=== PATIENT | female | born 1940 | race Caucasian/White ===

== ENCOUNTER 2016-12-01 10:53 | Outpatient (RCR) | payer MEDICARE ==
--- OUTSIDE RECORDS SUMMARY | 2016-09-08 11:08 | XMS REPORT | Continuity of Care Document ---
Author Author [facility] Organization [facility] Address Unknown Phone Unavailable Care Team Providers Care Renewals Representative Name Role Phone Cornell Louie PCP [phone] Source Comments Some departments are not documenting in the electronic medical record. If you do not see the information that you expected, contact Release of Information in the Health Information Management department at [phone] for further assistance in locating additional records.[facility] Active Allergies and Adverse Reactions Allergen Noted Date Severity Reactions Comments Morphine 09/11/2014 AGITATION Current Medications Prescription Sig. Disp. Refills Start End Date Status Date levothyroxine (SYNTHROID) Take 75 mcg by mouth Active 75 mcg tablet daily. venlafaxine XR (EFFEXOR Take 75 mg by mouth Active XR) 75 mg capsule daily. metFORMIN (GLUCOPHAGE) Take 1,000 mg by mouth Active 500 mg tablet twice daily with meals. atorvastatin (LIPITOR) 80 Take 80 mg by mouth Active mg tablet daily. cyanocobalamin (VITAMIN Inject 1,000 mcg to Active B-12, RUBRAMIN) 1,000 area(s) as directed every mcg/mL injection 30 days. aspirin EC 81 mg tablet Take 81 mg by mouth at Active bedtime daily. acetaminophen (TYLENOL) Take 650 mg by mouth Active 325 mg tablet every 4 hours as needed. For headache apixaban (ELIQUIS) 5 mg Take 5 mg by mouth twice Active tab tablet daily. metoprolol (LOPRESSOR) 50 Take 1 Tab by mouth twice 30 Tab 0 09/14/20 Active mg tablet daily. 14 allopurinol (ZYLOPRIM) Take 100 mg by mouth Active 100 mg tablet daily. olmesartan(+) (BENICAR) Take 20 mg by mouth Active 20 mg tablet daily. gabapentin (NEURONTIN) Take 300 mg by mouth Active 300 mg capsule daily. sitaGLIPtin (JANUVIA) 100 Take 100 mg by mouth Active mg tab tablet daily. insulin glargine (LANTUS) Inject 35 Units into Active 100 unit/mL injection area(s) as directed at bedtime daily. insulin aspart (NOVOLOG) Inject into area(s) as Active 100 unit/mL injection directed as Needed. LIRAGLUTIDE (VICTOZA Inject 1.2 mL into Active 3-EDDIE SC) area(s) as directed daily. Active Problems Problem Noted Date Bilateral carotid artery disease ([facility]) 06/11/2015 S/P carotid endarterectomy 10/17/2014 Atrial fibrillation ([facility]) 10/17/2014 HTN (hypertension) 10/17/2014 DM (diabetes mellitus) ([facility]) 10/17/2014 Morbid obesity ([facility]) 09/20/2014 Left-sided weakness 09/11/2014 Acute ischemic left MCA stroke ([facility]) 09/11/2014 Overview: RUE weakness/numbness. Initially resolved but has since experienced staggering symptoms involving her RUE. Multi focal infarcts within the L MCA watershed territory. Patient was anticoagulated 2/2 A-Fib during stroke. Concern for ulcerated plaque within L Carotid Artery Social History Tobacco Use Types Packs/Day Years Used Date Former Smoker Cigarettes 2 60 Quit: 11/07/1995 Last Filed Vital Signs Vital Sign Reading Time Taken Blood Pressure 154/61 09/10/2015 2:01 PM LACTATION SPECIALIST Pulse 83 09/10/2015 2:01 PM LACTATION SPECIALIST Temperature 36.7 C (98 F) 09/10/2015 2:01 PM LACTATION SPECIALIST Respiratory Rate 16 09/10/2015 2:01 PM LACTATION SPECIALIST Height 1.588 m (5' 2.52") 09/10/2015 2:01 PM LACTATION SPECIALIST Weight 104.599 kg (230 lb 9.6 09/10/2015 2:01 PM LACTATION SPECIALIST oz) Body Mass Index 41.48 09/10/2015 2:01 PM LACTATION SPECIALIST Oxygen Saturation 96% 09/14/2014 7:00 AM LACTATION SPECIALIST Plan of Care Date Type Specialty Providers Description 10/06/2016 Appointment General Surgery 10/06/2016 Appointment General Surgery Koko Valdez MD [address] [facility] [address] [place] [address] [phone] (Fax) Health Maintenance Due Date Last Done Comments Physical (Comprehensive) 1947 Exam Pertussis Vaccine 1952 Tetanus Vaccine 1958 Colorectal Cancer 1991 Screening Shingles Vaccine 2001 Osteoporosis Screening 2006 Prevnar/Pneumovax (#1) 2006 Influenza Vaccine 07/08/2016 Results from Last 3 Months Not on file
[~2016-12-01 10:53] MED LIST: ACET-789 PO; ALLP100T PO; ASP81TEC PO; ATOR40TA PO; ATOR80TA75 PO; CYANOCOBALAMIN INJ 1000 MCG/ML (CANCER CENTER) ONE; ENXP40I.4 SC; FERR-57 PO; FRSM40T PO; GBPN300C PO; GLBR2.5T PO; GLYB5TAB6 PO; HYDR-3583 PO; Iron PO; LEVO75TA57 PO; LOPE2CAP PO; METF-380 PO; METO-272 PO; MTF500T PO; MTP50T PO; MULT1TAB63 PO; OLME20TA5 PO; OMEP40CA36 PO; OMG1KC PO; PANT40TA PO; PROP1TAB77; VENL75CA55 PO; VNL75T PO; WRF5T PO; cinnamon PO; iron
== END 2016-12-07 | disposition home or self-care (01) ==
LOC: ONC 10:53
PROVIDERS: ATTEND Internal Medicine Hematology & Oncology
DX: D51.9 Vitamin B12 deficiency anemia, unspecified (principal); Z79.899 Other long term (current) drug therapy
CPT/HCPCS: 96372

== ENCOUNTER 2017-04-20 10:55 | Outpatient (RCR) | payer MEDICARE ==
[2017-04-20] MEDS ORDERED: CYANOCOBALAMIN INJ 1000 MCG/ML (CANCER CENTER) ONE (10:57)
== END 2017-05-05 | disposition home or self-care (01) ==
LOC: ONC 10:55
PROVIDERS: ATTEND Internal Medicine Hematology & Oncology
DX: D51.9 Vitamin B12 deficiency anemia, unspecified (principal); Z79.899 Other long term (current) drug therapy
CPT/HCPCS: 96372

== ENCOUNTER 2017-07-13 12:45 | Outpatient (RCR) | payer MEDICARE ==
[2017-07-13 13:15] LABS: BASOPHILS # (AUTO) 0.1 10^3/uL (0.0-0.1); BASOPHILS % (AUTO) 1 % (0-10); EOSINOPHILS # (AUTO) 0.6 10^3/uL (0.0-0.3); EOSINOPHILS % (AUTO) 7 % (0-10); LYMPHOCYTES # (AUTO) 1.6 X 10^3 (1.0-4.0); LYMPHOCYTES % (AUTO) 18 % (12-44); MEAN CORPUSCULAR HEMOGLOBIN 27 PG (25-34); MEAN CORPUSCULAR HGB CONC 31 G/DL (32-36); MEAN CORPUSCULAR VOLUME 88 FL (80-99); MEAN PLATELET VOLUME 10.9 FL (7.4-10.4); MONOCYTES # (AUTO) 0.8 X 10^3 (0.0-1.0); MONOCYTES % (AUTO) 9 % (0-12); NEUTROPHILS % (AUTO) 66 % (42-75); PLATELET COUNT 381 10^3/uL (130-400); RED BLOOD COUNT 4.24 10^6/uL (4.35-5.85); RED CELL DISTRIBUTION WIDTH 15.5 % (10.0-14.5); WHITE BLOOD COUNT 9.2 10^3/uL (4.3-11.0)
[2017-07-13 13:35] LABS: ALBUMIN 3.6 GM/DL (3.2-4.5); BILIRUBIN,TOTAL 0.6 MG/DL (0.1-1.0); CALCIUM 9.2 MG/DL (8.5-10.1); CREATININE SERUM 1.15 MG/DL (0.60-1.30); POTASSIUM 4.1 MMOL/L (3.6-5.0)
[2017-07-13] MEDS ORDERED: CYANOCOBALAMIN INJ 1000 MCG/ML (CANCER CENTER) ONE (13:58)
[2017-07-14 01:02] LABS: LIGHT CHAIN KAPPA SERUM QUANT 56.41 mg/L (3.30-19.40); LIGHT CHAIN LAMBDA SERUM QUANT 32.67 mg/L (5.71-26.30)
== END 2017-08-06 | disposition home or self-care (01) ==
LOC: ONC 12:45
PROVIDERS: ATTEND Internal Medicine Hematology & Oncology
DX: D51.9 Vitamin B12 deficiency anemia, unspecified (principal); Z79.899 Other long term (current) drug therapy
CPT/HCPCS: 36415; 80053; 83883; 83921; 85025; 96372

== ENCOUNTER 2017-11-02 10:54 | Outpatient (RCR) | payer MEDICARE ==
[2017-11-02] MEDS ORDERED: CYANOCOBALAMIN INJ 1000 MCG/ML (CANCER CENTER) ONE (10:59)
== END 2017-11-08 | disposition home or self-care (01) ==
LOC: ONC 10:54
PROVIDERS: ATTEND Internal Medicine Hematology & Oncology
DX: D51.9 Vitamin B12 deficiency anemia, unspecified (principal); Z79.899 Other long term (current) drug therapy
CPT/HCPCS: 96372

== ENCOUNTER → 2018-02-21 | Outpatient (CLI) | payer MEDICARE ==
[~2018-02-21] MED LIST changes: -CYANOCOBALAMIN INJ 1000 MCG/ML (CANCER CENTER) ONE
--- NOTE | 2018-02-21 10:34 | Diagnostic Imaging Report ---
INDICATION: Increased shortness of air at times during the past month. Weight gain. TECHNIQUE: Two view chest at 10:31 AM. CORRELATION STUDY: 02/19/2013. FINDINGS: The heart size is enlarged but generally stable. The vasculature, however, appears increased from the prior study. The lung sánchez are without definitive infiltrate. Slight nodular density about the right lung base costophrenic angle appears generally stable. A nodule in the lower thoracic spine may be reflective of a granuloma, unchanged. The visualized osseous structures are unremarkable. IMPRESSION: Stable cardiac enlargement with the vasculature increased from the prior study. Dictated by: Dictated on workstation # [id number]
== END ==
LOC: RAD 09:57
PROVIDERS: ATTEND Family Medicine
DX: I51.7 Cardiomegaly (principal); I25.10 Atherosclerotic heart disease of native coronary artery without angina pectoris; R63.5 Abnormal weight gain
CPT/HCPCS: 36415; 71046; 83880

== ENCOUNTER 2018-06-07 11:01 | Outpatient (RCR) | payer MEDICARE ==
[~2018-06-07 11:01] MED LIST changes: +CYANOCOBALAMIN INJ 1000 MCG/ML (CANCER CENTER) ONE
[2018-06-07] MEDS ORDERED: CYANOCOBALAMIN INJ 1000 MCG/ML (CANCER CENTER) ONE (11:17)
== END 2018-06-20 | disposition home or self-care (01) ==
LOC: ONC 11:01
PROVIDERS: ATTEND Internal Medicine Hematology & Oncology
DX: D51.9 Vitamin B12 deficiency anemia, unspecified (principal); Z79.899 Other long term (current) drug therapy
CPT/HCPCS: 96372

== ENCOUNTER 2018-07-12 13:38 | Outpatient (RCR) | payer MEDICARE ==
[~2018-07-12 13:38] MED LIST changes: -CYANOCOBALAMIN INJ 1000 MCG/ML (CANCER CENTER) ONE
[2018-07-12 13:41] LABS: BASOPHILS # (AUTO) 0.1 10^3/uL (0.0-0.1); BASOPHILS % (AUTO) 1 % (0-10); EOSINOPHILS # (AUTO) 0.5 10^3/uL (0.0-0.3); EOSINOPHILS % (AUTO) 6 % (0-10); HEMATOCRIT 36 % (35-52); HEMOGLOBIN 11.7 G/DL (11.5-16.0); LYMPHOCYTES # (AUTO) 1.7 X 10^3 (1.0-4.0); LYMPHOCYTES % (AUTO) 18 % (12-44); MEAN CORPUSCULAR HEMOGLOBIN 29 PG (25-34); MEAN CORPUSCULAR HGB CONC 32 G/DL (32-36); MEAN CORPUSCULAR VOLUME 90 FL (80-99); MEAN PLATELET VOLUME 11.3 FL (7.4-10.4); MONOCYTES # (AUTO) 0.7 X 10^3 (0.0-1.0); MONOCYTES % (AUTO) 7 % (0-12); NEUTROPHILS # (AUTO) 6.6 X 10^3 (1.8-7.8); NEUTROPHILS % (AUTO) 69 % (42-75); PLATELET COUNT 362 10^3/uL (130-400); RED BLOOD COUNT 4.05 10^6/uL (4.35-5.85); RED CELL DISTRIBUTION WIDTH 15.5 % (10.0-14.5); WHITE BLOOD COUNT 9.6 10^3/uL (4.3-11.0)
[2018-07-12] MEDS ORDERED: CYANOCOBALAMIN INJ 1000 MCG/ML (CANCER CENTER) ONE (13:55)
[2018-07-12 14:01] LABS: ALBUMIN 3.7 GM/DL (3.2-4.5); BILIRUBIN,TOTAL 0.4 MG/DL (0.1-1.0); CALCIUM 9.5 MG/DL (8.5-10.1); CREATININE SERUM 1.34 MG/DL (0.60-1.30); POTASSIUM 4.6 MMOL/L (3.6-5.0); TOTAL PROTEIN 7.9 GM/DL (6.4-8.2)
== END 2018-08-06 | disposition home or self-care (01) ==
LOC: ONC 13:38
PROVIDERS: ATTEND Internal Medicine Hematology & Oncology
DX: D51.8 Other vitamin B12 deficiency anemias (principal); I48.2 Chronic atrial fibrillation; E11.22 Type 2 diabetes mellitus with diabetic chronic kidney disease; I12.9 Hypertensive chronic kidney disease with stage 1 through stage 4 chronic kidney disease, or unspecified chronic kidney disease; N18.3 Chronic kidney disease, stage 3 (moderate); I25.10 Atherosclerotic heart disease of native coronary artery without angina pectoris; K21.9 Gastro-esophageal reflux disease without esophagitis; E78.00 Pure hypercholesterolemia, unspecified; E03.9 Hypothyroidism, unspecified; M19.91 Primary osteoarthritis, unspecified site; E66.01 Morbid (severe) obesity due to excess calories; Z68.41 Body mass index [BMI] 40.0-44.9, adult; Z86.73 Personal history of transient ischemic attack (TIA), and cerebral infarction without residual deficits; Z79.01 Long term (current) use of anticoagulants; Z79.82 Long term (current) use of aspirin; Z79.4 Long term (current) use of insulin; Z79.899 Other long term (current) drug therapy
CPT/HCPCS: 36415; 80053; 85025; 96372

== ENCOUNTER 2018-10-04 10:58 | Outpatient (RCR) | payer MEDICARE ==
[~2018-10-04 10:58] MED LIST changes: +CYANOCOBALAMIN INJ 1000 MCG/ML (CANCER CENTER) ONE
[2018-10-04] MEDS ORDERED: CYANOCOBALAMIN INJ 1000 MCG/ML (CANCER CENTER) ONE (11:07)
== END 2018-11-07 | disposition home or self-care (01) ==
LOC: ONC 10:58
PROVIDERS: ATTEND Internal Medicine Hematology & Oncology
DX: D51.8 Other vitamin B12 deficiency anemias (principal); I48.2 Chronic atrial fibrillation; E11.22 Type 2 diabetes mellitus with diabetic chronic kidney disease; I12.9 Hypertensive chronic kidney disease with stage 1 through stage 4 chronic kidney disease, or unspecified chronic kidney disease; N18.3 Chronic kidney disease, stage 3 (moderate); I25.10 Atherosclerotic heart disease of native coronary artery without angina pectoris; K21.9 Gastro-esophageal reflux disease without esophagitis; E78.00 Pure hypercholesterolemia, unspecified; E03.9 Hypothyroidism, unspecified; M19.91 Primary osteoarthritis, unspecified site; E66.01 Morbid (severe) obesity due to excess calories; Z68.41 Body mass index [BMI] 40.0-44.9, adult; Z86.73 Personal history of transient ischemic attack (TIA), and cerebral infarction without residual deficits; Z79.01 Long term (current) use of anticoagulants; Z79.82 Long term (current) use of aspirin; Z79.4 Long term (current) use of insulin; Z79.899 Other long term (current) drug therapy
CPT/HCPCS: 96372

== ENCOUNTER → 2018-10-20 | Outpatient (CLI) | payer MEDICARE ==
[~2018-10-20] MED LIST changes: -CYANOCOBALAMIN INJ 1000 MCG/ML (CANCER CENTER) ONE
--- NOTE | 2018-10-20 13:21 | Diagnostic Imaging Report ---
PROCEDURE: MRI lumbar spine. TECHNIQUE: Multiplanar, multisequence MRI of the lumbar spine was performed without contrast. INDICATION: Low back pain, right leg pain, symptoms of 6 weeks' duration with no known discrete injury. COMPARISON: While no priors available for direct comparison, the study interpreted in correlation with abdominopelvic CT which includes sagittal and coronal reconstructions from an exam of 2007. FINDINGS: Since the previous exam, there has been interval solid fusion across the L4-L5 level with chronic grade 1 L4 on L5 anterolisthesis of about 5 mm. The remaining levels are aligned anatomically. There is no marrow edema. Conus appeared normal. The nerves of the cauda equina revealed a normal pattern of dispersal. There was no paravertebral mass, hemorrhage, or fluid collection. T12-L1: This level and disc were unremarkable without stenosis. L1-L2: Slight anterior osteophyte disc material at this level results in no stenosis. L2-L3: Mild anterior osteophyte disc material results in no stenosis. There is some thickening of the ligamenta flava and mild hypertrophic facet arthrosis. No substantial canal, foraminal, or recess narrowing. L3-L4: There is thickened elevated ligamenta flava and hypertrophic facet arthrosis. The disc shows only slight circumferential bulge. There is mild canal stenosis, predominantly on the basis of the posterior element hypertrophy which also results in mild right greater than left foraminal stenoses. L4-L5: Bulky hypertrophic facet arthrosis, endplate osteophytes, and ligamentous thickening conspire to result in severe central canal stenosis with [id number] right and yprk-jl-[id number] left foraminal stenosis. Facet arthrosis results in an at least mild degree of narrowing of the AP dimensions of the bilateral lateral recesses at L5. L5-S1: There is thickening of the ligament flava and hypertrophic facet arthrosis, resulting in no substantial degree of canal, foraminal, or recess stenosis. IMPRESSION: 1. 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 Malalignment, endplate hypertrophy, and posterior element hypertrophy with ligamentous thickening result in severe canal and biforaminal stenosis. 2. More mild stenoses listed level by level above. No acute bony pathology. Dictated by: Dictated on workstation # [id number]
== END ==
LOC: RAD 11:29
PROVIDERS: ATTEND Family Medicine
DX: M43.16 Spondylolisthesis, lumbar region (principal); M48.061 Spinal stenosis, lumbar region without neurogenic claudication; M47.817 Spondylosis without myelopathy or radiculopathy, lumbosacral region; M25.78 Osteophyte, vertebrae; Z98.1 Arthrodesis status
CPT/HCPCS: 72148

== ENCOUNTER 2019-01-05 09:12 | Outpatient (RCR) | payer MEDICARE | END 2019-01-05 10:10 | disposition home or self-care (01) | PROVIDERS: ATTEND Family Medicine | DX: M54.31 Sciatica, right side (principal) ==

== ENCOUNTER 2019-02-21 11:02 | Outpatient (RCR) | payer MEDICARE ==
[~2019-02-21 11:02] MED LIST changes: +CYANOCOBALAMIN INJ 1000 MCG/ML (CANCER CENTER) ONE
[2019-02-21] MEDS ORDERED: CYANOCOBALAMIN INJ 1000 MCG/ML (CANCER CENTER) ONE (11:18)
== END 2019-02-27 | disposition home or self-care (01) ==
LOC: ONC 11:02
PROVIDERS: ATTEND Internal Medicine Hematology & Oncology
DX: D51.8 Other vitamin B12 deficiency anemias (principal); I48.2 Chronic atrial fibrillation; E11.22 Type 2 diabetes mellitus with diabetic chronic kidney disease; I12.9 Hypertensive chronic kidney disease with stage 1 through stage 4 chronic kidney disease, or unspecified chronic kidney disease; N18.3 Chronic kidney disease, stage 3 (moderate); I25.10 Atherosclerotic heart disease of native coronary artery without angina pectoris; K21.9 Gastro-esophageal reflux disease without esophagitis; E78.00 Pure hypercholesterolemia, unspecified; E03.9 Hypothyroidism, unspecified; M19.91 Primary osteoarthritis, unspecified site; E66.01 Morbid (severe) obesity due to excess calories; Z68.41 Body mass index [BMI] 40.0-44.9, adult; Z86.73 Personal history of transient ischemic attack (TIA), and cerebral infarction without residual deficits; Z79.01 Long term (current) use of anticoagulants; Z79.82 Long term (current) use of aspirin; Z79.4 Long term (current) use of insulin; Z79.899 Other long term (current) drug therapy
CPT/HCPCS: 96372

== ENCOUNTER → 2019-04-05 | Outpatient (CLI) | payer MEDICARE ==
[~2019-04-05] MED LIST changes: -CYANOCOBALAMIN INJ 1000 MCG/ML (CANCER CENTER) ONE
== END ==
LOC: LAB 14:13
PROVIDERS: ATTEND Family Medicine
DX: E11.65 Type 2 diabetes mellitus with hyperglycemia (principal)
CPT/HCPCS: 36415; 82043

== ENCOUNTER 2019-06-13 11:05 | Outpatient (RCR) | payer MEDICARE ==
[~2019-06-13 11:05] MED LIST changes: +CYANOCOBALAMIN INJ 1000 MCG/ML (CANCER CENTER) ONE
[2019-06-13] MEDS ORDERED: CYANOCOBALAMIN INJ 1000 MCG/ML (CANCER CENTER) ONE (11:08)
== END 2019-06-21 | disposition home or self-care (01) ==
LOC: ONC 11:05
PROVIDERS: ATTEND Internal Medicine Hematology & Oncology
DX: D51.8 Other vitamin B12 deficiency anemias (principal); I48.2 Chronic atrial fibrillation; E11.22 Type 2 diabetes mellitus with diabetic chronic kidney disease; I12.9 Hypertensive chronic kidney disease with stage 1 through stage 4 chronic kidney disease, or unspecified chronic kidney disease; N18.3 Chronic kidney disease, stage 3 (moderate); I25.10 Atherosclerotic heart disease of native coronary artery without angina pectoris; K21.9 Gastro-esophageal reflux disease without esophagitis; E78.00 Pure hypercholesterolemia, unspecified; E03.9 Hypothyroidism, unspecified; M19.91 Primary osteoarthritis, unspecified site; E66.01 Morbid (severe) obesity due to excess calories; Z68.41 Body mass index [BMI] 40.0-44.9, adult; Z86.73 Personal history of transient ischemic attack (TIA), and cerebral infarction without residual deficits; Z79.01 Long term (current) use of anticoagulants; Z79.82 Long term (current) use of aspirin; Z79.4 Long term (current) use of insulin; Z79.899 Other long term (current) drug therapy
CPT/HCPCS: 96372

== ENCOUNTER 2019-10-03 08:32 | Outpatient (RCR) | payer MEDICARE ==
[2019-07-11 10:43] LABS: BASOPHILS # (AUTO) 0.1 10^3/uL (0.0-0.1); BASOPHILS % (AUTO) 1 % (0-10); EOSINOPHILS # (AUTO) 0.7 10^3/uL (0.0-0.3); EOSINOPHILS % (AUTO) 7 % (0-10); HEMATOCRIT 38 % (35-52); HEMOGLOBIN 11.7 G/DL (11.5-16.0); LYMPHOCYTES # (AUTO) 1.5 X 10^3 (1.0-4.0); LYMPHOCYTES % (AUTO) 14 % (12-44); MEAN CORPUSCULAR HEMOGLOBIN 27 PG (25-34); MEAN CORPUSCULAR HGB CONC 31 G/DL (32-36); MEAN CORPUSCULAR VOLUME 88 FL (80-99); MEAN PLATELET VOLUME 10.8 FL (7.4-10.4); MONOCYTES # (AUTO) 0.9 X 10^3 (0.0-1.0); MONOCYTES % (AUTO) 9 % (0-12); NEUTROPHILS # (AUTO) 7.2 X 10^3 (1.8-7.8); NEUTROPHILS % (AUTO) 69 % (42-75); PLATELET COUNT 447 10^3/uL (130-400); RED CELL DISTRIBUTION WIDTH 15.7 % (10.0-14.5); WHITE BLOOD COUNT 10.4 10^3/uL (4.3-11.0)
[2019-07-11 11:09] LABS: ALBUMIN 3.8 GM/DL (3.2-4.5); BILIRUBIN,TOTAL 0.6 MG/DL (0.1-1.0); CALCIUM 9.3 MG/DL (8.5-10.1); CREATININE SERUM 1.02 MG/DL (0.60-1.30); TOTAL PROTEIN 8.3 GM/DL (6.4-8.2)
== END 2019-10-09 | disposition home or self-care (01) ==
LOC: ONC 08:32
PROVIDERS: ATTEND Internal Medicine Hematology & Oncology
DX: D51.8 Other vitamin B12 deficiency anemias (principal); E11.22 Type 2 diabetes mellitus with diabetic chronic kidney disease; I12.9 Hypertensive chronic kidney disease with stage 1 through stage 4 chronic kidney disease, or unspecified chronic kidney disease; N18.3 Chronic kidney disease, stage 3 (moderate); I25.10 Atherosclerotic heart disease of native coronary artery without angina pectoris; K21.9 Gastro-esophageal reflux disease without esophagitis; E78.00 Pure hypercholesterolemia, unspecified; E03.9 Hypothyroidism, unspecified; M19.91 Primary osteoarthritis, unspecified site; E66.01 Morbid (severe) obesity due to excess calories; Z68.41 Body mass index [BMI] 40.0-44.9, adult; Z86.73 Personal history of transient ischemic attack (TIA), and cerebral infarction without residual deficits; Z79.01 Long term (current) use of anticoagulants; Z79.82 Long term (current) use of aspirin; Z79.4 Long term (current) use of insulin; Z79.899 Other long term (current) drug therapy
CPT/HCPCS: 36415; 80053; 83883; 83921; 85025; 96372

== ENCOUNTER 2020-01-08 11:22 | Outpatient (RCR) | payer MEDICARE | END 2020-04-07 | disposition home or self-care (01) | LOC: ONC 11:22 | PROVIDERS: ATTEND Internal Medicine Hematology & Oncology | DX: D51.8 Other vitamin B12 deficiency anemias (principal); E11.22 Type 2 diabetes mellitus with diabetic chronic kidney disease; I12.9 Hypertensive chronic kidney disease with stage 1 through stage 4 chronic kidney disease, or unspecified chronic kidney disease; N18.3 Chronic kidney disease, stage 3 (moderate); I25.10 Atherosclerotic heart disease of native coronary artery without angina pectoris; K21.9 Gastro-esophageal reflux disease without esophagitis; E78.00 Pure hypercholesterolemia, unspecified; E03.9 Hypothyroidism, unspecified; M19.91 Primary osteoarthritis, unspecified site; E66.01 Morbid (severe) obesity due to excess calories; Z68.41 Body mass index [BMI] 40.0-44.9, adult; Z86.73 Personal history of transient ischemic attack (TIA), and cerebral infarction without residual deficits; Z79.01 Long term (current) use of anticoagulants; Z79.82 Long term (current) use of aspirin; Z79.4 Long term (current) use of insulin; Z79.899 Other long term (current) drug therapy | CPT/HCPCS: 96372 ==

== ENCOUNTER 2020-02-03 14:28 | Emergency (ER) | payer MEDICARE ==
[~2020-02-03] VITALS: Ht 160 cm; Wt 102.1 kg
[~2020-02-03 14:28] MED LIST changes: -CYANOCOBALAMIN INJ 1000 MCG/ML (CANCER CENTER) ONE
--- NOTE | 2020-02-03 14:33 | ED Neurological Problem ---
General Chief Complaint: Neuro-Stroke Like Symptoms Stated Complaint: POSS STROKE Source: patient Exam Limitations: no limitations History of Present Illness Date Seen by Provider: Feb 03, 2020 Time Seen by Provider: 14:33 Initial Comments 79-year-old female brought in with headache. Headache located on the left side I. She also complains of what she is describing as word finding difficulty. Head or having difficulty getting words out. She reports that started after lunch maybe 2-3 hours ago. She states she felt a "pop" behind her left eye. She denies any nausea vomiting fevers chills shortness of breath, chest pain or any other systemic complaints. She reports she has a history of a previous stroke. She denies a previous history of recurrent headaches. Allergies and Home Medications Allergies Coded Allergies: No Known Drug Allergies (Unverified , 02/19/13) Home Medications Allopurinol 100 Mg Tab, 100 MG PO BID, (Reported) Aspirin 81 Mg Tabec, 81 MG PO DAILY, (Reported) Atorvastatin Calcium 80 Mg Tablet, 80 MG PO DAILY, (Reported) Enoxaparin 40 Mg/0.4 Ml Soln, 40 MG SC DAILY, (Reported) Ferrous Sulfate 325 Mg Tablet, 650 MG PO DAILY, (Reported) TAKES 2 TABS IN MORNING AND 1 TAB AT BEDTIME Ferrous Sulfate 325 Mg Tablet, 325 MG PO HS, (Reported) TAKES 2 TABS IN MORNING AND 1 TAB AT BEDTIME Gabapentin 300 Mg Cap, 300 MG PO DAILY, (Reported) Glyburide 5 Mg Tablet, 5 MG PO DAILY, (Reported) Hydrocodone Bit/Acetaminophen 1 Tab Tab, 1 EA PO Q8H PRN, (Reported) Levothyroxine Sodium 75 Mcg Tablet, 75 MCG PO DAILY, (Reported) Metformin Hcl 500 Mg Tablet, 1,000 MG PO BID WITH MEALS, (Reported) Metoprolol Succinate 50 Mg Tab.sr.24h, 100 MG PO DAILY, (Reported) TAKES 100MG IN MORNING AND 50 MG AT BEDTIME Metoprolol Succinate 50 Mg Tab.sr.24h, 50 MG PO HS, (Reported) TAKES 100MG IN MORNING AND 50 MG AT BEDTIME Olmesartan Medoxomil 20 Mg Tablet, 20 MG PO DAILY, (Reported) Pantoprazole Sodium 40 Mg Tablet.dr, 40 MG PO DAILY, (Reported) Venlafaxine Hcl 75 Mg Cap.sr.24h, 75 MG PO DAILY, (Reported) Warfarin Sod 5 Mg Tab, 5 MG PO JOINER, MO, TU, WE, FR, (Reported) Take 5 mgs five days a week. Take 7.5 mgs two days a week. Warfarin Sodium 5 Mg Tablet, 7.5 MG PO SAT, , (Reported) Patient Home Medication List Home Medication List Reviewed: Yes Review of Systems Review of Systems Constitutional: No chills, No dizziness, No fever Eyes: Denies Blindness, Denies Blurred Vision, Denies Photophobia Respiratory: No cough, No short of breath Cardiovascular: No chest pain, No palpitations Gastrointestinal: no symptoms reported Genitourinary: no symptoms reported Musculoskeletal: no symptoms reported Skin: no symptoms reported Psychiatric/Neurological: No Symptoms Reported Hematologic/Lymphatic: No Symptoms Reported Past Ndbdpzo-Zfugtu-Ioqzrl Hx Past Med/Social Hx: Reviewed Nursing Past Med/Soc Hx Immunizations Up To Date Date of Pneumonia Vaccine: Aug 07, 2012 Date of Influenza Vaccine: Aug 09, 2011 Past Medical History Heart Attack, High Cholesterol, Hypertension 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 Disorders: No Arthritis Hypothyroidsim, Diabetes, Non-Insulin dep Physical Exam Vital Signs Vital Signs - First Documented 02/03/20 14:30 Temp 36.6 Pulse 97 Resp 20 B/P (MAP) 187/120 (142) Pulse Ox 97 O2 Delivery Room Air Capillary Refill : Height, Weight, BMI Height: 5'3.00" Weight: 225lbs. oz. 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, no motor/sensory deficits, alert, normal mood/affect, oriented x 3 Crainal Nerves: No abnormal speech, No facial droop, No facial paresthesias, No facial weakness Coordination/Gait: normal finger to nose, normal gait Motor/Sensory: no motor deficit, no sensory deficit, no pronator drift Skin: normal color, warm/dry Progress/Results/Core Measures Results/Orders Lab Results Laboratory Tests Test 02/03/20 14:38 02/03/20 14:40 Range/Units White Blood Count 10.5 4.3-11.0 10^3/uL Red Blood Count 4.87 4.35-5.85 10^6/uL Hemoglobin 12.1 11.5-16.0 G/DL Hematocrit 40 35-52 % Mean Corpuscular Volume 82 80-99 FL Mean Corpuscular Hemoglobin 25 25-34 PG Mean Corpuscular Hemoglobin Concent 30 L 32-36 G/DL Red Cell Distribution Width 16.5 H 10.0-14.5 % Platelet Count 437 H 130-400 10^3/uL Mean Platelet Volume 10.7 H 7.4-10.4 FL Neutrophils (%) (Auto) 75 42-75 % Lymphocytes (%) (Auto) 14 12-44 % Monocytes (%) (Auto) 7 0-12 % Eosinophils (%) (Auto) 4 0-10 % Basophils (%) (Auto) 1 0-10 % Neutrophils # (Auto) 7.8 1.8-7.8 X 10^3 Lymphocytes # (Auto) 1.5 1.0-4.0 X 10^3 Monocytes # (Auto) 0.7 0.0-1.0 X 10^3 Eosinophils # (Auto) 0.4 H 0.0-0.3 10^3/uL Basophils # (Auto) 0.1 0.0-0.1 10^3/uL Erythrocyte Sedimentation Rate 47 H 0-30 MM/HR Prothrombin Time 15.5 H 12.2-14.7 SEC INR Comment 1.2 0.8-1.4 Activated Partial Thromboplast Time 37 H 24-35 SEC D-Dimer < 0.27 0.00-0.49 UG/ML Sodium Level 137 135-145 MMOL/L Potassium Level 4.6 3.6-5.0 MMOL/L Chloride Level 103 98-107 MMOL/L Carbon Dioxide Level 23 21-32 MMOL/L Anion Gap 11 5-14 MMOL/L Blood Urea Nitrogen 17 7-18 MG/DL Creatinine 1.26 0.60-1.30 MG/DL Estimat Glomerular Filtration Rate 41 BUN/Creatinine Ratio 13 Glucose Level 128 H 70-105 MG/DL Calcium Level 9.3 8.5-10.1 MG/DL Corrected Calcium 9.5 8.5-10.1 MG/DL Total Bilirubin 0.6 0.1-1.0 MG/DL Aspartate Amino Transf (AST/SGOT) 19 5-34 U/L Alanine Aminotransferase (ALT/SGPT) 9 0-55 U/L Alkaline Phosphatase 133 40-136 U/L Troponin I < 0.028 <0.028 NG/ML Total Protein 8.4 H 6.4-8.2 GM/DL Albumin 3.8 3.2-4.5 GM/DL Glucometer 116 H 70-110 MG/DL My Orders Orders - CLEANING,ANTHONY L DO Cbc With Automated Diff (02/03/20 14:33) Protime With Inr (02/03/20 14:33) Partial Thromboplastin Time (02/03/20 14:33) Comprehensive Metabolic Panel (02/03/20 14:33) Fibrin Degradation Products (02/03/20 14:33) Troponin I (02/03/20 14:33) Ua Culture If Indicated (02/03/20 14:33) Chest 1 View, Ap/Pa Only (02/03/20 14:33) Ekg Tracing (02/03/20 14:33) Nothing By Mouth (02/03/20 Dinner) Accucheck Stat ONCE (02/03/20 14:33) Ed Iv/Invasive Line Start (02/03/20 14:33) Vital Signs Stroke Patient Q15M (02/03/20 14:33) Ct Head Wo-R/O Stroke (02/03/20 14:33) Intake & Output 06,14,22 (02/03/20 14:33) Monitor-Rhythm Ecg Trace Only (02/03/20 14:33) Dysphagia Screening Tool (02/03/20 14:33) Lipid Panel (02/04/20 06:00) Erythrocyte Sedimentation Rate (02/03/20 14:46) Ketorolac Injection (Toradol Injection) (02/03/20 15:24) Methylprednisolone Sod Succ (Solu-Medrol (02/03/20 15:30) Metoprolol Tartrate Injection (Lopressor (02/03/20 16:00) Medications Given in ED Current Medications Medications Dose Ordered Sig/Tay Route Start Time Stop Time Status Last Admin Dose Admin Methylprednisolone Sodium Succinate 80 mg ONCE ONCE IV 02/03/20 15:30 02/03/20 15:31 DC 02/03/20 15:47 80 MG Metoprolol Tartrate 5 mg ONCE ONCE IV 02/03/20 16:00 02/03/20 16:02 DC 02/03/20 16:15 5 MG Vital Signs/I&O 02/03/20 14:30 Temp 36.6 Pulse 97 Resp 20 B/P (MAP) 187/120 (142) Pulse Ox 97 O2 Delivery Room Air Progress Progress Note : Time: 16:32 Progress Note Patient with no symptoms while here in the ER. Patient with a NIH of 0. Patient's symptoms improved following the Toradol and steroid. Patient later in the visit is getting ready to discharge states that she often gets a "aura" on the left side of her head in this area but this is a little bit worse. Patient also reports she's had some migraine type symptoms. I did discuss with her that this could be migraine with aura in nature that could cause her symptoms. However I recommend she follows up with her primary care provider for further outpatient TIA workup. Patient does not want admission for further TIA workup at this time which I agree with in light of the current Vu virus pandemic and higher risk of being in the hospital versus at home. Initial ECG Impression Date: Feb 03, 2020 Initial ECG Impression Time: 14:32 Initial ECG Rhythm: A Fib/Flutter Initial ECG Impression: Atrial Fibrillation Diagnostic Imaging Diagonstic Imaging: Xray, CT Plain Films/CT/US/NM/MRI: chest, head Comments [place] NAME: GOLDY SHIPLEY [employer] REC#: [id number] PT STATUS: REG ER : 1940 PHYSICIAN: ANTHONY CLEANING DO ADMIT DATE: 02/03/20/ER Draft Date of Exam:02/03/20 CT HEAD WO-R/O STROKE PROCEDURE: CT head wo r/o stroke. TECHNIQUE: Multiple contiguous axial images were obtained through the brain without the use of intravenous contrast. Auto Exposure Controls were utilized during the CT exam to meet ALARA standards for radiation dose reduction. INDICATION: Left eye pain. History of strokes. Left carotid surgery. Speech difficulties. COMPARISON: 07/26/2013. FINDINGS: Moderate generalized cerebral and cerebellar parenchymal volume loss. Moderate leukoaraiosis. No CT evidence of an acute territorial infarction. No intracranial hemorrhage, mass effect, hydrocephalus or extra-axial fluid collection. Osseous structures are intact. The visualized paranasal sinuses and mastoids are clear. IMPRESSION: No acute intracranial CT findings. Findings discussed with Dr. Anthony Cleaning at 2:59 p.m. on 02/03/2020. [place] NAME: GOLDY SHIPLEY [facility] REC#: [id number] PT STATUS: REG ER : 1940 PHYSICIAN: ANTHONY CLEANING DO ADMIT DATE: 02/03/20/ER Draft Date of Exam:02/03/20 CHEST 1 VIEW, AP/PA ONLY EXAM: CHEST 1 VIEW, AP/PA ONLY INDICATION: Dyspnea. Speech difficulties. COMPARISON: 02/21/2018 FINDINGS: Stable, mild cardiomegaly. Normal central pulmonary vascularity. No focal pulmonary opacity, pleural effusion or pneumothorax. No acute osseous findings. IMPRESSION: Stable, mild cardiomegaly. Remainder unremarkable. Departure Impression Primary Impression: Headache Qualified Codes: R51 - Headache Additional Impression: Transient cerebral ischemia Qualified Codes: G45.9 - Transient cerebral ischemic attack, unspecified Disposition: 01 HOME, SELF-CARE Condition: Stable Departure-Patient Inst. Referrals: NICOLE VAUGHN DO (PCP/Family) Primary Care Physician Patient Instructions: Transient Ischemic Attack (DC), Migraine Headache (DC), Migraine Headaches in Adults Add. Discharge Instructions: Follow-up with your primary care provider in the next 1-2 days for further evaluation. Return to the ER as needed. All discharge instructions reviewed with patient and/or family. Voiced understanding. ANTHONY CLEANING DO Feb 03, 2020 14:33
[2020-02-03 14:46] LABS: BASOPHILS # (AUTO) 0.1 10^3/uL (0.0-0.1); BASOPHILS % (AUTO) 1 % (0-10); EOSINOPHILS # (AUTO) 0.4 10^3/uL (0.0-0.3); EOSINOPHILS % (AUTO) 4 % (0-10); HEMATOCRIT 40 % (35-52); HEMOGLOBIN 12.1 G/DL (11.5-16.0); LYMPHOCYTES # (AUTO) 1.5 X 10^3 (1.0-4.0); LYMPHOCYTES % (AUTO) 14 % (12-44); MEAN CORPUSCULAR HEMOGLOBIN 25 PG (25-34); MEAN CORPUSCULAR HGB CONC 30 G/DL (32-36); MEAN CORPUSCULAR VOLUME 82 FL (80-99); MEAN PLATELET VOLUME 10.7 FL (7.4-10.4); MONOCYTES # (AUTO) 0.7 X 10^3 (0.0-1.0); MONOCYTES % (AUTO) 7 % (0-12); NEUTROPHILS # (AUTO) 7.8 X 10^3 (1.8-7.8); NEUTROPHILS % (AUTO) 75 % (42-75); PLATELET COUNT 437 10^3/uL (130-400); RED CELL DISTRIBUTION WIDTH 16.5 % (10.0-14.5); WHITE BLOOD COUNT 10.5 10^3/uL (4.3-11.0)
--- NOTE | 2020-02-03 14:58 | Diagnostic Imaging Report ---
EXAM: CHEST 1 VIEW, AP/PA ONLY INDICATION: Dyspnea. Speech difficulties. COMPARISON: 02/21/2018 FINDINGS: Stable, mild cardiomegaly. Normal central pulmonary vascularity. No focal pulmonary opacity, pleural effusion or pneumothorax. No acute osseous findings. IMPRESSION: Stable, mild cardiomegaly. Remainder unremarkable. Dictated by: Dictated on workstation # [id number]
--- NOTE | 2020-02-03 15:02 | Diagnostic Imaging Report ---
PROCEDURE: CT head wo r/o stroke. TECHNIQUE: Multiple contiguous axial images were obtained through the brain without the use of intravenous contrast. Auto Exposure Controls were utilized during the CT exam to meet ALARA standards for radiation dose reduction. INDICATION: Left eye pain. History of strokes. Left carotid surgery. Speech difficulties. COMPARISON: 07/26/2013. FINDINGS: Moderate generalized cerebral and cerebellar parenchymal volume loss. Moderate leukoaraiosis. No CT evidence of an acute territorial infarction. No intracranial hemorrhage, mass effect, hydrocephalus or extra-axial fluid collection. Osseous structures are intact. The visualized paranasal sinuses and mastoids are clear. IMPRESSION: No acute intracranial CT findings. Findings discussed with Dr. Chico Sevilla at 2:59 p.m. on 02/03/2020. Dictated by: Dictated on workstation # [id number]
[2020-02-03 15:04] LABS: ALANINE AMINOTRANSFERASE 9 U/L (0-55); ALBUMIN 3.8 GM/DL (3.2-4.5); ALKALINE PHOSPHATASE 133 U/L (40-136); BILIRUBIN,TOTAL 0.6 MG/DL (0.1-1.0); BUN/CREATININE RATIO 13; CALCIUM 9.3 MG/DL (8.5-10.1); CARBON DIOXIDE 23 MMOL/L (21-32); CHLORIDE 103 MMOL/L (98-107); CREATININE SERUM 1.26 MG/DL (0.60-1.30); GFR ESTIMATED 41; GLUCOSE 128 MG/DL (70-105); POTASSIUM 4.6 MMOL/L (3.6-5.0); SODIUM 137 MMOL/L (135-145); TOTAL PROTEIN 8.4 GM/DL (6.4-8.2)
[2020-02-03 15:09] LABS: FIBRIN DEGRADATION PRODUCTS < 0.27 UG/ML (0.00-0.49); INR 1.2 (0.8-1.4); PARTIAL THROMBOPLASTIN TIME 37 SEC (24-35); PROTHROMBIN TIME PATIENT 15.5 SEC (12.2-14.7)
[2020-02-03] MEDS ORDERED: KETOROLAC 30 MG/ML VIAL IVP STA (15:24)
[2020-02-03] MEDS ORDERED: methylPREDNISolone 40 MG/ML (Solu-MEDROL) VIAL IV ONE (15:30)
[2020-02-03] MEDS ORDERED: meTOprolol 5 MG/5 ML (LOPRESSOR) VIAL IV ONE (16:00)
[2020-02-03 16:55] VITALS: BP 192/92
== END 2020-02-03 16:55 | disposition home or self-care (01) ==
LOC: EDUNIT# 14:28 → ER 14:29
DX: G45.9 Transient cerebral ischemic attack, unspecified (principal); E78.00 Pure hypercholesterolemia, unspecified; I10 Essential (primary) hypertension; I25.2 Old myocardial infarction; E03.9 Hypothyroidism, unspecified; M19.91 Primary osteoarthritis, unspecified site; I48.91 Unspecified atrial fibrillation; I48.92 Unspecified atrial flutter; Z86.73 Personal history of transient ischemic attack (TIA), and cerebral infarction without residual deficits; Z79.82 Long term (current) use of aspirin; Z79.899 Other long term (current) drug therapy; Z79.01 Long term (current) use of anticoagulants; Z79.84 Long term (current) use of oral hypoglycemic drugs
CPT/HCPCS: 36415; 70450; 71045; 80053; 82962; 84484; 85025; 85379; 85610; 85652; 85730; 93041

== ENCOUNTER 2020-09-11 10:57 | Outpatient (RCR) | payer MEDICARE ==
[2020-07-16 11:22] LABS: BASOPHILS # (AUTO) 0.1 10^3/uL (0.0-0.1); BASOPHILS % (AUTO) 1 % (0-10); EOSINOPHILS # (AUTO) 0.4 10^3/uL (0.0-0.3); EOSINOPHILS % (AUTO) 4 % (0-10); HEMATOCRIT 34 % (35-52); HEMOGLOBIN 10.4 G/DL (11.5-16.0); LYMPHOCYTES # (AUTO) 0.9 X 10^3 (1.0-4.0); LYMPHOCYTES % (AUTO) 9 % (12-44); MEAN CORPUSCULAR HEMOGLOBIN 26 PG (25-34); MEAN CORPUSCULAR HGB CONC 30 G/DL (32-36); MEAN CORPUSCULAR VOLUME 85 FL (80-99); MEAN PLATELET VOLUME 10.9 FL (7.4-10.4); MONOCYTES # (AUTO) 0.6 X 10^3 (0.0-1.0); MONOCYTES % (AUTO) 6 % (0-12); NEUTROPHILS # (AUTO) 8.1 X 10^3 (1.8-7.8); NEUTROPHILS % (AUTO) 81 % (42-75); PLATELET COUNT 389 10^3/uL (130-400); WHITE BLOOD COUNT 10.1 10^3/uL (4.3-11.0)
[2020-07-16 11:42] LABS: ALBUMIN 3.5 GM/DL (3.2-4.5); BILIRUBIN,TOTAL 0.4 MG/DL (0.1-1.0); CALCIUM 8.7 MG/DL (8.5-10.1); CREATININE SERUM 1.21 MG/DL (0.60-1.30); POTASSIUM 3.8 MMOL/L (3.6-5.0); TOTAL PROTEIN 7.5 GM/DL (6.4-8.2)
[2020-07-16 11:46] LABS: ABSOLUTE RETIC # 52 10e9/L (24-90); RETICULOCYTE % 1.29 % (0.50-2.40)
[~2020-09-11 10:57] MED LIST changes: +CYANOCOBALAMIN INJ 1000 MCG/ML (CANCER CENTER) ONE
[2020-09-11 11:09] LABS: ABSOLUTE RETIC # 65 10e9/uL (24-90); BASOPHILS # (AUTO) 0.1 10^3/uL (0.0-0.1); BASOPHILS % (AUTO) 1 % (0-10); EOSINOPHILS # (AUTO) 0.4 10^3/uL (0.0-0.3); EOSINOPHILS % (AUTO) 5 % (0-10); HEMATOCRIT 37 % (35-52); HEMOGLOBIN 10.8 g/dL (11.5-16.0); LYMPHOCYTES # (AUTO) 1.1 10^3/uL (1.0-4.0); LYMPHOCYTES % (AUTO) 12 % (12-44); MEAN CORPUSCULAR HEMOGLOBIN 25 pg (25-34); MEAN CORPUSCULAR HGB CONC 29 g/dL (32-36); MEAN CORPUSCULAR VOLUME 85 fL (80-99); MEAN PLATELET VOLUME 10.6 fL (9.0-12.2); MONOCYTES # (AUTO) 0.6 10^3/uL (0.0-1.0); MONOCYTES % (AUTO) 7 % (0-12); NEUTROPHILS # (AUTO) 6.5 10^3/uL (1.8-7.8); NEUTROPHILS % (AUTO) 74 % (42-75); PLATELET COUNT 460 10^3/uL (130-400); WHITE BLOOD COUNT 8.8 10^3/uL (4.3-11.0)
[2020-09-11 11:31] LABS: ALBUMIN 3.6 GM/DL (3.2-4.5); BILIRUBIN,TOTAL 0.8 MG/DL (0.1-1.0); CALCIUM 9.2 MG/DL (8.5-10.1); CREATININE SERUM 1.22 MG/DL (0.60-1.30); POTASSIUM 4.2 MMOL/L (3.6-5.0); TOTAL PROTEIN 7.9 GM/DL (6.4-8.2)
[2020-09-11] MEDS ORDERED: CYANOCOBALAMIN INJ 1000 MCG/ML (CANCER CENTER) ONE (11:38)
== END 2020-09-16 | disposition home or self-care (01) ==
LOC: ONC 10:57
PROVIDERS: ATTEND Internal Medicine Hematology & Oncology
DX: D51.8 Other vitamin B12 deficiency anemias (principal); E11.22 Type 2 diabetes mellitus with diabetic chronic kidney disease; I12.9 Hypertensive chronic kidney disease with stage 1 through stage 4 chronic kidney disease, or unspecified chronic kidney disease; N18.30 Chronic kidney disease, stage 3 unspecified; I25.10 Atherosclerotic heart disease of native coronary artery without angina pectoris; K21.9 Gastro-esophageal reflux disease without esophagitis; E78.00 Pure hypercholesterolemia, unspecified; E03.9 Hypothyroidism, unspecified; D61.818 Other pancytopenia; M19.91 Primary osteoarthritis, unspecified site; E66.01 Morbid (severe) obesity due to excess calories; Z68.41 Body mass index [BMI] 40.0-44.9, adult; Z86.73 Personal history of transient ischemic attack (TIA), and cerebral infarction without residual deficits; Z79.01 Long term (current) use of anticoagulants; Z79.82 Long term (current) use of aspirin; Z79.4 Long term (current) use of insulin; Z79.899 Other long term (current) drug therapy
CPT/HCPCS: 80053; 82274; 82728; 83540; 83921; 85025; 85045; 96372

== ENCOUNTER 2020-10-07 11:06 | Outpatient (RCR) | payer MEDICARE ==
[~2020-10-07 11:06] MED LIST changes: -CYANOCOBALAMIN INJ 1000 MCG/ML (CANCER CENTER) ONE
[2020-10-07] MEDS ORDERED: CYANOCOBALAMIN INJ 1000 MCG/ML (CANCER CENTER) ONE (11:10)
[2020-10-07 11:17] LABS: ABSOLUTE RETIC # 63 10e9/uL (24-90); BASOPHILS # (AUTO) 0.1 10^3/uL (0.0-0.1); BASOPHILS % (AUTO) 1 % (0-10); EOSINOPHILS # (AUTO) 0.5 10^3/uL (0.0-0.3); EOSINOPHILS % (AUTO) 5 % (0-10); HEMATOCRIT 39 % (35-52); HEMOGLOBIN 11.6 g/dL (11.5-16.0); LYMPHOCYTES # (AUTO) 1.2 10^3/uL (1.0-4.0); LYMPHOCYTES % (AUTO) 13 % (12-44); MEAN CORPUSCULAR HEMOGLOBIN 26 pg (25-34); MEAN CORPUSCULAR HGB CONC 29 g/dL (32-36); MEAN CORPUSCULAR VOLUME 89 fL (80-99); MEAN PLATELET VOLUME 10.6 fL (9.0-12.2); MONOCYTES # (AUTO) 0.6 10^3/uL (0.0-1.0); MONOCYTES % (AUTO) 7 % (0-12); NEUTROPHILS # (AUTO) 6.5 10^3/uL (1.8-7.8); NEUTROPHILS % (AUTO) 73 % (42-75); PLATELET COUNT 389 10^3/uL (130-400); RETICULOCYTE % 1.42 % (0.50-2.40); WHITE BLOOD COUNT 8.9 10^3/uL (4.3-11.0)
[2020-10-07 11:38] LABS: ALBUMIN 3.6 GM/DL (3.2-4.5); BILIRUBIN,TOTAL 0.6 MG/DL (0.1-1.0); CALCIUM 8.9 MG/DL (8.5-10.1); CREATININE SERUM 1.09 MG/DL (0.60-1.30); POTASSIUM 4.1 MMOL/L (3.6-5.0); TOTAL PROTEIN 7.8 GM/DL (6.4-8.2)
== END 2020-11-11 12:39 | disposition home or self-care (01) ==
LOC: ONC 11:06
PROVIDERS: ATTEND Internal Medicine Hematology & Oncology
DX: D61.818 Other pancytopenia (principal); D51.8 Other vitamin B12 deficiency anemias; E11.22 Type 2 diabetes mellitus with diabetic chronic kidney disease; I12.9 Hypertensive chronic kidney disease with stage 1 through stage 4 chronic kidney disease, or unspecified chronic kidney disease; N18.30 Chronic kidney disease, stage 3 unspecified; I25.10 Atherosclerotic heart disease of native coronary artery without angina pectoris; K21.9 Gastro-esophageal reflux disease without esophagitis; E78.00 Pure hypercholesterolemia, unspecified; E03.9 Hypothyroidism, unspecified; M19.91 Primary osteoarthritis, unspecified site; E66.01 Morbid (severe) obesity due to excess calories; Z68.41 Body mass index [BMI] 40.0-44.9, adult; Z86.73 Personal history of transient ischemic attack (TIA), and cerebral infarction without residual deficits; Z79.01 Long term (current) use of anticoagulants; Z79.82 Long term (current) use of aspirin; Z79.4 Long term (current) use of insulin; Z79.899 Other long term (current) drug therapy
CPT/HCPCS: 80053; 82728; 85025; 85045; 96372

== ENCOUNTER 2021-02-05 14:00 | Outpatient (RCR) | payer MEDICARE ==
[~2021-02-05 14:00] MED LIST changes: +CYANOCOBALAMIN INJ 1000 MCG/ML (CANCER CENTER) ONE
== END 2021-02-11 | disposition home or self-care (01) ==
LOC: ONC 14:00
PROVIDERS: ATTEND Internal Medicine Hematology & Oncology
DX: D61.818 Other pancytopenia (principal); D51.8 Other vitamin B12 deficiency anemias; E11.22 Type 2 diabetes mellitus with diabetic chronic kidney disease; I12.9 Hypertensive chronic kidney disease with stage 1 through stage 4 chronic kidney disease, or unspecified chronic kidney disease; N18.30 Chronic kidney disease, stage 3 unspecified; I25.10 Atherosclerotic heart disease of native coronary artery without angina pectoris; K21.9 Gastro-esophageal reflux disease without esophagitis; E78.00 Pure hypercholesterolemia, unspecified; E03.9 Hypothyroidism, unspecified; M19.91 Primary osteoarthritis, unspecified site; E66.01 Morbid (severe) obesity due to excess calories; Z68.41 Body mass index [BMI] 40.0-44.9, adult; Z86.73 Personal history of transient ischemic attack (TIA), and cerebral infarction without residual deficits; Z79.01 Long term (current) use of anticoagulants; Z79.82 Long term (current) use of aspirin; Z79.4 Long term (current) use of insulin; Z79.899 Other long term (current) drug therapy
CPT/HCPCS: 96372; G0463

== ENCOUNTER → 2021-02-12 | Outpatient (CLI) | payer MEDICARE ==
[~2021-02-12] MED LIST changes: -CYANOCOBALAMIN INJ 1000 MCG/ML (CANCER CENTER) ONE
--- NOTE | 2021-02-13 13:16 | Diagnostic Imaging Report ---
INDICATION: Routine screening. Comparison is made with prior mammogram 05/15/2012. 2-D and 3-D bilateral screening mammography was performed with CAD. Both breasts are heterogeneously dense, limiting sensitivity of mammography. Benign parenchymal and vascular calcifications are identified bilaterally. No spiculated mass or malignant appearing microcalcifications are identified. Axillae are unremarkable. IMPRESSION: BI-RADS Category 2 No mammographic features suspicious for malignancy are identified. ACR BI-RADS Category 2: Benign findings. Result letter will be mailed to the patient. Note: At least 10% of breast cancer is not imaged by mammography. Dictated by: Dictated on workstation # [id number]
== END ==
LOC: RAD 14:31
PROVIDERS: ATTEND Family Medicine
DX: Z12.31 Encounter for screening mammogram for malignant neoplasm of breast (principal)
CPT/HCPCS: 77063; 77067

== ENCOUNTER 2021-06-02 10:59 | Outpatient (RCR) | payer MEDICARE ==
[2021-04-30 14:43] LABS: BASOPHILS # (AUTO) 0.1 10^3/uL (0.0-0.1); BASOPHILS % (AUTO) 1 % (0-10); EOSINOPHILS # (AUTO) 0.6 10^3/uL (0.0-0.3); EOSINOPHILS % (AUTO) 6 % (0-10); HEMATOCRIT 41 % (35-52); HEMOGLOBIN 12.8 g/dL (11.5-16.0); LYMPHOCYTES # (AUTO) 1.4 10^3/uL (1.0-4.0); LYMPHOCYTES % (AUTO) 13 % (12-44); MEAN CORPUSCULAR HEMOGLOBIN 29 pg (25-34); MEAN CORPUSCULAR HGB CONC 31 g/dL (32-36); MEAN CORPUSCULAR VOLUME 93 fL (80-99); MEAN PLATELET VOLUME 10.8 fL (9.0-12.2); MONOCYTES # (AUTO) 0.8 10^3/uL (0.0-1.0); MONOCYTES % (AUTO) 7 % (0-12); NEUTROPHILS # (AUTO) 7.6 10^3/uL (1.8-7.8); NEUTROPHILS % (AUTO) 73 % (42-75); PLATELET COUNT 343 10^3/uL (130-400); WHITE BLOOD COUNT 10.4 10^3/uL (4.3-11.0)
[2021-04-30 15:04] LABS: ALBUMIN 3.7 GM/DL (3.2-4.5); BILIRUBIN,TOTAL 0.6 MG/DL (0.1-1.0); CALCIUM 9.6 MG/DL (8.5-10.1); CREATININE SERUM 1.07 MG/DL (0.60-1.30); POTASSIUM 4.4 MMOL/L (3.6-5.0); TOTAL PROTEIN 8.5 GM/DL (6.4-8.2)
[~2021-06-02 10:59] MED LIST changes: +CYANOCOBALAMIN INJ 1000 MCG/ML (CANCER CENTER) ONE
[2021-06-02] MEDS ORDERED: CYANOCOBALAMIN INJ 1000 MCG/ML (CANCER CENTER) ONE (11:22)
== END 2021-06-03 | disposition home or self-care (01) ==
LOC: ONC 10:59
PROVIDERS: ATTEND Internal Medicine Hematology & Oncology
DX: D61.818 Other pancytopenia (principal); D51.8 Other vitamin B12 deficiency anemias; E11.22 Type 2 diabetes mellitus with diabetic chronic kidney disease; I12.9 Hypertensive chronic kidney disease with stage 1 through stage 4 chronic kidney disease, or unspecified chronic kidney disease; N18.30 Chronic kidney disease, stage 3 unspecified; I25.10 Atherosclerotic heart disease of native coronary artery without angina pectoris; K21.9 Gastro-esophageal reflux disease without esophagitis; E78.00 Pure hypercholesterolemia, unspecified; E03.9 Hypothyroidism, unspecified; M19.91 Primary osteoarthritis, unspecified site; E66.01 Morbid (severe) obesity due to excess calories; Z68.41 Body mass index [BMI] 40.0-44.9, adult; Z86.73 Personal history of transient ischemic attack (TIA), and cerebral infarction without residual deficits; Z79.01 Long term (current) use of anticoagulants; Z79.82 Long term (current) use of aspirin; Z79.4 Long term (current) use of insulin; Z79.899 Other long term (current) drug therapy; Z87.891 Personal history of nicotine dependence
CPT/HCPCS: 80053; 82728; 83921; 85025; 96372

== ENCOUNTER 2021-09-18 14:10 | Outpatient (RCR) | payer MEDICARE ==
[2021-09-18] MEDS ORDERED: CYANOCOBALAMIN INJ 1000 MCG/ML (CANCER CENTER) ONE (14:16)
[2021-09-29] MEDS ORDERED: APIX5TAB PO (11:27)
[2021-09-29] MEDS ORDERED: ASPI-999 PO (11:27)
[2021-09-29] MEDS ORDERED: ATOR80TA76 PO (11:27)
[2021-09-29] MEDS ORDERED: GLIP10TA24 PO (11:27)
[2021-09-29] MEDS ORDERED: METO50TA7 PO ×2 (11:27)
[2021-09-29] MEDS ORDERED: OLME20TA24 PO (11:27)
[2021-09-29] MEDS ORDERED: VENL150C98 PO (11:27)
[2021-09-29] MEDS ORDERED: GABA300C PO (11:27)
[2021-09-29] MEDS ORDERED: CNC1KV IM (11:27)
[2021-09-29] MEDS ORDERED: LEVO75TA6 PO (11:27)
[2021-09-29] MEDS ORDERED: ACET325T38 PO (11:27)
[2021-09-29] MEDS ORDERED: METF-865 PO (11:27)
[2021-09-29] MEDS ORDERED: INSU100I10 SC (11:27)
[2021-09-29] MEDS ORDERED: PANT40TA52 PO (11:27)
[2021-09-29] MEDS ORDERED: ALLO100T PO (11:27)
[2021-09-29] MEDS ORDERED: LIRA0.6P SC (11:27)
== END 2021-09-28 | disposition home or self-care (01) ==
LOC: ONC 14:10
PROVIDERS: ATTEND Internal Medicine Hematology & Oncology
DX: D51.9 Vitamin B12 deficiency anemia, unspecified (principal); E11.22 Type 2 diabetes mellitus with diabetic chronic kidney disease; D61.818 Other pancytopenia; I12.9 Hypertensive chronic kidney disease with stage 1 through stage 4 chronic kidney disease, or unspecified chronic kidney disease; N18.30 Chronic kidney disease, stage 3 unspecified; I48.20 Chronic atrial fibrillation, unspecified; Z79.01 Long term (current) use of anticoagulants; Z79.82 Long term (current) use of aspirin; Z79.891 Long term (current) use of opiate analgesic; Z79.4 Long term (current) use of insulin; Z79.899 Other long term (current) drug therapy
CPT/HCPCS: 96372

== ENCOUNTER 2021-09-22 04:14 | Emergency (ER) | payer MEDICARE ==
[~2021-09-22 04:14] MED LIST changes: -CYANOCOBALAMIN INJ 1000 MCG/ML (CANCER CENTER) ONE
[2021-09-22 04:15] VITALS: BP 129/102
[2021-09-22 04:26] LABS: BASOPHILS # (AUTO) 0.1 10^3/uL (0.0-0.1); BASOPHILS % (AUTO) 1 % (0-10); EOSINOPHILS # (AUTO) 0.6 10^3/uL (0.0-0.3); EOSINOPHILS % (AUTO) 7 % (0-10); HEMATOCRIT 40 % (35-52); HEMOGLOBIN 12.7 g/dL (11.5-16.0); LYMPHOCYTES # (AUTO) 1.4 10^3/uL (1.0-4.0); LYMPHOCYTES % (AUTO) 16 % (12-44); MEAN CORPUSCULAR HEMOGLOBIN 30 pg (25-34); MEAN CORPUSCULAR HGB CONC 32 g/dL (32-36); MEAN CORPUSCULAR VOLUME 94 fL (80-99); MEAN PLATELET VOLUME 10.7 fL (9.0-12.2); MONOCYTES # (AUTO) 0.8 10^3/uL (0.0-1.0); MONOCYTES % (AUTO) 9 % (0-12); NEUTROPHILS # (AUTO) 6.1 10^3/uL (1.8-7.8); NEUTROPHILS % (AUTO) 67 % (42-75); PLATELET COUNT 352 10^3/uL (130-400); WHITE BLOOD COUNT 9.1 10^3/uL (4.3-11.0)
--- NOTE | 2021-09-22 04:36 | ED Neurological Problem ---
General Chief Complaint: Neuro-Stroke Like Symptoms Stated Complaint: FALL Source: EMS, old records Exam Limitations: clinical condition (PT UNABLE TO GIVE ANY INFORMATION ) History of Present Illness Date Seen by Provider: Sep 22, 2021 Time Seen by Provider: 04:13 Initial Comments PT ARRIVES VIA EMS FROM HOME FOUND PT ON BATHROOM FLOOR WITH GARBLED SPEECH AROUND 0330 THIS AM HE REPORTED TO EMS THAT PT HAD BEEN COMPLAINING OF HEADACHE AND RIGHT ARM N UMBNESS ALL DAY YESTERDAY PT WAS AT NORMAL BASELINE AT 2300 WHEN THEY WENT TO BED ACCUCHECK 146 FOR EMS--PT IS INSULIN DEPENDENT DIABETIC EMS REPORT THAT PT WAS ABLE TO STAND AND WALK A FEW STEPS WITHOUT ANY DIFFICULTY REPORTED TO EMS THAT PT HAS BEEN DX WITH "OCULAR MIGRAINES" AND SEES NEUROLOGIST AT HE TOLD EMS THAT PT GETS GARBLED SPEECH WITH THESE PT HAS HISTORY OF ATRIAL FIBRILLATION AND IS ON ELIQUIS ON ARRIVAL, PT HAS GARBLED SPEECH--"WORD SALAD" PT IS UNABLE TO FOLLOW ANY COMMANDS ON ARRIVAL, BUT IS MOVING BOTH ARMS EQUALLY, BUT NOT TO COMMAND--ARRIVES WITH HANDS FOLDED ACROSS HER ABDOMEN PCP: DR. VAUGHN BATH STEWARD/STEWARDESS: [facility] Allergies and Home Medications Allergies Coded Allergies: No Known Drug Allergies (Unverified , 02/19/13) Patient Home Medication List Home Medication List Reviewed: Yes Allopurinol (Zyloprim) 100 Mg Tab, 100 MG PO BID, (Reported) Entered as Reported by: COCO VILLATORO on 09/14/08 0407 Aspirin (Aspirin Ec 81 Mg) 81 Mg Tabec, 81 MG PO DAILY, (Reported) Entered as Reported by: COCO VILLATORO on 09/14/08 040 Atorvastatin Calcium (Atorvastatin Calcium) 80 Mg Tablet, 80 MG PO DAILY, (Reported) Entered as Reported by: GUSTAVO PARKER on 02/19/13 1352 Enoxaparin (Lovenox) 40 Mg/0.4 Ml Soln, 40 MG SC DAILY, (Reported) Entered as Reported by: COSMO VALENCIA on 02/27/13 1358 Ferrous Sulfate (Ferrous Sulfate) 325 Mg Tablet, 650 MG PO DAILY, (Reported) Entered as Reported by: GUSTAVO PARKER on 02/19/13 1353 Ferrous Sulfate (Ferrous Sulfate) 325 Mg Tablet, 325 MG PO HS, (Reported) Entered as Reported by: GUSTAVO PARKER on 02/19/13 135 Gabapentin (Neurontin) 300 Mg Cap, 300 MG PO DAILY, (Reported) Entered as Reported by: COCO VILLATORO on 09/14/08407 Glyburide (Glyburide) 5 Mg Tablet, 5 MG PO DAILY, (Reported) Entered as Reported by: GUSTAVO PARKER on 02/19/13 135 Hydrocodone Bit/Acetaminophen (Lortab 5 Mg) 1 Tab Tab, 1 EA PO Q8H PRN, (Reported) Entered as Reported by: COSMO VALENCIA on 02/27/13 135 Levothyroxine Sodium (Synthroid) 75 Mcg Tablet, 75 MCG PO DAILY, (Reported) Entered as Reported by: EDDI STACY on 05/28/12 1716 Metformin Hcl (Metformin 500 Mg) 500 Mg Tablet, 1,000 MG PO BID WITH MEALS, (Reported) Entered as Reported by: GUSTAVO PARKER on 02/19/13 134 Metoprolol Succinate (Metoprolol Succinate Xl 50 Mg) 50 Mg Tab.sr.24h, 100 MG PO DAILY, (Reported) Entered as Reported by: GUSTAVO PARKER on 02/19/13 135 Metoprolol Succinate (Metoprolol Succinate Xl 50 Mg) 50 Mg Tab.sr.24h, 50 MG PO HS, (Reported) Entered as Reported by: GUSTAVO PARKER on 02/19/13 135 Olmesartan Medoxomil (Benicar) 20 Mg Tablet, 20 MG PO DAILY, (Reported) Entered as Reported by: COCO VILLATORO on 09/14/08405 Pantoprazole Sodium (Pantoprazole Sodium) 40 Mg Tablet.dr, 40 MG PO DAILY, (Reported) Entered as Reported by: GUSTAVO PARKER on 02/19/13 135 Venlafaxine Hcl (Venlafaxine Hcl Er) 75 Mg Cap.sr.24h, 75 MG PO DAILY, (Reported) Entered as Reported by: GUSTAVO PARKER on 02/19/13 134 Warfarin Sod (Coumadin 5 Mg) 5 Mg Tab, 5 MG PO JOINER, MO, TU, WE, FR, (Reported) Entered as Reported by: COCO VILLATORO on 09/14/08 035 Warfarin Sodium (Coumadin) 5 Mg Tablet, 7.5 MG PO SAT, THURS, (Reported) Entered as Reported by: GUSTAVO PARKER on 02/19/13 1400 Review of Systems Review of Systems Constitutional: other (VERY LIMITED PT HAS GARBLED SPEECH AND IS NOT ABLE TO FOLLOW COMMANDS ON ARRIVAL) Psychiatric/Neurological: See HPI Past [id number] Hx Patient Social History Tobacco Use?: No Substance use?: No Alcohol Use?: No Past Medical History Surgeries: Yes (SEE BELOW) Eye Surgery, Gallbladder, Hysterectomy, Joint Replacement, Oophorectomy, Orthopedic, Vascular Surgery Respiratory: No Cardiac: Yes (CAROTID DISEASE) Atrial Fibrillation, Coronary Artery Disease, Heart Attack, High Cholesterol, Hypertension, Peripheral Vascular Neurological: Yes Headaches /Migraines, Stroke 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, Menopausal Genitourinary: No Gastrointestinal: Yes Gastroesophageal Reflux, Diverticulosis Musculoskeletal: Yes (BILATERAL TOTAL KNEE REPLACEMENT: CERVICAL SPINE SURGERY) Degenerate Disk Disease, Arthritis Endocrine: Yes Diabetes, Insulin dep, Hypothyroidsim HEENT: Yes Cataract Cancer: No Psychosocial: No Integumentary: No Blood Disorders: Yes (ANEMIA) Family Medical History SOCIAL HISTORY: -NO SMOKING -NO ETOH -NO DRUGS PAST SURGICAL HISTORY: -LEFT CAROTID ENDARTERECTOMY -HYSTERECTOMY WITH RIGHT SALPINGO-OOPHORECTOMY -BILATERAL CATARACT SURGERY -CERVICAL SPINE SURGERY -BILATERAL TOTAL KNEE REPLACEMENT -CHOLECYSTECTOMY -EGD/COLONOSCOPY 02/[address] PITT Physical Exam Vital Signs Vital Signs - First Documented 09/22/21 04:15 Temp 36.8 Pulse 84 Resp 22 B/P (MAP) 129/102 (111) Pulse Ox 95 O2 Delivery Room Air Capillary Refill : Height, Weight, BMI Height: 5'3.00" Weight: 225lbs. oz. 101.227158eh; 39.00 BMI Method:Estimated General Appearance: WD/WN, no apparent distress HEENT: PERRL/EOMI Neck: non-tender, full range of motion, supple, normal inspection; No carotid bruit Respiratory: normal breath sounds, no respiratory distress, no accessory muscle use Cardiovascular: no JVD, no murmur, irregularly irregular Peripheral Pulses: 2+ Dorsalis Pedis (R), 2+ Left Dors-Pedis (L), 2+ Radial Pulses (R), 2+ Radial Pulses (L) Gastrointestinal: non tender, soft Extremities: no pedal edema, normal capillary refill Neurologic/Psychiatric: other (PT WITH GARBLED SPEECH/"WORD SALAD" AND WORDS ARE SLURRED. PT DOES NOT MAKE EYE CONTACT, AND DOES NOT FOLLOW ANY COMMANDS, AND DOES NOT RESPOND TO PAIN IN ANY EXTREMITY. PT DOES SPONTANEOUSLY MOVE ARMS--ARRIVES WITH HER HANDS FOLDED ACROSS HER UPPER ABDOMEN AND THEN MOVES THEM DOWN TO HER SIDES AFTER ARRIVAL. ) Crainal Nerves: abnormal speech; No facial asymmetry, No facial droop, No gaze palsy Coordination/Gait: other (UNABLE TO FOLLOW ANY COMMANDS ON ARRIVAL) Motor/Sensory: other ( ABOVE--PT WAS ABLE TO STAND AND WALK FOR EMS, AND PT HAS SPONTANEOUS MOVEMENT OF BOTH ARMS ON ARRIVAL. ) Skin: normal color, warm/dry Stroke Onset of Symptoms Onset of Symptoms: No Symptoms onset unknown: Yes NIH Stroke Scale Assessment Select: Initial Level of Consciousness: 0=Alert (0), Level of Consciousness- Questions: 2=Answer neither question (2), LOC Commands: 2=Performs neither task (2), Gaze: Normal (0), Visual Reynolds: 0=No visual loss (0), Facial Movement (Facial Paresis): 0=Normal symmetrical mnt (0), Motor Function-Arms Right: 2=Some effort/gravity (2), Motor Function-Arms Left: 2=Some effort/gravity (2), Motor Function-Legs Right: 2=Some effort/gravity (2), Motor Function-Legs Left: 2=Some effort/gravity (2), Limb Ataxia: 0=Absent (0), Sensory: 1=Mild to Moderate loss (1), Best Language: 2=Severe aphasia (2), Dysarthria: 2=Severe dysarthria (2), Extinction & Inattention: 1=Visual,tactile,auditory (1), Total: 18 Stroke Thrombolytic Exclusion Age 18 or Over: Yes Acute intenal hemorrhage: No History of CVA: Yes Uncontrolled Coagulation Defec: No Intracranial Hemorrhage: No Severe Hypertension: No GI or Bleed: No Subarachnoid Hemorrhage: No Intracranial Neoplasm/Aneurysm: No Oral Anticoagulants: Yes Surgery or Trauma: No Puncture of Non-Compressible V: No Recent CPR: No Diabetic Hemorrhagic Retinopat: No Organ Biopsy: No Recent Obstetric Delivery: No Glucose: No Significant Hepatic Dysfunctio: No NIH Stoke Scale >22: No Bacterial Endocarditis: No Pericarditis: No Improving Symptoms: Yes Platelets: No TPA Contraindication: No IV - TPa Received IV - TPa Procedure Performed?: No (LKWT > 3 HOURS AND IMPROVING SYMPTOMS) Progress/Results/Core Measures Results/Orders Lab Results Laboratory Tests Test 09/22/21 04:19 09/22/21 04:21 09/22/21 04:52 09/22/21 05:45 Range/Units White Blood Count 9.1 4.3-11.0 10^3/uL Red Blood Count 4.30 3.80-5.11 10^6/uL Hemoglobin 12.7 11.5-16.0 g/dL Hematocrit 40 35-52 % Mean Corpuscular Volume 94 80-99 fL Mean Corpuscular Hemoglobin 30 25-34 pg Mean Corpuscular Hemoglobin Concent 32 32-36 g/dL Red Cell Distribution Width 14.1 10.0-14.5 % Platelet Count 352 130-400 10^3/uL Mean Platelet Volume 10.7 9.0-12.2 fL Immature Granulocyte % (Auto) 0 % Neutrophils (%) (Auto) 67 42-75 % Lymphocytes (%) (Auto) 16 12-44 % Monocytes (%) (Auto) 9 0-12 % Eosinophils (%) (Auto) 7 0-10 % Basophils (%) (Auto) 1 0-10 % Neutrophils # (Auto) 6.1 1.8-7.8 10^3/uL Lymphocytes # (Auto) 1.4 1.0-4.0 10^3/uL Monocytes # (Auto) 0.8 0.0-1.0 10^3/uL Eosinophils # (Auto) 0.6 H 0.0-0.3 10^3/uL Basophils # (Auto) 0.1 0.0-0.1 10^3/uL Immature Granulocyte # (Auto) 0.0 0.0-0.1 10^3/uL Prothrombin Time 14.2 12.2-14.7 SEC INR Comment 1.1 0.8-1.4 Activated Partial Thromboplast Time 35 24-35 SEC D-Dimer 0.82 H 0.00-0.49 UG/ML Sodium Level 139 135-145 MMOL/L Potassium Level 4.0 3.6-5.0 MMOL/L Chloride Level 108 H 98-107 MMOL/L Carbon Dioxide Level 19 L 21-32 MMOL/L Anion Gap 12 5-14 MMOL/L Blood Urea Nitrogen 15 7-18 MG/DL Creatinine 0.96 0.60-1.30 MG/DL Estimat Glomerular Filtration Rate 56 BUN/Creatinine Ratio 16 Glucose Level 126 H 70-105 MG/DL Calcium Level 8.8 8.5-10.1 MG/DL Corrected Calcium 9.0 8.5-10.1 MG/DL Total Bilirubin 0.5 0.1-1.0 MG/DL Aspartate Amino Transf (AST/SGOT) 16 5-34 U/L Alanine Aminotransferase (ALT/SGPT) 8 0-55 U/L Alkaline Phosphatase 107 40-136 U/L Troponin I < 0.028 <0.028 NG/ML Total Protein 7.5 6.4-8.2 GM/DL Albumin 3.7 3.2-4.5 GM/DL Glucometer 130 H 70-110 MG/DL SARS-CoV-2 RNA (RT-PCR) Not Detected Not Detecte Urine Color YELLOW Urine Clarity SL CLOUDY Urine pH 5.5 5-9 Urine Specific [place] 1.015 L 1.016-1.022 Urine Protein NEGATIVE NEGATIVE Urine Glucose (UA) NEGATIVE NEGATIVE Urine Ketones NEGATIVE NEGATIVE Urine Nitrite NEGATIVE NEGATIVE Urine Bilirubin NEGATIVE NEGATIVE Urine Urobilinogen 0.2 < = 1.0 MG/DL Urine Leukocyte Esterase TRACE H NEGATIVE Urine RBC (Auto) NEGATIVE NEGATIVE Urine RBC NONE /HPF Urine WBC 5-10 H /HPF Urine Squamous Epithelial Cells 5-10 /HPF Urine Crystals NONE /LPF Urine Bacteria FEW H /HPF Urine Casts NONE /LPF Urine Mucus NEGATIVE /LPF Urine Culture Indicated YES My Orders Orders - YASSINE RODRIGUEZ DO Cbc With Automated Diff (09/22/21 04:18) Protime With Inr (09/22/21 04:18) Partial Thromboplastin Time (09/22/21 04:18) Comprehensive Metabolic Panel (09/22/21 04:18) Fibrin Degradation Products (09/22/21 04:18) Troponin I (09/22/21 04:18) Ua Culture If Indicated (09/22/21 04:18) Chest 1 View, Ap/Pa Only (09/22/21 04:18) Catheter(Urinary) Insert & Ass 03,15 (09/22/21 04:18) Ekg Tracing (09/22/21 04:18) Accucheck Stat ONCE (09/22/21 04:18) Ed Iv/Invasive Line Start (09/22/21 04:18) Ed Iv/Invasive Line Start (09/22/21 04:18) Vital Signs Stroke Patient Q15M (09/22/21 04:18) Ct Head Wo-R/O Stroke (09/22/21 04:18) O2 (09/22/21 04:18) Intake & Output 06,14,22 (09/22/21 04:18) Monitor-Rhythm Ecg Trace Only (09/22/21 04:18) Dysphagia Screening Tool (09/22/21 04:18) Covid 19 Inhouse Test (09/22/21 04:18) Ct Angio Head/Neck (09/22/21 04:52) Ct Head Perfusion W/ Contrast (09/22/21 04:58) Fentanyl Inj (Sublimaze Injection) (09/22/21 05:15) Fentanyl Inj (Sublimaze Injection) (09/22/21 05:04) Iohexol Injection (Omnipaque 350 Mg/Ml 1 (09/22/21 05:45) Ns (Ivpb) (Sodium Chloride 0.9% Ivpb Bag (09/22/21 05:45) Heparin Drip 26094 Unit/500ml (Heparin (09/22/21 06:15) Urine Culture (09/22/21 05:45) Medications Given in ED Current Medications Medications Dose Ordered Sig/Tay Route Start Time Stop Time Status Last Admin Dose Admin Heparin Sodium/ Dextrose 500 ml @ 0 mls/hr Q0M ONCE IV 09/22/21 06:15 09/22/21 06:16 DC 09/22/21 06:25 20 MLS/HR Vital Signs/I&O 09/22/21 09/22/21 04:15 04:15 Temp 36.8 Pulse 84 Resp 22 B/P (MAP) 129/102 (111) Pulse Ox 95 95 O2 Delivery Room Air Room Air FSBG Bedside Testing Finger Stick Blood Glucose: 130 Progress Progress Note : Progress Note ON RETURN FROM CT, PT IS MAKING EYE CONTACT WITH NO EVIDENCE OF NEGLECT, SHE IS ABLE TO FOLLOW A FEW VERY SIMPLE COMMANDS, AND IS MOVING ALL EXTREMITIES EQUALLY, NO FACIAL DROOP NOTED. DOES POINT TO FOREHEAD AND SAY "HURT"; STILL WITH GARBLED SPEECH/"WORD SALAD", BUT INDIVIDUAL WORDS ARE MORE CLEAR THAN ON ARRIVAL. NIH NOW DOWN TO A 5--2 FOR LOC, 2 FOR APHASIA, 1 FOR DYSARTHRIA PT CONTINUES TO HAVE SLIGHT IMPROVEMENT IN SPEECH--A LITTLE LESS GARBLED, AND LESS SLURRED. NO DETERIORATION IN PT'S CONDITION DURING ER STAY Initial ECG Impression Date: Sep 22, 2021 Initial ECG Impression Time: 04:17 Initial ECG Rate: 76 Initial ECG Rhythm: A Fib/Flutter Diagnostic Imaging Comments CT HEAD--PER RADIOLOGIST REPORT AT 0443 INDICATION: Acute neurologic deficit There is decreased density in the periventricular white matter of both hemispheres consistent with chronic small vessel ischemic change. This is not appreciably changed from a prior exam dated 02/03/2020. There are no masses or hemorrhages. There are no extra-axial fluid collections. IMPRESSION: Chronic ischemic leukoencephalopathy. No CT evidence for an acute infarct. CT ANGIOGRAM HEAD/NECK AND CT PERFUSION SCAN OF BRAIN--VERBAL REPORT FROM RADIOLOGIST VIA PHONE AT 0549: ACUTE INFARCT LEFT POSTERIOR PARIETAL AREA, WITH LARGE THROMBUS AT LEFT CAROTID BIFURCATION, CAUSING 85-90% STENOSIS. There is diminished perfusion in the left posterior parietal lobe in the watershed vascular territory between the middle and posterior cerebral arteries. There is no intracranial hemorrhages seen. There is no intracranial large vessel occlusion seen. CTA of the neck shows a large thrombus or embolus at the left carotid bifurcation causing a 90% cross-sectional area restriction of flow.. This thrombus extends from the apex of the carotid bulb into both internal and external carotid arteries. Right carotid artery is unremarkable. Both vertebral arteries are widely patent. IMPRESSION: Large thrombus/embolus left carotid bifurcation restricting flow and likely causing hypoperfusion nonhemorrhagic infarct of the watershed vascular territory in the left posterior parietal region. ADDITIONAL VERBAL REPORT OF CT PERFUSION SCAN BY RADIOLOGIST AT 0625 FINDINGS: The volume of parenchyma showing cerebral blood flow of less than 30% is 20 mL. The volume of parenchyma showing a MAXIMUM TEMPERATURE of greater than 6 seconds is 45 mL. Therefore, there is a mismatch of 25 mL. These findings are noted within the distribution of the posterior branch of the left middle cerebral artery. IMPRESSION: 25 mL of penumbra suggested within the distribution of the posterior branch of the left middle cerebral artery by CT perfusion criteria. Reviewed: Reviewed by Me, Discussed w/Radiologist Departure Communication (Admissions) 0444--CALLED [facility], PAGING STROKE NEUROLOGIST 0448--SPOKE WITH DR. HALL, STROKE NEUROLOGIST. HE ADVISES NO TPA, DUE TO LKWT > 3 HOURS, AND PT IS ALREADY ON ELIQUIS. HE ADVISES CT ANGIOGRAM HEAD / NECK AND CT PERFUSION SCAN OF BRAIN. WILL CALL HIM BACK IF THERE ARE SIGNFICANT FINDINGS. 0534--CALLED [facility] AND INFORMED THEM THAT ALL CT IMAGES WERE BEING CLOUDED TO [facility], AND THEY WILL NOTIFY DR. HALL WHEN THEY HAVE RECEIVED ALL OF THEM AND WILL CALL BACK AFTER HE HAS REVIEWED THEM. WILL ALSO NOTIFY THEM WHEN WE RECEIVE RADIOLOGIST REPORTS. 0549--CALLED [facility], PAGING DR. HALL 0552--SPOKE WITH DR. HALL, HE WILL REVIEW SCANS AND CALL ME BACK. 0601--SPOKE WITH DR. HALL, HE ADVISES NOT A CANDIDATE FOR EMERGENT THROMBECTOMY, ADVISES HEPARIN DRIP/NO BOLUS AND ACCEPTS PT FOR ADMIT/TRANSFER. 0620--[facility] OUT [facility] WILL BE HERE FOR TRANSPORT, WITH ETA OF 30 MINUTES. 0715--[facility] HERE FOR TRANSPORT Impression Primary Impression: Acute ischemic cerebrovascular accident (CVA) involving left middle cerebral artery territory Additional Impressions: CVA (cerebral infarction) Expressive aphasia Chronic atrial fibrillation IDDM (insulin dependent diabetes mellitus) HTN (hypertension) Disposition: 02 XFER SHT-TRM HOSP Condition: Stable Transfer Transfer Reason: Exceeds level of care Transfer Facility: Method of Transfer: Air Departure-Patient Inst. Referrals: NICOLE VAUGHN DO (PCP/Family) Primary Care Physician YASSINE RODRIGUEZ DO Sep 22, 2021 04:36
[2021-09-22 04:39] LABS: ALBUMIN 3.7 GM/DL (3.2-4.5)
[2021-09-22 04:40] LABS: CHLORIDE 108 MMOL/L (98-107); SODIUM 139 MMOL/L (135-145)
[2021-09-22 04:41] LABS: CALCIUM 8.8 MG/DL (8.5-10.1)
--- NOTE | 2021-09-22 04:41 | Diagnostic Imaging Report ---
PROCEDURE: CT head wo r/o stroke. TECHNIQUE: Multiple contiguous axial images were obtained through the brain without the use of intravenous contrast. Auto Exposure Controls were utilized during the CT exam to meet ALARA standards for radiation dose reduction. INDICATION: Acute neurologic deficit There is decreased density in the periventricular white matter of both hemispheres consistent with chronic small vessel ischemic change. This is not appreciably changed from a prior exam dated 02/03/2020. There are no masses or hemorrhages. There are no extra-axial fluid collections. IMPRESSION: Chronic ischemic leukoencephalopathy. No CT evidence for an acute infarct. Dictated by: Dictated on workstation # [id number]
[2021-09-22 04:42] LABS: GLUCOSE 126 MG/DL (70-105); TOTAL PROTEIN 7.5 GM/DL (6.4-8.2)
--- NOTE | 2021-09-22 04:42 | Diagnostic Imaging Report ---
Indication: Neurologic deficit Portable chest 4:39 AM There is increased density in the right lower lung compared to the left that could be communications representative some developing infiltrate. There is no effusion. Heart is mildly enlarged. Pulmonary vascularity is normal. There is no pneumothorax. IMPRESSION: Increased density right lower lung could be developing infiltrate. Dictated by: Dictated on workstation # [id number]
[2021-09-22 04:43] LABS: CARBON DIOXIDE 19 MMOL/L (21-32)
[2021-09-22 04:44] LABS: BILIRUBIN,TOTAL 0.5 MG/DL (0.1-1.0)
[2021-09-22 04:45] LABS: ALKALINE PHOSPHATASE 107 U/L (40-136); CREATININE SERUM 0.96 MG/DL (0.60-1.30); GFR ESTIMATED 56
[2021-09-22 04:46] LABS: BUN/CREATININE RATIO 16; FIBRIN DEGRADATION PRODUCTS 0.82 UG/ML (0.00-0.49); INR 1.1 (0.8-1.4); PROTHROMBIN TIME PATIENT 14.2 SEC (12.2-14.7)
[2021-09-22 04:48] LABS: ALANINE AMINOTRANSFERASE 8 U/L (0-55)
[2021-09-22] MEDS ORDERED: fentaNYL INJ 100 MCG/2 ML AMP ONE (05:04)
[2021-09-22] MEDS ORDERED: fentaNYL INJ 100 MCG/2 ML AMP IVP ONE (05:15)
[2021-09-22] MEDS ORDERED: IOHEXOL 350 MG/ML 150 ML (OMNIPAQUE 350) VIAL IV ONE (05:45)
[2021-09-22] MEDS ORDERED: NS 100 ML (IVPB) BAG IV ONE (05:45)
[2021-09-22 05:53] LABS: BILIRUBIN,URINE NEGATIVE (NEGATIVE); CLARITY,URINE SL CLOUDY; COLOR,URINE YELLOW; GLUCOSE, URINE (UA) NEGATIVE (NEGATIVE); KETONES,URINE NEGATIVE (NEGATIVE); LEUKOCYTE ESTERASE ,URINE TRACE (NEGATIVE); NITRITE,URINE NEGATIVE (NEGATIVE); PH,URINE 5.5 (5-9); PROTEIN,URINE NEGATIVE (NEGATIVE)
--- NOTE | 2021-09-22 05:55 | Diagnostic Imaging Report ---
PROCEDURE: CT angiography of the head and CT angiography of the neck with and without contrast. TECHNIQUE: Contiguous noncontrast images were obtained from the skull base through the vertex. After intravenous contrast administration, helical CT angiography of the neck was performed. Source data was reformatted into 3D MIP projections. Delayed post contrast acquisition was also obtained. Auto Exposure Controls were utilized during the CT exam to meet ALARA standards for radiation dose reduction. INDICATION: Neurologic deficit There is diminished perfusion in the left posterior parietal lobe in the watershed vascular territory between the middle and posterior cerebral arteries. There is no intracranial hemorrhages seen. There is no intracranial large vessel occlusion seen. CTA of the neck shows a large thrombus or embolus at the left carotid bifurcation causing a 90% cross-sectional area restriction of flow.. This thrombus extends from the apex of the carotid bulb into both internal and external carotid arteries. Right carotid artery is unremarkable. Both vertebral arteries are widely patent. IMPRESSION: Large thrombus/embolus left carotid bifurcation restricting flow and likely causing hypoperfusion nonhemorrhagic infarct of the watershed vascular territory in the left posterior parietal region. Results were called to Dr. Stephen in Emergency Room at 5:50 AM Dictated by: Dictated on workstation # [id number]
[2021-09-22 06:15] LABS: BACTERIA,URINE FEW /HPF
[2021-09-22] MEDS ORDERED: HEParin DRIP 25000 UNIT/500ML 500 ML IV ONE (06:15)
--- NOTE | 2021-09-22 06:29 | Diagnostic Imaging Report ---
INDICATION: Stroke COMPARISON: Imaging from the same date TECHNIQUE: Postcontrast CT perfusion was performed. Postprocessing was performed using the rapid perfusion software. FINDINGS: The volume of parenchyma showing cerebral blood flow of less than 30% is 20 mL. The volume of parenchyma showing a MAXIMUM TEMPERATURE of greater than 6 seconds is 45 mL. Therefore, there is a mismatch of 25 mL. These findings are noted within the distribution of the posterior branch of the left middle cerebral artery. IMPRESSION: 25 mL of penumbra suggested within the distribution of the posterior branch of the left middle cerebral artery by CT perfusion criteria. Findings discussed with Dr. Stephen at 0625 on 09/22/2021. Dictated by: Dictated on workstation # [id number]
== END 2021-09-22 07:31 | disposition short-term general hospital (02) ==
LOC: EDUNIT# 04:14 → ER 04:15
DX: I63.512 Cerebral infarction due to unspecified occlusion or stenosis of left middle cerebral artery (principal); I48.20 Chronic atrial fibrillation, unspecified; E11.9 Type 2 diabetes mellitus without complications; I10 Essential (primary) hypertension; R47.01 Aphasia; R29.705 NIHSS score 5
CPT/HCPCS: 0042T; 70450; 70496; 70498; 71045; 80053; 81000; 82947; 84484; 85025; 85379; 85610; 85730; 87088; 87636; 93005; 93041; 96374; 96375; 99291; 36415

== ENCOUNTER 2021-09-28 09:01 | Inpatient (IN) | payer MEDICARE ==
[~2021-09-28] VITALS: Ht 152 cm; Wt 96.9 kg
[2021-09-28] MEDS ORDERED: ALPRAZolam 0.25 MG (XANAX) TAB PO PRN (10:45)
[2021-09-28] MEDS ORDERED: MELATONIN 3 MG TABLET PO PRN (10:45)
[2021-09-28] MEDS ORDERED: ONDANSETRON 4 MG (ZOFRAN) ORAL DISSOLVE TAB PO PRN (10:45)
[2021-09-28] MEDS ORDERED: diphenhydrAMINE 25 MG TAB (BENADRYL) PO PRN (10:45)
[2021-09-28] MEDS ORDERED: LOPERAMIDE 2 MG (IMODIUM) TABLET PO PRN (10:45)
[2021-09-28] MEDS ORDERED: DOCUSATE SODIUM 100 MG (COLACE) CAP PO PRN (10:45)
[2021-09-28] MEDS ORDERED: LACTULOSE SYRUP 10GM/15ML (ENULOSE) 30ML UDC PO PRN (10:45)
[2021-09-28] MEDS ORDERED: BISACODYL 10 MG SUPP (DULCOLAX) PR PRN (10:45)
[2021-09-28] MEDS ORDERED: FLEET ENEMA ADULT 1 EA BTL PR PRN (10:45)
[2021-09-28] MEDS ORDERED: CALCIUM CARBONATE 500 MG (TUMS) TAB.CHEW PO PRN (10:45)
[2021-09-28] MEDS ORDERED: guaiFENesin/CODEINE (ROBITUSSIN AC) 10ML UDC PO PRN (10:45)
[2021-09-29] MEDS ORDERED: CNC1KV IM (11:27)
[2021-09-29] MEDS ORDERED: GLIP10TA24 PO (11:27)
[2021-09-29] MEDS ORDERED: OLME20TA24 PO (11:27)
[2021-09-29] MEDS ORDERED: VENL150C98 PO (11:27)
[2021-09-29] MEDS ORDERED: ATOR80TA76 PO (11:27)
[2021-09-29] MEDS ORDERED: LEVO75TA6 PO (11:27)
[2021-09-29] MEDS ORDERED: ACET325T38 PO (11:27)
[2021-09-29] MEDS ORDERED: ALLO100T PO (11:27)
[2021-09-29] MEDS ORDERED: APIX5TAB PO (11:27)
[2021-09-29] MEDS ORDERED: METF-865 PO (11:27)
[2021-09-29] MEDS ORDERED: ASPI-999 PO (11:27)
[2021-09-29] MEDS ORDERED: METO50TA7 PO ×2 (11:27)
[2021-09-29] MEDS ORDERED: GABA300C PO (11:27)
[2021-09-29] MEDS ORDERED: PANT40TA52 PO (11:27)
[2021-09-29] MEDS ORDERED: LIRA0.6P SC (11:27)
[2021-09-29] MEDS ORDERED: INSU100I10 SC (11:27)
[2021-09-29 13:30] VITALS: BP 140/84
[2021-09-29] MEDS ORDERED: CYANOCOBALAMIN INJ 1000 MCG/ML IM SCH (13:45)
--- NOTE | 2021-09-29 14:04 | Physical Therapy Evaluation ---
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 9-Dguqbjbmou-isgwerx completes the activity by him/herself with no assistance from a helper. 5-Set-up or Clean-up Assistance-helper sets up or cleans up; patient completes activity. [place] assists only prior to or following the activity. 4-Supervision or Touching Assistance-helper provides verbal cues and/or touching/steadying and/or contact guard assistance as patient completes activity. Assistance may be provided throughout the activity or intermittently. 3-Partial/Moderate Assistance-helper does LESS THAN HALF the effort. [place] lifts, holds or supports trunk or limbs, but provides less than half the effort. 2-Substantial/Maximal Assistance-helper does MORE THAN HALF the effort. [place] lifts or holds trunk or limbs and provides more than half the effort. 5-Pxxdlavrt-bloeqi does ALL the effort. Patient does none of the effort to complete the activity. Or, the assistance of 2 or more helpers is required for the patient to complete the activity. If activity was not attempted, code reason: 7-Patient Refused. 9-Not Applicable-not attempted and the patient did not perform the activity before the current illness, exacerbation or injury. 10-Not Attempted due to Environmental Limitations-(lack of equipment, weather restraints, etc.). 88-Not Attempted due to Medical Conditions or Safety Concerns. Bed Mobility: 6 Transfers (B,C,W/C): 6 Gait: 6 Stairs: 6 Wheelchair Mobility: 9 Indoor Mobility (Ambulation): Independent Stairs: Independent Prior Devices Use: None PT Evaluation-Current Subjective Patient agrees to PT. Objective Patient Orientation: Person, Time, Situation ROM/Strength ROM Upper Extremities see OT notes ROM Lower Extremities bilateral LE WFL Strength Upper Extremities see OT notes Strength Lower Extremities right knee flexion 3-/5, extension 3-/5; hip flexion 3-/5 left knee flexion 3/5, extension 3/5, hip flexion 3/5 Integumentary/Posture Integumentary refer to nursing notes Bowel Incontinence: No Bladder Incontinence: No Posture WFL Neuromuscular (Tone, Coordination, Reflexes) grossly intact Sensory Vision: Neglect Right Hearing: Functional Sensation Right Lower Extremit: Intact Sensation Left Lower Extremity: Intact Transfers Roll Left & Right (QC): 4 Sit to Lying (QC): 4 Lying to Sitting/Side of Bed(Q: 4 Sit to Stand (QC): 3 Chair/Hys-uo-Tctov Xfer(QC): 3 Toilet Transfer (QC): 3 Car Transfer (QC): 3 Gait Does the Patient Walk?: Yes Mode of Locomotion: Walk Anticipated Mode of Locomotion: Walk Walk 10 feet (QC): 3 Walk 50 ft with 2 Turns(QC): 3 Walk 150 ft (QC): 3 Walking 10ft/uneven surface-QC: 3 Distance: 150' Gait Assistive Device: None Comments/Gait Description 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 female, will benefit from skilled PT to address functional strength, mobility and improve safety awareness. Patient does display diminished visual field all quadrants right eye per OT testing. Rehab Potential: Fair PT Assisted Goals Web Application Tester Goals PT Web Application Tester Goals Time Frame: Oct 31, 2021 Roll Left & Right (QC): 5 Sit to Lying (QC): 5 Lying-Sitting on Side/Bed(QC): 5 Sit to Stand (QC): 5 Chair/Vre-fx-Rkvpc Xfer(QC): 5 Toilet Transfer (QC): 5 Car Transfer (QC): 5 Does the Patient Walk: Yes Walk 10 feet (QC): 5 Walk 50ft with 2 Turns (QC): 5 Walk 150 ft (QC): 5 Walking 10ft on Uneven Surface: 5 1 Step (curb) (QC): 4 4 Steps (QC): 4 12 Steps (QC): 4 Picking up an Object (QC): 4 Wheel 50 feet with 2 turns (QC: 9 Wheel 150 feet: 9 PT Plan Problem List Problem List: Activity Tolerance, Functional Strength, Safety, Balance, Gait, Transfer, Bed Mobility Treatment/Plan Treatment Plan: Continue Plan of Care Treatment Plan: Bed Mobility, Concurrent Therapy, Education, Functional Activity Helen, Functional Strength, Group Therapy, Gait, Safety, Therapeutic Exercise, Transfers Treatment Duration: Oct 31, 2021 Frequency: At least 5 of 7 days/Wk (IRF) Estimated Hrs Per Day: 1.5 hours per day Patient and/or Family Agrees t: Yes Time/GCodes Time In: 1325 Time Out: 1345 Total Billed Treatment Time: 20 Total Billed Treatment 1 visit [facility] 20 min ANTWON ESTRADA PT Sep 29, 2021 14:04
--- NOTE | 2021-09-29 15:10 | Physical Therapy Daily Note ---
PT Daily Note-Current Subjective Pt in therapy gym with OT at beginning of tx. Pt has no c/o pain Mental Status Patient Orientation: Person, Confused, Place, Non-Verbal/Aphasic Transfers SCALE: Activities may be completed with or without assistive devices. 9-Tuyejkzrdu-lugmfof completes the activity by him/herself with no assistance from a helper. 5-Set-up or Clean-up Assistance-helper sets up or cleans up; patient completes activity. [place] assists only prior to or following the activity. 4-Supervision or Touching Assistance-helper provides verbal cues and/or touching/steadying and/or contact guard assistance as patient completes activity. Assistance may be provided throughout the activity or intermittently. 3-Partial/Moderate Assistance-helper does LESS THAN HALF the effort. [place] lifts, holds or supports trunk or limbs, but provides less than half the effort. 2-Substantial/Maximal Assistance-helper does MORE THAN HALF the effort. [place] lifts or holds trunk or limbs and provides more than half the effort. 7-Hhdfxhulp-avxrpg does ALL the effort. Patient does none of the effort to complete the activity. Or, the assistance of 2 or more helpers is required for the patient to complete the activity. If activity was not attempted, code reason: 7-Patient Refused. 9-Not Applicable-not attempted and the patient did not perform the activity before the current illness, exacerbation or injury. 10-Not Attempted due to Environmental Limitations-(lack of equipment, weather restraints, etc.). 88-Not Attempted due to Medical Conditions or Safety Concerns. Sit to Stand (QC): 4 Gait Training Does the Patient Walk?: Yes Distance: 125' x2 Walk 10 feet (QC): 3 Walk 50 ft with 2 Turns(QC): 3 Gait Assistive Device: Handheld Assist Pt has slow, shuffling gait and narrow DONNELL. Amb with hand held A, with turns has slight LOB and Samantha given to correct Wheelchair Training Does the Pt Use a Wheelchair?: No Exercises Seated Therapy Exercises: Ankle pumps, Sit to stand, Long arc quads, Hip flexion Seated Reps: 10 Treatments OT focused on bathing, dressing, and ADLs. PT focused on transfers, gait, and standing balance. Pt amb from gym to room Samantha and completes shower. Pt then transfers from shower bench to chair in bathroom to complete dressing. Pt stands at sink and brushes hair, then sits in recliner to complete seated ex. Pt then sit to stand and amb to therapy gym, completes static standing balance activity, with visual scanning and UE ROM while unsupported from UE and Samantha to keep from LOB. Pt then amb back to room and returns to recliner, pt remains with all needs met and call light in hand. Assessment Current Status: Fair Progress Pt very confused and aphasic, slight loss of vision on R side with R neglect. Max VC and TC required for pt to complete simple one step commands PT Field Hand Goals Senior Living Goals PT Field Hand Goals Time Frame: Oct 31, 2021 Roll Left & Right (QC): 5 Sit to Lying (QC): 5 Lying-Sitting on Side/Bed(QC): 5 Sit to Stand (QC): 5 Chair/Fzn-zp-Mnsyr Xfer(QC): 5 Toilet Transfer (QC): 5 Car Transfer (QC): 5 Does the Patient Walk: Yes Walk 10 feet (QC): 5 Walk 50ft with 2 Turns (QC): 5 Walk 150 ft (QC): 5 Walking 10ft on Uneven Surface: 5 1 Step (curb) (QC): 4 4 Steps (QC): 4 12 Steps (QC): 4 Picking up an Object (QC): 4 Wheel 50 feet with 2 turns (QC: 9 Wheel 150 feet: 9 PT Plan Problem List Problem List: Activity Tolerance, Safety Treatment/Plan Treatment Plan: Continue Plan of Care Treatment Plan: Bed Mobility, Concurrent Therapy, Education, Functional Activity Helen, Functional Strength, Group Therapy, Gait, Safety, Therapeutic Exercise, Transfers Treatment Duration: Oct 31, 2021 Frequency: At least 5 of 7 days/Wk (IRF) Estimated Hrs Per Day: 1.5 hours per day Patient and/or Family Agrees t: Yes Time/GCodes Time In: 1355 Time Out: 1505 Total Billed Treatment Time: 70 Total Billed Treatment 1, GT x2, FA x3 KATHLEEN JACOBO LICENSED CL[employer]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
--- NOTE | 2021-09-29 15:17 | Occupational Therapy Eval ---
OT Evaluation-General/PLF Medical Diagnosis Admission Date Sep 29, 2021 at 13:25 Medical Diagnosis: CVA Onset Date: Sep 22, 2021 Therapy Diagnosis Therapy Diagnosis: Impaired adls, vision, balance, endurance, iadls Height/Weight Height (Feet): 5 Height (Inches): 3.00 Weight (Pounds): 225 Precautions Precautions/Isolations: Fall Prevention, Standard Precautions Referral Physician: Anabel Referral Reason: Evaluation/Treatment Medical History Pertinent Medical History: Atrial Fib, Arthritis, DM, HTN, [place] Current History Pt presents from . MRI brain shows moderate size infarct L post temporal, inferior parietal, and lateral occipital lobe as well as small areas of acute-subacute infarcts in L frontal, occipital, cerebellum, and R occipital lobe. Per chart, pt lives with in single story home, 1 step down into living room. 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 Reviewed History: Yes Social History Home: Single Level Current Living Status: Spouse Entry Into Home: Stairs With Railing Steps Into Home: 2 Steps Inside Home: 1 (1 step down into living room) ADL-Prior Level of Function SCALE: Activities may be completed with or without assistive devices. 9-Qduwjbkmkq-dflgxlh completes the activity by him/herself with no assistance from a helper. 5-Set-up or Clean-up Assistance-helper sets up or cleans up; patient completes activity. [place] assists only prior to or following the activity. 4-Supervision or Touching Assistance-helper provides verbal cues and/or touching/steadying and/or contact guard assistance as patient completes activity. Assistance may be provided throughout the activity or intermittently. 3-Partial/Moderate Assistance-helper does LESS THAN HALF the effort. [place] lifts, holds or supports trunk or limbs, but provides less than half the effort. 2-Substantial/Maximal Assistance-helper does MORE THAN HALF the effort. [place] lifts or holds trunk or limbs and provides more than half the effort. 9-Pmdeoxjvn-obzexf does ALL the effort. Patient does none of the effort to complete the activity. Or, the assistance of 2 or more helpers is required for the patient to complete the activity. If activity was not attempted, code reason: 7-Patient Refused. 9-Not Applicable-not attempted and the patient did not perform the activity before the current illness, exacerbation or injury. 10-Not Attempted due to Environmental Limitations-(lack of equipment, weather restraints, etc.). 88-Not Attempted due to Medical Conditions or Safety Concerns. Self Care: Independent Functional Cognition: Independent DME/Equipment: Bath Chair Drive Self: Yes OT Current Status Subjective Denies pain, agreeable to treatment. Co-treat with PT for part of session due to poor endurance, balance, safety, vision, and high fall risk. Appearance Left sitting in chair, alarm set, all needs within reach. Mental Status/Objective Patient Orientation: Person Current Glasses/Contacts: Yes Hearing Aids: No Dentures/Partials: Yes Hand Dominance: Right Upper Extremity ROM WFL, proprioception deficit present. Upper Extremity Sensation Impaired, light touch 5/10 (50%). R/L discrimination impaired. Upper Extremity Strength RUE: 3+/5 grossly LUE: 4/5 ADL-Treatment Eating (QC): 4 Oral Hygiene (QC): 7 Shower/Bathe Self (QC): 3 Upper Body Dressing (QC): 4 Lower Body Dressing (QC): 3 (balance only) On/Off Footwear (QC): 3 (mod ) Toileting Hygiene (QC): 3 (balance assist) Shower performed; ~75% completed in standing. Min a for balance with UE unilateral support on grab bar. Mild unsteadiness with prolong standing, but no significant LOB. Cues needed to initiate use of soap and to wash LE's. Pt verbalizes that she does not usually wash LE's but instead lets the soapy water run down to her feet. Pt unable to reach feet in standing and required cue to sit. Once sitting, pt able to reach ankle, assist to wash feet. When transferring out of shower and onto chair (placed to pt's right), pt was unable to locate despite scanning cues. Hand held assist and extra time to guide pt to chair. Min a for sitting balance as she bent forward to thread BLE's into underwear/pants. Steadying assist required as she stood to manage clothing up to waist with zero UE support. Pt used pant leg to pull leg up and over contralateral knee in order to don sock. Poor flexibility limited this on RLE and assist needed to don sock. Again, cues and hand held assist to turn right towards the sink. [place] placed to right side to encourage scanning. Pt able to find brush and comb hair with extra time. Pt appears to do better with automatic tasks such as adls vs random tasks that pt was cued to complete. Other Treatments While in gym, pt participated in static standing activity to encourage scanning, word finding, sequencing, balance, and endurance. Pt demonstrates both expressive and receptive aphasia. When presented with letters vs numbers, pt had no difficulty verbalizing correct letter but required max cues for id entification of correct number. She appears to have R visual field cut with difficulty detecting stimulus in R lateral, upper, and lower quadrants. Max cues for scanning. With prolong standing, balance impairs and rest breaks are needed. Education OT Patient Education: Correct positioning, Energy conservation, Modified ADL techniques, Progress toward Goal/Update tx plan, Purpose of tx/functional activities, Reviewed precautions, Safety issues, Transfer techniques Teaching Recipient: Patient Teaching Methods: Demonstration, Discussion Response to Teaching: Reinforcement Needed OT Short Term Goals Short Term Goals Time Frame: Oct 12, 2021 Eatin Oral hygiene: 4 Toileting hygiene: 4 Shower/bathe self: 4 Upper body dressin Lower body dressin Putting on/taking off footwear: 4 OT Snf Goals Snf Goals Time Frame: Oct 20, 2021 Eating (QC): 6 Oral Hygiene (QC): 5 Toileting Hygiene (QC): 6 Shower/Bathe Self (QC): 5 Upper Body Dressing (QC): 5 Lower Body Dressing (QC): 5 On/Off Footwear (QC): 5 1=Demonstrate adherence to instructed precautions during ADL tasks. 2=Patient will verbalize/demonstrate understanding of assistive devices/el fications for ADL. 3=Patient will improve strength/tolerance for activity to enable patient to perform ADL's. OT Education/Plan Problem List/Assessment Assessment: Decreased Activ Tolerance, Decreased Safety Aware, Decreased UE Strength, Impaired Cognition, Impaired Coordination, Impaired Funct Balance, Impaired I ADL's, Impaired Self-Care Skills, Visual-Perceptual Deficit Discharge Recommendations Plan/Recommendations: Continue POC Comment continue to assess Treatment Plan/Plan of Care Treatment,Training & Education: Yes Patient would benefit from OT for education, treatment and training to promote independence in ADL's, mobility, safety and/or upper extremity function for ADL's. Plan of Care: ADL Retraining, Cognitive Retraining, Functional Mobility, Group Exercise/Act as Ind, UE Funct Exercise/Act, UE Neuromus Re-Ed/Coord, Visual/Perceptual Retrain Treatment Duration: Oct 20, 2021 Frequency: At least 5 of 7 days/Wk (IRF) Estimated Hrs Per Day: 1.5 hours per day Rehab Potential: Fair Time/GCodes Start Time: 13:45 Stop Time: 15:15 Total Time Billed (hr/min): 90 Billed Treatment Time 1 visit EVM (10 min) ADL x3 (50 min) FA x2 (30 min) co-treat for 70 min Paloma Cortez OT Sep 29, 2021 15:17
[2021-09-29] MEDS ORDERED: ACETAMINOPHEN 325 MG TABLET PO PRN (15:30)
[2021-09-29] MEDS: ACETAMINOPHEN 325 MG TABLET PO PRN (16:42)
[2021-09-29] MEDS: inSUlin ASPART (NovoLOG) 1 UNIT/0.01 ML (CHARGE PER UNIT) SC SCH ×2 (18:07→21:53)
[2021-09-29] MEDS ORDERED: FLU QUAD HIGH DOSE 240 MCG/0.7 ML 2021-22 (FLUZONE) IM ONE (18:15)
[2021-09-29] MEDS: DOCUSATE SODIUM 100 MG (COLACE) CAP PO SCH ×3 (18:24→21:52)
[2021-09-29] MEDS: SENNA W/DOCUSATE (SENOKOT S) TABLET PO SCH ×3 (18:25→21:52)
[2021-09-29] MEDS: polyethylene glycoL POWDER 17 GM (MIRALAX) PACK PO SCH ×3 (18:25→21:52)
--- NOTE | 2021-09-29 18:37 | PM&R Post Admission Assessment ---
PM&R HP Date of Visit: Sep 29, 2021 Time of Visit: 19:00 History of Present Illness Chief complaint: Debility from CVA History present illness: This is an 81-year-old white female clinic patient of Dr Lim who presents to the inpatient rehab unit from . She suffered a CVA and has expressive aphasia and right-sided vision neglect. PT and OT will be required to regain ambulatory function with assistive devices and increase independence with ADLs. DC note: Name: Jia Colby Date Of : 1940 Age: 81 years Admit date: 09/22/2021 Discharge date: 09/29/2021 Discharge Attending: Sarita Price MD Discharge Summary Completed By: Zeny Cavazos MD Service: Neurology Stroke Reason for hospitalization: Ischemic stroke (HCC) [I63.9] Primary Discharge Diagnosis: Acute ischemic left MCA stroke (HCC) Hospital Diagnoses: Hospital Problems Active Problems * (Principal) Acute ischemic left MCA stroke (HCC) Morbid obesity (HCC) S/P carotid endarterectomy Atrial fibrillation (HCC) Essential hypertension Diabetes mellitus with peripheral vascular disease (HCC) Bilateral carotid artery disease (HCC) Thrombosis of left carotid artery Diabetic peripheral neuropathy (HCC) Dyslipidemia GERD (gastroesophageal reflux disease) Gout Hypothyroid Acute postoperative pain Acute encephalopathy Facial droop Expressive aphasia Hypertensive emergency Acute postoperative anemia due to expected blood loss Resolved Problems RESOLVED: Leukocytosis Significant Past Medical History Anxiety and depression Arthritis Atrial fibrillation (HCC) Carotid arterial disease (HCC) Cataract Diabetes mellitus, type II (HCC) Diabetic peripheral neuropathy (HCC) Dyslipidemia Essential hypertension Generalized headaches GERD (gastroesophageal reflux disease) Gout Heart palpitations History of ischemic left MCA stroke History of myocardial infarction Hypothyroid Obesity Thrombosis of left carotid artery Allergies Morphine Brief Hospital Course The patient was admitted and the following issues were addressed during this hos pitalization: (with pertinent details including admission exam/imaging/labs). Jia Colby is a 81 y.o. female with HTN, DM, Afib on Eliis, left ischemic stroke with L CEA on 2013 and NC (1995) presented with right arm numbness and headache for 2 days at the OSH. Her initial NIH was 18 which improved to 9. Ct head at OSH didn't reveal any abnormalities and CTA showed a non occlusive thrombus in the L ICA. She was transferred to [facility] and her aphasia worsened during the transfer and repeat CT head showed left inferior parietal lobe edema consistent with evolving infarct and CTA showed the on occlusive thrombus in the left ICA. CTP showed a completed infarct so was not an IR candidate. She underwent embolectomy and CEA of left ICA. MRI brain also showed small infarcts in right occipital and left cerebellum suspicious for central source of embolization. History of atrial fibrillation, on Eliquis but with reported noncompliance. She was planned to discharge on 09/28 but overnight she was more confused; repeat CT head showed slight worsening of hemorrhagic transformation of left posterior MCA/[employer] stroke. Plan to resume Eliquis on 10/07, 2 weeks from stroke onset; until then continue aspirin 81 mg daily. She was discharged on 09/29 to [facility] with plan to follow up with vascular surgery and stroke. Past Mukqspc-Flzosz-Zrohkn Hx Past Med/Social Hx: Reviewed Nursing Past Med/Soc Hx, Reviewed and Corrections made Patient Social History Marrital Status: Employed/Student: retired Alcohol Use: Denies Use Smoking Status: Never a Smoker Recent Foreign Travel: No Contact w/other who traveled: No Recent Hopitalizations: Yes Immunizations Up To Date Date of Pneumonia Vaccine: Aug 07, 2012 Date of Influenza Vaccine: Aug 09, 2011 Past Medical History Surgeries: Eye Surgery, Gallbladder, Hysterectomy, Joint Replacement, Oophorectomy, Orthopedic, Vascular Surgery Cardiac: Atrial Fibrillation, Coronary Artery Disease, Heart Attack, High Cholesterol, Hypertension, Peripheral Vascular Neurological: Headaches /Migraines, Stroke 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: No Hysterectomy, Menopausal Gastrointestinal: Gastroesophageal Reflux, Diverticulosis Musculoskeletal: Degenerate Disk Disease, Arthritis Endocrine: Diabetes, Insulin dep, Hypothyroidsim HEENT: Cataract History of Blood Disorders: Yes (ANEMIA) Family History SOCIAL HISTORY: -NO SMOKING -NO ETOH -NO DRUGS PAST SURGICAL HISTORY: -LEFT CAROTID ENDARTERECTOMY -HYSTERECTOMY WITH RIGHT SALPINGO-OOPHORECTOMY -BILATERAL CATARACT SURGERY -CERVICAL SPINE SURGERY -BILATERAL TOTAL KNEE REPLACEMENT -CHOLECYSTECTOMY -EGD/COLONOSCOPY 02/[address] PITT Prior Level of Function Bed Mobility: 6 Transfers: 6 Gait: 6 Stairs: 6 Wheelchair Mobility: 9 Indoor Mobility (Ambulation): Independent Stairs: Independent Prior Devices Use: None Self Care: Independent Functional Cognition: Independent Drive Self: Yes Current Level of Fuctioning Roll Left to Right: 4 Sit to Lyin Lying to Sitting/Side of Bed: 4 Sit to Stand: 4 Chair/Xsv-ds-Kxbpg Xfer: 3 Car Transfer: 3 Does the Patient Walk: Yes Mode of Locomotion: Walk Anticipated Mode of Locomotion: Walk Walk 10 feet: 3 Walk 50 ft with 2 Turns: 3 Walk 150 ft: 3 Walking 10ft on uneven surface: 3 Gait Assistive Device: Handheld Assist Does the Pt Use a Wheelchair: No Wheel 50 ft with 2 turns: 9 Wheel 150 ft: 9 #of Steps: 12 1 Step (curb): 3 4 Steps: 3 12 Steps: 3 Picking up an Object: 88 Eatin Oral Hygiene: 7 Shower/Bathe Self: 3 Upper Body Dressin Lower Body Dressin (balance only) On/Off Footwear: 3 (mod ) Toileting Hygiene: 3 (balance assist) PM&R Allergy/Meds/Data Review Allergies Coded Allergies: No Known Drug Allergies (Unverified , 02/19/13) Home Medications Scheduled Allopurinol (Allopurinol), 100 MG PO BID, (Reported) Apixaban (Eliquis), 5 MG PO BID, (Reported) Aspirin (Aspirin), 81 MG PO DAILY, (Reported) Atorvastatin Calcium (Atorvastatin Calcium), 80 MG PO DAILY, (Reported) Cyanocobalamin (Cyanocobalamin Injection), 1,000 MCG IM MONTHLY, (Reported) Gabapentin (Neurontin), 300 MG PO DAILY, (Reported) Glipizide (Glipizide ER), 10 MG PO DAILY, (Reported) Insulin Glargine,Hum.rec.anlog (Lantus Solostar), 35 UNITS SC HS, (Reported) Levothyroxine Sodium (Levothyroxine Sodium), 75 MCG PO DAILY, (Reported) Liraglutide (Victoza 2-Sanket), 1.2 ML SC DAILY, (Reported) Metformin HCl (Metformin HCl ER), 500 MG PO DAILY, (Reported) Metoprolol Succinate (Metoprolol Succinate), 100 MG PO DAILY, (Reported) Metoprolol Succinate (Metoprolol Succinate), 50 MG PO HS, (Reported) Olmesartan Medoxomil (Olmesartan Medoxomil), 20 MG PO DAILY, (Reported) Pantoprazole Sodium (Pantoprazole Sodium), 40 MG PO DAILY, (Reported) Venlafaxine HCl (Venlafaxine HCl ER), 150 MG PO DAILY, (Reported) Scheduled PRN Acetaminophen (Tylenol), 650 MG PO Q4H PRN for HEADACHE, (Reported) Discontinued Medications Allopurinol (Zyloprim), 100 MG PO BID, (Reported) Discontinued Reason: No Longer Taking Aspirin (Aspirin Ec 81 Mg), 81 MG PO DAILY, (Reported) Discontinued Reason: No Longer Taking Atorvastatin Calcium (Atorvastatin Calcium), 80 MG PO DAILY, (Reported) Discontinued Reason: No Longer Taking Enoxaparin (Lovenox), 40 MG SC DAILY, (Reported) Discontinued Reason: No Longer Taking Ferrous Sulfate (Ferrous Sulfate), 650 MG PO DAILY, (Reported) Discontinued Reason: No Longer Taking Ferrous Sulfate (Ferrous Sulfate), 325 MG PO HS, (Reported) Discontinued Reason: No Longer Taking Gabapentin (Neurontin), 300 MG PO DAILY, (Reported) Discontinued Reason: No Longer Taking Glyburide (Glyburide), 5 MG PO DAILY, (Reported) Discontinued Reason: No Longer Taking Hydrocodone Bit/Acetaminophen (Lortab 5 Mg), 1 EA PO Q8H PRN, (Reported) Discontinued Reason: No Longer Taking Levothyroxine Sodium (Synthroid), 75 MCG PO DAILY, (Reported) Discontinued Reason: No Longer Taking Metformin Hcl (Metformin 500 Mg), 1,000 MG PO BID WITH MEALS, (Reported) Discontinued Reason: No Longer Taking Metoprolol Succinate (Metoprolol Succinate Xl 50 Mg), 100 MG PO DAILY, (Repo rted) Discontinued Reason: No Longer Taking Metoprolol Succinate (Metoprolol Succinate Xl 50 Mg), 50 MG PO HS, (Reported) Discontinued Reason: No Longer Taking Olmesartan Medoxomil (Benicar), 20 MG PO DAILY, (Reported) Discontinued Reason: No Longer Taking Pantoprazole Sodium (Pantoprazole Sodium), 40 MG PO DAILY, (Reported) Discontinued Reason: No Longer Taking Venlafaxine Hcl (Venlafaxine Hcl Er), 75 MG PO DAILY, (Reported) Discontinued Reason: No Longer Taking Warfarin Sod (Coumadin 5 Mg), 5 MG PO JOINER, MO, TU, WE, FR, (Reported) Discontinued Reason: No Longer Taking Warfarin Sodium (Coumadin), 7.5 MG PO TUE, , (Reported) Discontinued Reason: No Longer Taking Current Medications Current Medications Reviewed Laboratory Data Laboratory Tests 09/29/21 17:35: Glucometer 216H Review of Systems ROS-Unable to Obtain: Expressive aphasia limits details Constitutional: see HPI, malaise, weakness EENTM: no symptoms reported Respiratory: no symptoms reported Cardiovascular: no symptoms reported Gastrointestinal: no symptoms reported Genitourinary: no symptoms reported Musculoskeletal: no symptoms reported Skin: no symptoms reported Psychiatric/Neurological: No Symptoms Reported All Other Systems Reviewed Negative Unless Noted: Yes Physical Exam Physical Exam Vital Signs Vital Signs - First Documented 09/29/21 13:30 Temp 35.2 Pulse 77 Resp 18 B/P (MAP) 140/84 (102) Pulse Ox 90 O2 Delivery Room Air Capillary Refill : Height, Weight, BMI Height: 5'3.00" Weight: 225lbs. oz. 101.069232lh; 42.59 BMI Method:Estimated General Appearance: No Apparent Distress, WD/WN, Chronically ill Eyes: Bilateral Eye Normal Inspection, Bilateral Eye PERRL HEENT: PERRL/EOMI, Normal ENT Inspection, Pharynx Normal, Other (Right side patient neglect) Neck: Full Range of Motion, Normal Inspection, Non Tender, Supple, Carotid Bruit Respiratory: Chest Non Tender, Lungs Clear, Normal Breath Sounds, No Accessory Muscle Use, No Respiratory Distress Cardiovascular: Regular Rate, Rhythm, No Edema, No Gallop, No JVD, No Murmur, Normal Peripheral Pulses Gastrointestinal: Normal Bowel Sounds, No Organomegaly, No Pulsatile Mass, Non Tender, Soft Back: Normal Inspection, No CVA Tenderness, No Vertebral Tenderness Extremity: Normal Capillary Refill, Normal Inspection, Normal Range of Motion, Non Tender, No Calf Tenderness, No Pedal Edema Neurologic/Psychiatric: Alert, Oriented x3, Normal Mood/Affect, Abnormal Cerebellar Tests, Abnormal Gait, Aphasia, Motor Weakness (Generalized) Skin: Normal Color, Warm/Dry Lymphatic: No Adenopathy PM&R Medical Assessment & Plan REHAB/MEDICAL ASSESSMENT AND PLAN: REHAB IMPAIRMENT GROUP: CVA ETIOLOGIC DIAGNOSIS: CVA The comorbidities that impact the patients function and/or functional outcome by: Advanced age, hypertension, diabetes, right-sided vision neglect, expressive aphasia REHAB PLAN: The patient is being admitted to our comprehensive inpatient rehabilitation facility and can tolerate the intensity of service consisting of at least: 180 minutes of therapy a day, 5 out of 7 days a week Rehab treatment will consist of: PT and OT will focus on regaining ambulatory function with use of assistive devices along with increasing independence in ADLs in order to return home to independent living The patient/family has a good understanding of our discharge process and will benefit from an interdisciplinary inpatient rehabilitation program. The patient has potential to make improvement and is in need of at least two of the following multidisciplinary therapies including but not limited to physical, occupational, speech, and prosthetics and orthotics. Additionally the patient will need services from respiratory, nutritional services, wound care, psychology, etc. (Customize this to each patient). Given the patients complex condition and risk of further medical complications, rehabilitation services cannot be safely or effectively provided at a lower level of care such as a usp facility. BARRIERS TO DISCHARGE: Advanced age ESTIMATED LOS: 14 days DISPOSITION: Home RELEVANT CHANGES SINCE PREADMISSION SCREENING: I have compared the patients medical and functional status at the time of the preadmission screening and there are: No changes PROGNOSIS: Fair REHABILITATION GOALS: 1. PT and OT will focus on regaining ambulatory function with use of assistive devices along with increasing independence in ADLs in order to return home to independent living All the above goals were reviewed with the patient and he/she is in agreement. By signing this document, I acknowledge that I have personally performed a full physical examination on this patient within 24 hours of admission to this inpatient rehabilitation facility and have determined the patient to be able to tolerate the above course of treatment at an intensive level for a reasonable period of time. I will be completing a detailed individualized Plan of Care for this patient by day #4 of the patients stay based upon the Preadmission Screen, the Post-Admission Evaluation, and the therapy evaluations. Admission Dx/Comorbidities: (1) CVA (cerebral infarction) Status: Acute ICD Codes: I63.9 - Cerebral infarction, unspecified (2) Chronic atrial fibrillation Status: Acute ICD Codes: I48.20 - Chronic atrial fibrillation, unspecified (3) Expressive aphasia Status: Acute ICD Codes: R47.01 - Aphasia (4) HTN (hypertension) Status: Acute ICD Codes: I10 - Essential (primary) hypertension (5) IDDM (insulin dependent diabetes mellitus) Status: Acute Assessment/Plan Assessment and Plan Assess & Plan/Chief Complaint Assessment: 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 transferred to Expressive aphasia s/p 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 Hypertension Diabetes Chronic atrial fibrillation Oral anticoagulation reported non-compliance prior to CVA Acute hematuria may need urology consult if continues GERD Gout [facility] DC dx: Active Problems * (Principal) Acute ischemic left MCA stroke (HCC) Morbid obesity (HCC) S/P carotid endarterectomy Atrial fibrillation (HCC) Essential hypertension Diabetes mellitus with peripheral vascular disease (HCC) Bilateral carotid artery disease (HCC) Thrombosis of left carotid artery Diabetic peripheral neuropathy (HCC) Dyslipidemia GERD (gastroesophageal reflux disease) Gout Hypothyroid Acute postoperative pain Acute encephalopathy Facial droop Expressive aphasia Hypertensive emergency Acute postoperative anemia due to expected blood loss Plan: Monitor hematuria PT and OT Speech therapy Home meds Monitor blood sugar Monitor blood pressure NKECHI VO DO Sep 29, 2021 18:37
[2021-09-29 19:43] VITALS: BP 136/60
[2021-09-29] MEDS ORDERED: APIXABAN 5 MG (ELIQUIS) TABLET PO SCH (21:00)
[2021-09-29] MEDS: ALLOPURINOL 100 MG (ZYLOPRIM) TAB PO SCH (21:52)
[2021-09-29] MEDS: meTOproloL SUCCINATE 50 MG (TOPROL XL) TAB PO SCH (21:52)
[2021-09-30] MEDS: inSUlin ASPART (NovoLOG) 1 UNIT/0.01 ML (CHARGE PER UNIT) SC SCH ×4 (06:09→20:41)
[2021-09-30] MEDS: VENlafaxine XR 75 MG (EFFEXOR XR) CAP PO SCH (06:10)
[2021-09-30 06:56] LABS: BASOPHILS # (AUTO) 0.1 10^3/uL (0.0-0.1); BASOPHILS % (AUTO) 1 % (0-10); EOSINOPHILS # (AUTO) 0.6 10^3/uL (0.0-0.3); EOSINOPHILS % (AUTO) 5 % (0-10); HEMATOCRIT 38 % (35-52); LYMPHOCYTES # (AUTO) 0.9 10^3/uL (1.0-4.0); LYMPHOCYTES % (AUTO) 7 % (12-44); MEAN CORPUSCULAR HEMOGLOBIN 30 pg (25-34); MEAN CORPUSCULAR HGB CONC 31 g/dL (32-36); MEAN CORPUSCULAR VOLUME 95 fL (80-99); MEAN PLATELET VOLUME 11.6 fL (9.0-12.2); MONOCYTES # (AUTO) 0.8 10^3/uL (0.0-1.0); MONOCYTES % (AUTO) 6 % (0-12); NEUTROPHILS # (AUTO) 11.4 10^3/uL (1.8-7.8); NEUTROPHILS % (AUTO) 82 % (42-75); PLATELET COUNT 390 10^3/uL (130-400)
[2021-09-30 07:00] LABS: ALBUMIN 3.6 GM/DL (3.2-4.5)
[2021-09-30 07:01] LABS: POTASSIUM 4.3 MMOL/L (3.6-5.0)
[2021-09-30 07:02] LABS: CALCIUM 9.4 MG/DL (8.5-10.1)
[2021-09-30 07:03] LABS: TOTAL PROTEIN 7.5 GM/DL (6.4-8.2)
[2021-09-30 07:05] LABS: BILIRUBIN,TOTAL 0.6 MG/DL (0.1-1.0)
[2021-09-30 07:07] LABS: CREATININE SERUM 1.18 MG/DL (0.60-1.30)
--- NOTE | 2021-09-30 07:14 | PM&R Progress Note ---
Subjective HPI/CC On Admission Date Seen by Provider: Sep 30, 2021 Time Seen by Provider: 11:00 Subjective/Events-last exam 09/30/2021: Patient settling in well Right side neglect is still apparent Blood pressure stable Eliquis will be stopped due to conflicting consulting decisions from [facility] Dr. [place] identified Check meds labs No pain is reported Review of Systems General: Fatigue Neurological: Weakness Objective Exam Vital Signs Vital Signs Date Time Temp Pulse Resp B/P (MAP) Pulse Ox O2 Delivery O2 Flow Rate FiO2 09/30/21 21:00 94 Room Air 09/30/21 19:40 37.0 90 22 121/70 (87) Capillary Refill : General Appearance: No Apparent Distress, WD/WN, Chronically ill HEENT: PERRL/EOMI, Normal ENT Inspection, Pharynx Normal, Other (Right side patient neglect) Neck: Full Range of Motion, Normal Inspection, Non Tender, Supple, Carotid Bruit Respiratory: Chest Non Tender, Lungs Clear, Normal Breath Sounds, No Accessory Muscle Use, No Respiratory Distress Cardiovascular: Regular Rate, Rhythm, No Edema, No Gallop, No JVD, No Murmur, Normal Peripheral Pulses Gastrointestinal: Normal Bowel Sounds, No Organomegaly, No Pulsatile Mass, Non Tender, Soft Back: Normal Inspection, No CVA Tenderness, No Vertebral Tenderness Extremity: Normal Capillary Refill, Normal Inspection, Normal Range of Motion, Non Tender, No Calf Tenderness, No Pedal Edema Neurologic/Psychiatric: Alert, Oriented x3, Normal Mood/Affect, Abnormal Cerebellar Tests, Abnormal Gait, Aphasia, Motor Weakness (Generalized) Skin: Normal Color, Warm/Dry Lymphatic: No Adenopathy Results/Procedures Lab Laboratory Tests 09/30/21 06:00 09/30/21 06:24 Patient resulted labs reviewed. FIM Transfers Therapy Code Descriptions/Definitions Functional Alvo Measure: 0=Not Assessed/NA 4=Minimal Assistance 1=Total Assistance 5=Supervision or Setup 2=Maximal Assistance 6=Modified Alvo 3=Moderate Assistance 7=Complete IndependenceSCALE: Activities may be completed with or without assistive devices. 8-Snbscbvkzn-xnoleyc completes the activity by him/herself with no assistance from a helper. 5-Set-up or Clean-up Assistance-helper sets up or cleans up; patient completes activity. Bernice assists only prior to or following the activity. 4-Supervision or Touching Assistance-helper provides verbal cues and/or touching/steadying and/or contact guard assistance as patient completes activity. Assistance may be provided throughout the activity or intermittently. 3-Partial/Moderate Assistance-helper does LESS THAN HALF the effort. Bernice lifts, holds or supports trunk or limbs, but provides less than half the effort. 2-Substantial/Maximal Assistance-helper does MORE THAN HALF the effort. Bernice lifts or holds trunk or limbs and provides more than half the effort. 4-Slcmiqvmw-nptjiy does ALL the effort. Patient does none of the effort to complete the activity. Or, the assistance of 2 or more helpers is required for the patient to complete the activity. If activity was not attempted, code reason: 7-Patient Refused. 9-Not Applicable-not attempted and the patient did not perform the activity before the current illness, exacerbation or injury. 10-Not Attempted due to Environmental Limitations-(lack of equipment, weather restraints, etc.). 88-Not Attempted due to Medical Conditions or Safety Concerns. Roll Left to Right (QC): 4 Sit to Lying (QC): 4 Sit to Stand (QC): 4 Chair/Pdu-sp-Tezys Xfer(QC): 3 Car Transfer (QC): 3 Gait Training Does the Patient Walk?: Yes Distance: 125' x2 Walk 10 feet (QC): 3 Walk 50 ft with 2 Turns(QC): 3 Walk 150 ft (QC): 3 Walking 10ft/uneven surface-QC: 3 Gait Assistive Device: Handheld Assist Wheelchair Training Does the Pt Use a Wheelchair?: No Wheel 50 ft with 2 turns (QC): 9 Wheel 150 ft (QC): 9 Stair Training #of Steps: 12 1 Step (curb) (QC): 3 4 Steps (QC): 3 12 Steps (QC): 3 Balance Picking up an Object (QC): 88 ADL-Treatment Eating (QC): 4 Oral Hygiene (QC): 7 Shower/Bathe Self (QC): 3 Upper Body Dressing (QC): 4 Lower Body Dressing (QC): 3 (balance only) On/Off Footwear (QC): 3 (mod ) Toileting Hygiene (QC): 3 (balance assist) Assessment/Plan Assessment and Plan Assess & Plan/Chief Complaint Assessment: 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 transferred to Expressive aphasia s/p 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 Hypertension Diabetes Chronic atrial fibrillation Oral anticoagulation reported non-compliance prior to CVA Acute hematuria may need urology consult if continues GERD Gout [facility] DC dx: Active Problems * (Principal) Acute ischemic left MCA stroke (HCC) Morbid obesity (HCC) S/P carotid endarterectomy Atrial fibrillation (HCC) Essential hypertension Diabetes mellitus with peripheral vascular disease (HCC) Bilateral carotid artery disease (HCC) Thrombosis of left carotid artery Diabetic peripheral neuropathy (HCC) Dyslipidemia GERD (gastroesophageal reflux disease) Gout Hypothyroid Acute postoperative pain Acute encephalopathy Facial droop Expressive aphasia Hypertensive emergency Acute postoperative anemia due to expected blood loss Plan: Monitor hematuria PT and OT Speech therapy Home meds Monitor blood sugar Monitor blood pressure 09/30/2021: Supportive care Hold Eliquis until 10/07/2021 (1) CVA (cerebral infarction) Status: Acute (2) Chronic atrial fibrillation Status: Acute (3) Expressive aphasia Status: Acute (4) HTN (hypertension) Status: Acute (5) IDDM (insulin dependent diabetes mellitus) Status: Acute NKECHI VO DO Sep 30, 2021 07:14
--- NOTE | 2021-09-30 07:14 | Individualized Plan of Care ---
Individualized Plan of Care Rehab Nursing IPOC Order Admission Date Sep 29, 2021 at 13:25 Current Orders Orders Admission Order(Inpt,Obs,Sdc) (09/28/21 10:38) Vital Signs: Per Unit Policy ( ,16,00 (09/28/21 10:38) Cipriano Elizabeth (09/28/21 10:38) Sequential Compression Device (09/28/21 10:38) Electrician Supervisor-Inpt Rehab Con (09/28/21 10:38) Rehab Nursing Orders-Ipoc (09/28/21 10:38) Physical Therapy Rehab Orders (09/28/21 10:38) Occupational Therapy Rehab Ord (09/28/21 10:38) Speech Therapy Rehab Orders (09/28/21 10:38) Precautions (Aru) (09/28/21 10:38) Weekly Weight WEEK (09/28/21 10:38) Rehab-Intensity Of Therapy (09/28/21 10:38) Initiate Admission Nursing Pro .admission (09/28/21 10:38) Alprazolam Tablet (Xanax Tablet) (09/28/21 10:45) Calcium Carbonate Chew Tablet (Antacid C (09/28/21 10:45) Diphenhydramine Tablet (Benadryl Tablet) (09/28/21 10:45) Docusate Sodium Capsule (Colace Capsule) (09/28/21 21:00) Docusate Sodium Capsule (Colace Capsule) (09/28/21 10:45) Bisacodyl Suppository (Dulcolax Supposit (09/28/21 10:45) Lactulose Oral Solution (Enulose Oral So (09/28/21 10:45) Na Phos/Na Biphos Enema (Fleet Enema Andres (09/28/21 10:45) Guaifenesin/Codeine Syrup (Robitussin Ac (09/28/21 10:45) Loperamide Tablet (Imodium Tablet) (09/28/21 10:45) Melatonin Tablet (Melatonin Tablet) (09/28/21 10:45) Polyethylene Glycol Powder Pkt (Miralax (09/28/21 21:00) Ondansetron Oral Dissolve Tab (Zofran (09/28/21 10:45) Senna S Tablet (Senokot S Tablet) (09/28/21 21:00) Code/Resuscitation (09/28/21 10:38) Sequential Compression Device ONCE (09/28/21 10:38) Initiate Admission Nursing Pro .admission (09/28/21 10:38) Admission Arrival Bed Request (09/29/21 13:28) Cbc With Automated Diff (09/30/21 06:00) Comprehensive Metabolic Panel (09/30/21 05:00) Acetaminophen Tablet/Caplet (Tylenol T (09/29/21 13:45) Allopurinol Tablet (Zyloprim Tablet) (09/29/21 21:00) Apixaban Tablet (Eliquis Tablet) (09/29/21 21:00) Aspirin Chewable Tablet (Baby Aspirin Ch (09/30/21 09:00) Atorvastatin Tablet (Lipitor Tablet) (09/30/21 09:00) Cyanocobalamin Injection (Vitamin B-12 I (09/29/21 13:45) Gabapentin Capsule/Tablet (Neurontin Cap (09/30/21 09:00) Glipizide Xl Tablet (Glucotrol Xl Tablet (09/30/21 09:00) Levothyroxine Tablet (Synthroid Tablet) (09/30/21 09:00) Metformin Xr Tablet (Glucophage Xr Table (09/30/21 09:00) Metoprolol Succinate (Xl) Tab (Toprol Xl (09/29/21 21:00) Metoprolol Succinate (Xl) Tab (Toprol Xl (09/30/21 09:00) Pantoprazole Tablet (Protonix Tablet) (09/30/21 09:00) Insulin Determir (Per Unit) (Levemir (Pe (09/29/21 21:00) (Nf) Liraglutide (Victoza 2-Sanket) (09/30/21 09:00) Venlafaxine Xr Capsule (Effexor Xr Capsu (09/30/21 07:00) Accucheck Achs ACHS (09/29/21 13:40) Insulin Aspart (Novolog) (Novolog (Charg (09/29/21 16:00) Patient Visit (09/29/21 ) Pt Eval Moderate Complexity (09/29/21 ) Patient Visit (09/29/21 ) Gait Training, Ea 15 Min (09/29/21 ) Functional Activities, Ea 15 (09/29/21 ) Acetaminophen Tablet/Caplet (Tylenol T (09/29/21 15:30) Losartan Tablet (Cozaar Tablet) (09/30/21 09:00) Cho 75g/M 0snack (21-2400 Ronal) (09/29/21 Dinner) Flu Quad High Dose [id number] (Fluzone Hi (09/29/21 18:15) Nursing Communication (Order) (09/29/21 19:20) Manual Differential (09/30/21 06:00) Patient Visit (09/30/21 ) Speech Sound Lang Comp (09/30/21 ) Treat. Speech/Lang/Voice (09/30/21 ) Apixaban Tablet (Eliquis Tablet) (09/30/21 11:45) Patient Visit (09/30/21 ) Exercise Therap, Ea 15 Min (09/30/21 ) Functional Activities, Ea 15 (09/30/21 ) Gait Training, Ea 15 Min (09/30/21 ) Home Pass/Therapeutic-Rehab (09/30/21 13:45) Incentive Spirometry (Nursing) Q2H (09/30/21 14:40) Incentive Spirometry Initial (09/30/21 14:40) Incentive Spirometry (Nursing) Q2H (09/30/21 14:40) Rehab Nursing Orders: Ongoing Assess. of Cognitive Status, Ongoing Assess. of Function Status, Bladder Management, Bladder Scan, Bladder Training, Bowel Management, Bowel Training, Disease Management & Educaiton, DVT Prophylaxis, Fall Prevention, Fluid/Electrolyte/Nutrition Mgmt, Infection Prevention, Medication Management & Education, Management of Risks & Complications, Nutrition Management, Pain Management, Patient/Family Support, Safety Management, Swallow Precautions Intensity of Therapy to be met Patient to be seen: Min.3h per day/5 of 7d PT IPOC Problem List: Activity Tolerance, Safety Treatment Plan: Continue Plan of Care Bed Mobility, Concurrent Therapy, Education, Functional Activity Helen, Funct ional Strength, Group Therapy, Gait, Safety, Therapeutic Exercise, Transfers Treatment Duration: Oct 31, 2021 Frequency: At least 5 of 7 days/Wk (IRF) Estimated Hrs Per Day: 1.5 hours per day OT IPOC Problems: Decreased Activ Tolerance, Decreased Safety Aware, Decreased UE Strength, Impaired Cognition, Impaired Coordination, Impaired Funct Balance, Impaired I ADL's, Impaired Self-Care Skills, Visual-Perceptual Deficit OT Treatment, Training and Edu: Yes Plan of Care: ADL Retraining, Cognitive Retraining, Functional Mobility, Group Exercise/Act as Ind, UE Funct Exercise/Act, UE Neuromus Re-Ed/Coord, Visual/Perceptual Retrain Treatment Duration: Oct 20, 2021 Frequency: At least 5 of 7 days/Wk (IRF) Estimated Hrs Per Day: 1.5 hours per day [facility] Speech Therapy Treatment Plan: Continue Plan of Care Treatment Duration: Sep 30, 2021 Frequency: 4 times per week Estimated Hrs Per Day: .5 hour per day Electrician Supervisor/Case Mgmt Electrician Supervisor/Case Managemen: Discharge Planning Dietitian/Assistant To The President Dietitian/Assistant To The President to monitor nutritional status and make changes and/or recommendations as needed and work with speech pathology on dietary upgrades as the occur. Physician [facility] Medical Issues being managed closely and that require the 24 hour availability of a physician: Recent catastrophic stroke atrial fibrillation history carotid endarterectomy close monitoring from cardiology and other specialties in case decompensation occurs Medical Issues: Bowel/Bladder Function, DVT Prophylaxis, Falls Precautions, Fluid/Electrolyte/Nutrition Balance, Infection Protection, Pain Management Brief Synthesis of Preadmission Screen, Post-Admission Evaluation, and Therapy Evaluations: PT and OT will focus on working on right-sided neglect continue use of ambulatory devices and work on decreasing chance for falls Medical Prognosis: Good Anticipated Length of Stay: 14 days NKECHI VO DO Sep 30, 2021 07:14
[2021-09-30 07:32] LABS: BAND NEUTROPHILS 0 %; BASOPHILS % (MANUAL) 0 %; EOSINOPHILS % (MANUAL) 5 %; LYMPHOCYTES % (MANUAL) 6 %; MONOCYTES % (MANUAL) 10 %; NEUTROPHILS % (MANUAL) 79 %; RBC MORPH NORMAL
[2021-09-30 08:01] VITALS: BP 138/58
[2021-09-30] MEDS: PANTOPRAZOLE 40 MG (PROTONIX) TAB PO SCH (08:11)
[2021-09-30] MEDS: GABAPENTIN 300 MG (NEURONTIN) CAP PO SCH (08:11)
[2021-09-30] MEDS: glipiZIDE XL 10 MG (GLUCOTROL XL) TAB PO SCH (08:11)
[2021-09-30] MEDS: ALLOPURINOL 100 MG (ZYLOPRIM) TAB PO SCH ×2 (08:11→20:41)
[2021-09-30] MEDS: meTOproloL SUCCINATE 50 MG (TOPROL XL) TAB PO SCH ×2 (08:11→20:41)
[2021-09-30] MEDS: LOSARTAN 100 MG (COZAAR) TABLET PO SCH (08:11)
[2021-09-30] MEDS: LEVOTHYROXINE 75 MCG (LEVOTHROID) TABLET PO SCH (08:11)
[2021-09-30] MEDS: metFORMIN XR 500 MG (GLUCOPHAGE XR) TAB PO SCH (08:11)
[2021-09-30] MEDS: ASPIRIN 81 MG CHEW (CHILDREN'S ASA) PO SCH (08:11)
[2021-09-30] MEDS: polyethylene glycoL POWDER 17 GM (MIRALAX) PACK PO SCH ×2 (09:00→20:40)
[2021-09-30] MEDS: SENNA W/DOCUSATE (SENOKOT S) TABLET PO SCH ×2 (09:00→20:40)
[2021-09-30] MEDS ORDERED: LIRAGLUTIDE SC SCH (09:00)
--- NOTE | 2021-09-30 09:12 | ST Cognitive Linguistic Eval ---
Speech Evaluation-General Medical Diagnosis CVA Onset Date: Sep 22, 2021 Therapy Diagnosis Therapy Diagnosis: Cognitive-communication, Expressive Aphasis Referral Referring Physician: Dr. Little Medical History Pertinent Medical History: Atrial Fib, Arthritis, DM, HTN, MD Reviewed History: Yes Social History Current Living Status: Spouse Speech PLF-Current Status Prior Level of Function Patient lives in the home with her where she was independent for her daily needs. Subjective Patient was pleasant and cooperative with the cognitive/speech assessment. Language Eval: Auditory Comprehends Simple Yes/No Ques: Functional Indent/Objects Multiple Reynolds: Functional Ident/Pics in Multiple Reynolds: Functional Follows 1-Step Commands: Functional Follows Complex Directions: Functional Follows General Conversations: Functional Language Eval: Verbal Language Completes Spontaneous Greeting: Mild Produces Auto, Serial Info: Mild Imitates Simple Words/Phrases: Functional Word Finding: Moderate Requests Basic Needs: Mild States Basic Personal Info: Mild Expresses Complex Ideas: Moderate Cognitive Patient Orientation Patient is oriented to all concepts Objective Cognitive Domain Attention: WNL Memory: WNL Problem Solving: Functional Executive Functions: WNL Visuospatial Skills: WNL Composite Severity Rating: Mild Clock Drawing Severity Rating: Mild Objective Formal/Standardized Tests [facility] Mental Status ([facility]) Results 20/30, Moderate range of deficit Oral Motor/Speech Production Within normal limits for production Impression Patient is a pleasant 81 y/o female who was admitted to the ARU s/p CVA. The patient was evaluated at bedside for cognitive/speech. The patient scored 20/30 on the SLUMS, however her cognitive function is higher but ability is depressed due to expressive aphasia. The patient qualifies for skilled ST services which will focus on improving her expressive language abilities. Speech Patient Assess Expression of Ideas/Wants: Frequently (2) Understanding Verbal Content: Usually Understands (3) Brief Interview-Mental Status: Yes Repetition of Three Words: Two (2) Temporal Orientation: Year: Correct (3) Temporal Orientation: Month: Accurate within 5 days(2) Temporal Orientation: Day: Correct (1) Recall : Wear to say "Sock": Yes,after cueing (1) Recall : Color: No, could not recall (0) Recall : Bed: No, could not recall (0) Memory/Recall Ability: Current season, That he or she is in a hsp/hsp unit Speech Short Term Goals Short Term Goals Short Term Goals 1. Patient will independently complete automatic speech tasks with 80% given 10% cues. (continued) 2. Patient will attend to a structured task for duration of 20 minutes with intermittent clinician interruptions at 80% (sustained and divided attention). (Continued) 3. Patient will demonstrate 80% accuracy with confrontation naming, independently. Speech Putty Mixer And Applier Goals Group Home Goals Patient will be able to effectively communicate wants/needs. Speech-Plan Patient/Family Goals Patient/Family Goals: Patient plans on returning to her home where she lives with her . Treatment Plan Speech Therapy Treatment Plan: Continue Plan of Care Treatment Duration: Oct 09, 2021 Frequency: 4 times per week (Patient will receive skilled ST 4-5x per week) Estimated Hrs Per Day: .5 hour per day Rehab Potential: Fair Barriers to Learning: Patient's recent CVA which is her second one, age, expressive language Pt/Family Agrees to Plan: Yes Safety Risks/Education Teaching Recipient: Patient Teaching Methods: Discussion Response to Teaching: Verbalize Understanding Education Topics Provided: Safety within her room, utilization of the call light, communication of wants/needs Time Speech Therapy Time In: 08:30 Speech Therapy Time Out: 09:00 Total Billed Time: 30 Billed Treatment Time 1, RANDY COLIN [address] Sep 30, 2021 09:12
[2021-09-30] MEDS: DOCUSATE SODIUM 100 MG (COLACE) CAP PO SCH ×2 (10:05→20:40)
--- NOTE | 2021-09-30 10:18 | Occupational Ther Daily Note ---
OT Current Status-Daily Note Subjective Pt supine with HOB raised, alert. No c/o pain. Pt agrees to therapy. Mental Status/Objective Patient Orientation: Person, Place, Non-Verbal/Aphasic (word finding difficulties), Time, Situation ADL-Treatment Declined shower today. Pt supine->EOB using bed rail for stability, sit->stand independently, ambulated to toilet no AD using hand held assist. Close SBA stand <->toilet and clothing management, independent with cleansing self sitting on toilet. Sitting in front of sink, pt able to find all toiletries to complete oral care and grooming independently. Clothing was gathered and placed on pt's right side. With one gestural cue for placement of clothing, pt able to complete upper body by self then SBA for lower body clothing. Pt then ambulated without AD and CGA to recliner to doff/don socks and don shoes. Pt able to doff socks independently. Difficulty with crossing B LE's to doff socks. Educated pt on using sock aide to don socks, will need continued practice for independence. Pt able to follow simple directions with minimal physical cues to don socks after assist to place on sock aide. Handed pt shoes, pt able to don shoes by self. Therapy Code Descriptions/Definitions Functional [place] Measure: 0=Not Assessed/NA 4=Minimal Assistance 1=Total Assistance 5=Supervision or Setup 2=Maximal Assistance 6=Modified [place] 3=Moderate Assistance 7=Complete IndependenceSCALE: Activities may be completed with or without assistive devices. 0-Soamyaence-usqonxx completes the activity by him/herself with no assistance from a helper. 5-Set-up or Clean-up Assistance-helper sets up or cleans up; patient completes activity. [place] assists only prior to or following the activity. 4-Supervision or Touching Assistance-helper provides verbal cues and/or touching/steadying and/or contact guard assistance as patient completes activity. Assistance may be provided throughout the activity or intermittently. 3-Partial/Moderate Assistance-helper does LESS THAN HALF the effort. [place] lifts, holds or supports trunk or limbs, but provides less than half the effort. 2-Substantial/Maximal Assistance-helper does MORE THAN HALF the effort. [place] lifts or holds trunk or limbs and provides more than half the effort. 8-Mnzsbcfir-efmlyh does ALL the effort. Patient does none of the effort to c omplete the activity. Or, the assistance of 2 or more helpers is required for the patient to complete the activity. If activity was not attempted, code reason: 7-Patient Refused. 9-Not Applicable-not attempted and the patient did not perform the activity before the current illness, exacerbation or injury. 10-Not Attempted due to Environmental Limitations-(lack of equipment, weather restraints, etc.). 88-Not Attempted due to Medical Conditions or Safety Concerns. Oral Hygiene (QC): 6 (Independent while seated in chair at sink) Upper Body Dressing (QC): 5 (Pt able to complete with supplies gathered while seated.) Lower Body Dressing (QC): 4 (Pt able to complete with SBA using cabinet top and grabbars for support, with supplies gathered.) On/Off Footwear: 4 Toileting Hygiene (QC): 4 (Close SBA) Toilet Transfer (QC): 4 (Close SBA) Other Treatment Pt able to follow simple 2 step directions while ambulating with hand hold assist to therapy gym. Pt was visually scanning toward R side during ambulation. Pt completed B UE task with inset and interlocking puzzles working on visual scanning, fine motor and problem solving skills. Pt needed verbal cues initially with each attempt to complete tasks while gradually modifying to challenge pt. Pt able to manipulate 2-4" puzzle pieces to place in designated areas with minimal difficulty. Pt then given medium resistance theraputty to work on fine/gross motor hand skills to increase strength for daily functional tasks. Pt has green(medium resistance)theraputty in room. PT/OT cotreat [id number],skills of 2 clinicians required to decrease fall risk, increase overall str ength and increase visual perceptual during therapeutic tasks. PT focusing on ambulation and B LE strengthening and OT focusing on fine/gross motor hand skills and balance during functional tasks. Pt left in care of PT. All needs met. Education OT Patient Education: Use of adapted equipment Teaching Recipient: Patient Teaching Methods: Demonstration, Discussion Response to Teaching: Verbalize Understanding, Return Demonstration, Reinforcement Needed OT Short Term Goals Short Term Goals Time Frame: Oct 12, 2021 Eatin Oral hygiene: 4 Toileting hygiene: 4 Shower/bathe self: 4 Upper body dressin Lower body dressin Putting on/taking off footwear: 4 OT Cavity Pump Operator Goals Cavity Pump Operator Goals Time Frame: Oct 20, 2021 Eating (QC): 6 Oral Hygiene (QC): 5 Toileting Hygiene (QC): 6 Shower/Bathe Self (QC): 5 Upper Body Dressing (QC): 5 Lower Body Dressing (QC): 5 On/Off Footwear (QC): 5 1=Demonstrate adherence to instructed precautions during ADL tasks. 2=Patient will verbalize/demonstrate understanding of assistive devices/mo difications for ADL. 3=Patient will improve strength/tolerance for activity to enable patient to perform ADL's. OT Education/Plan Problem List/Assessment Assessment: Decreased Safety Aware, Impaired Coordination, Impaired Funct Balance, Impaired Self-Care Skills, Visual-Perceptual Deficit Discharge Recommendations Plan/Recommendations: Continue POC Treatment Plan/Plan of Care Patient would benefit from OT for education, treatment and training to promote independence in ADL's, mobility, safety and/or upper extremity function for ADL' s. Plan of Care: ADL Retraining, Cognitive Retraining, Functional Mobility, Group Exercise/Act as Ind, UE Funct Exercise/Act, UE Neuromus Re-Ed/Coord, Visual/Perceptual Retrain Treatment Duration: Oct 20, 2021 Frequency: At least 5 of 7 days/Wk (IRF) Estimated Hrs Per Day: 1.5 hours per day Rehab Potential: Fair Time/GCodes Start Time: 09:00 Stop Time: 10:15 Total Time Billed (hr/min): 75 Billed Treatment Time 1 visit-EX 3 (45 min) ADL 2 (30 min) co-treat with PT [id number], individual [id number] HUBERT PELLETIER Sep 30, 2021 10:18
[2021-09-30] MEDS ORDERED: APIXABAN 5 MG (ELIQUIS) TABLET PO NR (11:45)
--- NOTE | 2021-09-30 12:02 | Consultation-Cardiology ---
HPI-Cardiology Cardiology Consultation Date of Consultation 09/30/21 Date of Admission Time Seen by Provider: 11:56 Indication: Chronic afib, CVA HPI Patient is an 81 y/o female with history of chronic afib, carotid artery stenosis, HTN, DM. 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 Was transferred to where she underwent embolectomy and CEA of left ICA. MRI brain done also showed small infarct in right occipital and left cerebellum suspicious for central source of embolization. Patient transferred to IRU yeseterday. Has been maintained on Eliquis as outpatient, although there is question of recent compliance. Denies any chest pain, dyspnea, dizziness or lightheadedeness. Reports weakness and speech improving. Patient has questionable CAD, thinks she has had stent placement in the past, but unsure how long ago. Primary relish maker is Dr. Louie at [facility] in [place], [place]. Home Medications & Allergies Allergies: Coded Allergies: No Known Drug Allergies (Unverified , 02/19/13) Home Medication List Reviewed: Yes JVW-Rgtrjf-[place] Hx Patient Social History Marital Status: Employed/Student: retired Smoking Status: Never a Smoker Recent Hopitalizations: Yes Have you traveled recently?: No Alcohol Use?: No Immunizations Up To Date Date of Pneumonia Vaccine: Aug 07, 2012 Date of Influenza Vaccine: Aug 09, 2011 Past Medical History Questionable CAD, chronic afib, HTN, DM, obesity, ELISEO s/p Left CEA Family Medical History Significant Family History: No Pertinent Family Hx Family Medical Hx Noncontributory Review of Systems-General Review of Systems Constitutional: see HPI, malaise, weakness EENTM: see HPI, no symptoms reported Respiratory: no symptoms reported, see HPI; No cough, No dyspnea on exertion, No phlegm, No short of breath Cardiovascular: no symptoms reported, see HPI; No chest pain; Hx of Intervention; No palpitations; vascular heart diseas Gastrointestinal: no symptoms reported; No abdominal pain, No constipation Genitourinary: no symptoms reported Musculoskeletal: no symptoms reported Skin: no symptoms reported Psychiatric/Neurological: No Symptoms Reported All Other Systems Reviewed Negative Unless Noted: Yes Reviewed Test Results Reviewed Test Results Lab Laboratory Tests 09/29/21 17:35: Glucometer 216H 09/29/21 21:29: Glucometer 164H 09/30/21 05:53: Glucometer 130H 09/30/21 06:00: White Blood Count 14.0H, Red Blood Count 4.04, Hemoglobin 12.0, Hematocrit 38, Mean Corpuscular Volume 95, Mean Corpuscular Hemoglobin 30, Mean Corpuscular Hemoglobin Concent 31L, Red Cell Distribution Width 14.1, Platelet Count 390, Mean Platelet Volume 11.6, Immature Granulocyte % (Auto) 1, Neutrophils (%) (Auto) 82H, Lymphocytes (%) (Auto) 7L, Monocytes (%) (Auto) 6, Eosinophils (%) (Auto) 5, Basophils (%) (Auto) 1, Neutrophils # (Auto) 11.4H, Lymphocytes # (Auto) 0.9L, Monocytes # (Auto) 0.8, Eosinophils # (Auto) 0.6H, Basophils # (Auto) 0.1, Immature Granulocyte # (Auto) 0.1, Neutrophils % (Manual) 79, Lymphocytes % (Manual) 6, Monocytes % (Manual) 10, Eosinophils % (Manual) 5, Basophils % (Manual) 0, Band Neutrophils 0, Blood Morphology Comment NORMAL 09/30/21 06:24: Sodium Level 139, Potassium Level 4.3, Chloride Level 103, Carbon Dioxide Level 24, Anion Gap 12, Blood Urea Nitrogen 20H, Creatinine 1.18, Estimat Glomerular Filtration Rate 44, BUN/Creatinine Ratio 17, Glucose Level 137H, Calcium Level 9.4, Corrected Calcium 9.7, Total Bilirubin 0.6, Aspartate Amino Transf (AST/SGOT) 21, Alanine Aminotransferase (ALT/SGPT) 7, Alkaline Phosphatase 88, Total Protein 7.5, Albumin 3.6 ECG Impression ECG Initial ECG Rhythm: A Fib/Flutter Physical Exam Physical Exam Vital Signs Vital Signs - First Documented 09/29/21 13:30 Temp 35.2 Pulse 77 Resp 18 B/P (MAP) 140/84 (102) Pulse Ox 90 O2 Delivery Room Air Capillary Refill : Height, Weight, BMI Height: 5'3.00" Weight: 225lbs. oz. 101.228314ha; 42.59 BMI Method:Estimated General Appearance: No Apparent Distress, WD/WN, Chronically ill Eyes: Bilateral Eye Normal Inspection, Bilateral Eye PERRL HEENT: PERRL/EOMI, Normal ENT Inspection, Pharynx Normal, Other (Right side patient neglect) Neck: Full Range of Motion, Normal Inspection, Non Tender, Supple, Carotid Bruit, Other (Incision to left side neck C/D/I with steri strips in place) Respiratory: Chest Non Tender, Lungs Clear, Normal Breath Sounds, No Accessory Muscle Use, No Respiratory Distress Cardiovascular: Regular Rate, Rhythm, No Edema, No Gallop, No JVD, No Murmur, Normal Peripheral Pulses Gastrointestinal: Normal Bowel Sounds, No Organomegaly, No Pulsatile Mass, Non Tender, Soft Back: Normal Inspection, No CVA Tenderness, No Vertebral Tenderness Extremity: Normal Capillary Refill, Normal Inspection, Normal Range of Motion, Non Tender, No Calf Tenderness, No Pedal Edema Neurologic/Psychiatric: Alert, Oriented x3, Normal Mood/Affect, Abnormal Cerebellar Tests, Abnormal Gait, Aphasia, Motor Weakness (Generalized) Skin: Normal Color, Warm/Dry Lymphatic: No Adenopathy A/P-Cardiology Admission Diagnosis CVA ELISEO, s/p Left CEA Chronic afib HTN Assessment/Plan Acute CVA on 09/22/21 with right sided weakness, visual disturbance and speech difficulties- CTA showed Large thrombus/embolus left carotid bifurcation restricting flow and likely causing hypoperfusion nonhemorrhagic infarct of the watershed vascular territory in the left posterior parietal region. She was transferred to , underwent embolectomy and CEA of the left ICA. MRI brain also showed small infarcts in the right occipital and left cerebellum suspicious for central source of embolization. Was on Eliquis at time of CVA, although there is question of noncompiance prior to stroke. 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 Plan to resume Eliquis on 10/07, 2 weeks from stroke onset; until then continue aspirin 81 mg daily. Continue PT/OT Chronic atrial fibrillation, had been maintained on Eliquis as outpatient, currently rate controlled, planning to restart Eliquis 10/07/21. Carotid artery stenosis, underwent L CEA in 2013 after stroke, patient had L ICA thrombus at bifurcation and underwent embolectomy and CEA of left ICA 09/23/21. Incision site is healing well. HTN, controlled, continue to monitor. DM, management per medical services. Questionable hx of CAD, patient reports possible history of stenting, but unsure. Denies any recent workup. Primary relish maker is Dr. Louie. Will need f/u as outpatient. Hx vit B12 deficiency Thank you for allowing us to participate in the management of Ms. Dougherty. This is La Urias PA-C, as scribe for Dr. Whitehead. Patient was seen and evaluated with La, I interviewed and examined the patient I discussed the management plan and agree with the current scribed note Upon review of her record from , patient had CVA underwent embolectomy to the left ICA, has small petechial bleed on the latest CT scan. Recommendation was to start Eliquis on October 07, 2021 Still in atrial fibrillation with irregular rhythm, heart rate is controlled. Continue to monitor blood pressure and lipids. Questionable history of coronary artery disease, has been following with Dr. Louie as an outpatient. LA ALEXIS Sep 30, 2021 12:02 MILLIE WHITEHEAD MD Sep 30, 2021 14:42
--- NOTE | 2021-09-30 12:15 | Physical Therapy Daily Note ---
PT Daily Note-Current Subjective Pt sitting in Therapy Gym after working w/OT upon arrival. Pt agrees to PT. Pain Location: No Pain Reported Mental Status Patient Orientation: Person, Place Transfers SCALE: Activities may be completed with or without assistive devices. 2-Tinyiiwfji-fqtcazb completes the activity by him/herself with no assistance from a helper. 5-Set-up or Clean-up Assistance-helper sets up or cleans up; patient completes activity. [place] assists only prior to or following the activity. 4-Supervision or Touching Assistance-helper provides verbal cues and/or touching/steadying and/or contact guard assistance as patient completes activity. Assistance may be provided throughout the activity or intermittently. 3-Partial/Moderate Assistance-helper does LESS THAN HALF the effort. [place] lifts, holds or supports trunk or limbs, but provides less than half the effort. 2-Substantial/Maximal Assistance-helper does MORE THAN HALF the effort. [place] lifts or holds trunk or limbs and provides more than half the effort. 7-Otazzvpfj-kiaeea does ALL the effort. Patient does none of the effort to comp lete the activity. Or, the assistance of 2 or more helpers is required for the patient to complete the activity. If activity was not attempted, code reason: 7-Patient Refused. 9-Not Applicable-not attempted and the patient did not perform the activity before the current illness, exacerbation or injury. 10-Not Attempted due to Environmental Limitations-(lack of equipment, weather restraints, etc.). 88-Not Attempted due to Medical Conditions or Safety Concerns. Sit to Stand (QC): 5 Weight Bearing Full Weight Bearing Full Weight Bearing Gait Training Does the Patient Walk?: Yes Distance: 125' Walk 10 feet (QC): 4 Walk 50 ft with 2 Turns(QC): 4 Gait Persons Needed: 1 Gait Assistive Device: None Wheelchair Training Does the Pt Use a Wheelchair?: No Stair Training Stair Training: Handrails/: 2 handrails #of Steps: 4 1 Step (curb) (QC): 4 4 Steps (QC): 4 Stairs: Pattern: Step to Exercises Seated Therapy Exercises: Ankle pumps, Long arc quads, Hip flexion, Glut set Seated Reps: 15 NuStep Minutes: 11 NuStep Workload: 4 Treatments PT/OT cotreat [id number],skills of 2 clinicians required to decrease fall risk, increase overall strength and increase visual perceptual during therapeutic tasks. PT focusing on ambulation and B LE strengthening and OT focusing on fine/gross motor hand skills and balance during functional tasks. [id number]: Pt completes Seated Ex then after RB uses NuStep for 11m at WL 4. Pt starts really fast at WL 6 then ADJUNCT LATIN PROFESSOR drops WL to 4 due to quick fatigue. ADJUNCT LATIN PROFESSOR encourages pt to find comfort speed that she can sustain for at least 10m to build endurance. Pt completes 1 set of 4 steps then takes RB. Pt amb. in hallway before returning to room to rest in recliner. All needs met, call light in hand. Assessment Current Status: Good Progress Pt's strength, endurance and balance have improved but pt still needs VC for R side neglect. PT Detention Goals Detention Goals PT Coin Machine Collector Goals Time Frame: Oct 31, 2021 Roll Left & Right (QC): 5 Sit to Lying (QC): 5 Lying-Sitting on Side/Bed(QC): 5 Sit to Stand (QC): 5 Chair/Ect-qw-Zwtwz Xfer(QC): 5 Toilet Transfer (QC): 5 Car Transfer (QC): 5 Does the Patient Walk: Yes Walk 10 feet (QC): 5 Walk 50ft with 2 Turns (QC): 5 Walk 150 ft (QC): 5 Walking 10ft on Uneven Surface: 5 1 Step (curb) (QC): 4 4 Steps (QC): 4 12 Steps (QC): 4 Picking up an Object (QC): 4 Wheel 50 feet with 2 turns (QC: 9 Wheel 150 feet: 9 PT Plan Problem List Problem List: Activity Tolerance, Functional Strength, Safety Treatment/Plan Treatment Plan: Continue Plan of Care Treatment Plan: Bed Mobility, Concurrent Therapy, Education, Functional Activity Helen, Functional Strength, Group Therapy, Gait, Safety, Therapeutic Exercise, Transfers Treatment Duration: Oct 31, 2021 Frequency: At least 5 of 7 days/Wk (IRF) Estimated Hrs Per Day: 1.5 hours per day Patient and/or Family Agrees t: Yes Safety Risks/Education Patient Education: Transfer Techniques, Correct Positioning, Safety Issues Teaching Recipient: Patient Teaching Methods: Discussion Response to Teaching: Reinforcement Needed Time/GCodes Time In: 1000 Time Out: 1115 Total Billed Treatment Time: 75 Total Billed Treatment Co-treat w/OT for 15m ([id number]) 1, EX x2 (30m), FA (15m) & GT x2 (30m) COSMO GARCIA ADJUNCT LATIN PROFESSOR Sep 30, 2021 12:15
[2021-09-30 19:40] VITALS: BP 121/70
[2021-10-01] MEDS: VENlafaxine XR 75 MG (EFFEXOR XR) CAP PO SCH (06:07)
[2021-10-01] MEDS: inSUlin ASPART (NovoLOG) 1 UNIT/0.01 ML (CHARGE PER UNIT) SC SCH ×4 (06:08→21:16)
--- NOTE | 2021-10-01 07:25 | Occupational Ther Daily Note ---
OT Current Status-Daily Note Subjective Pt sleeping in bed, woke to light touch and name. Pt agrees to therapy. No c/o pain. Mental Status/Objective Patient Orientation: Person, Place, Non-Verbal/Aphasic, Time, Situation ADL-Treatment Independent supine <--> EOB. CGA ambulating to bathroom, no AD. Supervision with toilet transfer and toileting hygiene for safety. SBA to complete shower using grabbars, hand held shower and shower bench. Pt able to stabilize self in shower with grabbars when standing. After set up, pt able to complete upper body and footwear by self. After set up, pt able to thread feet into pants by self then SBA for safety while pt hiked pants over hips. Independent with eating. Pt stood at sink to complete oral care with supervision for safety. Therapy Code Descriptions/Definitions Functional Mobile Measure: 0=Not Assessed/NA 4=Minimal Assistance 1=Total Assistance 5=Supervision or Setup 2=Maximal Assistance 6=Modified Mobile 3=Moderate Assistance 7=Complete IndependenceSCALE: Activities may be completed with or without assistive devices. 5-Fztklqeqln-zefoqlx completes the activity by him/herself with no assistance from a helper. 5-Set-up or Clean-up Assistance-helper sets up or cleans up; patient completes activity. [place] assists only prior to or following the activity. 4-Supervision or Touching Assistance-helper provides verbal cues and/or touching/steadying and/or contact guard assistance as patient completes activity. Assistance may be provided throughout the activity or intermittently. 3-Partial/Moderate Assistance-helper does LESS THAN HALF the effort. [place] lifts, holds or supports trunk or limbs, but provides less than half the effort. 2-Substantial/Maximal Assistance-helper does MORE THAN HALF the effort. [place] lifts or holds trunk or limbs and provides more than half the effort. 4-Wjxxgifam-qoysoa does ALL the effort. Patient does none of the effort to complete the activity. Or, the assistance of 2 or more helpers is required for the patient to complete the activity. If activity was not attempted, code reason: 7-Patient Refused. 9-Not Applicable-not attempted and the patient did not perform the activity before the current illness, exacerbation or injury. 10-Not Attempted due to Environmental Limitations-(lack of equipment, weather restraints, etc.). 88-Not Attempted due to Medical Conditions or Safety Concerns. Eating (QC): 6 Shower/Bathe Self (QC): 4 (SBA) Upper Body Dressing (QC): 5 Lower Body Dressing (QC): 4 (SBA) On/Off Footwear: 5 Toileting Hygiene (QC): 4 (supervision) Toilet Transfer (QC): 4 (supervision) Other Treatment Pt able to scan toward R/L without cues to find objects and avoid obstacles. Pt progressing with word finding skills and problem solving. Pt ambulated to<- >from room to<-->from gym with CGA for safety without AD, no LOB noted. Completed arm bike with minimal resistance to increase strength, coordination and activity tolerance for daily functional tasks. After session, pt sitting in recliner with feet elevated. Call light/phone in reach. All needs met in room. OT Short Term Goals Short Term Goals Time Frame: Oct 12, 2021 Eatin Oral hygiene: 4 Toileting hygiene: 4 Shower/bathe self: 4 Upper body dressin Lower body dressin Putting on/taking off footwear: 4 OT Halfway Goals Station Supervisor Goals Time Frame: Oct 20, 2021 Eating (QC): 6 Oral Hygiene (QC): 5 Toileting Hygiene (QC): 6 Shower/Bathe Self (QC): 5 Upper Body Dressing (QC): 5 Lower Body Dressing (QC): 5 On/Off Footwear (QC): 5 1=Demonstrate adherence to instructed precautions during ADL tasks. 2=Patient will verbalize/demonstrate understanding of assistive devices/modifications for ADL. 3=Patient will improve strength/tolerance for activity to enable patient to perform ADL's. OT Education/Plan Problem List/Assessment Assessment: Impaired Self-Care Skills, Restricted Funct UE ROM, Visual-Perc eptual Deficit Discharge Recommendations Plan/Recommendations: Continue POC Treatment Plan/Plan of Care Patient would benefit from OT for education, treatment and training to promote independence in ADL's, mobility, safety and/or upper extremity function for ADL's. Plan of Care: ADL Retraining, Cognitive Retraining, Functional Mobility, Group Exercise/Act as Ind, UE Funct Exercise/Act, UE Neuromus Re-Ed/Coord, Visual/Perceptual Retrain Treatment Duration: Oct 20, 2021 Frequency: At least 5 of 7 days/Wk (IRF) Estimated Hrs Per Day: 1.5 hours per day Rehab Potential: Fair Time/GCodes Start Time: 07:00 Stop Time: 08:30 Total Time Billed (hr/min): 90 Billed Treatment Time 1 visit-ADL 5 (80 min) EX 1 (10 min) HUBERT PELLETIER Oct 01, 2021 07:25
[2021-10-01 07:59] VITALS: BP 140/61
[2021-10-01] MEDS: metFORMIN XR 500 MG (GLUCOPHAGE XR) TAB PO SCH (09:05)
[2021-10-01] MEDS: glipiZIDE XL 10 MG (GLUCOTROL XL) TAB PO SCH (09:05)
[2021-10-01] MEDS: ALLOPURINOL 100 MG (ZYLOPRIM) TAB PO SCH ×2 (09:06→21:13)
[2021-10-01] MEDS: LEVOTHYROXINE 75 MCG (LEVOTHROID) TABLET PO SCH (09:06)
[2021-10-01] MEDS: ASPIRIN 81 MG CHEW (CHILDREN'S ASA) PO SCH (09:06)
[2021-10-01] MEDS: meTOproloL SUCCINATE 50 MG (TOPROL XL) TAB PO SCH ×2 (09:06→21:13)
[2021-10-01] MEDS: GABAPENTIN 300 MG (NEURONTIN) CAP PO SCH (09:06)
[2021-10-01] MEDS: PANTOPRAZOLE 40 MG (PROTONIX) TAB PO SCH (09:06)
[2021-10-01] MEDS: LOSARTAN 100 MG (COZAAR) TABLET PO SCH (09:06)
[2021-10-01] MEDS: polyethylene glycoL POWDER 17 GM (MIRALAX) PACK PO SCH ×2 (09:07→21:21)
[2021-10-01] MEDS: SENNA W/DOCUSATE (SENOKOT S) TABLET PO SCH ×2 (09:07→21:21)
[2021-10-01] MEDS: DOCUSATE SODIUM 100 MG (COLACE) CAP PO SCH ×2 (09:07→21:21)
[2021-10-01] MEDS: ACETAMINOPHEN 325 MG TABLET PO PRN (09:21)
--- NOTE | 2021-10-01 09:24 | Cardiology Progress Note ---
Subjective Date Seen by Provider: Oct 01, 2021 Time Seen by Provider: 09:23 Subjective/Events-last exam Patient was seen at bedside, sitting comfortably, no new complaint. Review of Systems General: No Chills, No Night Sweats, No Fatigue, No Malaise, No Appetite, No Other HEENT: No Head Aches, No Visual Changes, No Eye Pain, No Ear Pain, No Dysphasia, No Sinus Congestion, No Post Nasal Drip, No Sore Throat, No Other Pulmonary: No Dyspnea, No Cough, No Pleuritic Chest Pain, No Other Cardiovascular: No: Chest Pain, Palpitations, Orthopnea, Paroxysmal Noc. Dyspnea, Edema, Lt Headedness, Other Objective-Cardiology Exam Last Set of Vital Signs Vital Signs 10/01/21 07:59 Temp 35.0 Pulse 84 Resp 16 B/P (MAP) 140/61 (87) Pulse Ox 95 O2 Delivery Room Air General: Alert, Oriented X3, Cooperative HEENT: Atraumatic, PERRLA Neck: Supple, No JVD, No Thyromegaly Lungs: Clear to Auscultation, Normal Air Movement Heart: Regular Rate, Normal S1, Normal S2, No Murmurs Abdomen: Normal Bowel Sounds, Soft, No Tenderness, No Hepatosplenomegaly, No Masses Extremities: No Clubbing, No Cyanosis, No Edema, Normal Pulses, No Tende rness/Swelling Skin: No Rashes, No Breakdown, No Significant Lesion Neuro: Normal Gait, Normal Speech, Strength at 5/5 X4 Ext, Normal Tone, Sensation Intact Psych/Mental Status: Mental Status NL, Mood NL A/P-Cardiology Admission Diagnosis CVA ELISEO, s/p Left CEA Chronic afib HTN Assessment/Plan Acute CVA on 09/22/21 with right sided weakness, visual disturbance and speech difficulties- CTA showed Large thrombus/embolus left carotid bifurcation restricting flow and likely causing hypoperfusion nonhemorrhagic infarct of the watershed vascular territory in the left posterior parietal region. She was transferred to , underwent embolectomy and CEA of the left ICA. MRI brain also showed small infarcts in the right occipital and left cerebellum suspicious for central source of embolization. Was on Eliquis at time of CVA, although there is question of noncompiance prior to stroke. Had some increased confusion and underwent CT head on 09/28/21 showing slight worsening of hemorrhagic transformation of left posterior MCA/MANAGER ENGAGEMENT stroke. Plan to resume Eliquis on 10/07, 2 weeks from stroke onset; until then continue aspirin 81 mg daily. Continue PT/OT Recurrent headache, had significant headache on September 30, 2021, currently feeling better. No further headache was reported. Continue to monitor Chronic atrial fibrillation, had been maintained on Eliquis as outpatient, currently rate controlled, planning to restart Eliquis 10/07/21. Carotid artery stenosis, underwent L CEA in 2013 after stroke, patient had L ICA thrombus at bifurcation and underwent embolectomy and CEA of left ICA 09/23/21. Incision site is healing well. HTN, controlled, continue to monitor. DM, management per medical services. Questionable hx of CAD, patient reports possible history of stenting, but uns ure. Denies any recent workup. Primary african history professor is Dr. Louie. Will need f/u as outpatient. Hx vit B12 deficiency MILLIE MAGDALENO MD Oct 01, 2021 09:24
--- NOTE | 2021-10-01 09:29 | Physical Therapy Daily Note ---
PT Daily Note-Current Subjective Pleasant, c/o some SOB with activity and a slight headache, nursing was told. Pain Numeric Pain Scale: 4 Location: Medial Location Body Site: Head Pain Description: Ache Mental Status Patient Orientation: Person, Place difficulty with expression Transfers SCALE: Activities may be completed with or without assistive devices. 8-Ipuiijvncf-gzchdwp completes the activity by him/herself with no assistance from a helper. 5-Set-up or Clean-up Assistance-helper sets up or cleans up; patient completes activity. [place] assists only prior to or following the activity. 4-Supervision or Touching Assistance-helper provides verbal cues and/or touching/steadying and/or contact guard assistance as patient completes activity. Assistance may be provided throughout the activity or intermittently. 3-Partial/Moderate Assistance-helper does LESS THAN HALF the effort. [place] lifts, holds or supports trunk or limbs, but provides less than half the effort. 2-Substantial/Maximal Assistance-helper does MORE THAN HALF the effort. [place] lifts or holds trunk or limbs and provides more than half the effort. 9-Iorjilsrz-uhjrnq does ALL the effort. Patient does none of the effort to complete the activity. Or, the assistance of 2 or more helpers is required for the patient to complete the activity. If activity was not attempted, code reason: 7-Patient Refused. 9-Not Applicable-not attempted and the patient did not perform the activity before the current illness, exacerbation or injury. 10-Not Attempted due to Environmental Limitations-(lack of equipment, weather restraints, etc.). 88-Not Attempted due to Medical Conditions or Safety Concerns. Roll Left & Right (QC): 6 Sit to Lying (QC): 6 Lying to Sitting/Side of Bed(Q: 6 Sit to Stand (QC): 5 Chair/Wvs-rp-Arcfu Xfer(QC): 5 Toilet Transfer (QC): 5 Weight Bearing Full Weight Bearing Full Weight Bearing Gait Training Does the Patient Walk?: Yes Walk 10 feet (QC): 5 Walk 50 ft with 2 Turns(QC): 5 Walk 150 ft (QC): 5 Gait Persons Needed: 1 Gait Assistive Device: None poor right side awareness during functional activity Exercises Supine Ex: Bridging, Ankle pumps, Quad Set, Rolling, Heel Slides, Short Arc Quads, Scooting, Straight leg raise, Hip abd/add Supine Reps: 20 Seated Therapy Exercises: Ankle pumps, Sit to stand, Long arc quads, Hip f lexion, Hip abd/add Seated Reps: 15 Standing: Hip Abduction, Hamstring curls, Heel/toe raises, Marching Standing Reps: 15 NuStep Minutes: 10 NuStep Workload: 3 Assessment Current Status: Good Progress o2 sats 91% and 96%during activity PT Correction Goals Correction Goals PT Transplanter Goals Time Frame: Oct 31, 2021 Roll Left & Right (QC): 5 Sit to Lying (QC): 5 Lying-Sitting on Side/Bed(QC): 5 Sit to Stand (QC): 5 Chair/Dse-ut-Rjdjm Xfer(QC): 5 Toilet Transfer (QC): 5 Car Transfer (QC): 5 Does the Patient Walk: Yes Walk 10 feet (QC): 5 Walk 50ft with 2 Turns (QC): 5 Walk 150 ft (QC): 5 Walking 10ft on Uneven Surface: 5 1 Step (curb) (QC): 4 4 Steps (QC): 4 12 Steps (QC): 4 Picking up an Object (QC): 4 Wheel 50 feet with 2 turns (QC: 9 Wheel 150 feet: 9 PT Plan Treatment/Plan Treatment Plan: Continue Plan of Care Treatment Plan: Bed Mobility, Concurrent Therapy, Education, Functional Activity Helen, Functional Strength, Group Therapy, Gait, Safety, Therapeutic Exercise, Transfers Treatment Duration: Oct 31, 2021 Frequency: At least 5 of 7 days/Wk (IRF) Estimated Hrs Per Day: 1.5 hours per day Patient and/or Family Agrees t: Yes Safety Risks/Education Patient Education: Gait Training, Transfer Techniques, Correct Positioning, Disease Process, Safety Issues Teaching Recipient: Patient Teaching Methods: Demonstration, Discussion Response to Teaching: Verbalize Understanding, Return Demonstration, Reinforcement Needed Time/GCodes Time In: 830 Time Out: 930 Total Billed Treatment Time: 60 Total Billed Treatment 1,GT20m,FA15m,EX25m IKE MONTESINOS OIL FIELD PUMPER Oct 01, 2021 09:29
--- NOTE | 2021-10-01 10:23 | PM&R Progress Note ---
Subjective HPI/CC On Admission Date Seen by Provider: Oct 01, 2021 Time Seen by Provider: 10:30 Subjective/Events-last exam 10/01/2021: Speech is much better Patient overall progressing well Expressive aphasia still present Going for day pass for Thanksgiving dinner 09/30/2021: Patient settling in well Right side neglect is still apparent Blood pressure stable Eliquis will be stopped due to conflicting consulting decisions from [facility] [place] identified Check meds labs No pain is reported Review of Systems Neurological: Change in speech, Confusion Objective Exam Vital Signs Vital Signs Date Time Temp Pulse Resp B/P (MAP) Pulse Ox O2 Delivery O2 Flow Rate FiO2 10/01/21 21:18 93 Room Air 10/01/21 19:16 36.7 82 16 119/75 (90) Capillary Refill : General Appearance: No Apparent Distress, WD/WN, Chronically ill HEENT: PERRL/EOMI, Normal ENT Inspection, Pharynx Normal, Other (Right side patient neglect) Neck: Full Range of Motion, Normal Inspection, Non Tender, Supple, Carotid Bruit Respiratory: Chest Non Tender, Lungs Clear, Normal Breath Sounds, No Accessory Muscle Use, No Respiratory Distress Cardiovascular: Regular Rate, Rhythm, No Edema, No Gallop, No JVD, No Murmur, Normal Peripheral Pulses Gastrointestinal: Normal Bowel Sounds, No Organomegaly, No Pulsatile Mass, Non Tender, Soft Back: Normal Inspection, No CVA Tenderness, No Vertebral Tenderness Extremity: Normal Capillary Refill, Normal Inspection, Normal Range of Motion, Non Tender, No Calf Tenderness, No Pedal Edema Neurologic/Psychiatric: Alert, Oriented x3, Normal Mood/Affect, Abnormal Cerebellar Tests, Abnormal Gait, Aphasia, Motor Weakness (Generalized) Skin: Normal Color, Warm/Dry Lymphatic: No Adenopathy Results/Procedures Lab Patient resulted labs reviewed. FIM Transfers Therapy Code Descriptions/Definitions Functional [place] Measure: 0=Not Assessed/NA 4=Minimal Assistance 1=Total Assistance 5=Supervision or Setup 2=Maximal Assistance 6=Modified [place] 3=Moderate Assistance 7=Complete IndependenceSCALE: Activities may be completed with or without assistive devices. 4-Qlrdmuhpqz-xrkwmad completes the activity by him/herself with no assistance from a helper. 5-Set-up or Clean-up Assistance-helper sets up or cleans up; patient completes activity. [place] assists only prior to or following the activity. 4-Supervision or Touching Assistance-helper provides verbal cues and/or touching/steadying and/or contact guard assistance as patient completes activity. Assistance may be provided throughout the activity or intermittently. 3-Partial/Moderate Assistance-helper does LESS THAN HALF the effort. [place] lifts, holds or supports trunk or limbs, but provides less than half the effort. 2-Substantial/Maximal Assistance-helper does MORE THAN HALF the effort. [place] lifts or holds trunk or limbs and provides more than half the effort. 7-Jvbljaguv-ymjgwt does ALL the effort. Patient does none of the effort to complete the activity. Or, the assistance of 2 or more helpers is required for the patient to complete the activity. If activity was not attempted, code reason: 7-Patient Refused. 9-Not Applicable-not attempted and the patient did not perform the activity before the current illness, exacerbation or injury. 10-Not Attempted due to Environmental Limitations-(lack of equipment, weather restraints, etc.). 88-Not Attempted due to Medical Conditions or Safety Concerns. Roll Left to Right (QC): 6 Sit to Lying (QC): 6 Sit to Stand (QC): 5 Chair/Xib-xw-Bchuy Xfer(QC): 5 Car Transfer (QC): 3 Gait Training Does the Patient Walk?: Yes Distance: 125' Walk 10 feet (QC): 5 Walk 50 ft with 2 Turns(QC): 5 Walk 150 ft (QC): 5 Walking 10ft/uneven surface-QC: 3 Gait Persons Needed: 1 Gait Assistive Device: None Wheelchair Training Does the Pt Use a Wheelchair?: No Wheel 50 ft with 2 turns (QC): 9 Wheel 150 ft (QC): 9 Stair Training Stair Training: Handrails/: 2 handrails #of Steps: 4 1 Step (curb) (QC): 4 4 Steps (QC): 4 12 Steps (QC): 3 Stairs: Pattern: Step to Balance Picking up an Object (QC): 88 ADL-Treatment Eating (QC): 6 Oral Hygiene (QC): 6 (Independent while seated in chair at sink) Shower/Bathe Self (QC): 4 (SBA) Upper Body Dressing (QC): 5 Lower Body Dressing (QC): 4 (SBA) On/Off Footwear (QC): 5 Toileting Hygiene (QC): 4 (supervision) Toilet Transfer (QC): 4 (supervision) Assessment/Plan Assessment and Plan Assess & Plan/Chief Complaint Assessment: 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 transferred to [facility] Expressive aphasia s/p 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 Hypertension Diabetes Chronic atrial fibrillation Oral anticoagulation reported non-compliance prior to CVA Acute hematuria may need urology consult if continues GERD Gout [facility] DC dx: Active Problems * (Principal) Acute ischemic left MCA stroke (HCC) Morbid obesity (HCC) S/P carotid endarterectomy Atrial fibrillation (HCC) Essential hypertension Diabetes mellitus with peripheral vascular disease (HCC) Bilateral carotid artery disease (HCC) Thrombosis of left carotid artery Diabetic peripheral neuropathy (HCC) Dyslipidemia GERD (gastroesophageal reflux disease) Gout Hypothyroid Acute postoperative pain Acute encephalopathy Facial droop Expressive aphasia Hypertensive emergency Acute postoperative anemia due to expected blood loss Plan: Monitor hematuria PT and OT Speech therapy Home meds Monitor blood sugar Monitor blood pressure 09/30/2021: Supportive care Hold Eliquis until 10/07/2021 10/01/2021: Supportive care Day pass for Thanksgiving (1) CVA (cerebral infarction) Status: Acute (2) Chronic atrial fibrillation Status: Acute (3) Expressive aphasia Status: Acute (4) HTN (hypertension) Status: Acute (5) IDDM (insulin dependent diabetes mellitus) Status: Acute NKECHI VO DO Oct 01, 2021 10:23
--- NOTE | 2021-10-01 10:38 | Physical Therapy Daily Note ---
PT Daily Note-Current Subjective Patient agrees to PT. More talkative on this date. Mental Status Patient Orientation: Person, Time, Situation Transfers SCALE: Activities may be completed with or without assistive devices. 6-Ywpiepkaqq-qdavunb completes the activity by him/herself with no assistance from a helper. 5-Set-up or Clean-up Assistance-helper sets up or cleans up; patient completes activity. [place] assists only prior to or following the activity. 4-Supervision or Touching Assistance-helper provides verbal cues and/or touching/steadying and/or contact guard assistance as patient completes activity. Assistance may be provided throughout the activity or intermittently. 3-Partial/Moderate Assistance-helper does LESS THAN HALF the effort. [place] lifts, holds or supports trunk or limbs, but provides less than half the effort. 2-Substantial/Maximal Assistance-helper does MORE THAN HALF the effort. [place] lifts or holds trunk or limbs and provides more than half the effort. 0-Wdydjgoqr-zvplgb does ALL the effort. Patient does none of the effort to complete the activity. Or, the assistance of 2 or more helpers is required for the patient to complete the activity. If activity was not attempted, code reason: 7-Patient Refused. 9-Not Applicable-not attempted and the patient did not perform the activity before the current illness, exacerbation or injury. 10-Not Attempted due to Environmental Limitations-(lack of equipment, weather restraints, etc.). 88-Not Attempted due to Medical Conditions or Safety Concerns. Sit to Stand (QC): 4 Chair/Sjf-xy-Qyzlp Xfer(QC): 4 Weight Bearing Full Weight Bearing Full Weight Bearing Gait Training Does the Patient Walk?: Yes Distance: 175' x 4 Walk 10 feet (QC): 4 Walk 50 ft with 2 Turns(QC): 4 Walk 150 ft (QC): 4 Gait Assistive Device: None WBOS/shuffle gait sequence SBA to CGA for safety (patient unable to utilize FWW safely due to neglect and cognitive issues) Exercises Seated Therapy Exercises: Ankle pumps, Long arc quads, Hip flexion Seated Reps: 15 (3 sets) Assessment Patient has increase SOA with activity with SAO2 >90% RA. Patient does recover quickly. Patient continues to have diminished safety awareness. PT Prison Goals Prison Goals PT Mechanic Insulator Goals Time Frame: Oct 31, 2021 Roll Left & Right (QC): 5 Sit to Lying (QC): 5 Lying-Sitting on Side/Bed(QC): 5 Sit to Stand (QC): 5 Chair/Bxd-uf-Xhtxg Xfer(QC): 5 Toilet Transfer (QC): 5 Car Transfer (QC): 5 Does the Patient Walk: Yes Walk 10 feet (QC): 5 Walk 50ft with 2 Turns (QC): 5 Walk 150 ft (QC): 5 Walking 10ft on Uneven Surface: 5 1 Step (curb) (QC): 4 4 Steps (QC): 4 12 Steps (QC): 4 Picking up an Object (QC): 4 Wheel 50 feet with 2 turns (QC: 9 Wheel 150 feet: 9 PT Plan Treatment/Plan Treatment Plan: Continue Plan of Care Treatment Plan: Bed Mobility, Concurrent Therapy, Education, Functional Activity Helen, Functional Strength, Group Therapy, Gait, Safety, Therapeutic E xercise, Transfers Treatment Duration: Oct 31, 2021 Frequency: At least 5 of 7 days/Wk (IRF) Estimated Hrs Per Day: 1.5 hours per day Patient and/or Family Agrees t: Yes Time/GCodes Time In: 950 Time Out: 1020 Total Billed Treatment Time: 30 Total Billed Treatment 1 visit FA x 2 30 min ANTWON ESTRADA PT Oct 01, 2021 10:38
[2021-10-01 15:51] VITALS: BP 118/78
[2021-10-01 19:16] VITALS: BP 119/75
[2021-10-02] MEDS: inSUlin ASPART (NovoLOG) 1 UNIT/0.01 ML (CHARGE PER UNIT) SC SCH ×4 (06:00→20:34)
[2021-10-02] MEDS: VENlafaxine XR 75 MG (EFFEXOR XR) CAP PO SCH (06:57)
[2021-10-02 07:59] VITALS: BP 132/58
--- NOTE | 2021-10-02 08:29 | Occupational Ther Daily Note ---
OT Current Status-Daily Note Subjective Pt sitting in recliner, alert. No c/o pain. Pt agrees to therapy. Mental Status/Objective Patient Orientation: Person, Place, Time, Situation ADL-Treatment Pt sit<->stand with SBA, due to impulsivity. CGA to ambulate without AD to bathroom. Pt stood at sink with supervision to complete oral care and grooming for safety due to impulsivity. Pt able to don/doff UB with setup of clothing gathered. LB dressing SBA for safety due to impulsivity after setup. After sock was applied to sock aide pt able to don socks. Therapy Code Descriptions/Definitions Functional [place] Measure: 0=Not Assessed/NA 4=Minimal Assistance 1=Total Assistance 5=Supervision or Setup 2=Maximal Assistance 6=Modified [place] 3=Moderate Assistance 7=Complete IndependenceSCALE: Activities may be completed with or without assistive devices. 6-Brjsbbvymc-qidbrje completes the activity by him/herself with no assistance from a helper. 5-Set-up or Clean-up Assistance-helper sets up or cleans up; patient completes activity. [place] assists only prior to or following the activity. 4-Supervision or Touching Assistance-helper provides verbal cues and/or touching/steadying and/or contact guard assistance as patient completes activity. Assistance may be provided throughout the activity or intermittently. 3-Partial/Moderate Assistance-helper does LESS THAN HALF the effort. [place] lifts, holds or supports trunk or limbs, but provides less than half the effort. 2-Substantial/Maximal Assistance-helper does MORE THAN HALF the effort. [place] lifts or holds trunk or limbs and provides more than half the effort. 5-Hlestnkam-wtkxvi does ALL the effort. Patient does none of the effort to compl ete the activity. Or, the assistance of 2 or more helpers is required for the patient to complete the activity. If activity was not attempted, code reason: 7-Patient Refused. 9-Not Applicable-not attempted and the patient did not perform the activity before the current illness, exacerbation or injury. 10-Not Attempted due to Environmental Limitations-(lack of equipment, weather restraints, etc.). 88-Not Attempted due to Medical Conditions or Safety Concerns. Oral Hygiene (QC): 6 (Pt able to complete by self sitting in chair at sink.) Upper Body Dressing (QC): 5 (Set up, with clothing placed on right side of chair, pt sitting.) Lower Body Dressing (QC): 4 (SBA due to impulsivity to don with clothing placed on right side of chair, pt sitting.) On/Off Footwear: 5 Other Treatment Pt ambulated to therapy room,2-step direction given on finding correct room when pt asked which room to go to. Pt participated in therapeutic exercise to increase B UE strength and activity tolerance for daily functional tasks. Pt engaged in arm bike exercise for 10 min at 15 manley without breaks. Pt engaged in fine motor activity working on dexterity and coordination with 1 lb wrist weights to increase B UE strength. After session, pt sitting in recliner with call light/phone within reach, all needs met in room. OT Short Term Goals Short Term Goals Time Frame: Oct 12, 2021 Eatin Oral hygiene: 4 Toileting hygiene: 4 Shower/bathe self: 4 Upper body dressin Lower body dressin Putting on/taking off footwear: 4 OT Residential Goals Rack Maker Goals Time Frame: Oct 20, 2021 Eating (QC): 6 Oral Hygiene (QC): 5 Toileting Hygiene (QC): 6 Shower/Bathe Self (QC): 5 Upper Body Dressing (QC): 5 Lower Body Dressing (QC): 5 On/Off Footwear (QC): 5 1=Demonstrate adherence to instructed precautions during ADL tasks. 2=Patient will verbalize/demonstrate understanding of assistive devices/modifications for ADL. 3=Patient will improve strength/tolerance for activity to enable patient to perform ADL's. OT Education/Plan Problem List/Assessment Assessment: Decreased Safety Aware, Decreased UE Strength, Impaired Coordination, Impaired Funct Balance, Impaired Self-Care Skills, Visual- Perceptual Deficit Discharge Recommendations Plan/Recommendations: Continue POC Treatment Plan/Plan of Care Patient would benefit from OT for education, treatment and training to promote independence in ADL's, mobility, safety and/or upper extremity function for ADL's. Plan of Care: ADL Retraining, Cognitive Retraining, Functional Mobility, Group Exercise/Act as Ind, UE Funct Exercise/Act, UE Neuromus Re-Ed/Coord, Visual/Perceptual Retrain Treatment Duration: Oct 20, 2021 Frequency: At least 5 of 7 days/Wk (IRF) Estimated Hrs Per Day: 1.5 hours per day Rehab Potential: Fair Time/GCodes Start Time: 07:30 Stop Time: 08:30 Total Time Billed (hr/min): 60 Billed Treatment Time 1 Visit- ADL 2 (30 min) EX 2 (30 min) HUBERT PELLETIER Oct 02, 2021 08:29
[2021-10-02] MEDS: metFORMIN XR 500 MG (GLUCOPHAGE XR) TAB PO SCH (08:38)
[2021-10-02] MEDS: GABAPENTIN 300 MG (NEURONTIN) CAP PO SCH (08:38)
[2021-10-02] MEDS: ASPIRIN 81 MG CHEW (CHILDREN'S ASA) PO SCH (08:38)
[2021-10-02] MEDS: LEVOTHYROXINE 75 MCG (LEVOTHROID) TABLET PO SCH (08:38)
[2021-10-02] MEDS: meTOproloL SUCCINATE 50 MG (TOPROL XL) TAB PO SCH ×2 (08:38→20:29)
[2021-10-02] MEDS: PANTOPRAZOLE 40 MG (PROTONIX) TAB PO SCH (08:38)
[2021-10-02] MEDS: glipiZIDE XL 10 MG (GLUCOTROL XL) TAB PO SCH (08:38)
[2021-10-02] MEDS: LOSARTAN 100 MG (COZAAR) TABLET PO SCH (08:38)
[2021-10-02] MEDS: ALLOPURINOL 100 MG (ZYLOPRIM) TAB PO SCH ×2 (08:39→20:29)
[2021-10-02] MEDS: SENNA W/DOCUSATE (SENOKOT S) TABLET PO SCH ×2 (08:39→20:33)
[2021-10-02] MEDS: DOCUSATE SODIUM 100 MG (COLACE) CAP PO SCH ×2 (08:39→20:33)
[2021-10-02] MEDS: polyethylene glycoL POWDER 17 GM (MIRALAX) PACK PO SCH ×2 (08:39→20:33)
--- NOTE | 2021-10-02 10:01 | Physical Therapy Daily Note ---
PT Daily Note-Current Subjective Pt. wilma ad agrees to Rx. Pt. still having some communication issues, unable to spell her last name this morning and still having difficulty with tasks oriented to her right. Pain Location: No Pain Reported Mental Status Patient Orientation: Person Attachments: Other-See Comments (mask) Transfers SCALE: Activities may be completed with or without assistive devices. 9-Xcmnevwzey-qmbyvkb completes the activity by him/herself with no assistance from a helper. 5-Set-up or Clean-up Assistance-helper sets up or cleans up; patient completes activity. [place] assists only prior to or following the activity. 4-Supervision or Touching Assistance-helper provides verbal cues and/or kendrick amaris/steadying and/or contact guard assistance as patient completes activity. Assistance may be provided throughout the activity or intermittently. 3-Partial/Moderate Assistance-helper does LESS THAN HALF the effort. [place] lifts, holds or supports trunk or limbs, but provides less than half the effort. 2-Substantial/Maximal Assistance-helper does MORE THAN HALF the effort. [place] lifts or holds trunk or limbs and provides more than half the effort. 0-Laqjqlevk-whkina does ALL the effort. Patient does none of the effort to complete the activity. Or, the assistance of 2 or more helpers is required for the patient to complete the activity. If activity was not attempted, code reason: 7-Patient Refused. 9-Not Applicable-not attempted and the patient did not perform the activity before the current illness, exacerbation or injury. 10-Not Attempted due to Environmental Limitations-(lack of equipment, weather restraints, etc.). 88-Not Attempted due to Medical Conditions or Safety Concerns. Roll Left & Right (QC): 6 Sit to Lying (QC): 6 Lying to Sitting/Side of Bed(Q: 6 Sit to Stand (QC): 6 Chair/Kaa-hr-Jeruh Xfer(QC): 5 Toilet Transfer (QC): 6 Weight Bearing Full Weight Bearing Full Weight Bearing Gait Training Does the Patient Walk?: Yes Walk 10 feet (QC): 5 Walk 50 ft with 2 Turns(QC): 5 Walk 150 ft (QC): 5 Gait Persons Needed: 1 Gait Assistive Device: None pt. needs direction stevie orientation to right and was challenged today up and down hallways to note and orient to things on right ie exit signs, signage and doorways. Pt. did not have LOB but needed directed etc Exercises Supine Ex: Bridging, Ankle pumps, Quad Set, Rolling, Glut sets, Heel Slides, Short Arc Quads, Scooting, D1 F/E UE, Hip abd/add Supine Reps: 15 Seated Therapy Exercises: Ankle pumps, Sit to stand, Long arc quads, Hip flexion, Hip abd/add Seated Reps: 15 Standing: Retro gait, Sit to Stand, Side steps Standing Reps: 5 NuStep Minutes: 8 NuStep Workload: 3 Neuromuscular balance challenges etc Treatments pt. with audible wheezing and noted SOB with room air O2 sats >90% each check Assessment Current Status: Good Progress PT C D Still Operator Goals Chcf Goals PT C D Still Operator Goals Time Frame: Oct 31, 2021 Roll Left & Right (QC): 5 Sit to Lying (QC): 5 Lying-Sitting on Side/Bed(QC): 5 Sit to Stand (QC): 5 Chair/Ash-cq-Ryequ Xfer(QC): 5 Toilet Transfer (QC): 5 Car Transfer (QC): 5 Does the Patient Walk: Yes Walk 10 feet (QC): 5 Walk 50ft with 2 Turns (QC): 5 Walk 150 ft (QC): 5 Walking 10ft on Uneven Surface: 5 1 Step (curb) (QC): 4 4 Steps (QC): 4 12 Steps (QC): 4 Picking up an Object (QC): 4 Wheel 50 feet with 2 turns (QC: 9 Wheel 150 feet: 9 PT Plan Treatment/Plan Treatment Plan: Continue Plan of Care Treatment Plan: Bed Mobility, Concurrent Therapy, Education, Functional Activity Helen, Functional Strength, Group Therapy, Gait, Safety, Therapeutic Exercise, Transfers Treatment Duration: Oct 31, 2021 Frequency: At least 5 of 7 days/Wk (IRF) Estimated Hrs Per Day: 1.5 hours per day Patient and/or Family Agrees t: Yes Safety Risks/Education Patient Education: Gait Training, Transfer Techniques, Correct Positioning, Disease Process, Safety Issues Teaching Recipient: Patient Teaching Methods: Demonstration, Discussion Response to Teaching: Verbalize Understanding, Return Demonstration, Reinforcement Needed Time/GCodes Time In: 900 Time Out: 1000 Total Billed Treatment Time: 60 Total Billed Treatment 1,GT20m,EX20m,FA10m,NM10m IKE MONTESINOS PUBLIC RELATIONS CONSULTANT Oct 02, 2021 10:01
--- NOTE | 2021-10-02 10:28 | Cardiology Progress Note ---
Subjective Date Seen by Provider: Oct 02, 2021 Time Seen by Provider: 10:27 Subjective/Events-last exam Patient was seen at bedside, sitting comfortably, feeling better Review of Systems General: No Chills, No Night Sweats, No Fatigue, No Malaise, No Appetite, No Other HEENT: No Head Aches, No Visual Changes, No Eye Pain, No Ear Pain, No Dysphasia, No Sinus Congestion, No Post Nasal Drip, No Sore Throat, No Other Pulmonary: No Dyspnea, No Cough, No Pleuritic Chest Pain, No Other Cardiovascular: No: Chest Pain, Palpitations, Orthopnea, Paroxysmal Noc. Dyspnea, Edema, Lt Headedness, Other Objective-Cardiology Exam Last Set of Vital Signs Vital Signs 10/02/21 10/02/21 07:59 09:00 Temp 36.2 Pulse 73 Resp 18 B/P (MAP) 132/58 (82) Pulse Ox 95 O2 Delivery Room Air General: Alert, Oriented X3, Cooperative HEENT: Atraumatic, PERRLA Neck: Supple, No JVD, No Thyromegaly Lungs: Clear to Auscultation, Normal Air Movement Heart: Regular Rate, Normal S1, Normal S2, No Murmurs Abdomen: Normal Bowel Sounds, Soft, No Tenderness, No Hepatosplenomegaly, No Masses Extremities: No Clubbing, No Cyanosis, No Edema, Normal Pulses, No Tenderness/Swelling Skin: No Rashes, No Breakdown, No Significant Lesion Neuro: Normal Gait, Normal Speech, Strength at 5/5 X4 Ext, Normal Tone, Sensation Intact Psych/Mental Status: Mental Status NL, Mood NL A/P-Cardiology Admission Diagnosis CVA ELISEO, s/p Left CEA Chronic afib HTN Assessment/Plan Acute CVA on 09/22/21 with right sided weakness, visual disturbance and speech difficulties- CTA showed Large thrombus/embolus left carotid bifurcation restricting flow and likely causing hypoperfusion nonhemorrhagic infarct of the watershed vascular territory in the left posterior parietal region. She was transferred to , underwent embolectomy and CEA of the left ICA. MRI brain also showed small infarcts in the right occipital and left cerebellum suspicious for central source of embolization. Was on Eliquis at time of CVA, although there is question of noncompiance prior to stroke. Had some increased confusion and underwent CT head on 09/28/21 showing slight worsening of hemorrhagic transformation of left posterior MCA/ENROLLER stroke. Plan to resume Eliquis on 10/07, 2 weeks from stroke onset; until then continue aspirin 81 mg daily. Continue PT/OT Recurrent headache, had significant headache on September 30, 2021, currently feeling better. No further headache was reported. Continue to monitor Chronic atrial fibrillation, had been maintained on Eliquis as outpatient, currently rate controlled, planning to restart Eliquis 10/07/21. Carotid artery stenosis, underwent L CEA in 2013 after stroke, patient had L ICA thrombus at bifurcation and underwent embolectomy and CEA of left ICA 09/23/21. Incision site is healing well. HTN, controlled, continue to monitor. DM, management per medical services. Questionable hx of CAD, patient reports possible history of stenting, but unsure. Denies any recent workup. 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 Will need f/u as outpatient. Hx vit B12 deficiency MILLIE MAGDALENO MD Oct 02, 2021 10:28
--- NOTE | 2021-10-02 10:41 | PM&R Progress Note ---
Subjective HPI/CC On Admission Date Seen by Provider: Oct 02, 2021 Time Seen by Provider: 11:15 Subjective/Events-last exam 10/02/21: Patient improved No pain reported No falls Day pass for holiday dinner went well 10/01/2021: Speech is much better Patient overall progressing well Expressive aphasia still present Going for day pass for giving dinner 09/30/2021: Patient settling in well Right side neglect is still apparent Blood pressure stable Eliquis will be stopped due to conflicting consulting decisions from HADLEY Whitehead identified Check meds labs No pain is reported Review of Systems Neurological: Change in speech, Confusion Objective Exam Vital Signs Vital Signs Date Time Temp Pulse Resp B/P (MAP) Pulse Ox O2 Delivery O2 Flow Rate FiO2 10/02/21 09:00 Room Air 10/02/21 07:59 36.2 73 18 132/58 (82) 95 Capillary Refill : General Appearance: No Apparent Distress, WD/WN, Chronically ill HEENT: PERRL/EOMI, Normal ENT Inspection, Pharynx Normal, Other (Right side patient neglect) Neck: Full Range of Motion, Normal Inspection, Non Tender, Supple, Carotid Bruit Respiratory: Chest Non Tender, Lungs Clear, Normal Breath Sounds, No Accessory Muscle Use, No Respiratory Distress Cardiovascular: Regular Rate, Rhythm, No Edema, No Gallop, No JVD, No Murmur, Normal Peripheral Pulses Gastrointestinal: Normal Bowel Sounds, No Organomegaly, No Pulsatile Mass, Non Tender, Soft Back: Normal Inspection, No CVA Tenderness, No Vertebral Tenderness Extremity: Normal Capillary Refill, Normal Inspection, Normal Range of Motion, Non Tender, No Calf Tenderness, No Pedal Edema Neurologic/Psychiatric: Alert, Oriented x3, Normal Mood/Affect, Abnormal Cerebellar Tests, Abnormal Gait, Aphasia, Motor Weakness (Generalized) Skin: Normal Color, Warm/Dry Lymphatic: No Adenopathy Results/Procedures Lab Patient resulted labs reviewed. FIM Transfers Therapy Code Descriptions/Definitions Functional [place] Measure: 0=Not Assessed/NA 4=Minimal Assistance 1=Total Assistance 5=Supervision or Setup 2=Maximal Assistance 6=Modified [place] 3=Moderate Assistance 7=Complete IndependenceSCALE: Activities may be completed with or without assistive devices. 8-Tkmqcwmehn-ydpsnra completes the activity by him/herself with no assistance from a helper. 5-Set-up or Clean-up Assistance-helper sets up or cleans up; patient completes activity. [place] assists only prior to or following the activity. 4-Supervision or Touching Assistance-helper provides verbal cues and/or touching/steadying and/or contact guard assistance as patient completes activity. Assistance may be provided throughout the activity or intermittently. 3-Partial/Moderate Assistance-helper does LESS THAN HALF the effort. [place] lifts, holds or supports trunk or limbs, but provides less than half the effort. 2-Substantial/Maximal Assistance-helper does MORE THAN HALF the effort. [place] lifts or holds trunk or limbs and provides more than half the effort. 2-Gdesqmhrd-qyashb does ALL the effort. Patient does none of the effort to complete the activity. Or, the assistance of 2 or more helpers is required for the patient to complete the activity. If activity was not attempted, code reason: 7-Patient Refused. 9-Not Applicable-not attempted and the patient did not perform the activity before the current illness, exacerbation or injury. 10-Not Attempted due to Environmental Limitations-(lack of equipment, weather restraints, etc.). 88-Not Attempted due to Medical Conditions or Safety Concerns. Roll Left to Right (QC): 6 Sit to Lying (QC): 6 Sit to Stand (QC): 6 Chair/Msq-gm-Lytlq Xfer(QC): 5 Car Transfer (QC): 3 Gait Training Does the Patient Walk?: Yes Distance: 175' x 4 Walk 10 feet (QC): 5 Walk 50 ft with 2 Turns(QC): 5 Walk 150 ft (QC): 5 Walking 10ft/uneven surface-QC: 3 Gait Persons Needed: 1 Gait Assistive Device: None Wheelchair Training Does the Pt Use a Wheelchair?: No Wheel 50 ft with 2 turns (QC): 9 Wheel 150 ft (QC): 9 Stair Training Stair Training: Handrails/: 2 handrails #of Steps: 4 1 Step (curb) (QC): 4 4 Steps (QC): 4 12 Steps (QC): 3 Stairs: Pattern: Step to Balance Picking up an Object (QC): 88 ADL-Treatment Eating (QC): 6 Oral Hygiene (QC): 6 (Pt able to complete by self sitting in chair at sink.) Shower/Bathe Self (QC): 4 (SBA) Upper Body Dressing (QC): 5 (Set up, with clothing placed on right side of chair, pt sitting.) Lower Body Dressing (QC): 4 (SBA due to impulsivity to don with clothing placed on right side of chair, pt sitting.) On/Off Footwear (QC): 5 Toileting Hygiene (QC): 4 (supervision) Toilet Transfer (QC): 4 (supervision) Assessment/Plan Assessment and Plan Assess & Plan/Chief Complaint Assessment: 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 transferred to [facility] Expressive aphasia s/p 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 Hypertension Diabetes Chronic atrial fibrillation Oral anticoagulation reported non-compliance prior to CVA Acute hematuria may need urology consult if continues GERD Gout [facility] DC dx: Active Problems * (Principal) Acute ischemic left MCA stroke (HCC) Morbid obesity (HCC) S/P carotid endarterectomy Atrial fibrillation (HCC) Essential hypertension Diabetes mellitus with peripheral vascular disease (HCC) Bilateral carotid artery disease (HCC) Thrombosis of left carotid artery Diabetic peripheral neuropathy (HCC) Dyslipidemia GERD (gastroesophageal reflux disease) Gout Hypothyroid Acute postoperative pain Acute encephalopathy Facial droop Expressive aphasia Hypertensive emergency Acute postoperative anemia due to expected blood loss Plan: Monitor hematuria PT and OT Speech therapy Home meds Monitor blood sugar Monitor blood pressure 09/30/2021: Supportive care Hold Eliquis until 10/07/2021 10/01/2021: Supportive care Day pass for Thanksgiving 10/02/21: Continue treatment BM regimen (1) CVA (cerebral infarction) Status: Acute (2) Chronic atrial fibrillation Status: Acute (3) Expressive aphasia Status: Acute (4) HTN (hypertension) Status: Acute (5) IDDM (insulin dependent diabetes mellitus) Status: Acute NKECHI VO DO Oct 02, 2021 10:41
--- NOTE | 2021-10-02 11:09 | Speech Therapy Daily Note ---
Speech Daily Progress Note Subjective Date Seen by Provider: Oct 02, 2021 Time Seen by Provider: 00:30 Patient was resting in her recliner when I entered her room. She participated well with therapy today. Objective Patient completed "what's wrong" with this picture series of cards at 60% with automatic speech. She was able to complete an additional 20% with moderate phonemic, spelling and/or function cues. Assessment Assessment Current Status: Good Progress Treatment Plan Continue Plan of Care Speech Short Term Goals Short Term Goals Short Term Goals 1. Patient will independently complete automatic speech tasks with 80% given 10% cues. (continued) 2. Patient will attend to a structured task for duration of 20 minutes with intermittent clinician interruptions at 80% (sustained and divided attention). (Continued) 3. Patient will demonstrate 80% accuracy with confrontation naming, independently. Speech Acoustic Engineer Goals Longterm Goals Patient will be able to effectively communicate wants/needs. Speech-Plan Patient/Family Goals Patient/Family Goals: Patient plans on returning to her home where she lives with her . Treatment Plan Speech Therapy Treatment Plan: Continue Plan of Care Treatment Duration: Sep 30, 2021 Frequency: 4 times per week Estimated Hrs Per Day: .5 hour per day Rehab Potential: Fair Barriers to Learning: Patient's recent CVA, expressive aphasia Pt/Family Agrees to Plan: Yes Safety Risks/Education Teaching Recipient: Patient Teaching Methods: Demonstration, Discussion Response to Teaching: Verbalize Understanding, Return Demonstration Education Topics Provided: Continued safety within her room, communication of wants/needs Time Speech Therapy Time In: 10:30 Speech Therapy Time Out: 11:00 Total Billed Time: 30 Billed Treatment Time [address] Oct 02, 2021 11:09
--- NOTE | 2021-10-02 12:54 | Therapy Group Daily Note ---
Therapy Daily Group Note Patient Education Topic Home Safety, Other List Below (ARU expectations) Exercises LE Seated Exercise, Sit to/from Stand, UE Exercise Session Ratio (pt:therapist): 4:1 Goal of Session: Education on ARU Expectations, Other (list) (planning for home) Goal Met for this Session: Yes Pt Benefit of Group: Contributions to Others, F/U Use of Strategies @Home, Socialization Other/Notes Pt. participated in group session this date. Pt. ambulated with CGA to from group. Pts. introduced themselves and shared their home towns and an accomplishment in their lives they are proud of. U&L extremity seated exercises were done, sit to stand safety and technique instructions were done and each patient stood , CGA. Explanation of ARU and goals were taught . Education regarding simulation of home and setting goals to return home considering your exact situation was addressed with each participant. Pt. returned to room with assist, needs met and call salazar at side Start Time: 11:00 Stop Time: 12:00 Total Billed Treatment Time: 60 Total Billed Treatment 1,GRP 60m IKE MONTESINOS GEOPHYSICS PROFESSOR Oct 02, 2021 12:54
[2021-10-02 19:36] VITALS: BP 127/58
[2021-10-03] MEDS: inSUlin ASPART (NovoLOG) 1 UNIT/0.01 ML (CHARGE PER UNIT) SC SCH (05:49)
[2021-10-03] MEDS: VENlafaxine XR 75 MG (EFFEXOR XR) CAP PO SCH (06:09)
--- NOTE | 2021-10-03 06:52 | PM&R Progress Note ---
Subjective HPI/CC On Admission Date Seen by Provider: Oct 03, 2021 Time Seen by Provider: 10:00 Subjective/Events-last exam 10/03/2021: Called to bedside due to left sided weakness Moved to ICU CT scans ordered Stroke neurologist at recommendations are appreciated 10/02/21: Patient improved No pain reported No falls Day pass for holiday dinner went well 10/01/2021: Speech is much better Patient overall progressing well Expressive aphasia still present Going for day pass for giving dinner 09/30/2021: Patient settling in well Right side neglect is still apparent Blood pressure stable Eliquis will be stopped due to conflicting consulting decisions from Dr. Whitehead identified Check meds labs No pain is reported Review of Systems Neurological: Weakness Objective Exam Vital Signs Vital Signs Date Time Temp Pulse Resp B/P (MAP) Pulse Ox O2 Delivery O2 Flow Rate FiO2 10/03/21 09:20 36.4 80 22 144/78 (100) 94 Room Air Capillary Refill : General Appearance: No Apparent Distress, WD/WN, Chronically ill HEENT: PERRL/EOMI, Normal ENT Inspection, Pharynx Normal, Other (Right side patient neglect) Neck: Full Range of Motion, Normal Inspection, Non Tender, Supple, Carotid Bruit Respiratory: Chest Non Tender, Lungs Clear, Normal Breath Sounds, No Accessory Muscle Use, No Respiratory Distress Cardiovascular: Regular Rate, Rhythm, No Edema, No Gallop, No JVD, No Murmur, Normal Peripheral Pulses Gastrointestinal: Normal Bowel Sounds, No Organomegaly, No Pulsatile Mass, Non Tender, Soft Back: Normal Inspection, No CVA Tenderness, No Vertebral Tenderness Extremity: Normal Capillary Refill, Normal Inspection, Normal Range of Motion, Non Tender, No Calf Tenderness, No Pedal Edema Neurologic/Psychiatric: Alert, Oriented x3, Normal Mood/Affect, Abnormal Cerebellar Tests, Abnormal Gait, Aphasia, Facial Droop (Left), Motor Weakness (Left-sided) Skin: Normal Color, Warm/Dry Lymphatic: No Adenopathy Results/Procedures Lab Laboratory Tests 10/03/21 09:55 Patient resulted labs reviewed. FIM Transfers Therapy Code Descriptions/Definitions Functional [place] Measure: 0=Not Assessed/NA 4=Minimal Assistance 1=Total Assistance 5=Supervision or Setup 2=Maximal Assistance 6=Modified [place] 3=Moderate Assistance 7=Complete IndependenceSCALE: Activities may be completed with or without assistive devices. 0-Cnwmbyzuru-ncvclxu completes the activity by him/herself with no assistance from a helper. 5-Set-up or Clean-up Assistance-helper sets up or cleans up; patient completes activity. [place] assists only prior to or following the activity. 4-Supervision or Touching Assistance-helper provides verbal cues and/or touching/steadying and/or contact guard assistance as patient completes activity. Assistance may be provided throughout the activity or intermittently. 3-Partial/Moderate Assistance-helper does LESS THAN HALF the effort. [place] lifts, holds or supports trunk or limbs, but provides less than half the effort. 2-Substantial/Maximal Assistance-helper does MORE THAN HALF the effort. [place] lifts or holds trunk or limbs and provides more than half the effort. 1-Pdensxctm-ozbhsp does ALL the effort. Patient does none of the effort to complete the activity. Or, the assistance of 2 or more helpers is required for the patient to complete the activity. If activity was not attempted, code reason: 7-Patient Refused. 9-Not Applicable-not attempted and the patient did not perform the activity before the current illness, exacerbation or injury. 10-Not Attempted due to Environmental Limitations-(lack of equipment, weather restraints, etc.). 88-Not Attempted due to Medical Conditions or Safety Concerns. Roll Left to Right (QC): 6 Sit to Lying (QC): 6 Sit to Stand (QC): 6 Chair/Hmq-dx-Gwvuh Xfer(QC): 5 Car Transfer (QC): 3 Gait Training Does the Patient Walk?: Yes Distance: 175' x 4 Walk 10 feet (QC): 5 Walk 50 ft with 2 Turns(QC): 5 Walk 150 ft (QC): 5 Walking 10ft/uneven surface-QC: 3 Gait Persons Needed: 1 Gait Assistive Device: None Wheelchair Training Does the Pt Use a Wheelchair?: No Wheel 50 ft with 2 turns (QC): 9 Wheel 150 ft (QC): 9 Stair Training Stair Training: Handrails/: 2 handrails #of Steps: 4 1 Step (curb) (QC): 4 4 Steps (QC): 4 12 Steps (QC): 3 Stairs: Pattern: Step to Balance Picking up an Object (QC): 88 ADL-Treatment Eating (QC): 6 Oral Hygiene (QC): 6 (Pt able to complete by self sitting in chair at sink.) Shower/Bathe Self (QC): 4 (SBA) Upper Body Dressing (QC): 5 (Set up, with clothing placed on right side of chair, pt sitting.) Lower Body Dressing (QC): 4 (SBA due to impulsivity to don with clothing placed on right side of chair, pt sitting.) On/Off Footwear (QC): 5 Toileting Hygiene (QC): 4 (supervision) Toilet Transfer (QC): 4 (supervision) Assessment/Plan Assessment and Plan Assess & Plan/Chief Complaint Assessment: Acute left-sided weakness consistent with new stroke moved to ICU 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 transferred to [facility] Expressive aphasia s/p 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 Hypertension Diabetes Chronic atrial fibrillation Oral anticoagulation reported non-compliance prior to CVA Acute hematuria may need urology consult if continues GERD Gout [facility] DC dx: Active Problems * (Principal) Acute ischemic left MCA stroke (HCC) Morbid obesity (HCC) S/P carotid endarterectomy Atrial fibrillation (HCC) Essential hypertension Diabetes mellitus with peripheral vascular disease (HCC) Bilateral carotid artery disease (HCC) Thrombosis of left carotid artery Diabetic peripheral neuropathy (HCC) Dyslipidemia GERD (gastroesophageal reflux disease) Gout Hypothyroid Acute postoperative pain Acute encephalopathy Facial droop Expressive aphasia Hypertensive emergency Acute postoperative anemia due to expected blood loss Plan: Monitor hematuria PT and OT Speech therapy Home meds Monitor blood sugar Monitor blood pressure 09/30/2021: Supportive care Hold Eliquis until 10/07/2021 10/01/2021: Supportive care Day pass for Thanksgiving 10/02/21: Continue treatment BM regimen 10/03/2021: Transferred to ICU (1) CVA (cerebral infarction) Status: Acute (2) Chronic atrial fibrillation Status: Acute (3) Expressive aphasia Status: Acute (4) HTN (hypertension) Status: Acute (5) IDDM (insulin dependent diabetes mellitus) Status: Acute NKECHI VO DO Oct 03, 2021 06:52
[2021-10-03 07:30] VITALS: BP 161/71
--- NOTE | 2021-10-03 08:25 | Physical Therapy Daily Note ---
PT Daily Note-Current Subjective Patient sitting in the chair upon PT arrival, agreeable to treatment. Reports 0/10 pain currently. Mental Status Patient Orientation: Person, Place Transfers SCALE: Activities may be completed with or without assistive devices. 6-Xghtessarw-xmshqmm completes the activity by him/herself with no assistance from a helper. 5-Set-up or Clean-up Assistance-helper sets up or cleans up; patient completes activity. [place] assists only prior to or following the activity. 4-Supervision or Touching Assistance-helper provides verbal cues and/or touching/steadying and/or contact guard assistance as patient completes activity. Assistance may be provided throughout the activity or intermittently. 3-Partial/Moderate Assistance-helper does LESS THAN HALF the effort. [place] lifts, holds or supports trunk or limbs, but provides less than half the effort. 2-Substantial/Maximal Assistance-helper does MORE THAN HALF the effort. [place] lifts or holds trunk or limbs and provides more than half the effort. 6-Peunoswok-golqnm does ALL the effort. Patient does none of the effort to complete the activity. Or, the assistance of 2 or more helpers is required for the patient to complete the activity. If activity was not attempted, code reason: 7-Patient Refused. 9-Not Applicable-not attempted and the patient did not perform the activity before the current illness, exacerbation or injury. 10-Not Attempted due to Environmental Limitations-(lack of equipment, weather restraints, etc.). 88-Not Attempted due to Medical Conditions or Safety Concerns. Sit to Stand (QC): 6 Chair/Tqr-oo-Rovjm Xfer(QC): 6 Weight Bearing Full Weight Bearing Full Weight Bearing Gait Training Does the Patient Walk?: Yes Distance: 200, 100, 100 Walk 10 feet (QC): 5 Walk 50 ft with 2 Turns(QC): 5 Walk 150 ft (QC): 5 Gait Persons Needed: 1 Gait Assistive Device: None Exercises Supine Ex: Ankle pumps, Quad Set, Glut sets Supine Reps: 20 Seated Therapy Exercises: Long arc quads, Hip flexion, Hamstring Curls, Hip abd/add Seated Reps: 20 Assessment Current Status: Good Progress Patient tolerated treatment well. Demonstrates good control of LE exercises with only minimal verbal cues to slow down. Patient performs all observed transfers with I. Patient ambulates 200 feet, 100 feet, 100 feet with no AD, with SBA and verbal cues for posture, safety, progression and conservation of energy. Patient requires 2 sitting rest breaks on the return trip to her room. Patient in chair post treatment with all needs met, nursing notified, call light in reach. PT Marketing Technologist Goals Marketing Technologist Goals PT Fdc Goals Time Frame: Oct 31, 2021 Roll Left & Right (QC): 5 Sit to Lying (QC): 5 Lying-Sitting on Side/Bed(QC): 5 Sit to Stand (QC): 5 Chair/Bhu-fo-Kzanz Xfer(QC): 5 Toilet Transfer (QC): 5 Car Transfer (QC): 5 Does the Patient Walk: Yes Walk 10 feet (QC): 5 Walk 50ft with 2 Turns (QC): 5 Walk 150 ft (QC): 5 Walking 10ft on Uneven Surface: 5 1 Step (curb) (QC): 4 4 Steps (QC): 4 12 Steps (QC): 4 Picking up an Object (QC): 4 Wheel 50 feet with 2 turns (QC: 9 Wheel 150 feet: 9 PT Plan Treatment/Plan Treatment Plan: Continue Plan of Care Treatment Plan: Bed Mobility, Concurrent Therapy, Education, Functional Activity Helen, Functional Strength, Group Therapy, Gait, Safety, Therapeutic Exercise, Transfers Treatment Duration: Oct 31, 2021 Frequency: At least 5 of 7 days/Wk (IRF) Estimated Hrs Per Day: 1.5 hours per day Patient and/or Family Agrees t: Yes Safety Risks/Education Patient Education: Gait Training Teaching Recipient: Patient Teaching Methods: Demonstration, Discussion Response to Teaching: Verbalize Understanding, Return Demonstration Time/GCodes Time In: 0755 Time Out: 0818 Total Billed Treatment Time: 23 Total Billed Treatment Visit, Elana, FATOU [place] PT Oct 03, 2021 08:24
[2021-10-03 09:20] VITALS: BP 144/78
--- NOTE | 2021-10-03 09:52 | Diagnostic Imaging Report ---
EXAMINATION: CT head without contrast. TECHNIQUE: Multiple contiguous axial images were obtained through the brain without the use of intravenous contrast. All CT scans use one or more of the following dose optimizing techniques: automated exposure control, MA and/or KvP adjustment based on patient size and exam type or iterative reconstruction. HISTORY: Left-sided weakness and facial droop COMPARISON: 09/22/2021 FINDINGS: Mild diffuse cerebral volume loss with proportional enlargement of the ventricles and sulci. Moderate hypodensities throughout the supratentorial white matter posterior hemispheres. Evolving infarct of the left parietal lobe. No acute intracranial hemorrhage or abnormal extra-axial fluid collections are present. Calcification of the intracranial ICAs. No hyperdense vessel. The calvarium is intact. The mastoid air cells are clear. The visualized paranasal sinuses are clear. Surgical changes from bilateral cataract repair. IMPRESSION: 1. No acute intracranial abnormality. 2. Chronic microangiopathy and volume loss. Evolving left parietal lobe infarct. Findings communicated to the patient's nurse Cristy by Dr. Natalio Patel at 9:50 AM on 10/03/2021. Dictated by: Dictated on workstation # [id number]
[2021-10-03 10:14] LABS: BASOPHILS # (AUTO) 0.1 10^3/uL (0.0-0.1); BASOPHILS % (AUTO) 1 % (0-10); EOSINOPHILS # (AUTO) 1.1 10^3/uL (0.0-0.3); EOSINOPHILS % (AUTO) 10 % (0-10); HEMATOCRIT 35 % (35-52); HEMOGLOBIN 11.1 g/dL (11.5-16.0); LYMPHOCYTES # (AUTO) 0.9 10^3/uL (1.0-4.0); LYMPHOCYTES % (AUTO) 8 % (12-44); MEAN CORPUSCULAR HEMOGLOBIN 30 pg (25-34); MEAN CORPUSCULAR HGB CONC 32 g/dL (32-36); MEAN CORPUSCULAR VOLUME 94 fL (80-99); MEAN PLATELET VOLUME 11.3 fL (9.0-12.2); MONOCYTES # (AUTO) 0.9 10^3/uL (0.0-1.0); MONOCYTES % (AUTO) 7 % (0-12); NEUTROPHILS # (AUTO) 8.4 10^3/uL (1.8-7.8); NEUTROPHILS % (AUTO) 73 % (42-75); PLATELET COUNT 387 10^3/uL (130-400); WHITE BLOOD COUNT 11.4 10^3/uL (4.3-11.0)
[2021-10-03 10:23] LABS: ALBUMIN 3.4 GM/DL (3.2-4.5); POTASSIUM 5.2 MMOL/L (3.6-5.0)
[2021-10-03 10:24] LABS: CALCIUM 8.9 MG/DL (8.5-10.1)
[2021-10-03 10:26] LABS: TOTAL PROTEIN 7.2 GM/DL (6.4-8.2)
[2021-10-03 10:27] LABS: BILIRUBIN,TOTAL 0.4 MG/DL (0.1-1.0)
--- NOTE | 2021-10-03 10:27 | Discharge Summary ---
Diagnosis/Chief Complaint Date of Admission Sep 29, 2021 at 13:25 Date of Discharge Discharge Diagnosis Acute left-sided weakness consistent with new stroke transferred to ICU Recent stroke with right-sided visual neglect and right-sided weakness Chronic atrial fibrillation Expressive aphasia Discharge Summary Discharge Physical Examination Allergies: Coded Allergies: No Known Drug Allergies (Unverified , 02/19/13) Vitals & I&Os Vital Signs Date Time Temp Pulse Resp B/P (MAP) Pulse Ox O2 Delivery O2 Flow Rate FiO2 10/03/21 09:20 36.4 80 22 144/78 (100) 94 Room Air General Appearance: Alert Respiratory: Clear to Auscultation Cardiovascular: Regular Rate Neuro: Other (Left-sided flaccidity) Hospital Course Was the Problem List Reviewed?: Yes Hospital course: Patient had a short hospital course after admitted from after CVA and right-sided neglect with right-sided weakness. She was actually progressing well with PT and OT. She had an abrupt onset of acute left-sided weakness consistent with new stroke so she was transferred to the ICU. Labs (last 24 hrs) Laboratory Tests 09/29/21 17:35: Glucometer 216H 09/29/21 21:29: Glucometer 164H 09/30/21 05:53: Glucometer 130H 09/30/21 06:00: White Blood Count 14.0H, Red Blood Count 4.04, Hemoglobin 12.0, Hematocrit 38, Mean Corpuscular Volume 95, Mean Corpuscular Hemoglobin 30, Mean Corpuscular Hemoglobin Concent 31L, Red Cell Distribution Width 14.1, Platelet Count 390, Mean Platelet Volume 11.6, Immature Granulocyte % (Auto) 1, Neutrophils (%) (Auto) 82H, Lymphocytes (%) (Auto) 7L, Monocytes (%) (Auto) 6, Eosinophils (%) (Auto) 5, Basophils (%) (Auto) 1, Neutrophils # (Auto) 11.4H, Lymphocytes # (Auto) 0.9L, Monocytes # (Auto) 0.8, Eosinophils # (Auto) 0.6H, Basophils # (Auto) 0.1, Immature Granulocyte # (Auto) 0.1, Neutrophils % (Manual) 79, Lymphocytes % (Manual) 6, Monocytes % (Manual) 10, Eosinophils % (Manual) 5, Basophils % (Manual) 0, Band Neutrophils 0, Blood Morphology Comment NORMAL 09/30/21 06:24: Sodium Level 139, Potassium Level 4.3, Chloride Level 103, Carbon Dioxide Level 24, Anion Gap 12, Blood Urea Nitrogen 20H, Creatinine 1.18, Estimat Glomerular Filtration Rate 44, BUN/Creatinine Ratio 17, Glucose Level 137H, Calcium Level 9.4, Corrected Calcium 9.7, Total Bilirubin 0.6, Aspartate Amino Transf (AST/SGOT) 21, Alanine Aminotransferase (ALT/SGPT) 7, Alkaline Phosphatase 88, Total Protein 7.5, Albumin 3.6 09/30/21 12:22: Glucometer 117H 09/30/21 15:11: Glucometer 66L 09/30/21 15:47: Glucometer 102 09/30/21 20:08: Glucometer 109 10/01/21 06:06: Glucometer 74 10/01/21 11:43: Glucometer 126H 10/01/21 15:47: Glucometer 91 10/01/21 20:00: Glucometer 155H 10/02/21 05:12: Glucometer 135H 10/02/21 10:55: Glucometer 157H 10/02/21 15:25: Glucometer 75 10/02/21 20:04: Glucometer 137H 10/03/21 05:38: Glucometer 67L 10/03/21 06:11: Glucometer 104 10/03/21 09:29: Glucometer 155H 10/03/21 09:55: White Blood Count 11.4H, Red Blood Count 3.68L, Hemoglobin 11.1L, Hematocrit 35, Mean Corpuscular Volume 94, Mean Corpuscular Hemoglobin 30, Mean Corpuscular Hemoglobin Concent 32, Red Cell Distribution Width 14.1, Platelet Count 387, Mean Platelet Volume 11.3, Immature Granulocyte % (Auto) 1, Neutrophils (%) (Auto) 73, Lymphocytes (%) (Auto) 8L, Monocytes (%) (Auto) 7, Eosinophils (%) (Auto) 10, Basophils (%) (Auto) 1, Neutrophils # (Auto) 8.4H, Lymphocytes # (Auto) 0.9L, Monocytes # (Auto) 0.9, Eosinophils # (Auto) 1.1H, Basophils # (Auto) 0.1, Immature Granulocyte # (Auto) 0.1, Sodium Level 139, Potassium Level 5.2H, Chloride Level 107, Carbon Dioxide Level 21, Anion Gap 11, Blood Urea Nitrogen 34H, Creatinine 1.36H, Estimat Glomerular Filtration Rate 37, BUN/Creatinine Ratio 25, Glucose Level 148H, Calcium Level 8.9, Corrected Calcium 9.4, Total Bilirubin 0.4, Aspartate Amino Transf (AST/SGOT) 22, Alanine Aminotransferase (ALT/SGPT) 10, Alkaline Phosphatase 85, Total Protein 7.2, Albumin 3.4 Pending Labs Laboratory Tests 09/29/21 17:35: Glucometer 216 09/29/21 21:29: Glucometer 164 09/30/21 05:53: Glucometer 130 09/30/21 06:00: White Blood Count 14.0, Red Blood Count 4.04, Hemoglobin 12.0, Hematocrit 38, Mean Corpuscular Volume 95, Mean Corpuscular Hemoglobin 30, Mean Corpuscular Hemoglobin Concent 31, Red Cell Distribution Width 14.1, Platelet Count 390, Mean Platelet Volume 11.6, Immature Granulocyte % (Auto) 1, Neutrophils (%) (Auto) 82, Lymphocytes (%) (Auto) 7, Monocytes (%) (Auto) 6, Eosinophils (%) (Auto) 5, Basophils (%) (Auto) 1, Neutrophils # (Auto) 11.4, Lymphocytes # (Auto) 0.9, Monocytes # (Auto) 0.8, Eosinophils # (Auto) 0.6, Basophils # (Auto) 0.1, Immature Granulocyte # (Auto) 0.1, Neutrophils % (Manual) 79, Lymphocytes % (Manual) 6, Monocytes % (Manual) 10, Eosinophils % (Manual) 5, Basophils % (Manual) 0, Band Neutrophils 0, Blood Morphology Comment NORMAL 09/30/21 06:24: Sodium Level 139, Potassium Level 4.3, Chloride Level 103, Carbon Dioxide Level 24, Anion Gap 12, Blood Urea Nitrogen 20, Creatinine 1.18, Estimat Glomerular Filtration Rate 44, BUN/Creatinine Ratio 17, Glucose Level 137, Calcium Level 9.4, Corrected Calcium 9.7, Total Bilirubin 0.6, Aspartate Amino Transf (AST/SGOT) 21, Alanine Aminotransferase (ALT/SGPT) 7, Alkaline Phosphatase 88, Total Protein 7.5, Albumin 3.6 09/30/21 12:22: Glucometer 117 09/30/21 15:11: Glucometer 66 09/30/21 15:47: Glucometer 102 09/30/21 20:08: Glucometer 109 10/01/21 06:06: Glucometer 74 10/01/21 11:43: Glucometer 126 10/01/21 15:47: Glucometer 91 10/01/21 20:00: Glucometer 155 10/02/21 05:12: Glucometer 135 10/02/21 10:55: Glucometer 157 10/02/21 15:25: Glucometer 75 10/02/21 20:04: Glucometer 137 10/03/21 05:38: Glucometer 67 10/03/21 06:11: Glucometer 104 10/03/21 09:29: Glucometer 155 10/03/21 09:55: White Blood Count 11.4, Red Blood Count 3.68, Hemoglobin 11.1, Hematocrit 35, Mean Corpuscular Volume 94, Mean Corpuscular Hemoglobin 30, Mean Corpuscular Hemoglobin Concent 32, Red Cell Distribution Width 14.1, Platelet Count 387, Mean Platelet Volume 11.3, Immature Granulocyte % (Auto) 1, Neutrophils (%) (Auto) 73, Lymphocytes (%) (Auto) 8, Monocytes (%) (Auto) 7, Eosinophils (%) (Auto) 10, Basophils (%) (Auto) 1, Neutrophils # (Auto) 8.4, Lymphocytes # (Auto) 0.9, Monocytes # (Auto) 0.9, Eosinophils # (Auto) 1.1, Basophils # (Auto) 0.1, Immature Granulocyte # (Auto) 0.1, Sodium Level 139, Potassium Level 5.2, Chloride Level 107, Carbon Dioxide Level 21, Anion Gap 11, Blood Urea Nitrogen 34, Creatinine 1.36, Estimat Glomerular Filtration Rate 37, BUN/Creatinine Ratio 25, Glucose Level 148, Calcium Level 8.9, Corrected Calcium 9.4, Total Bilirubin 0.4, Aspartate Amino Transf (AST/SGOT) 22, Alanine Aminotransferase (ALT/SGPT) 10, Alkaline Phosphatase 85, Total Protein 7.2, Albumin 3.4 Discharge Home Medications: Active Scripts Active Reported Pantoprazole Sodium 40 Mg Tablet.dr 40 Mg PO DAILY Venlafaxine HCl ER (Venlafaxine HCl) 150 Mg Cap.er.24h 150 Mg PO DAILY Olmesartan Medoxomil 20 Mg Tablet 20 Mg PO DAILY Metoprolol Succinate 50 Mg Tab.er.24h 50 Mg PO HS Metoprolol Succinate 50 Mg Tab.er.24h 100 Mg PO DAILY TAKES 2 (50MG) TABS Metformin HCl ER (Metformin HCl) 500 Mg Tab.er.24h 500 Mg PO DAILY Victoza 2-Sanket (Liraglutide) 0.6 Mg/0.1 Ml Pen.injctr 1.2 Ml SC DAILY Levothyroxine Sodium 75 Mcg Tablet 75 Mcg PO DAILY Lantus Solostar (Insulin Glargine,Hum.rec.anlog) 100 Unit/1 Ml Insuln.pen 35 Units SC HS Glipizide ER (Glipizide) 10 Mg Tab.er.24 10 Mg PO DAILY Neurontin (Gabapentin) 300 Mg Capsule 300 Mg PO DAILY Cyanocobalamin Injection (Cyanocobalamin) 1,000 Mcg/Ml Inj 1,000 Mcg IM MONTHLY Atorvastatin Calcium 80 Mg Tablet 80 Mg PO DAILY Allopurinol 100 Mg Tablet 100 Mg PO BID Tylenol (Acetaminophen) 325 Mg Tablet 650 Mg PO Q4H PRN Eliquis (Apixaban) 5 Mg Tablet 5 Mg PO BID START TAKING 10-07-2021 Aspirin 81 Mg Tab.chew 81 Mg PO DAILY TAKE FOR 6 DAYS AND STOP TAKING ON 10-06-2021 Instructions to patient/family Please see electronic discharge instructions given to patient. Diagnosis/Problems Diagnosis/Problems (1) CVA (cerebral infarction) Status: Acute (2) Chronic atrial fibrillation Status: Acute (3) Expressive aphasia Status: Acute (4) HTN (hypertension) Status: Acute (5) IDDM (insulin dependent diabetes mellitus) Status: Acute NKECHI VO DO Oct 03, 2021 10:27
[2021-10-03 10:29] LABS: CREATININE SERUM 1.36 MG/DL (0.60-1.30)
--- NOTE | 2021-10-03 10:35 | Diagnostic Imaging Report ---
INDICATION: Altered mental status. COMPARISON: Noncontrast CT head from earlier same day. TECHNIQUE: Post contrast CT head perfusion scan was performed. All CT scans use one or more of the following dose optimizing techniques: automated exposure control, MA and/or KvP adjustment based on patient size and exam type or iterative reconstruction. FINDINGS: Total CBF less than 30% volume: 0 mL. Total Tmax greater than 6 seconds volume: 62 mL. Total mismatch difference: 62 mL. Total mismatch ratio: Infinite. Hypoperfusion index: 0.5. Source images were also created and reviewed and show no large defect on the cerebral blood flow nor cerebral volume images. There is a 62 mL defect on the Tmax. IMPRESSION: 1. A 62 mL number seen within the right MCA territory. Dictated by: Dictated on workstation # [id number]
--- NOTE | 2021-10-05 11:19 | Therapy Team Discharge Summary ---
Therapy Discharge Summary Discharge Recommendations Date of Discharge Oct 03, 2021 at 09:30 Occupational Therapy Pt presents to ARU post stroke. At time of eval, she was min-mod a for bathing, dressing, footwear, and toileting, and sba for upper body dressing. While on rehab, OT focused on improving balance, safety, visual perception, cognition, sequencing, compensatory strategies, and endurance needed for adls and transfers. She did not meet all of her terminal gauger goals due to being transferred to ICU following an acute onset of left sided flaccidity and confusion. 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 Pt has discharged from this facility and will be d/c'd from OT. Decreased Safety Aware, Decreased UE Strength, Impaired Coordination, Impaired Funct Balance, Impaired Self-Care Skills, Visual-Perceptual Deficit PT Intermediate Goals Ornithology Teacher Goals PT Intermediate Goals Time Frame: Oct 31, 2021 Roll Left to Right (QC): 5 Sit to Lying (QC): 5 Lying-Sitting on Side/Bed(QC): 5 Sit to Stand (QC): 5 Chair/Osx-dv-Qgviu Xfer(QC): 5 Car Transfer (QC): 5 Does the Patient Walk: Yes Walk 10 feet (QC): 5 Walk 10ft-Uneven Surface(QC): 5 Walk 50ft with 2 Turns (QC): 5 Walk 150 ft (QC): 5 Wheel 50 feet with 2 turns (QC: 9 1 Step (curb) (QC): 4 4 Steps (QC): 4 12 Steps (QC): 4 Picking up an Object (QC): 4 OT Ornithology Teacher Goals Ornithology Teacher Goals Time Frame: Oct 20, 2021 Eating (QC): 6 (met) Oral Hygiene (QC): 5 (met) Shower/Bathe Self (QC): 5 (not met) Upper Body Dressing (QC): 5 (met) Lower Body Dressing (QC): 5 (not met) On/Off Footwear (QC): 5 (met) Toileting Hygiene (QC): 6 (not met) Toilet/Commode Transfer (QC): 5 (not met) 1=Demonstrate adherence to instructed precautions during ADL tasks. 2=Patient will verbalize/demonstrate understanding of assistive devices/modifications for ADL. 3=Patient will improve strength/tolerance for activity to enable patient to perform ADL's. Speech Ornithology Teacher Goals Intermediate Goals Patient will be able to effectively communicate wants/needs. Paloma Cortez OT Oct 05, 2021 11:19
== END 2021-10-03 09:30 | disposition short-term general hospital (02) | DRG 56 ==
PROVIDERS: ADMIT Internal Medicine; ATTEND Internal Medicine
DX: I69.351 Hemiplegia and hemiparesis following cerebral infarction affecting right dominant side (principal); I63.9 Cerebral infarction, unspecified; R41.4 Neurologic neglect syndrome; G81.94 Hemiplegia, unspecified affecting left nondominant side; I48.20 Chronic atrial fibrillation, unspecified; I69.320 Aphasia following cerebral infarction; I69.398 Other sequelae of cerebral infarction; I69.392 Facial weakness following cerebral infarction; H53.8 Other visual disturbances; I10 Essential (primary) hypertension; E11.51 Type 2 diabetes mellitus with diabetic peripheral angiopathy without gangrene; E11.42 Type 2 diabetes mellitus with diabetic polyneuropathy; I77.9 Disorder of arteries and arterioles, unspecified; I25.10 Atherosclerotic heart disease of native coronary artery without angina pectoris; E78.00 Pure hypercholesterolemia, unspecified; E78.5 Hyperlipidemia, unspecified; K21.9 Gastro-esophageal reflux disease without esophagitis; R31.9 Hematuria, unspecified; M10.9 Gout, unspecified; E03.9 Hypothyroidism, unspecified; G89.18 Other acute postprocedural pain; F41.9 Anxiety disorder, unspecified; F32.A Depression, unspecified; M19.91 Primary osteoarthritis, unspecified site; Z79.84 Long term (current) use of oral hypoglycemic drugs; Z79.01 Long term (current) use of anticoagulants; Z79.4 Long term (current) use of insulin
CPT/HCPCS: 0042T; 36415; 70450; 80053; 82947; 85007; 85025; 85027; 94664; 94760

== ENCOUNTER 2021-10-03 09:40 | Inpatient (IN) | payer MEDICARE ==
[~2021-10-03 09:40] MED LIST changes: +ACET325T38 PO; +ALLO100T PO; +APIX5TAB PO; +ASPI-999 PO; +ATOR80TA76 PO; +CNC1KV IM; +GABA300C PO; +GLIP10TA24 PO; +INSU100I10 SC; +LEVO75TA6 PO; +LIRA0.6P SC; +METF-865 PO; +METO50TA7 PO; +OLME20TA24 PO; +PANT40TA52 PO; +VENL150C98 PO
[2021-10-03 09:45] VITALS: BP 147/92
[2021-10-03 10:30] VITALS: BP 140/51
[2021-10-03] MEDS ORDERED: HOLD METFORMIN - RECEIVED CONTRAST 20 ML VIAL IV SCH ×2 (10:30)
[2021-10-03] MEDS ORDERED: NS IV 1000 ML 1,000 ML IV SCH (10:30)
[2021-10-03] MEDS ORDERED: IOHEXOL 350 MG/ML 100 ML (OMNIPAQUE 350) VIAL IV ONE (10:30)
[2021-10-03] MEDS ORDERED: NS 100 ML (IVPB) BAG IV ONE (10:30)
[2021-10-03] MEDS ORDERED: IOHEXOL 350 MG/ML 150 ML (OMNIPAQUE 350) VIAL IV ONE (10:30)
--- NOTE | 2021-10-03 10:33 | History & Physical ---
History of Present Illness HPI/Chief Complaint Chief complaint: Acute CVA with left-sided flaccidity History of present illness: This is an 81-year-old white female who was moved to ICU emergently after rapid response stroke protocol initiated due to acute onset of left-sided flaccidity and confusion. I saw patient in the CT scanner and noted left-sided neglect and flaccidity. Stroke neurologist Dr. Morton recommended CT scan without contrast and CT angiogram of the head and neck and CT perfusion. Patient was found to have thrombus in the M2 segment cerebral artery so she was arranged for med flight to immediately. Source: RN/MD Exam Limitations: clinical condition Date Seen 10/03/21 Time Seen by a Provider: 10:15 Attending Physician Lillian Vo DO PCP Josue Lim DO Referring Physician Date of Admission Oct 03, 2021 at 09:40 Home Medications & Allergies Home Medications Reviewed patient Home Medication Reconciliation performed by pharmacy medication reconciliations remediation technician and/or nursing. Patients Allergies have been reviewed. Allergies Allergies Coded Allergies No Known Drug Allergies (Unverified02/19/13) Past Trhwkbw-[id number] Hx Past Med/Social Hx: Reviewed Nursing Past Med/Soc Hx, Reviewed and Corrections made Patient Social History Marrital Status: Employed/Student: retired Smoking Status: Never a Smoker Recent Hopitalizations: Yes Immunizations Up To Date Date of Pneumonia Vaccine: Aug 07, 2012 Date of Influenza Vaccine: Aug 09, 2011 Past Medical History Surgeries: Eye Surgery, Gallbladder, Hysterectomy, Joint Replacement, Oophorectomy, Orthopedic, Vascular Surgery Cardiac: Atrial Fibrillation, Coronary Artery Disease, Heart Attack, High Cholesterol, Hypertension, Peripheral Vascular Neurological: Headaches /Migraines, Stroke 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: No Hysterectomy, Menopausal Gastrointestinal: Gastroesophageal Reflux, Diverticulosis Musculoskeletal: Degenerate Disk Disease, Arthritis Endocrine: Diabetes, Insulin dep, Hypothyroidsim HEENT: Cataract History of Blood Disorders: Yes (ANEMIA) Family History No Pertinent Family Hx SOCIAL HISTORY: -NO SMOKING -NO ETOH -NO DRUGS PAST SURGICAL HISTORY: -LEFT CAROTID ENDARTERECTOMY -HYSTERECTOMY WITH RIGHT SALPINGO-OOPHORECTOMY -BILATERAL CATARACT SURGERY -CERVICAL SPINE SURGERY -BILATERAL TOTAL KNEE REPLACEMENT -CHOLECYSTECTOMY -EGD/COLONOSCOPY 02/[address] PITT Review of Systems ROS-Unable to Obtain: Acute stroke can't converse Constitutional: see HPI Physical Exam Physical Exam Vital Signs Vital Signs - First Documented 10/03/21 10/03/21 09:45 10:00 Pulse 76 Resp 17 B/P (MAP) 147/92 Pulse Ox 95 Capillary Refill : Height, Weight, BMI Height: 5'3.00" Weight: 225lbs. oz. 101.168464oh; 42.59 BMI Method:Estimated General Appearance: WD/WN, Anxious, Moderate Distress Eyes: Bilateral Eye Normal Inspection, Bilateral Eye PERRL Respiratory: Lungs Clear, Normal Breath Sounds, No Accessory Muscle Use, No Respiratory Distress Cardiovascular: Regular Rate, Rhythm, No Edema, No Gallop, No JVD, No Murmur, Normal Peripheral Pulses Gastrointestinal: Normal Bowel Sounds, No Organomegaly, No Pulsatile Mass, Soft Back: Normal Inspection, No CVA Tenderness, No Vertebral Tenderness Extremity: Normal Capillary Refill, Normal Inspection, Normal Range of Motion (Except left sided flaccidity), Non Tender, No Calf Tenderness, No Pedal Edema Neurologic/Psychiatric: Alert, Aphasia, Motor Weakness (Left-sided flaccidity) Skin: Normal Color, Warm/Dry Lymphatic: No Adenopathy Results Results/Procedures Labs Patient resulted labs reviewed. Assessment/Plan Admission Diagnosis Assessment: Acute CVA with left-sided flaccidity due to thrombosis and DM2 segment of c erebral artery in need of thrombectomy per [facility] Plan: Transfer to Admission Status: Inpatient Order (span 2 midnights) Reason for Inpatient Admission: CVA Clinical Quality Measures DVT/VTE Risk/Contraindication: Contraindications-Pharm: Other *list below* Other: may cause hemorrgagic CVA LILLIAN VO DO Oct 03, 2021 10:33
--- NOTE | 2021-10-03 11:32 | Diagnostic Imaging Report ---
EXAMINATION: CT angiography head and neck with and without contrast. TECHNIQUE: After intravenous administration of contrast, thin section axial CT angiography of the head and neck was performed. Source data was reformatted into 3D MIP projections. All CT scans use one or more of the following dose optimizing techniques: automated exposure control, MA and/or KvP adjustment based on a patient size and exam type, or iterative reconstruction. HISTORY: Recent stroke on the left. New strokelike symptoms. EXAMINATION: CT angiogram of the head and neck from 10/03/2021. COMPARISON: 09/22/2021 FINDINGS: COMPARISON: 09/22/2021 FINDINGS: There appear to be 2 branches along off of the right MCA with more superior branch occluded as compared to the previous CTA. The more inferior branch appears patent. Left MCA unremarkable. The posterior cerebral arteries are normal. The anterior cerebral arteries are normal. There is no large vessel occlusion. No aneurysm or vascular malformation seen. The origins of the carotid arteries are normal. There are normal carotid bifurcations bilaterally. There is diffuse bilateral atherosclerotic disease at the origin of the common carotid arteries left greater than right. The previously noted thrombus within the distal left common carotid artery extending into the internal carotid carotid artery no longer present. There does appear to be persistent occlusion of the external carotid artery. There is scattered atherosclerotic disease along the intracranial aspects of bilateral internal carotid arteries without evidence for occlusion or significant stenosis. There is no evidence for dissection on either side. Vertebral artery origins are normal. There is no significant stenosis or evidence for occlusion. No vertebral artery dissections. On postcontrast delayed postcontrast imaging of the brain. There are diffuse multifocal areas of chronic ischemic disease with a more focal area of hypodensity in the posterior left parietal and occipital region consistent with the recent heart recent infarct from 16th of this month. There is diffuse peripheral cortical enhancement which is new likely due to reperfusion. No soft tissue abnormality is seen. No osseus lesions or fractures are seen. Limited imaging through the lung apices demonstrate scattered airspace opacities bilaterally nonspecific which could be due to atelectasis or infiltrate with mild edema not excluded. Correlate with symptoms. There is marked degenerative disease throughout the cervical spine with chronic changes stable from previous imaging. IMPRESSION: 1. Interval resolution of the previously noted occlusion within the left common carotid artery and internal carotid artery with persistent occlusion of the left external carotid artery. 2. Occlusion of a superior branch of the right MCA with remaining MCA patent. No dissection or aneurysmal dilatation. 3. Diffuse peripheral enhancement throughout the left posterior parietal and occipital regions likely due to areas of reperfusion along the recent subacute infarct. Other findings as above. Pertinent findings will be called to Lili Little by Dr. العلي 10/03/2021 at 11:10 a.m.. Dictated by: Dictated on workstation # [id number]
--- NOTE | 2021-10-03 11:45 | Tele-ICU Consult ---
Progress Note 81 y/o female admitted with possible stroke symptoms CTA: interval resolution of the previously noted occlusion within the left common carotid artery and internal carotid artery with persistent occlusion of the left external carotid artery. 2. Occlusion of a superior branch of the right MCA with remaining MCA patent. No dissection or aneurysmal dilatation. 3. Diffuse peripheral enhancement throughout the left posterior parietal and occipital regions likely due to areas of reperfusion along the recent subacute infarct. PLAN: neurology consult Focused Exam Height, Weight, BMI Height: 5'3.00" Weight: 225lbs. oz. 101.383585ts; 42.59 BMI Method:Estimated DANIA MCNALLY MD Oct 03, 2021 11:44
--- NOTE | 2021-10-03 11:59 | Cardiology Progress Note ---
Subjective Date Seen by Provider: Oct 03, 2021 Time Seen by Provider: 11:55 Subjective/Events-last exam Patient was seen at bedside with family around her, getting ready for transfer to Objective-Cardiology Exam Last Set of Vital Signs Vital Signs 10/03/21 10/03/21 10:30 11:45 Pulse 75 Resp 22 B/P (MAP) 140/51 Pulse Ox 96 General: Alert, Cooperative HEENT: Atraumatic Lungs: Clear to Auscultation Heart: Regular Rate, Normal S1 Abdomen: Normal Bowel Sounds Extremities: No Clubbing Skin: No Rashes A/P-Cardiology Assessment/Plan Acute CVA occurred this morning on October 03, 2021, recurrent, having dense stroke symptoms, underwent CTA evaluation which showed new occlusion. Recommendation by neurology to transfer her [facility] for possible thrombectomy. I visited with her and her family, getting ready for a air transfer Status post acute CVA on 09/22/21 with right sided weakness, visual disturbance and speech difficulties- CTA showed Large thrombus/embolus left carotid bifurcation restricting flow and likely causing hypoperfusion nonhemorrhagic infarct of the watershed vascular territory in the left posterior parietal region. She was transferred to , underwent embolectomy and CEA of the left ICA. MRI brain also showed small infarcts in the right occipital and left cerebellum suspicious for central source of embolization. Was on Eliquis at time of CVA, although there is question of noncompiance prior to stroke. 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 Recurrent headache, had significant headache on September 30, 2021, resolved the day after. No further headache was reported. Chronic atrial fibrillation, had been maintained on Eliquis as outpatient, currently rate controlled, being transferred again to , will need aggressive anticoagulation at this point if no active bleeding was identified. Carotid artery stenosis, underwent L CEA in 2013 after stroke, patient had L ICA thrombus at bifurcation and underwent embolectomy and CEA of left ICA 09/23/21. Incision site is healing well. HTN, controlled, continue to monitor. DM, management per medical services. Questionable hx of CAD, patient reports possible history of stenting, but unsure. Denies any recent workup. Primary tool planer set up operator is Dr. Louie. Will need f/u as outpatient. Hx vit B12 deficiency MILLIE MAGDALENO MD Oct 03, 2021 11:59
--- NOTE | 2021-10-03 13:00 | Discharge Summary ---
Diagnosis/Chief Complaint Date of Admission Oct 03, 2021 at 09:40 Date of Discharge Discharge Diagnosis Acute CVA due to thrombosis med flight to required for thrombectomy Discharge Summary Discharge Physical Examination Allergies: Coded Allergies: No Known Drug Allergies (Unverified , 02/19/13) Vitals & I&Os Vital Signs Date Time Temp Pulse Resp B/P (MAP) Pulse Ox O2 Delivery O2 Flow Rate FiO2 10/03/21 11:45 75 22 96 Hospital Course Was the Problem List Reviewed?: Yes See H&P Discharge Home Medications: Active Scripts Active Reported Pantoprazole Sodium 40 Mg Tablet.dr 40 Mg PO DAILY Venlafaxine HCl ER (Venlafaxine HCl) 150 Mg Cap.er.24h 150 Mg PO DAILY Olmesartan Medoxomil 20 Mg Tablet 20 Mg PO DAILY Metoprolol Succinate 50 Mg Tab.er.24h 50 Mg PO HS Metoprolol Succinate 50 Mg Tab.er.24h 100 Mg PO DAILY TAKES 2 (50MG) TABS Metformin HCl ER (Metformin HCl) 500 Mg Tab.er.24h 500 Mg PO DAILY Victoza 2-Sanket (Liraglutide) 0.6 Mg/0.1 Ml Pen.injctr 1.2 Ml SC DAILY Levothyroxine Sodium 75 Mcg Tablet 75 Mcg PO DAILY Lantus Solostar (Insulin Glargine,Hum.rec.anlog) 100 Unit/1 Ml Insuln.pen 35 Units SC HS Glipizide ER (Glipizide) 10 Mg Tab.er.24 10 Mg PO DAILY Neurontin (Gabapentin) 300 Mg Capsule 300 Mg PO DAILY Cyanocobalamin Injection (Cyanocobalamin) 1,000 Mcg/Ml Inj 1,000 Mcg IM MONTHLY Atorvastatin Calcium 80 Mg Tablet 80 Mg PO DAILY Allopurinol 100 Mg Tablet 100 Mg PO BID Tylenol (Acetaminophen) 325 Mg Tablet 650 Mg PO Q4H PRN Eliquis (Apixaban) 5 Mg Tablet 5 Mg PO BID START TAKING 10-07-2021 Aspirin 81 Mg Tab.chew 81 Mg PO DAILY TAKE FOR 6 DAYS AND STOP TAKING ON 10-06-2021 Instructions to patient/family Please see electronic discharge instructions given to patient. Clinical Quality Measures DVT/VTE Risk/Contraindication: Contraindications-Pharm: Other *list below* Other: may cause hemorrgagic CVA NKECHI VO DO Oct 03, 2021 13:00
--- NOTE | 2021-10-05 07:45 | Therapy Team Discharge Summary ---
Therapy Discharge Summary Discharge Recommendations Date of Discharge Oct 03, 2021 at 11:50 Speech-Language Pathology Patient was discharged to 10/03/21 due to CVA. OT Meteorology Teacher Goals Meteorology Teacher Goals 1=Demonstrate adherence to instructed precautions during ADL tasks. 2=Patient will verbalize/demonstrate understanding of assistive devices/modifications for ADL. 3=Patient will improve strength/tolerance for activity to enable patient to perform ADL's. LYUBOV MARTINEZ Oct 05, 2021 07:45
== END 2021-10-03 11:50 | disposition short-term general hospital (02) | DRG 65 ==
LOC: ICU 09:40
PROVIDERS: ADMIT Internal Medicine; ATTEND Internal Medicine
DX: I63.311 Cerebral infarction due to thrombosis of right middle cerebral artery (principal); G81.04 Flaccid hemiplegia affecting left nondominant side; R41.4 Neurologic neglect syndrome; I48.20 Chronic atrial fibrillation, unspecified; I65.22 Occlusion and stenosis of left carotid artery; I25.10 Atherosclerotic heart disease of native coronary artery without angina pectoris; E78.00 Pure hypercholesterolemia, unspecified; I10 Essential (primary) hypertension; K21.9 Gastro-esophageal reflux disease without esophagitis; K57.90 Diverticulosis of intestine, part unspecified, without perforation or abscess without bleeding; M19.90 Unspecified osteoarthritis, unspecified site; E11.9 Type 2 diabetes mellitus without complications; E03.9 Hypothyroidism, unspecified; I25.2 Old myocardial infarction; Z79.4 Long term (current) use of insulin; Z79.84 Long term (current) use of oral hypoglycemic drugs
CPT/HCPCS: 70496; 70498

== ENCOUNTER 2021-10-08 14:02 | Inpatient (IN) | payer MEDICARE ==
[~2021-10-08] VITALS: Ht 157.5 cm; Wt 96.5 kg
[~2021-10-08 14:02] MED LIST changes: +ALPRAZolam 0.25 MG (XANAX) TAB PO PRN; +BISACODYL 10 MG SUPP (DULCOLAX) PR PRN; +CALCIUM CARBONATE 500 MG (TUMS) TAB.CHEW PO PRN; +DOCUSATE SODIUM 100 MG (COLACE) CAP PO PRN; +FLEET ENEMA ADULT 1 EA BTL PR PRN; +LACTULOSE SYRUP 10GM/15ML (ENULOSE) 30ML UDC PO PRN; +LOPERAMIDE 2 MG (IMODIUM) TABLET PO PRN; +MELATONIN 3 MG TABLET PO PRN; +ONDANSETRON 4 MG (ZOFRAN) ORAL DISSOLVE TAB PO PRN; +diphenhydrAMINE 25 MG TAB (BENADRYL) PO PRN; +guaiFENesin/CODEINE (ROBITUSSIN AC) 10ML UDC PO PRN
[2021-10-08] MEDS ORDERED: CYANOCOBALAMIN INJ 1000 MCG/ML IM SCH (15:30)
[2021-10-08] MEDS ORDERED: ACETAMINOPHEN 325 MG TABLET PO PRN ×2 (15:30→15:45)
--- NOTE | 2021-10-08 15:30 | Occupational Therapy Eval ---
OT Evaluation-General/PLF Medical Diagnosis Admission Date Oct 08, 2021 at 15:07 Medical Diagnosis: CVA Onset Date: Oct 03, 2021 Therapy Diagnosis Therapy Diagnosis: decreased ADL Status Height/Weight Height (Feet): 5 Height (Inches): 3.00 Weight (Pounds): 225 Referral Physician: Anabel Mike Reason: Evaluation/Treatment Medical History Pertinent Medical History: Atrial Fib, Arthritis, DM, HTN, [place] Current History Admit 09/29/21 to ARU from [facility] with CVA. 10/03 noted L side weakness, underwent stroke eval which showed evidence of R Large M1 M2 junction thrombus. Pt transferred back to [facility], returning to ARU 10/08. Social History Home: Single Level Current Living Status: Spouse Entry Into Home: Stairs With Railing Steps Into Home: 2 Steps Inside Home: 1 (into living room) ADL-Prior Level of Function SCALE: Activities may be completed with or without assistive devices. 7-Mbdxmwnwjm-ifayevo completes the activity by him/herself with no assistance from a helper. 5-Set-up or Clean-up Assistance-helper sets up or cleans up; patient completes activity. [place] assists only prior to or following the activity. 4-Supervision or Touching Assistance-helper provides verbal cues and/or touching/steadying and/or contact guard assistance as patient completes activity. Assistance may be provided throughout the activity or intermittently. 3-Partial/Moderate Assistance-helper does LESS THAN HALF the effort. [place] lifts, holds or supports trunk or limbs, but provides less than half the effort. 2-Substantial/Maximal Assistance-helper does MORE THAN HALF the effort. [place] lifts or holds trunk or limbs and provides more than half the effort. 0-Bpxsblqvu-ckuaon does ALL the effort. Patient does none of the effort to complete the activity. Or, the assistance of 2 or more helpers is required for the patient to complete the activity. If activity was not attempted, code reason: 7-Patient Refused. 9-Not Applicable-not attempted and the patient did not perform the activity before the current illness, exacerbation or injury. 10-Not Attempted due to Environmental Limitations-(lack of equipment, weather restraints, etc.). 88-Not Attempted due to Medical Conditions or Safety Concerns. ADL PLOF Comments Pt reports IND with ADLs and functional mobility at [facility], no AD. She has a tub/shower without a SC. Self Care: Independent Functional Cognition: Independent DME/Equipment: Tub/Shower OT Current Status Subjective Pt agreeable to OT evaluation. She denies pain. Slight difficulty with word finding noted Mental Status/Objective Patient Orientation: Person, Non-Verbal/Aphasic (some receptive/expressive aphasia) Current Glasses/Contacts: Yes Hearing Aids: No Dentures/Partials: Yes Hand Dominance: Right Upper Extremity ROM BUE shoulder flexion/abduction to approx 150 degrees. Upper Extremity Coordination WFL Upper Extremity Sensation WFL light touch sensation. Upper Extremity Strength grossly 3+/5 ADL-Treatment Eating (QC): 7 Oral Hygiene (QC): 7 Shower/Bathe Self (QC): 7 Upper Body Dressing (QC): 7 Lower Body Dressing (QC): 7 On/Off Footwear (QC): 7 Toileting Hygiene (QC): 4 (CGA) Other Treatments OT evaluation complete. Pt provided information about PLOF and home set up, OT educated pt on purpose and benefit of OT. Pt participated in UE screen. Pt transferred into bathroom and onto toilet, CGA, no AD. Pt completed toileting, then stood at sink to wash her hands. Pt did not use soap and required cues to locate paper towel dispenser, then cues in order to remove paper towels. Post tx, pt with PT for evaluation. JONES present to continue tx. Education OT Patient Education: Correct positioning, Modified ADL techniques, Progress toward Goal/Update tx plan, Purpose of tx/functional activities, Rehab process Teaching Recipient: Patient Teaching Methods: Discussion Response to Teaching: Verbalize Understanding OT Short Term Goals Short Term Goals Time Frame: Oct 21, 2021 Eatin Oral hygiene: 5 Shower/bathe self: 5 Upper body dressin Lower body dressin Putting on/taking off footwear: 5 OT Legislative Correspondent Goals [facility] Goals Time Frame: Oct 30, 2021 Eating (QC): 6 Oral Hygiene (QC): 6 Toileting Hygiene (QC): 6 Shower/Bathe Self (QC): 6 Upper Body Dressing (QC): 6 Lower Body Dressing (QC): 6 On/Off Footwear (QC): 6 Additional Goals: 1-Demonstrate ADL Tasks, 2-Verbalize Understanding, 3- ImproveStrength/Helen 1=Demonstrate adherence to instructed precautions during ADL tasks. 2=Patient will verbalize/demonstrate understanding of assistive devices/modifications for ADL. 3=Patient will improve strength/tolerance for activity to enable patient to perform ADL's. OT Education/Plan Problem List/Assessment Assessment: Decreased Activ Tolerance, Decreased Safety Aware, Decreased UE Strength, Impaired Cognition, Impaired Coordination, Impaired Funct Balance, Impaired I ADL's, Impaired Self-Care Skills Discharge Recommendations Plan/Recommendations: Continue POC Treatment Plan/Plan of Care Patient would benefit from OT for education, treatment and training to promote independence in ADL's, mobility, safety and/or upper extremity function for ADL's. Plan of Care: ADL Retraining, Functional Mobility, UE Funct Exercise/Act Treatment Duration: Oct 30, 2021 Frequency: At least 5 of 7 days/Wk (IRF) Estimated Hrs Per Day: 1.5 hours per day Agreement: Yes Rehab Potential: Good Time/GCodes Start Time: 15:07 Stop Time: 15:17 Total Time Billed (hr/min): 10 Billed Treatment Time 1, SHELLEY ZEE OT Oct 08, 2021 15:30
[2021-10-08 15:44] VITALS: BP 147/86
[2021-10-08] MEDS: inSUlin ASPART (NovoLOG) 1 UNIT/0.01 ML (CHARGE PER UNIT) SC SCH ×2 (15:53→20:47)
--- NOTE | 2021-10-08 15:59 | Physical Therapy Evaluation ---
PT Evaluation-General Medical Diagnosis Admission Date Oct 08, 2021 at 15:07 Medical Diagnosis: CVA Onset Date: Oct 03, 2021 Therapy Diagnosis Therapy Diagnosis: impaired mobility, strength, endurance, balance Height/Weight Height (Feet): 5 Height (Inches): 3.00 Weight (Pounds): 225 Precautions Precautions/Isolations: Fall Prevention, Standard Precautions Referral Physician: Lillian Little DO Reason for Referral: Evaluation/Treatment Medical History Pertinent Medical History: Atrial Fib, Arthritis, DM, HTN, [place] Reviewed History: Yes Social History Home: Single Level Current Living Status: Spouse Entry Into Home: Stairs With Railing PT Steps Into Home: 2 PT Steps Inside Home: 1 Prior Prior Level of Function SCALE: Activities may be completed with or without assistive devices. 7-Dqbejybloe-tlmdeqe completes the activity by him/herself with no assistance from a helper. 5-Set-up or Clean-up Assistance-helper sets up or cleans up; patient completes activity. [place] assists only prior to or following the activity. 4-Supervision or Touching Assistance-helper provides verbal cues and/or touching/steadying and/or contact guard assistance as patient completes activity. Assistance may be provided throughout the activity or intermittently. 3-Partial/Moderate Assistance-helper does LESS THAN HALF the effort. [place] lifts, holds or supports trunk or limbs, but provides less than half the effort. 2-Substantial/Maximal Assistance-helper does MORE THAN HALF the effort. [place] lifts or holds trunk or limbs and provides more than half the effort. 0-Kdjkwzgwa-xqfquw does ALL the effort. Patient does none of the effort to complete the activity. Or, the assistance of 2 or more helpers is required for the patient to complete the activity. If activity was not attempted, code reason: 7-Patient Refused. 9-Not Applicable-not attempted and the patient did not perform the activity before the current illness, exacerbation or injury. 10-Not Attempted due to Environmental Limitations-(lack of equipment, weather restraints, etc.). 88-Not Attempted due to Medical Conditions or Safety Concerns. Bed Mobility: 6 Transfers (B,C,W/C): 6 Gait: 6 Stairs: 6 Indoor Mobility (Ambulation): Independent Stairs: Independent PT Evaluation-Current Subjective Patient in recliner pre tx, agrees to PT, has no complaints of pain. Patient has some difficulty with her speech. Will be co-treating with OT for part of tx due to poor patient mobility, strength, endurance, confusion and safety awareness, coordinate UE and LE during activity, decrease risk of falls. Pt/Family Goals to be independent at home Objective Patient Orientation: Person, Confused, Place, Situation ROM/Strength ROM Lower Extremities WNL except limited hip internal rotation bilaterally Strength Lower Extremities LLE (hip flexion 3+/5, knee flexion 3+/5, knee extension 4-/5, dorsiflexion 4/5), RLE (hip flexion 3+/5, knee flexion 3+/5, knee extension 4-/5, dorsiflexion 4/5) Neuromuscular (Tone, Coordination, Reflexes) Patient has intact peripheral vision and tracking was good Sensory Vision: Wears Glasses Hearing: Functional Hand Dominance: Right Sensation Right Lower Extremit: Intact Sensation Left Lower Extremity: Intact Transfers Roll Left & Right (QC): 6 Sit to Lying (QC): 4 Lying to Sitting/Side of Bed(Q: 4 Sit to Stand (QC): 4 Chair/Ehn-oq-Xnwsm Xfer(QC): 4 Toilet Transfer (QC): 4 Car Transfer (QC): 3 Patient performed rolling with independence, supine <-> sit SBA, sit <-> stand and transfers CGA, car transfer CGA, cues for positioning, patient can get off track and get confused Gait Does the Patient Walk?: Yes Mode of Locomotion: Walk Anticipated Mode of Locomotion: Walk Walk 10 feet (QC): 4 Walk 50 ft with 2 Turns(QC): 4 Walk 150 ft (QC): 4 Walking 10ft/uneven surface-QC: 4 Distance: 150', 120'x2 Gait Assistive Device: None Comments/Gait Description ambulates 150' without an assistive device with CGA (including 50' with at least 2 turns of 90 degrees and 10' over an uneven surface), slow ambulation, occasional unsteady moments but patient has a hard time controlling a rolling walker Wheelchair Training Does the Pt Use a Wheelchair?: No Wheel 50 ft with 2 turns (QC): 9 Wheel 150 ft (QC): 9 Stairs #of Steps: 4 1 Step (curb) (QC): 4 4 Steps (QC): 4 12 Steps (QC): 88 Patient can go up and down 4 steps using 2 handrails with CGA and cues for step placement and safety. Balance Sitting Static: Normal Sitting Dynamic: Normal Standing Static: Fair Standing Dynamic: Fair Picking up an Object (QC): 4 Treatment PT performed bed mobility and transfers, ambulation, stair training, gait training, positioning and safety during dressing and bathing, standing during an endurance activity with pegs. OT performed bathing, dressing, peg board standing endurance activity, UE positioning and safety during activity. Also performed simultaneous LE strengthening while working on UE turning and reaching. Assessment/Needs Patient in recliner post tx with nurse call, phone, tray, all needs met. Patient has impaired mobility, strength, endurance, balance. She has unsteady moments during ambulation but no full LOB. Rehab Potential: Fair PT Short Term Goals Short Term Goals Time Frame: Oct 15, 2021 Roll Left & Right: 6 Sit to lyin Lying to sitting on side of be: 6 Sit to stand: 4 (SBA) Chair/nvi-pe-jufoa transfer: 4 (SBA) Walk 10 feet: 4 (SBA) Walk 50 feet with two turns: 4 (SBA) Walk 150 feet: 4 (SBA) PT Group Home Goals Group Home Goals PT Group Home Goals Time Frame: Oct 29, 2021 Roll Left & Right (QC): 6 Sit to Lying (QC): 6 Lying-Sitting on Side/Bed(QC): 6 Sit to Stand (QC): 5 Chair/Nkc-xn-Fyehc Xfer(QC): 5 Toilet Transfer (QC): 5 Car Transfer (QC): 5 Does the Patient Walk: Yes Walk 10 feet (QC): 5 Walk 50ft with 2 Turns (QC): 5 Walk 150 ft (QC): 5 Walking 10ft on Uneven Surface: 5 1 Step (curb) (QC): 4 4 Steps (QC): 4 12 Steps (QC): 4 Picking up an Object (QC): 5 Wheel 50 feet with 2 turns (QC: 9 Wheel 150 feet: 9 PT Plan Problem List Problem List: Activity Tolerance, Functional Strength, Safety, Balance, Gait, Transfer, Bed Mobility, ROM Treatment/Plan Treatment Plan: Continue Plan of Care Treatment Plan: Bed Mobility, Education, Functional Activity Helen, Functional Strength, Group Therapy, Gait, Safety, Therapeutic Exercise, Transfers Treatment Duration: Oct 29, 2021 Frequency: At least 5 of 7 days/Wk (IRF) Estimated Hrs Per Day: 1.5 hours per day Patient and/or Family Agrees t: Yes Safety Risks/Education Patient Education: Gait Training, Transfer Techniques, Correct Positioning, Safety Issues Teaching Recipient: Patient Teaching Methods: Demonstration, Discussion Response to Teaching: Reinforcement Needed Discharge Recommendations Plan Patient will perform bed mobility and transfer training, balance and endurance training, functional strengthening, stair training, gait training, and education, to improve functional mobility and independence at home. Therapy Discharge Recommendati: Scheduled Assistance, Home & Family, Post Acute PT Time/GCodes Time In: 1516 Time Out: 1646 Total Billed Treatment Time: 90 Total Billed Treatment 1 visit EVM 10' EX 30' FA 50' PT eval from [id number], co-treat from [id number] TYRESE LEÓN PT Oct 08, 2021 15:59
--- NOTE | 2021-10-08 16:44 | Occupational Ther Daily Note ---
OT Current Status-Daily Note Subjective JONES took over pt care from OTR/L. Co-treat with PT [id number], skills of 2 clinicians required to decrease fall risk, increase functional mobility and activity tolerance. PT focusing on ambulation, transfers, B LE strengthening and dynamic balance while OT focusing on ADLs, functional mobility and functional dynamic balance. Mental Status/Objective Patient Orientation: Person, Place, Time, Situation ADL-Treatment Pt agrees to shower. SBA sitting on shower bench to complete all areas except buttocks/giselle area in standing using grabbars for stabilization. After set up, pt able to don dressing gown. Pt able to doff all clothing by self. Assist to don socks. Pt stood at sink with SBA to complete grooming. Therapy Code Descriptions/Definitions Functional [place] Measure: 0=Not Assessed/NA 4=Minimal Assistance 1=Total Assistance 5=Supervision or Setup 2=Maximal Assistance 6=Modified [place] 3=Moderate Assistance 7=Complete IndependenceSCALE: Activities may be completed with or without assistive devices. 7-Sqweqmwqxd-qaojcti completes the activity by him/herself with no assistance from a helper. 5-Set-up or Clean-up Assistance-helper sets up or cleans up; patient completes activity. [place] assists only prior to or following the activity. 4-Supervision or Touching Assistance-helper provides verbal cues and/or touching/steadying and/or contact guard assistance as patient completes activity. Assistance may be provided throughout the activity or intermittently. 3-Partial/Moderate Assistance-helper does LESS THAN HALF the effort. [place] lifts, holds or supports trunk or limbs, but provides less than half the effort. 2-Substantial/Maximal Assistance-helper does MORE THAN HALF the effort. [place] lifts or holds trunk or limbs and provides more than half the effort. 3-Hyqcfnncg-dszfio does ALL the effort. Patient does none of the effort to complete the activity. Or, the assistance of 2 or more helpers is required for the patient to complete the activity. If activity was not attempted, code reason: 7-Patient Refused. 9-Not Applicable-not attempted and the patient did not perform the activity before the current illness, exacerbation or injury. 10-Not Attempted due to Environmental Limitations-(lack of equipment, weather restraints, etc.). 88-Not Attempted due to Medical Conditions or Safety Concerns. Shower/Bathe Self (QC): 4 (SBA) Upper Body Dressing (QC): 5 On/Off Footwear: 2 Other Treatment Pt ambulated to therapy gym with only CGA. See PT notes for ambulation, bed mobility, stairs and transfer progress. Pt stood at parallel bars while completing B UE tasks working on B hand strengthening, dynamic standing balance and visual scanning/perception. Pt demonstrated scanning with 2 vc/pc initially then able to complete rest of task without cues. Pt able to follow 1 step directions, unable to follow 2 step directions. Pt then completed NuStep while also completing reaching exercises across body 10x's and front to overhead 10x's. Tolerated well. Monitored pt's BP initially 177/103 then 147/86, reported to nrsg. After session, pt sitting in recliner with call light/phone in reach. All needs met in room. Daughter present in room. OT Short Term Goals Short Term Goals Time Frame: Oct 21, 2021 Eatin Oral hygiene: 5 Shower/bathe self: 5 Upper body dressin Lower body dressin Putting on/taking off footwear: 5 OT Penitentiary Goals Penitentiary Goals Time Frame: Oct 30, 2021 Eating (QC): 6 Oral Hygiene (QC): 6 Toileting Hygiene (QC): 6 Shower/Bathe Self (QC): 6 Upper Body Dressing (QC): 6 Lower Body Dressing (QC): 6 On/Off Footwear (QC): 6 Additional Goals: 1-Demonstrate ADL Tasks, 2-Verbalize Understanding, 3- ImproveStrength/Hleen 1=Demonstrate adherence to instructed precautions during ADL tasks. 2=Patient will verbalize/demonstrate understanding of assistive devices/modifications for ADL. 3=Patient will improve strength/tolerance for activity to enable patient to perform ADL's. OT Education/Plan Problem List/Assessment Assessment: Decreased Activ Tolerance, Decreased Safety Aware, Decreased UE Strength, Impaired Cognition, Impaired Self-Care Skills Discharge Recommendations Plan/Recommendations: Continue POC Treatment Plan/Plan of Care Patient would benefit from OT for education, treatment and training to promote independence in ADL's, mobility, safety and/or upper extremity function for ADL's. Plan of Care: ADL Retraining, Functional Mobility, UE Funct Exercise/Act Treatment Duration: Oct 30, 2021 Frequency: At least 5 of 7 days/Wk (IRF) Estimated Hrs Per Day: 1.5 hours per day Agreement: Yes Rehab Potential: Good Time/GCodes Start Time: 15:27 Stop Time: 16:47 Total Time Billed (hr/min): 80 Billed Treatment Time 1 visit-ADL 3 (40 min) EX 3 (40 min) co-treat with PT 80 min HUBERT PELLETIER Oct 08, 2021 16:44
--- NOTE | 2021-10-08 18:39 | PM&R Post Admission Assessment ---
PM&R HP Date of Visit: Oct 08, 2021 Time of Visit: 18:40 History of Present Illness Chief complaint: CVA status post thrombectomy at History of present illness: This is an 81-year-old white female known to me from recent transfer from inpatient rehab to [facility] due to thrombectomy requirements due to recurrent CVA last Tuesday. Patient had been doing very well in inpatient rehab after she came from following his CVA resulting in right- sided neglect and right-sided weakness that had been participating in therapy but had an abrupt onset of left-sided weakness. CT scan with CT perfusion and CT angiogram revealed findings consistent with acute CVA due to thrombosis. Adan flor was flown to require thrombectomy and currently is doing much better. Bowels are moving. Had some urinary retention at so we will monitor that closely. at the bedside. Past Iicuibr-Yddsyh-Ziohvu Hx Past Med/Social Hx: Reviewed Nursing Past Med/Soc Hx, Reviewed and Corrections made Patient Social History Marrital Status: Employed/Student: retired Alcohol Use: Denies Use Smoking Status: Never a Smoker Recent Hopitalizations: Yes Immunizations Up To Date Date of Pneumonia Vaccine: Aug 07, 2012 Date of Influenza Vaccine: Aug 09, 2011 Past Medical History Surgeries: Eye Surgery, Gallbladder, Hysterectomy, Joint Replacement, Oophorectomy, Orthopedic, Vascular Surgery Cardiac: Atrial Fibrillation, Coronary Artery Disease, Heart Attack, High Cholesterol, Hypertension, Peripheral Vascular Neurological: Headaches /Migraines, Stroke 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: No Hysterectomy, Menopausal Gastrointestinal: Gastroesophageal Reflux, Diverticulosis Musculoskeletal: Degenerate Disk Disease, Arthritis Endocrine: Diabetes, Insulin dep, Hypothyroidsim HEENT: Cataract History of Blood Disorders: Yes (ANEMIA) Family History No Pertinent Family Hx SOCIAL HISTORY: -NO SMOKING -NO ETOH -NO DRUGS PAST SURGICAL HISTORY: -LEFT CAROTID ENDARTERECTOMY -HYSTERECTOMY WITH RIGHT SALPINGO-OOPHORECTOMY -BILATERAL CATARACT SURGERY -CERVICAL SPINE SURGERY -BILATERAL TOTAL KNEE REPLACEMENT -CHOLECYSTECTOMY -EGD/COLONOSCOPY 02/[address] PITT Prior Level of Function Bed Mobility: 6 Transfers: 6 Gait: 6 Stairs: 6 Indoor Mobility (Ambulation): Independent Stairs: Independent Self Care: Independent Functional Cognition: Independent Current Level of Fuctioning Roll Left to Right: 6 Sit to Lyin Lying to Sitting/Side of Bed: 4 Sit to Stand: 4 Chair/Vmo-ym-Gvtwb Xfer: 4 Car Transfer: 3 Does the Patient Walk: Yes Mode of Locomotion: Walk Anticipated Mode of Locomotion: Walk Walk 10 feet: 4 Walk 50 ft with 2 Turns: 4 Walk 150 ft: 4 Walking 10ft on uneven surface: 4 Gait Assistive Device: None Does the Pt Use a Wheelchair: No Wheel 50 ft with 2 turns: 9 Wheel 150 ft: 9 #of Steps: 4 1 Step (curb): 4 4 Steps: 4 12 Steps: 88 Picking up an Object: 4 Eatin Oral Hygiene: 7 Shower/Bathe Self: 4 (SBA) Upper Body Dressin Lower Body Dressin On/Off Footwear: 2 Toileting Hygiene: 4 PM&R Allergy/Meds/Data Review Allergies Coded Allergies: No Known Drug Allergies (Unverified , 02/19/13) Home Medications Scheduled Allopurinol (Allopurinol), 100 MG PO BID, (Reported) Apixaban (Eliquis), 5 MG PO BID, (Reported) Atorvastatin Calcium (Atorvastatin Calcium), 80 MG PO DAILY, (Reported) Cyanocobalamin (Cyanocobalamin Injection), 1,000 MCG IM MONTHLY, (Reported) Gabapentin (Neurontin), 300 MG PO DAILY, (Reported) Insulin Glargine,Hum.rec.anlog (Lantus Solostar), 15 UNITS SC HS, (Reported) Levothyroxine Sodium (Levothyroxine Sodium), 75 MCG PO DAILY, (Reported) Metformin HCl (Metformin HCl ER), 500 MG PO DAILY, (Reported) Metoprolol Succinate (Metoprolol Succinate), 100 MG PO DAILY, (Reported) Metoprolol Succinate (Metoprolol Succinate), 50 MG PO HS, (Reported) Olmesartan Medoxomil (Olmesartan Medoxomil), 20 MG PO DAILY, (Reported) Pantoprazole Sodium (Pantoprazole Sodium), 40 MG PO DAILY, (Reported) Venlafaxine HCl (Venlafaxine HCl ER), 150 MG PO DAILY, (Reported) Scheduled PRN Acetaminophen (Tylenol), 650 MG PO Q4H PRN for HEADACHE, (Reported) Discontinued Medications Aspirin (Aspirin), 81 MG PO DAILY, (Reported) Discontinued Reason: No Longer Taking Glipizide (Glipizide ER), 10 MG PO DAILY, (Reported) Discontinued Reason: No Longer Taking Liraglutide (Victoza 2-Sanket), 1.2 ML SC DAILY, (Reported) Discontinued Reason: No Longer Taking Current Medications Current Medications Reviewed Laboratory Data Laboratory Tests 10/08/21 15:47: Glucometer 113H Review of Systems Constitutional: see HPI, malaise, weakness EENTM: no symptoms reported Respiratory: no symptoms reported Cardiovascular: no symptoms reported Gastrointestinal: no symptoms reported Genitourinary: other (Retention) Musculoskeletal: back pain Skin: no symptoms reported Psychiatric/Neurological: Weakness All Other Systems Reviewed Negative Unless Noted: Yes Physical Exam Physical Exam Vital Signs Vital Signs - First Documented 10/08/21 10/08/21 15:30 15:44 B/P (MAP) 147/86 (106) O2 Delivery Room Air Capillary Refill : Height, Weight, BMI Height: 5'3.00" Weight: 225lbs. oz. 101.833201qz; 39.06 BMI Method:Estimated General Appearance: No Apparent Distress, WD/WN, Chronically ill Eyes: Bilateral Eye Normal Inspection, Bilateral Eye PERRL HEENT: PERRL/EOMI, Normal ENT Inspection, Pharynx Normal Neck: Full Range of Motion, Normal Inspection, Non Tender, Supple, Carotid Bruit Respiratory: Chest Non Tender, Lungs Clear, Normal Breath Sounds, No Accessory Muscle Use, No Respiratory Distress Cardiovascular: No Edema, No Gallop, No JVD, No Murmur, Normal Peripheral Pulses, Irregularly Irregular Gastrointestinal: Normal Bowel Sounds, No Organomegaly, No Pulsatile Mass, Non Tender, Soft Back: Normal Inspection, No CVA Tenderness, No Vertebral Tenderness Extremity: Normal Capillary Refill, Normal Inspection, Normal Range of Motion, Non Tender, No Calf Tenderness, No Pedal Edema Neurologic/Psychiatric: Alert, Oriented x3, No Motor/Sensory Deficits, Normal Mood/Affect, Abnormal Gait, Depressed Affect, Motor Weakness (Left-sided greater than right) Skin: Normal Color, Warm/Dry Lymphatic: No Adenopathy PM&R Medical Assessment & Plan REHAB/MEDICAL ASSESSMENT AND PLAN: REHAB IMPAIRMENT GROUP: CVA ETIOLOGIC DIAGNOSIS: CVA The comorbidities that impact the patients function and/or functional outcome by: Advanced age, recurrent CVA, A. fib, urinary retention REHAB PLAN: The patient is being admitted to our comprehensive inpatient rehabilitation facility and can tolerate the intensity of service consisting of at least: 180 minutes of therapy a day, 5 out of 7 days a week Rehab treatment will consist of: PT and OT will focus on regaining function to ambulate with assistive device and regain function with independent ADLs The patient/family has a good understanding of our discharge process and will benefit from an interdisciplinary inpatient rehabilitation program. The patient has potential to make improvement and is in need of at least two of the following multidisciplinary therapies including but not limited to physical, occupational, speech, and prosthetics and orthotics. Additionally the patient will need services from respiratory, nutritional services, wound care, psychology, etc. (Customize this to each patient). Given the patients complex condition and risk of further medical complications, rehabilitation services cannot be safely or effectively provided at a lower level of care such as a senior care facility. BARRIERS TO DISCHARGE: Advanced age ESTIMATED LOS: 14 days DISPOSITION: Home RELEVANT CHANGES SINCE PREADMISSION SCREENING: I have compared the patients medical and functional status at the time of the preadmission screening and there are: [No changes PROGNOSIS: Fair REHABILITATION GOALS: 1. PT and OT will focus on regaining function to ambulate with assistive device and regain function with independent ADLs All the above goals were reviewed with the patient and he/she is in agreement. By signing this document, I acknowledge that I have personally performed a full physical examination on this patient within 24 hours of admission to this inpatient rehabilitation facility and have determined the patient to be able to tolerate the above course of treatment at an intensive level for a reasonable period of time. I will be completing a detailed individualized Plan of Care for this patient by day #4 of the patients stay based upon the Preadmission Screen, the Post-Admission Evaluation, and the therapy evaluations. Admission Dx/Comorbidities: (1) CVA (cerebral infarction) Status: Acute ICD Codes: I63.9 - Cerebral infarction, unspecified (2) Chronic atrial fibrillation Status: Acute ICD Codes: I48.20 - Chronic atrial fibrillation, unspecified (3) HTN (hypertension) Status: Acute ICD Codes: I10 - Essential (primary) hypertension (4) Expressive aphasia Status: Acute ICD Codes: R47.01 - Aphasia (5) IDDM (insulin dependent diabetes mellitus) Status: Acute (6) CVA (cerebral infarction) Status: Acute ICD Codes: I63.9 - Cerebral infarction, unspecified Assessment/Plan Assessment and Plan Assess & Plan/Chief Complaint Assessment: 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 transferred to [facility] then again 10/03/21 s/p thrombectomy after emergent med flight Expressive aphasia s/p left CEA due to left thrombosis in [facility] 09/22/2021 Right-sided vision neglect Hypertension Diabetes Chronic atrial fibrillation Oral anticoagulation now maintained Acute hematuria may need urology consult if continues GERD Gout Urinary retention Recent hypoglycemia Plan: Inpatient rehab protocol Supportive care Out caths for retention Cardiology consult NKECHI VO DO Oct 08, 2021 18:39
[2021-10-08 20:32] VITALS: BP 139/63
[2021-10-08] MEDS: polyethylene glycoL POWDER 17 GM (MIRALAX) PACK PO SCH (20:45)
[2021-10-08] MEDS: ALLOPURINOL 100 MG (ZYLOPRIM) TAB PO SCH (20:46)
[2021-10-08] MEDS: DOCUSATE SODIUM 100 MG (COLACE) CAP PO SCH (20:46)
[2021-10-08] MEDS: SENNA W/DOCUSATE (SENOKOT S) TABLET PO SCH (20:46)
[2021-10-08] MEDS: APIXABAN 5 MG (ELIQUIS) TABLET PO SCH (20:46)
[2021-10-08] MEDS: meTOproloL SUCCINATE 50 MG (TOPROL XL) TAB PO SCH (20:46)
[2021-10-09] MEDS: LEVOTHYROXINE 75 MCG (LEVOTHROID) TABLET PO SCH (06:09)
[2021-10-09] MEDS: VENlafaxine XR 75 MG (EFFEXOR XR) CAP PO SCH (06:09)
[2021-10-09 06:10] LABS: ALBUMIN 3.4 GM/DL (3.2-4.5); BASOPHILS # (AUTO) 0.1 10^3/uL (0.0-0.1); BASOPHILS % (AUTO) 1 % (0-10); EOSINOPHILS % (AUTO) 10 % (0-10); HEMATOCRIT 34 % (35-52); HEMOGLOBIN 10.8 g/dL (11.5-16.0); LYMPHOCYTES # (AUTO) 1.2 10^3/uL (1.0-4.0); LYMPHOCYTES % (AUTO) 13 % (12-44); MEAN CORPUSCULAR HEMOGLOBIN 30 pg (25-34); MEAN CORPUSCULAR HGB CONC 31 g/dL (32-36); MEAN CORPUSCULAR VOLUME 94 fL (80-99); MEAN PLATELET VOLUME 11.3 fL (9.0-12.2); MONOCYTES # (AUTO) 0.6 10^3/uL (0.0-1.0); MONOCYTES % (AUTO) 7 % (0-12); NEUTROPHILS # (AUTO) 6.6 10^3/uL (1.8-7.8); NEUTROPHILS % (AUTO) 69 % (42-75); PLATELET COUNT 373 10^3/uL (130-400); WHITE BLOOD COUNT 9.6 10^3/uL (4.3-11.0)
[2021-10-09] MEDS: inSUlin ASPART (NovoLOG) 1 UNIT/0.01 ML (CHARGE PER UNIT) SC SCH ×4 (06:10→21:33)
[2021-10-09 06:11] LABS: POTASSIUM 4.6 MMOL/L (3.6-5.0)
[2021-10-09 06:12] LABS: CALCIUM 9.1 MG/DL (8.5-10.1)
[2021-10-09 06:13] LABS: TOTAL PROTEIN 7.1 GM/DL (6.4-8.2)
[2021-10-09 06:15] LABS: BILIRUBIN,TOTAL 0.3 MG/DL (0.1-1.0)
[2021-10-09 06:17] LABS: CREATININE SERUM 1.19 MG/DL (0.60-1.30)
[2021-10-09 08:00] VITALS: BP 145/70
--- NOTE | 2021-10-09 09:20 | ST Cognitive Linguistic Eval ---
Speech Evaluation-General Medical Diagnosis CVA Onset Date: Oct 03, 2021 Therapy Diagnosis Therapy Diagnosis: Cognitive-communication, Expressive Aphasia Referral Referring Physician: Dr. Little Medical History Pertinent Medical History: Atrial Fib, Arthritis, DM, HTN, MS Reviewed History: Yes Social History Current Living Status: Spouse Speech PLF-Current Status Prior Level of Function Patient lived at home with her where she was independent prior to recent CVA's. Subjective Patient was pleasant and cooperative with the cognitive assessment. Language Eval: Auditory Comprehends Simple Yes/No Ques: Functional Indent/Objects Multiple Reynolds: Functional Ident/Pics in Multiple Reynolds: Functional Follows 1-Step Commands: Functional Follows Complex Directions: Functional Follows General Conversations: Functional Language Eval: Verbal Language Completes Spontaneous Greeting: Functional Produces Auto, Serial Info: Moderate Imitates Simple Words/Phrases: Moderate Word Finding: Severe Requests Basic Needs: Severe States Basic Personal Info: Moderate Expresses Complex Ideas: Severe Cognitive Patient Orientation Patient is oriented to place, self and situation Objective Cognitive Domain Attention: WNL Memory: WNL Problem Solving: Mild Executive Functions: Mild Visuospatial Skills: Mild Composite Severity Rating: Moderate Clock Drawing Severity Rating: Moderate Objective Formal/Standardized Tests [facility] Mental Status ([facility]) Results 6/30, Moderate Dementia range of function, however this score is depressed due to moderate-severe expressive aphasia Oral Motor/Speech Production Within normal limits for production Impression Patient is a very pleasant 81 year old female who was readmitted to the [facility] s/p second CVA. The patient has expressive aphasia which appears much worse fo llowing the second CVA. Patient was given the UMS with a score of 6/30 obtained. This score is in the moderate dementia range of function. This score is not considered a true cognitive picture of her abilities, but a depressed score due to moderate-severe expressive aphasia. The patient will receive skilled ST services with focus on improving her functional ability to effectively communicate. Speech Patient Assess Expression of Ideas/Wants: Rarely/Never (1) Understanding Verbal Content: Usually Understands (3) Brief Interview-Mental Status: Yes Repetition of Three Words: One (1) Temporal Orientation: Year: No answer (0) Temporal Orientation: Month: Accurate within 5 days(2) Temporal Orientation: Day: Incorrect or No Answer(0) Recall : Wear to say "Sock": Yes, no cue required (2) Recall : Color: Yes, no cue required (2) Recall : Bed: No, could not recall (0) Memory/Recall Ability: Current season, Staff names and faces, That he or she is in a hsp/hsp unit Speech Short Term Goals Short Term Goals Short Term Goals 1) Patient will independently complete automatic speech tasks with 75% or greate r given 20% cues 2) Patient will attend to structured tasks for duration of 20 minutes with intermittent clinician interruptions at 75% (sustained and divided attention) 3) Patient will demonstrate 75% accuracy with confrontational naming, independently. Speech-Plan Treatment Plan Rehab Potential: LYUBOV Roche Oct 09, 2021 09:20
[2021-10-09] MEDS: LOSARTAN 100 MG (COZAAR) TABLET PO SCH (10:07)
[2021-10-09] MEDS: APIXABAN 5 MG (ELIQUIS) TABLET PO SCH ×2 (10:07→21:32)
[2021-10-09] MEDS: meTOprolol SUCCINATE 100 MG (TOPROL XL) TAB PO SCH (10:07)
[2021-10-09] MEDS: GABAPENTIN 300 MG (NEURONTIN) CAP PO SCH (10:07)
[2021-10-09] MEDS: PANTOPRAZOLE 40 MG (PROTONIX) TAB PO SCH (10:07)
[2021-10-09] MEDS: ALLOPURINOL 100 MG (ZYLOPRIM) TAB PO SCH ×2 (10:07→21:32)
[2021-10-09] MEDS: metFORMIN XR 500 MG (GLUCOPHAGE XR) TAB PO SCH (10:07)
--- NOTE | 2021-10-09 10:22 | Occupational Ther Daily Note ---
OT Current Status-Daily Note Subjective Pt supine in bed with HOB raised, alert. No c/o pain. Pt agrees to therapy. Mental Status/Objective Patient Orientation: Person, Place, Time, Situation Attachments: IV ADL-Treatment Pt supine->EOB using arm rails for support, EOB->stand CGA due to pt impulsivity. Pt gathers clothing with VC, ambulates to bathroom and places them on chair. Pt SBA to transfer to toilet with minor LOB due to impulsivity and noncompliance with using grabbars. Skilled instruction given on use of grabbars to transfer to toilet with poor return from pt. Pt requires VC to use grabbars. Therapy Code Descriptions/Definitions Functional [place] Measure: 0=Not Assessed/NA 4=Minimal Assistance 1=Total Assistance 5=Supervision or Setup 2=Maximal Assistance 6=Modified [place] 3=Moderate Assistance 7=Complete IndependenceSCALE: Activities may be completed with or without assistive devices. 0-Smbcltbfrp-gpcmxqk completes the activity by him/herself with no assistance from a helper. 5-Set-up or Clean-up Assistance-helper sets up or cleans up; patient completes activity. [place] assists only prior to or following the activity. 4-Supervision or Touching Assistance-helper provides verbal cues and/or touching/steadying and/or contact guard assistance as patient completes activity. Assistance may be provided throughout the activity or intermittently. 3-Partial/Moderate Assistance-helper does LESS THAN HALF the effort. [place] lifts, holds or supports trunk or limbs, but provides less than half the effort. 2-Substantial/Maximal Assistance-helper does MORE THAN HALF the effort. [place] lifts or holds trunk or limbs and provides more than half the effort. 8-Gauxsmklc-invajn does ALL the effort. Patient does none of the effort to complete the activity. Or, the assistance of 2 or more helpers is required for the patient to complete the activity. If activity was not attempted, code reason: 7-Patient Refused. 9-Not Applicable-not attempted and the patient did not perform the activity before the current illness, exacerbation or injury. 10-Not Attempted due to Environmental Limitations-(lack of equipment, weather restraints, etc.). 88-Not Attempted due to Medical Conditions or Safety Concerns. Upper Body Dressing (QC): 4 (Pt gathers clothing after VC and completes while standing, SBA.) Lower Body Dressing (QC): 4 (Pt gathers clothing after VC, completes independently in sitting.) On/Off Footwear: 3 (Pt required Min A to don socks while seated in recliner. Pt able to don shoes independently while seated.) Toileting Hygiene (QC): 4 (Pt able to cleanse self and manage clothing CGA due to impulsivity.) Toilet Transfer (QC): 4 (CGA) Other Treatment Pt ambulated to therapy gym SBA, stand->sit in chair, SBA. Pt given skilled instruction on use of sock aide. Pt gave fair return demonstration with multiple VC and tactile cues while seated. Pt will need reinforcement on skilled instruction. Pt engaged in matching activity to increase fine/gross motor activity and dexterity for daily activities. Pt completed matching 5 color stacks of cards, 03/31. Pt sit<->stand SBA, ambulated to recliner in room. Pt engaged in 1 step folding task using wash clothes with pt giving poor return. Activity modified to using paper with pt giving good return with 1 step directions. After session, pt sitting in recliner with call light within reach and nrsg present. All needs met in room. Education OT Patient Education: Safety issues, Transfer techniques, Use of adapted equipment Teaching Recipient: Patient Teaching Methods: Demonstration, Discussion Response to Teaching: Unable to Return Demonstration, Reinforcement Needed OT Short Term Goals Short Term Goals Time Frame: Oct 21, 2021 Eatin Oral hygiene: 5 Shower/bathe self: 5 Upper body dressin Lower body dressin Putting on/taking off footwear: 5 OT Senior Living Goals Senior Living Goals Time Frame: Oct 30, 2021 Eating (QC): 6 Oral Hygiene (QC): 6 Toileting Hygiene (QC): 6 Shower/Bathe Self (QC): 6 Upper Body Dressing (QC): 6 Lower Body Dressing (QC): 6 On/Off Footwear (QC): 6 Additional Goals: 1-Demonstrate ADL Tasks, 2-Verbalize Understanding, 3- ImproveStrength/Helen 1=Demonstrate adherence to instructed precautions during ADL tasks. 2=Patient will verbalize/demonstrate understanding of assistive devices/modifications for ADL. 3=Patient will improve strength/tolerance for activity to enable patient to perform ADL's. OT Education/Plan Problem List/Assessment Assessment: Decreased Activ Tolerance, Decreased Safety Aware, Impaired Bed Mobility, Impaired Funct Balance, Impaired Self-Care Skills Discharge Recommendations Plan/Recommendations: Continue POC Treatment Plan/Plan of Care Patient would benefit from OT for education, treatment and training to promote independence in ADL's, mobility, safety and/or upper extremity function for ADL's. Plan of Care: ADL Retraining, Functional Mobility, UE Funct Exercise/Act Treatment Duration: Oct 30, 2021 Frequency: At least 5 of 7 days/Wk (IRF) Estimated Hrs Per Day: 1.5 hours per day Agreement: Yes Rehab Potential: Fair Time/GCodes Start Time: 09:00 Stop Time: 10:15 Total Time Billed (hr/min): 75 Billed Treatment Time 1 Visit- ADL 2 (35 min) FA 3 (40 min) HUBERT PELLETIER Oct 09, 2021 10:22
--- NOTE | 2021-10-09 11:28 | PM&R Progress Note ---
Subjective HPI/CC On Admission Date Seen by Provider: Oct 09, 2021 Time Seen by Provider: 13:00 Subjective/Events-last exam 10/09/2021: Pt doing well Sugars are good at 132 and 150 Holding Levemir No straight cath needed up until this point Checked meds and labs No pain is reported Review of Systems General: Fatigue, Malaise Neurological: Confusion Objective Exam Vital Signs Vital Signs Date Time Temp Pulse Resp B/P (MAP) Pulse Ox O2 Delivery O2 Flow Rate FiO2 10/09/21 20:20 Room Air 10/09/21 20:00 36.4 78 18 140/77 (98) 94 Capillary Refill : General Appearance: No Apparent Distress, WD/WN, Chronically ill HEENT: PERRL/EOMI, Normal ENT Inspection, Pharynx Normal Neck: Full Range of Motion, Normal Inspection, Non Tender, Supple, Carotid Bruit Respiratory: Chest Non Tender, Lungs Clear, Normal Breath Sounds, No Accessory Muscle Use, No Respiratory Distress Cardiovascular: No Edema, No Gallop, No JVD, No Murmur, Normal Peripheral Pulses, Irregularly Irregular Gastrointestinal: Normal Bowel Sounds, No Organomegaly, No Pulsatile Mass, Non Tender, Soft Back: Normal Inspection, No CVA Tenderness, No Vertebral Tenderness Extremity: Normal Capillary Refill, Normal Inspection, Normal Range of Motion, Non Tender, No Calf Tenderness, No Pedal Edema Neurologic/Psychiatric: Alert, Oriented x3, No Motor/Sensory Deficits, Normal Mood/Affect, Abnormal Gait, Depressed Affect, Motor Weakness (Left-sided greater than right) Skin: Normal Color, Warm/Dry Lymphatic: No Adenopathy Results/Procedures Lab Patient resulted labs reviewed. FIM Transfers Therapy Code Descriptions/Definitions Functional [place] Measure: 0=Not Assessed/NA 4=Minimal Assistance 1=Total Assistance 5=Supervision or Setup 2=Maximal Assistance 6=Modified [place] 3=Moderate Assistance 7=Complete IndependenceSCALE: Activities may be completed with or without assistive devices. 2-Tqbmsdkqlf-cdmwcub completes the activity by him/herself with no assistance from a helper. 5-Set-up or Clean-up Assistance-helper sets up or cleans up; patient completes activity. [place] assists only prior to or following the activity. 4-Supervision or Touching Assistance-helper provides verbal cues and/or touching/steadying and/or contact guard assistance as patient completes activity. Assistance may be provided throughout the activity or intermittently. 3-Partial/Moderate Assistance-helper does LESS THAN HALF the effort. [place] lifts, holds or supports trunk or limbs, but provides less than half the effort. 2-Substantial/Maximal Assistance-helper does MORE THAN HALF the effort. [place] lifts or holds trunk or limbs and provides more than half the effort. 5-Raqykmnra-hifsrr does ALL the effort. Patient does none of the effort to complete the activity. Or, the assistance of 2 or more helpers is required for the patient to complete the activity. If activity was not attempted, code reason: 7-Patient Refused. 9-Not Applicable-not attempted and the patient did not perform the activity before the current illness, exacerbation or injury. 10-Not Attempted due to Environmental Limitations-(lack of equipment, weather restraints, etc.). 88-Not Attempted due to Medical Conditions or Safety Concerns. Roll Left to Right (QC): 6 Sit to Lying (QC): 4 Sit to Stand (QC): 4 Chair/Ehr-lg-Uypyf Xfer(QC): 4 Car Transfer (QC): 3 Gait Training Does the Patient Walk?: Yes Walk 10 feet (QC): 4 Walk 50 ft with 2 Turns(QC): 4 Walk 150 ft (QC): 4 Walking 10ft/uneven surface-QC: 4 Gait Assistive Device: None Wheelchair Training Does the Pt Use a Wheelchair?: No Wheel 50 ft with 2 turns (QC): 9 Wheel 150 ft (QC): 9 Stair Training #of Steps: 4 1 Step (curb) (QC): 4 4 Steps (QC): 4 12 Steps (QC): 88 Balance Picking up an Object (QC): 4 ADL-Treatment Eating (QC): 7 Oral Hygiene (QC): 7 Shower/Bathe Self (QC): 4 (SBA) Upper Body Dressing (QC): 4 (Pt gathers clothing after VC and completes while standing, SBA.) Lower Body Dressing (QC): 6 (Pt gathers clothing after VC, completes independently in sitting.) On/Off Footwear (QC): 3 (Pt required Min A to don socks while seated in recliner. Pt able to don shoes independently while seated.) Toileting Hygiene (QC): 4 (Pt able to cleanse self and manage clothing CGA due to impulsivity.) Toilet Transfer (QC): 4 (CGA) Assessment/Plan Assessment and Plan Assess & Plan/Chief Complaint Assessment: 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 transferred to [facility] then again 10/03/21 s/p thrombectomy after emergent med flight Expressive aphasia s/p left CEA due to left thrombosis in [facility] 09/22/2021 Right-sided vision neglect Hypertension Diabetes Chronic atrial fibrillation Oral anticoagulation now maintained Acute hematuria may need urology consult if continues GERD Gout Urinary retention Recent hypoglycemia Plan: Inpatient rehab protocol Supportive care Out caths for retention Cardiology consult 10/09/2021: Appreciate cardiology Monitor for urinary retention (1) CVA (cerebral infarction) Status: Acute (2) Chronic atrial fibrillation Status: Acute (3) HTN (hypertension) Status: Acute (4) Expressive aphasia Status: Acute (5) IDDM (insulin dependent diabetes mellitus) Status: Acute (6) CVA (cerebral infarction) Status: Acute NKECHI VO DO Oct 09, 2021 11:28
--- NOTE | 2021-10-09 11:28 | Individualized Plan of Care ---
Individualized Plan of Care Rehab Nursing IPOC Order Admission Date Oct 08, 2021 at 15:07 Current Orders Orders Admission Order(Inpt,Obs,Sdc) (10/08/21 10:28) Vital Signs: Per Unit Policy ( ,16,00 (10/08/21 10:28) Cipriano Elizabeth (10/08/21 10:28) Sequential Compression Device (10/08/21 10:28) Billing Machine Operator-Inpt Rehab Con (10/08/21 10:28) Rehab Nursing Orders-Ipoc (10/08/21 10:28) Physical Therapy Rehab Orders (10/08/21 10:28) Occupational Therapy Rehab Ord (10/08/21 10:28) Speech Therapy Rehab Orders (10/08/21 10:28) Cbc With Automated Diff (10/09/21 06:00) Comprehensive Metabolic Panel (10/09/21 06:00) Precautions (Aru) (10/08/21 10:28) Weekly Weight WEEK (10/08/21 10:28) Rehab-Intensity Of Therapy (10/08/21 10:28) Initiate Admission Nursing Pro .admission (10/08/21 10:28) Alprazolam Tablet (Xanax Tablet) (10/08/21 10:30) Calcium Carbonate Chew Tablet (Antacid C (10/08/21 10:30) Diphenhydramine Tablet (Benadryl Tablet) (10/08/21 10:30) Docusate Sodium Capsule (Colace Capsule) (10/08/21 21:00) Docusate Sodium Capsule (Colace Capsule) (10/08/21 10:30) Bisacodyl Suppository (Dulcolax Supposit (10/08/21 10:30) Lactulose Oral Solution (Enulose Oral So (10/08/21 10:30) Na Phos/Na Biphos Enema (Fleet Enema Andres (10/08/21 10:30) Guaifenesin/Codeine Syrup (Robitussin Ac (10/08/21 10:30) Loperamide Tablet (Imodium Tablet) (10/08/21 10:30) Melatonin Tablet (Melatonin Tablet) (10/08/21 10:30) Polyethylene Glycol Powder Pkt (Miralax (12/2/21 21:00) Ondansetron Oral Dissolve Tab (Zofran (10/08/21 10:30) Senna S Tablet (Senokot S Tablet) (10/08/21 21:00) Therapeutic Activity Goals: .PRN (10/08/21 10:28) Code/Resuscitation (10/08/21 10:28) Initiate Admission Nursing Pro .admission (10/08/21 10:28) Admission Arrival Bed Request (10/08/21 15:08) Allopurinol Tablet (Zyloprim Tablet) (10/08/21 21:00) Apixaban Tablet (Eliquis Tablet) (10/08/21 21:00) Atorvastatin Tablet (Lipitor Tablet) (10/09/21 09:00) Cyanocobalamin Injection (Vitamin B-12 I (10/08/21 15:30) Gabapentin Capsule/Tablet (Neurontin Cap (10/09/21 09:00) Levothyroxine Tablet (Synthroid Tablet) (10/09/21 06:30) Metformin Xr Tablet (Glucophage Xr Table (10/09/21 09:00) Metoprolol Succinate (Xl) Tab (Toprol Xl (10/08/21 21:00) Pantoprazole Tablet (Protonix Tablet) (10/09/21 09:00) Insulin Determir (Per Unit) (Levemir (Pe (10/08/21 21:00) Venlafaxine Xr Capsule (Effexor Xr Capsu (10/09/21 07:00) Accucheck Achs ACHS (10/08/21 15:26) Insulin Aspart (Novolog) (Novolog (Charg (10/08/21 16:00) Acetaminophen Tablet/Caplet (Tylenol T (10/08/21 15:45) Metoprolol Succinate (Xl) Tab (Toprol Xl (10/09/21 09:00) Losartan Tablet (Cozaar Tablet) (10/09/21 09:00) Cho 75g/M 1snack (21-2400 Ronal) (10/08/21 Dinner) Nursing Communication (Order) (10/08/21 19:17) Consult Cardiology (10/09/21 06:50) Patient Visit (10/08/21 ) Pt Eval Moderate Complexity (10/08/21 ) Exercise Therap, Ea 15 Min (10/08/21 ) Functional Activities, Ea 15 (10/08/21 ) Patient Visit (10/09/21 ) Speech Sound Lang Comp (10/09/21 ) Treat. Speech/Lang/Voice (10/09/21 ) Patient Visit (10/09/21 ) Gait Training, Ea 15 Min (10/09/21 ) Exercise Therap, Ea 15 Min (10/09/21 ) Functional Activities, Ea 15 (10/09/21 ) Rehab Nursing Orders: Ongoing Assess. of Cognitive Status, Ongoing Assess. of Function Status, Bladder Management, Bladder Scan, Bladder Training, Bowel Management, Bowel Training, Disease Management & Educaiton, DVT Prophylaxis, Fall Prevention, Fluid/Electrolyte/Nutrition Mgmt, Infection Prevention, Medication Management & Education, Management of Risks & Complications, Management of Skin Intergrity, Nutrition Management, Pain Management, Patient/Family Support, Safety Management, Wound Management Intensity of Therapy to be met Patient to be seen: Min.3h per day/5 of 7d PT IPOC Problem List: Activity Tolerance, Functional Strength, Safety, Balance, Gait, Transfer, Bed Mobility, ROM Treatment Plan: Continue Plan of Care Bed Mobility, Education, Functional Activity Helen, Functional Strength, Group Therapy, Gait, Safety, Therapeutic Exercise, Transfers Treatment Duration: Oct 29, 2021 Frequency: At least 5 of 7 days/Wk (IRF) Estimated Hrs Per Day: 1.5 hours per day OT IPOC Problems: Decreased Activ Tolerance, Decreased Safety Aware, Impaired Bed Mobility, Impaired Funct Balance, Impaired Self-Care Skills OT Treatment, Training and Edu: Yes Plan of Care: ADL Retraining, Functional Mobility, UE Funct Exercise/Act Treatment Duration: Oct 30, 2021 Frequency: At least 5 of 7 days/Wk (IRF) Estimated Hrs Per Day: 1.[address] IPOC Speech Therapy Treatment Plan: Continue Plan of Care Treatment Duration: Oct 09, 2021 Frequency: Modified Program (IRF) Estimated Hrs Per Day: Other Billing Machine Operator/Case Mgmt Billing Machine Operator/Case Managemen: Discharge Planning Dietitian/Computer Video Game Designer Dietitian/Computer Video Game Designer to monitor nutritional status and make changes and/or recommendations as needed and work with speech pathology on dietary upgrades as the occur. 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 requiring midline to [facility] with thrombectomy will need close monitoring for any recurrent episodes Medical Issues: Bowel/Bladder Function, DVT Prophylaxis, Falls Precautions, Fluid/Electrolyte/Nutrition Balance, Infection Protection, Pain Management, Wound Care Brief Synthesis of Preadmission Screen, Post-Admission Evaluation, and Therapy Evaluations: PT and OT will focus on increasing stamina with use of walker and increase independence in ADLs speech therapy will help with cognition and expressive aphasia Medical Prognosis: Good Anticipated Length of Stay: 14 days NKECHI VO DO Oct 09, 2021 11:28
--- NOTE | 2021-10-09 11:56 | Physical Therapy Daily Note ---
PT Daily Note-Current Subjective Pt. agrees to Rx. Pleasant but conts difficulty communicating at times Pain Location: No Pain Reported Mental Status Patient Orientation: Non-Verbal/Aphasic Transfers SCALE: Activities may be completed with or without assistive devices. 7-Luwqcrbfjg-slomrgx completes the activity by him/herself with no assistance from a helper. 5-Set-up or Clean-up Assistance-helper sets up or cleans up; patient completes activity. [place] assists only prior to or following the activity. 4-Supervision or Touching Assistance-helper provides verbal cues and/or touching/steadying and/or contact guard assistance as patient completes activity. Assistance may be provided throughout the activity or intermittently. 3-Partial/Moderate Assistance-helper does LESS THAN HALF the effort. [place] lifts, holds or supports trunk or limbs, but provides less than half the effort. 2-Substantial/Maximal Assistance-helper does MORE THAN HALF the effort. [place] lifts or holds trunk or limbs and provides more than half the effort. 2-Rfaqhqhtx-pftppd does ALL the effort. Patient does none of the effort to compl ete the activity. Or, the assistance of 2 or more helpers is required for the patient to complete the activity. If activity was not attempted, code reason: 7-Patient Refused. 9-Not Applicable-not attempted and the patient did not perform the activity before the current illness, exacerbation or injury. 10-Not Attempted due to Environmental Limitations-(lack of equipment, weather restraints, etc.). 88-Not Attempted due to Medical Conditions or Safety Concerns. Roll Left & Right (QC): 6 Sit to Lying (QC): 5 Lying to Sitting/Side of Bed(Q: 5 Sit to Stand (QC): 5 Chair/Nxl-cq-Mpxvk Xfer(QC): 5 Gait Training Does the Patient Walk?: Yes Walk 10 feet (QC): 4 Walk 50 ft with 2 Turns(QC): 4 Walk 150 ft (QC): 4 Gait Persons Needed: 1 Gait Assistive Device: None pt. ambulated 170 ft x 2 no AD, pt. had one episode of left toe catching and needed min assist to recover, instructed after this regarding clearing feet and heel strike. Pt. with poor awareness on R Stair Training Stair Training: Handrails/: 2 handrails #of Steps: 4 4 Steps (QC): 4 Stairs: Pattern: Reciprocal instructions for safety and awareness on steps Exercises Supine Ex: Bridging, Ankle pumps, Quad Set, Rolling, Glut sets, Heel Slides, Short Arc Quads, Scooting, Straight leg raise, Hip abd/add Supine Reps: 15 Seated Therapy Exercises: Ankle pumps, Sit to stand, Long arc quads, Hip flexion, Hip abd/add Seated Reps: 15 Standing: Heel/toe raises, Marching, Mini squats Standing Reps: 12 NuStep Minutes: 10 NuStep Workload: 2 Assessment Current Status: Good Progress PT Short Term Goals Short Term Goals Time Frame: Oct 15, 2021 Roll Left & Right: 6 Sit to lyin Lying to sitting on side of be: 6 Sit to stand: 4 (SBA) Chair/mkk-jx-ktzen transfer: 4 (SBA) Walk 10 feet: 4 (SBA) Walk 50 feet with two turns: 4 (SBA) Walk 150 feet: 4 (SBA) PT Custodial Goals Custodial Goals PT Custodial Goals Time Frame: Oct 29, 2021 Roll Left & Right (QC): 6 Sit to Lying (QC): 6 Lying-Sitting on Side/Bed(QC): 6 Sit to Stand (QC): 5 Chair/Nvx-sm-Dqqsw Xfer(QC): 5 Toilet Transfer (QC): 5 Car Transfer (QC): 5 Does the Patient Walk: Yes Walk 10 feet (QC): 5 Walk 50ft with 2 Turns (QC): 5 Walk 150 ft (QC): 5 Walking 10ft on Uneven Surface: 5 1 Step (curb) (QC): 4 4 Steps (QC): 4 12 Steps (QC): 4 Picking up an Object (QC): 5 Wheel 50 feet with 2 turns (QC: 9 Wheel 150 feet: 9 PT Plan Treatment/Plan Treatment Plan: Continue Plan of Care Treatment Plan: Bed Mobility, Education, Functional Activity Helen, Functional Strength, Group Therapy, Gait, Safety, Therapeutic Exercise, Transfers Treatment Duration: Oct 29, 2021 Frequency: At least 5 of 7 days/Wk (IRF) Estimated Hrs Per Day: 1.5 hours per day Patient and/or Family Agrees t: Yes Safety Risks/Education Patient Education: Gait Training, Transfer Techniques, Steps, Correct Positioning, Disease Process, Safety Issues Teaching Recipient: Patient Teaching Methods: Demonstration, Discussion Response to Teaching: Verbalize Understanding, Return Demonstration, Reinforcement Needed Time/GCodes Time In: 1100 Time Out: 1200 Total Billed Treatment Time: 60 Total Billed Treatment 1,GT15m,EX35m,FA10m IKE MONTESINOS SUPPORT DIRECTOR Oct 09, 2021 11:56
--- NOTE | 2021-10-09 14:03 | Physical Therapy Daily Note ---
PT Daily Note-Current Subjective Pt. agrees to Rx. Pt. requests to go to bathroom. Pain Location: No Pain Reported Transfers SCALE: Activities may be completed with or without assistive devices. 2-Itiewoalqf-inhqsvn completes the activity by him/herself with no assistance from a helper. 5-Set-up or Clean-up Assistance-helper sets up or cleans up; patient completes activity. [place] assists only prior to or following the activity. 4-Supervision or Touching Assistance-helper provides verbal cues and/or touching/steadying and/or contact guard assistance as patient completes activity. Assistance may be provided throughout the activity or intermittently. 3-Partial/Moderate Assistance-helper does LESS THAN HALF the effort. [place] lifts, holds or supports trunk or limbs, but provides less than half the effort. 2-Substantial/Maximal Assistance-helper does MORE THAN HALF the effort. [place] lifts or holds trunk or limbs and provides more than half the effort. 9-Dpbmagjqq-smngcx does ALL the effort. Patient does none of the effort to complete the activity. Or, the assistance of 2 or more helpers is required for the patient to complete the activity. If activity was not attempted, code reason: 7-Patient Refused. 9-Not Applicable-not attempted and the patient did not perform the activity before the current illness, exacerbation or injury. 10-Not Attempted due to Environmental Limitations-(lack of equipment, weather restraints, etc.). 88-Not Attempted due to Medical Conditions or Safety Concerns. sit to stand from toilet and chairs all SBA Gait Training Does the Patient Walk?: Yes Gait Assistive Device: None 200ft x 2 no LOB, needs directed , continues poor turning and directions or locating goal destination Exercises Seated Therapy Exercises: Ankle pumps, Long arc quads, Hip flexion Seated Reps: 10 Treatments toileted SBA, washed hands SBA, gait, TRFs and seated ther ex Assessment Current Status: Good Progress PT Short Term Goals Short Term Goals Time Frame: Oct 15, 2021 Roll Left & Right: 6 Sit to lyin Lying to sitting on side of be: 6 Sit to stand: 4 (SBA) Chair/yfe-cu-ttgko transfer: 4 (SBA) Walk 10 feet: 4 (SBA) Walk 50 feet with two turns: 4 (SBA) Walk 150 feet: 4 (SBA) PT Instructor Apparel Manufacture Goals Instructor Apparel Manufacture Goals PT Instructor Apparel Manufacture Goals Time Frame: Oct 29, 2021 Roll Left & Right (QC): 6 Sit to Lying (QC): 6 Lying-Sitting on Side/Bed(QC): 6 Sit to Stand (QC): 5 Chair/Mik-jr-Fxfsp Xfer(QC): 5 Toilet Transfer (QC): 5 Car Transfer (QC): 5 Does the Patient Walk: Yes Walk 10 feet (QC): 5 Walk 50ft with 2 Turns (QC): 5 Walk 150 ft (QC): 5 Walking 10ft on Uneven Surface: 5 1 Step (curb) (QC): 4 4 Steps (QC): 4 12 Steps (QC): 4 Picking up an Object (QC): 5 Wheel 50 feet with 2 turns (QC: 9 Wheel 150 feet: 9 PT Plan Treatment/Plan Treatment Plan: Continue Plan of Care Treatment Plan: Bed Mobility, Education, Functional Activity Helen, Functional Strength, Group Therapy, Gait, Safety, Therapeutic Exercise, Transfers Treatment Duration: Oct 29, 2021 Frequency: At least 5 of 7 days/Wk (IRF) Estimated Hrs Per Day: 1.5 hours per day Patient and/or Family Agrees t: Yes Safety Risks/Education Patient Education: Gait Training, Transfer Techniques, Correct Positioning, Disease Process, Safety Issues Teaching Recipient: Patient Teaching Methods: Demonstration, Discussion Response to Teaching: Verbalize Understanding, Return Demonstration, Reinforcement Needed Time/GCodes Time In: 1340 Time Out: 1400 Total Billed Treatment Time: 20 Total Billed Treatment 1,GT20m IKE MONTESINOS MOLD CARRIER Oct 09, 2021 14:03
[2021-10-09] MEDS: polyethylene glycoL POWDER 17 GM (MIRALAX) PACK PO SCH ×2 (15:58→21:54)
[2021-10-09] MEDS: SENNA W/DOCUSATE (SENOKOT S) TABLET PO SCH ×2 (16:03→21:54)
[2021-10-09] MEDS: DOCUSATE SODIUM 100 MG (COLACE) CAP PO SCH ×2 (16:03→21:54)
[2021-10-09 20:00] VITALS: BP 140/77
[2021-10-09] MEDS: meTOproloL SUCCINATE 50 MG (TOPROL XL) TAB PO SCH (21:32)
[2021-10-10] MEDS: inSUlin ASPART (NovoLOG) 1 UNIT/0.01 ML (CHARGE PER UNIT) SC SCH ×4 (06:39→21:02)
[2021-10-10] MEDS: VENlafaxine XR 75 MG (EFFEXOR XR) CAP PO SCH (06:44)
[2021-10-10] MEDS: LEVOTHYROXINE 75 MCG (LEVOTHROID) TABLET PO SCH (06:44)
[2021-10-10 08:23] VITALS: BP 147/78
--- NOTE | 2021-10-10 08:23 | Physical Therapy Daily Note ---
PT Daily Note-Current Subjective Patient in bed pre tx, agrees to PT, has no complaints of pain. Appearance Patient in recliner post tx with nurse call, phone, tray, all needs met. Mental Status Patient Orientation: Person, Place, Situation Transfers SCALE: Activities may be completed with or without assistive devices. 6-Vrskhthgpe-jqwlekb completes the activity by him/herself with no assistance from a helper. 5-Set-up or Clean-up Assistance-helper sets up or cleans up; patient completes activity. [place] assists only prior to or following the activity. 4-Supervision or Touching Assistance-helper provides verbal cues and/or touching /steadying and/or contact guard assistance as patient completes activity. Assistance may be provided throughout the activity or intermittently. 3-Partial/Moderate Assistance-helper does LESS THAN HALF the effort. [place] lifts, holds or supports trunk or limbs, but provides less than half the effort. 2-Substantial/Maximal Assistance-helper does MORE THAN HALF the effort. [place] lifts or holds trunk or limbs and provides more than half the effort. 0-Ergdmhyfy-plxkpd does ALL the effort. Patient does none of the effort to complete the activity. Or, the assistance of 2 or more helpers is required for the patient to complete the activity. If activity was not attempted, code reason: 7-Patient Refused. 9-Not Applicable-not attempted and the patient did not perform the activity before the current illness, exacerbation or injury. 10-Not Attempted due to Environmental Limitations-(lack of equipment, weather restraints, etc.). 88-Not Attempted due to Medical Conditions or Safety Concerns. Roll Left & Right (QC): 4 Lying to Sitting/Side of Bed(Q: 4 Sit to Stand (QC): 4 Chair/Bpd-op-Obszd Xfer(QC): 4 Gait Training Distance: 150'x2 Walk 10 feet (QC): 4 Walk 50 ft with 2 Turns(QC): 4 Walk 150 ft (QC): 4 Gait Persons Needed: 1 Gait Assistive Device: None CGA, slow, short choppy steps, poor foot clearance Treatments bed mobility and transfers, ambulation Assessment Current Status: Fair Progress improving endurance PT Short Term Goals Short Term Goals Time Frame: Oct 15, 2021 Roll Left & Right: 6 Sit to lyin Lying to sitting on side of be: 6 Sit to stand: 4 (SBA) Chair/qug-zp-lxinj transfer: 4 (SBA) Walk 10 feet: 4 (SBA) Walk 50 feet with two turns: 4 (SBA) Walk 150 feet: 4 (SBA) PT Residential Goals Residential Goals PT Comprehensive Ophthalmologist Goals Time Frame: Oct 29, 2021 Roll Left & Right (QC): 6 Sit to Lying (QC): 6 Lying-Sitting on Side/Bed(QC): 6 Sit to Stand (QC): 5 Chair/Gmx-vw-Jqtzl Xfer(QC): 5 Toilet Transfer (QC): 5 Car Transfer (QC): 5 Does the Patient Walk: Yes Walk 10 feet (QC): 5 Walk 50ft with 2 Turns (QC): 5 Walk 150 ft (QC): 5 Walking 10ft on Uneven Surface: 5 1 Step (curb) (QC): 4 4 Steps (QC): 4 12 Steps (QC): 4 Picking up an Object (QC): 5 Wheel 50 feet with 2 turns (QC: 9 Wheel 150 feet: 9 PT Plan Problem List Problem List: Activity Tolerance, Functional Strength, Safety, Balance, Gait, Transfer, Bed Mobility, ROM Treatment/Plan Treatment Plan: Continue Plan of Care Treatment Plan: Bed Mobility, Education, Functional Activity Helen, Functional Strength, Group Therapy, Gait, Safety, Therapeutic Exercise, Transfers Treatment Duration: Oct 29, 2021 Frequency: At least 5 of 7 days/Wk (IRF) Estimated Hrs Per Day: 1.5 hours per day Patient and/or Family Agrees t: Yes Safety Risks/Education Patient Education: Gait Training, Transfer Techniques, Correct Positioning, Safety Issues Teaching Recipient: Patient Teaching Methods: Demonstration, Discussion Response to Teaching: Reinforcement Needed Time/GCodes Time In: 0800 Time Out: 0810 Total Billed Treatment Time: 10 Total Billed Treatment 1 visit GT 10' TYRESE LEÓN PT Oct 10, 2021 08:23
[2021-10-10] MEDS: PANTOPRAZOLE 40 MG (PROTONIX) TAB PO SCH (08:30)
[2021-10-10] MEDS: GABAPENTIN 300 MG (NEURONTIN) CAP PO SCH (08:30)
[2021-10-10] MEDS: LOSARTAN 100 MG (COZAAR) TABLET PO SCH (08:30)
[2021-10-10] MEDS: DOCUSATE SODIUM 100 MG (COLACE) CAP PO SCH ×2 (08:30→20:03)
[2021-10-10] MEDS: APIXABAN 5 MG (ELIQUIS) TABLET PO SCH ×2 (08:30→21:03)
[2021-10-10] MEDS: meTOprolol SUCCINATE 100 MG (TOPROL XL) TAB PO SCH (08:30)
[2021-10-10] MEDS: SENNA W/DOCUSATE (SENOKOT S) TABLET PO SCH ×2 (08:30→20:03)
[2021-10-10] MEDS: ALLOPURINOL 100 MG (ZYLOPRIM) TAB PO SCH ×2 (08:30→21:03)
--- NOTE | 2021-10-10 09:22 | PM&R Progress Note ---
Subjective HPI/CC On Admission Date Seen by Provider: Oct 10, 2021 Time Seen by Provider: 12:30 Subjective/Events-last exam 10/10/21: Patient doing really well Straight cath in and out was required due to 550 residual Urecholine will be started Sugars are good 10/09/2021: Pt doing well Sugars are good at 132 and 150 Holding Levemir No straight cath needed up until this point Checked meds and labs No pain is reported Review of Systems General: Fatigue, Malaise Objective Exam Vital Signs Vital Signs Date Time Temp Pulse Resp B/P (MAP) Pulse Ox O2 Delivery O2 Flow Rate FiO2 10/10/21 20:20 Room Air 10/10/21 20:13 36.4 80 18 137/66 (89) 96 Capillary Refill : General Appearance: No Apparent Distress, WD/WN, Chronically ill HEENT: PERRL/EOMI, Normal ENT Inspection, Pharynx Normal Neck: Full Range of Motion, Normal Inspection, Non Tender, Supple, Carotid Bruit Respiratory: Chest Non Tender, Lungs Clear, Normal Breath Sounds, No Accessory Muscle Use, No Respiratory Distress Cardiovascular: No Edema, No Gallop, No JVD, No Murmur, Normal Peripheral Pulses, Irregularly Irregular Gastrointestinal: Normal Bowel Sounds, No Organomegaly, No Pulsatile Mass, Non Tender, Soft Back: Normal Inspection, No CVA Tenderness, No Vertebral Tenderness Extremity: Normal Capillary Refill, Normal Inspection, Normal Range of Motion, Non Tender, No Calf Tenderness, No Pedal Edema Neurologic/Psychiatric: Alert, Oriented x3, No Motor/Sensory Deficits, Normal Mood/Affect, Abnormal Gait, Depressed Affect, Motor Weakness (Left-sided greater than right) Skin: Normal Color, Warm/Dry Lymphatic: No Adenopathy Results/Procedures Lab Patient resulted labs reviewed. FIM Transfers Therapy Code Descriptions/Definitions Functional [place] Measure: 0=Not Assessed/NA 4=Minimal Assistance 1=Total Assistance 5=Supervision or Setup 2=Maximal Assistance 6=Modified [place] 3=Moderate Assistance 7=Complete IndependenceSCALE: Activities may be completed with or without assistive devices. 5-Nqnblqkfck-asaqezj completes the activity by him/herself with no assistance from a helper. 5-Set-up or Clean-up Assistance-helper sets up or cleans up; patient completes activity. [place] assists only prior to or following the activity. 4-Supervision or Touching Assistance-helper provides verbal cues and/or touching/steadying and/or contact guard assistance as patient completes activity. Assistance may be provided throughout the activity or intermittently. 3-Partial/Moderate Assistance-helper does LESS THAN HALF the effort. [place] lifts, holds or supports trunk or limbs, but provides less than half the effort. 2-Substantial/Maximal Assistance-helper does MORE THAN HALF the effort. [place] lifts or holds trunk or limbs and provides more than half the effort. 6-Fdkrtseyn-qeslgh does ALL the effort. Patient does none of the effort to complete the activity. Or, the assistance of 2 or more helpers is required for the patient to complete the activity. If activity was not attempted, code reason: 7-Patient Refused. 9-Not Applicable-not attempted and the patient did not perform the activity before the current illness, exacerbation or injury. 10-Not Attempted due to Environmental Limitations-(lack of equipment, weather restraints, etc.). 88-Not Attempted due to Medical Conditions or Safety Concerns. Roll Left to Right (QC): 4 Sit to Lying (QC): 5 Sit to Stand (QC): 4 Chair/Wzm-of-Fzqhj Xfer(QC): 4 Car Transfer (QC): 3 Gait Training Does the Patient Walk?: Yes Distance: 150'x2 Walk 10 feet (QC): 4 Walk 50 ft with 2 Turns(QC): 4 Walk 150 ft (QC): 4 Walking 10ft/uneven surface-QC: 4 Gait Persons Needed: 1 Gait Assistive Device: None Wheelchair Training Does the Pt Use a Wheelchair?: No Wheel 50 ft with 2 turns (QC): 9 Wheel 150 ft (QC): 9 Stair Training Stair Training: Handrails/: 2 handrails #of Steps: 4 1 Step (curb) (QC): 4 4 Steps (QC): 4 12 Steps (QC): 88 Stairs: Pattern: Reciprocal Balance Picking up an Object (QC): 4 ADL-Treatment Eating (QC): 7 Oral Hygiene (QC): 7 Shower/Bathe Self (QC): 4 (SBA) Upper Body Dressing (QC): 4 (Pt gathers clothing after VC and completes while standing, SBA.) Lower Body Dressing (QC): 4 (Pt gathers clothing after VC, completes independently in sitting.) On/Off Footwear (QC): 3 (Pt required Min A to don socks while seated in recliner. 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 Hypertension Diabetes Chronic atrial fibrillation Oral anticoagulation now maintained Acute hematuria may need urology consult if continues GERD Gout Urinary retention Recent hypoglycemia Plan: Inpatient rehab protocol Supportive care Out caths for retention Cardiology consult 10/09/2021: Appreciate cardiology Monitor for urinary retention 10/10/2021: Straight cath in and out as needed Urecholine start Monitor blood sugars (1) CVA (cerebral infarction) Status: Acute (2) Chronic atrial fibrillation Status: Acute (3) HTN (hypertension) Status: Acute (4) Expressive aphasia Status: Acute (5) IDDM (insulin dependent diabetes mellitus) Status: Acute (6) CVA (cerebral infarction) Status: Acute NKECHI VO DO Oct 10, 2021 09:22
[2021-10-10] MEDS: polyethylene glycoL POWDER 17 GM (MIRALAX) PACK PO SCH ×2 (09:25→20:03)
[2021-10-10] MEDS: metFORMIN XR 500 MG (GLUCOPHAGE XR) TAB PO SCH (09:28)
[2021-10-10] MEDS: BETHANECHOL 10 MG (URECHOLINE) TAB PO SCH ×3 (13:39→21:02)
--- NOTE | 2021-10-10 14:42 | Consultation-Cardiology ---
HPI-Cardiology Cardiology Consultation: Date of Consultation 10/10/21 Time Seen by a Provider: 13:40 Date of Admission Attending Physician Lillian Little DO Admitting Physician Josue Lim DO Consulting Physician KIRK NOWAK MD, MA, FACP, FACC, 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 Admitted to inpatient rehab on 10/08/21 at this hosp after most recent carotid thrombectomy at [facility]. She does not report cp or palp or syncope or shortness of breath or n/v/d or focal weakness. Review of Systems-Cardiology Review of Systems Constitutional: malaise; No weight loss, No weight gain Eyes: vision change (impairment of R-sided vision after strokes in Sep 2021) Ears/Nose/Throat: No nasal drainage, No recent hearing loss, No ulcerations Respiratory: As described under HPI Cardiovascular: As described under HPI Gastrointestinal: No diarrhea, No vomiting Genitourinary: dysuria (intermittent), hematuria (intermittent); No urine frequency changes Musculoskeletal: No back pain, No joint pain Skin: No rash, No ulcerations Psychiatric/Neurological: As described under HPI Hematologic: No bleeding abnormalities All Other Systems Reviewed Negative Unless Noted: Yes EPK-Kwtvbr-Zplzem Hx Patient Social History Marrital Status: Employed/Student: retired Smoking Status: Never a Smoker Alcohol Use?: No Immunizations Up To Date Date of Pneumonia Vaccine: Aug 07, 2012 Date of Influenza Vaccine: Aug 09, 2011 Past Medical History PMH As described under Assessment. Family Medical History Family Medical History: She does not report fam h/o early CAD or SCD Allergies and Home Medications Allergies Coded Allergies: No Known Drug Allergies (Unverified , 02/19/13) Patient Home Medication List Home Medication List Reviewed: Yes Acetaminophen (Tylenol) 325 Mg Tablet, 650 MG PO Q4H PRN for HEADACHE, (Reported) Entered as Reported by: ERNESTO MELTON on 09/29/211126 Last Action: Continued Allopurinol (Allopurinol) 100 Mg Tablet, 100 MG PO BID, (Reported) Entered as Reported by: ERNESTO MELTON on 09/29/211126 Last Action: Continued Apixaban (Eliquis) 5 Mg Tablet, 5 MG PO BID, (Reported) Entered as Reported by: ERNESTO MELTON on 09/29/211126 Last Action: Continued Atorvastatin Calcium (Atorvastatin Calcium) 80 Mg Tablet, 80 MG PO DAILY, (Reported) Entered as Reported by: ERNESTO MELTON on 09/29/211126 Last Action: Continued Cyanocobalamin (Cyanocobalamin Injection) 1,000 Mcg/Ml Inj, 1,000 MCG IM MONTHLY , (Reported) Entered as Reported by: ERNESTO MELTON on 09/29/211126 Last Action: Continued Gabapentin (Neurontin) 300 Mg Capsule, 300 MG PO DAILY, (Reported) Entered as Reported by: ERNESTO MELTON on 09/29/211126 Last Action: Continued Insulin Glargine,Hum.rec.anlog (Lantus Solostar) 100 Unit/1 Ml Insuln.pen, 15 UNITS SC HS, (Reported) Entered as Reported by: ERNESTO MELTON on 09/29/211126 Last Action: Converted Levothyroxine Sodium (Levothyroxine Sodium) 75 Mcg Tablet, 75 MCG PO DAILY, (Reported) Entered as Reported by: ERNESTO MELTON on 09/29/211126 Last Action: Continued Metformin HCl (Metformin HCl ER) 500 Mg Tab.er.24h, 500 MG PO DAILY, (Reported) Entered as Reported by: ERNESTO MELTON on 09/29/211126 Last Action: Continued Metoprolol Succinate (Metoprolol Succinate) 50 Mg Tab.er.24h, 100 MG PO DAILY, (Reported) Entered as Reported by: ERNESTO MELTON on 09/29/211126 Last Action: Continued Metoprolol Succinate (Metoprolol Succinate) 50 Mg Tab.er.24h, 50 MG PO HS, (Reported) Entered as Reported by: ERNESTO MELTON on 09/29/211126 Last Action: Continued Olmesartan Medoxomil (Olmesartan Medoxomil) 20 Mg Tablet, 20 MG PO DAILY, (Reported) Entered as Reported by: ERNESTO MELTON on 09/29/211126 Last Action: Continued Pantoprazole Sodium (Pantoprazole Sodium) 40 Mg Tablet.dr, 40 MG PO DAILY, (Reported) Entered as Reported by: ERNESTO MELTON on 09/29/211126 Last Action: Continued Venlafaxine HCl (Venlafaxine HCl ER) 150 Mg Cap.er.24h, 150 MG PO DAILY, (Reported) Entered as Reported by: ERNESTO MELTON on 09/29/211126 Last Action: Converted Discontinued Medications Aspirin (Aspirin) 81 Mg Tab.chew, 81 MG PO DAILY, (Reported) Discontinued Reason: No Longer Taking Entered as Reported by: ERNESTO MELTON on 09/29/211126 Last Action: Discontinued Glipizide (Glipizide ER) 10 Mg Tab.er.24, 10 MG PO DAILY, (Reported) Discontinued Reason: No Longer Taking Entered as Reported by: ERNESTO MELTON on 09/29/211126 Last Action: Discontinued Liraglutide (Victoza 2-Sanket) 0.6 Mg/0.1 Ml Pen.injctr, 1.2 ML SC DAILY, (Reported) Discontinued Reason: No Longer Taking Entered as Reported by: ERNESTO MELTON on 09/29/211126 Last Action: Discontinued Physical Exam-Cardiology Physical Exam Vital Signs/I&O 10/10/21 10/10/21 08:23 09:00 Temp 36.8 Pulse 83 Resp 18 B/P (MAP) 147/78 (101) Pulse Ox 94 O2 Delivery Room Air Room Air Capillary Refill : Constitutional: AAO x 3, well-developed, well-nourished HEENT: hearing is well preserved; No xanthelasmas are seen Neck: carotid pulses are 2 + bilaterally Respiratory: No accessory muscle use; other (good, bilat air entry) Cardiovascular: irregularly irregular, systolic murmur (soft LAYLA at card base) Gastrointestinal: No tender; soft; No guarding; audible bowel sounds Extremities: No clubbing, No cyanosis, No significant edema Neurologic/Psychiatric: oriented x 3, other (moves all limbs equally, intermittent "word salad," appears to neglect R side) Skin: No rash on exposed areas, No ulcerations on exposed areas Data Review Labs Laboratory Tests 10/09/21 15:28: Glucometer 160H 10/09/21 20:26: Glucometer 168H 10/10/21 06:17: Glucometer 120H 10/10/21 11:54: Glucometer 180H A/P-Cardiology Assessment/Admission Diagnosis 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
[2021-10-10 20:13] VITALS: BP 137/66
[2021-10-10] MEDS: meTOproloL SUCCINATE 50 MG (TOPROL XL) TAB PO SCH (21:03)
[2021-10-11] MEDS: inSUlin ASPART (NovoLOG) 1 UNIT/0.01 ML (CHARGE PER UNIT) SC SCH ×4 (06:18→21:00)
[2021-10-11] MEDS: BETHANECHOL 10 MG (URECHOLINE) TAB PO SCH ×4 (06:18→21:00)
[2021-10-11] MEDS: VENlafaxine XR 75 MG (EFFEXOR XR) CAP PO SCH (06:18)
[2021-10-11] MEDS: LEVOTHYROXINE 75 MCG (LEVOTHROID) TABLET PO SCH (06:18)
[2021-10-11 07:30] VITALS: BP 130/60
[2021-10-11] MEDS: APIXABAN 5 MG (ELIQUIS) TABLET PO SCH ×2 (08:25→21:00)
[2021-10-11] MEDS: meTOprolol SUCCINATE 100 MG (TOPROL XL) TAB PO SCH (08:25)
[2021-10-11] MEDS: metFORMIN XR 500 MG (GLUCOPHAGE XR) TAB PO SCH (08:25)
[2021-10-11] MEDS: ALLOPURINOL 100 MG (ZYLOPRIM) TAB PO SCH ×2 (08:25→21:00)
[2021-10-11] MEDS: GABAPENTIN 300 MG (NEURONTIN) CAP PO SCH (08:25)
[2021-10-11] MEDS: LOSARTAN 100 MG (COZAAR) TABLET PO SCH (08:25)
[2021-10-11] MEDS: PANTOPRAZOLE 40 MG (PROTONIX) TAB PO SCH (08:25)
[2021-10-11] MEDS: polyethylene glycoL POWDER 17 GM (MIRALAX) PACK PO SCH ×2 (09:00→19:34)
[2021-10-11] MEDS: SENNA W/DOCUSATE (SENOKOT S) TABLET PO SCH ×2 (09:00→19:34)
[2021-10-11] MEDS: DOCUSATE SODIUM 100 MG (COLACE) CAP PO SCH ×2 (09:00→19:33)
--- NOTE | 2021-10-11 12:35 | PM&R Progress Note ---
Subjective HPI/CC On Admission Date Seen by Provider: Oct 11, 2021 Time Seen by Provider: 12:45 Subjective/Events-last exam 10/11/2021: Patient doing really well Urecholine helping urinary retention Bowels are moving Sugars are [id number] 10/10/21: Patient doing really well Straight cath in and out was required due to 550 residual Urecholine will be started Sugars are good 10/09/2021: Pt doing well Sugars are good at 132 and 150 Holding Levemir No straight cath needed up until this point Checked meds and labs No pain is reported Review of Systems General: Fatigue, Malaise Neurological: Change in speech, Confusion Objective Exam Vital Signs Vital Signs Date Time Temp Pulse Resp B/P (MAP) Pulse Ox O2 Delivery O2 Flow Rate FiO2 10/11/21 09:00 Room Air 10/11/21 07:30 36.3 80 18 130/60 (83) 93 Capillary Refill : General Appearance: No Apparent Distress, WD/WN, Chronically ill HEENT: PERRL/EOMI, Normal ENT Inspection, Pharynx Normal Neck: Full Range of Motion, Normal Inspection, Non Tender, Supple, Carotid Bruit Respiratory: Chest Non Tender, Lungs Clear, Normal Breath Sounds, No Accessory Muscle Use, No Respiratory Distress Cardiovascular: No Edema, No Gallop, No JVD, No Murmur, Normal Peripheral Pulses, Irregularly Irregular Gastrointestinal: Normal Bowel Sounds, No Organomegaly, No Pulsatile Mass, Non Tender, Soft Back: Normal Inspection, No CVA Tenderness, No Vertebral Tenderness Extremity: Normal Capillary Refill, Normal Inspection, Normal Range of Motion, Non Tender, No Calf Tenderness, No Pedal Edema Neurologic/Psychiatric: Alert, Oriented x3, No Motor/Sensory Deficits, Normal Mood/Affect, Abnormal Gait, Depressed Affect, Motor Weakness (Left-sided greater than right) Skin: Normal Color, Warm/Dry Lymphatic: No Adenopathy Results/Procedures Lab Patient resulted labs reviewed. FIM Transfers Therapy Code Descriptions/Definitions Functional [place] Measure: 0=Not Assessed/NA 4=Minimal Assistance 1=Total Assistance 5=Supervision or Setup 2=Maximal Assistance 6=Modified [place] 3=Moderate Assistance 7=Complete IndependenceSCALE: Activities may be completed with or without assistive devices. 5-Gqnmudfqwe-eucmxuc completes the activity by him/herself with no assistance from a helper. 5-Set-up or Clean-up Assistance-helper sets up or cleans up; patient completes activity. [place] assists only prior to or following the activity. 4-Supervision or Touching Assistance-helper provides verbal cues and/or touching/steadying and/or contact guard assistance as patient completes activity. Assistance may be provided throughout the activity or intermittently. 3-Partial/Moderate Assistance-helper does LESS THAN HALF the effort. [place] lifts, holds or supports trunk or limbs, but provides less than half the effort. 2-Substantial/Maximal Assistance-helper does MORE THAN HALF the effort. [place] lifts or holds trunk or limbs and provides more than half the effort. 5-Lxmvyxruk-zsvjkz does ALL the effort. Patient does none of the effort to complete the activity. Or, the assistance of 2 or more helpers is required for the patient to complete the activity. If activity was not attempted, code reason: 7-Patient Refused. 9-Not Applicable-not attempted and the patient did not perform the activity before the current illness, exacerbation or injury. 10-Not Attempted due to Environmental Limitations-(lack of equipment, weather restraints, etc.). 88-Not Attempted due to Medical Conditions or Safety Concerns. Roll Left to Right (QC): 4 Sit to Lying (QC): 5 Sit to Stand (QC): 4 Chair/Gxe-oz-Pbgqb Xfer(QC): 4 Car Transfer (QC): 3 Gait Training Does the Patient Walk?: Yes Distance: 150'x2 Walk 10 feet (QC): 4 Walk 50 ft with 2 Turns(QC): 4 Walk 150 ft (QC): 4 Walking 10ft/uneven surface-QC: 4 Gait Persons Needed: 1 Gait Assistive Device: None Wheelchair Training Does the Pt Use a Wheelchair?: No Wheel 50 ft with 2 turns (QC): 9 Wheel 150 ft (QC): 9 Stair Training Stair Training: Handrails/: 2 handrails #of Steps: 4 1 Step (curb) (QC): 4 4 Steps (QC): 4 12 Steps (QC): 88 Stairs: Pattern: Reciprocal Balance Picking up an Object (QC): 4 ADL-Treatment Eating (QC): 7 Oral Hygiene (QC): 7 Shower/Bathe Self (QC): 4 (SBA) Upper Body Dressing (QC): 4 (Pt gathers clothing after VC and completes while standing, SBA.) Lower Body Dressing (QC): 4 (Pt gathers clothing after VC, completes independently in sitting.) On/Off Footwear (QC): 3 (Pt required Min A to don socks while seated in recliner. Pt able to don shoes independently while seated.) Toileting Hygiene (QC): 4 (Pt able to cleanse self and manage clothing CGA due to impulsivity.) Toilet Transfer (QC): 4 (CGA) Assessment/Plan Assessment and Plan Assess & Plan/Chief Complaint Assessment: 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 transferred to [facility] then again 10/03/21 s/p thrombectomy after emergent med flight Expressive aphasia s/p left CEA due to left thrombosis in [facility] 09/22/2021 Right-sided vision neglect Hypertension Diabetes Chronic atrial fibrillation Oral anticoagulation now maintained Acute hematuria may need urology consult if continues GERD Gout Urinary retention Recent hypoglycemia Plan: Inpatient rehab protocol Supportive care Out caths for retention Cardiology consult 10/09/2021: Appreciate cardiology Monitor for urinary retention 10/10/2021: Straight cath in and out as needed Urecholine start Monitor blood sugars 10/11/2021: Urecholine Monitor sugars (1) CVA (cerebral infarction) Status: Acute (2) Chronic atrial fibrillation Status: Acute (3) HTN (hypertension) Status: Acute (4) Expressive aphasia Status: Acute (5) IDDM (insulin dependent diabetes mellitus) Status: Acute (6) CVA (cerebral infarction) Status: Acute NKECHI VO DO Oct 11, 2021 12:35
--- NOTE | 2021-10-11 16:17 | Progress Note - Cardiology ---
Cardiology SOAP Progress Note Subjective: No cp or palp or syncope or shortness of breath Some gen malaise No n/v/d Objective: I&O/Vital Signs 10/11/21 10/11/21 07:30 09:00 Temp 36.3 Pulse 80 Resp 18 B/P (MAP) 130/60 (83) Pulse Ox 93 O2 Delivery Room Air Room Air Weight (Pounds): 225 Weight (Calculated Kilograms): 101.055144 Constitutional: AAO x 3, well-developed, well-nourished Respiratory: No accessory muscle use; other (good, bilat air entry) Cardiovascular: irregularly irregular, systolic murmur (soft LAYLA at card base) Gastrointestional: No tender; soft; No guarding; audible bowel sounds Extremities: No clubbing, No cyanosis, No significant edema Neurologic/Psychiatric: oriented x 3, other (moves all limbs equally, intermittent "word salad," appears to neglect R side) Skin: No rash on exposed areas, No ulcerations on exposed areas Results/Procedures: Labs Laboratory Tests 10/10/21 16:43: Glucometer 155H 10/10/21 20:57: Glucometer 196H 10/11/21 06:17: Glucometer 138H 10/11/21 11:15: Glucometer 147H 10/11/21 15:29: Glucometer 155H A/P: Assessment: 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
[2021-10-11 20:00] VITALS: BP 130/58
[2021-10-11] MEDS: meTOproloL SUCCINATE 50 MG (TOPROL XL) TAB PO SCH (21:00)
[2021-10-12] MEDS: VENlafaxine XR 75 MG (EFFEXOR XR) CAP PO SCH (05:59)
[2021-10-12] MEDS: LEVOTHYROXINE 75 MCG (LEVOTHROID) TABLET PO SCH (05:59)
[2021-10-12] MEDS: BETHANECHOL 10 MG (URECHOLINE) TAB PO SCH ×4 (05:59→21:02)
[2021-10-12 06:08] LABS: BASOPHILS # (AUTO) 0.1 10^3/uL (0.0-0.1); BASOPHILS % (AUTO) 1 % (0-10); EOSINOPHILS # (AUTO) 0.9 10^3/uL (0.0-0.3); EOSINOPHILS % (AUTO) 9 % (0-10); HEMATOCRIT 36 % (35-52); HEMOGLOBIN 11.2 g/dL (11.5-16.0); LYMPHOCYTES # (AUTO) 1.2 10^3/uL (1.0-4.0); LYMPHOCYTES % (AUTO) 12 % (12-44); MEAN CORPUSCULAR HEMOGLOBIN 30 pg (25-34); MEAN CORPUSCULAR HGB CONC 31 g/dL (32-36); MEAN CORPUSCULAR VOLUME 95 fL (80-99); MEAN PLATELET VOLUME 11.2 fL (9.0-12.2); MONOCYTES # (AUTO) 0.9 10^3/uL (0.0-1.0); MONOCYTES % (AUTO) 9 % (0-12); NEUTROPHILS % (AUTO) 68 % (42-75); PLATELET COUNT 368 10^3/uL (130-400); WHITE BLOOD COUNT 10.2 10^3/uL (4.3-11.0)
[2021-10-12 06:27] LABS: ALBUMIN 3.3 GM/DL (3.2-4.5); POTASSIUM 4.4 MMOL/L (3.6-5.0)
[2021-10-12 06:28] LABS: CALCIUM 8.9 MG/DL (8.5-10.1)
[2021-10-12 06:31] LABS: BILIRUBIN,TOTAL 0.4 MG/DL (0.1-1.0)
[2021-10-12 06:33] LABS: CREATININE SERUM 1.58 MG/DL (0.60-1.30)
[2021-10-12] MEDS: inSUlin ASPART (NovoLOG) 1 UNIT/0.01 ML (CHARGE PER UNIT) SC SCH ×4 (06:46→21:01)
[2021-10-12 08:00] VITALS: BP 130/64
[2021-10-12] MEDS: DOCUSATE SODIUM 100 MG (COLACE) CAP PO SCH ×2 (08:16→21:02)
[2021-10-12] MEDS: meTOprolol SUCCINATE 100 MG (TOPROL XL) TAB PO SCH (08:16)
[2021-10-12] MEDS: ALLOPURINOL 100 MG (ZYLOPRIM) TAB PO SCH ×2 (08:16→21:02)
[2021-10-12] MEDS: GABAPENTIN 300 MG (NEURONTIN) CAP PO SCH (08:16)
[2021-10-12] MEDS: LOSARTAN 100 MG (COZAAR) TABLET PO SCH (08:16)
[2021-10-12] MEDS: APIXABAN 5 MG (ELIQUIS) TABLET PO SCH ×2 (08:16→21:02)
[2021-10-12] MEDS: PANTOPRAZOLE 40 MG (PROTONIX) TAB PO SCH (08:16)
[2021-10-12] MEDS: polyethylene glycoL POWDER 17 GM (MIRALAX) PACK PO SCH ×2 (08:16→21:02)
[2021-10-12] MEDS: SENNA W/DOCUSATE (SENOKOT S) TABLET PO SCH ×2 (08:16→21:02)
[2021-10-12] MEDS: metFORMIN XR 500 MG (GLUCOPHAGE XR) TAB PO SCH (08:16)
--- NOTE | 2021-10-12 08:47 | Speech Therapy Daily Note ---
Speech Daily Progress Note Subjective Date Seen by Provider: Oct 12, 2021 Time Seen by Provider: 00:30 Patient was resting in her bed following her breakfast. Expressive speech continues to be a challenge for effective communication. Objective Patient completed a series of q/a related to personal information and daily routine with 30% effective communication with moderate visual and/or verbal cues. Assessment Assessment Current Status: Fair Progress Treatment Plan Continue Plan of Care Speech Short Term Goals Short Term Goals Short Term Goals 1) Patient will independently complete automatic speech tasks with 75% or greater given 20% cues 2) Patient will attend to structured tasks for duration of 20 minutes with intermittent clinician interruptions at 75% (sustained and divided attention) 3) Patient will demonstrate 75% accuracy with confrontational naming, independently. Speech-Plan Patient/Family Goals Patient/Family Goals: Patient plans to return to her home where she lives with her . She also has family nearby for support. Treatment Plan Speech Therapy Treatment Plan: Continue Plan of Care Treatment Duration: Oct 23, 2021 Frequency: 4 times per week (Patient will receive skilled ST 4-5x per week) Estimated Hrs Per Day: Other Rehab Potential: Fair Barriers to Learning: Patient's recent strokes and related debilities Pt/Family Agrees to Plan: Yes Safety Risks/Education Teaching Recipient: Patient Teaching Methods: Demonstration, Discussion Response to Teaching: Verbalize Understanding, Return Demonstration Education Topics Provided: Continued safety and communication Time Speech Therapy Time In: 08:30 Speech Therapy Time Out: 09:00 Total Billed Time: 30 Billed Treatment Time [address] Oct 12, 2021 08:47
--- NOTE | 2021-10-12 09:16 | PM&R Progress Note ---
Subjective HPI/CC On Admission Date Seen by Provider: Oct 12, 2021 Time Seen by Provider: 09:20 Subjective/Events-last exam 10/12/21: Pt doing well Walking around the gym No other concerns BP is stable Blood sugars stable No more urinary retention 10/11/2021: Patient doing really well Urecholine helping urinary retention Bowels are moving Sugars are [id number] 10/10/21: Patient doing really well Straight cath in and out was required due to 550 residual Urecholine will be started Sugars are good 10/09/2021: Pt doing well Sugars are good at 132 and 150 Holding Levemir No straight cath needed up until this point Checked meds and labs No pain is reported Review of Systems General: Fatigue, Malaise Genitourinary: Retention Neurological: Change in speech, Confusion Objective Exam Vital Signs Vital Signs Date Time Temp Pulse Resp B/P (MAP) Pulse Ox O2 Delivery O2 Flow Rate FiO2 10/12/21 21:14 94 Room Air 10/12/21 19:36 36.3 79 20 132/82 (99) Capillary Refill : General Appearance: No Apparent Distress, WD/WN, Chronically ill HEENT: PERRL/EOMI, Normal ENT Inspection, Pharynx Normal Neck: Full Range of Motion, Normal Inspection, Non Tender, Supple, Carotid Bruit Respiratory: Chest Non Tender, Lungs Clear, Normal Breath Sounds, No Accessory Muscle Use, No Respiratory Distress Cardiovascular: No Edema, No Gallop, No JVD, No Murmur, Normal Peripheral Pulses, Irregularly Irregular Gastrointestinal: Normal Bowel Sounds, No Organomegaly, No Pulsatile Mass, Non Tender, Soft Back: Normal Inspection, No CVA Tenderness, No Vertebral Tenderness Extremity: Normal Capillary Refill, Normal Inspection, Normal Range of Motion, Non Tender, No Calf Tenderness, No Pedal Edema Neurologic/Psychiatric: Alert, Oriented x3, No Motor/Sensory Deficits, Normal Mood/Affect, Abnormal Gait, Depressed Affect, Motor Weakness (Left-sided greater than right) Skin: Normal Color, Warm/Dry Lymphatic: No Adenopathy Results/Procedures Lab Laboratory Tests 10/12/21 05:43 Patient resulted labs reviewed. FIM Transfers Therapy Code Descriptions/Definitions Functional [place] Measure: 0=Not Assessed/NA 4=Minimal Assistance 1=Total Assistance 5=Supervision or Setup 2=Maximal Assistance 6=Modified [place] 3=Moderate Assistance 7=Complete IndependenceSCALE: Activities may be completed with or without assistive devices. 1-Waiqueoacl-aeipxui completes the activity by him/herself with no assistance from a helper. 5-Set-up or Clean-up Assistance-helper sets up or cleans up; patient completes activity. [place] assists only prior to or following the activity. 4-Supervision or Touching Assistance-helper provides verbal cues and/or touching/steadying and/or contact guard assistance as patient completes activity. Assistance may be provided throughout the activity or intermittently. 3-Partial/Moderate Assistance-helper does LESS THAN HALF the effort. [place] lifts, holds or supports trunk or limbs, but provides less than half the effort. 2-Substantial/Maximal Assistance-helper does MORE THAN HALF the effort. [place] lifts or holds trunk or limbs and provides more than half the effort. 0-Yzjeoprot-yqgjhl does ALL the effort. Patient does none of the effort to complete the activity. Or, the assistance of 2 or more helpers is required for the patient to complete the activity. If activity was not attempted, code reason: 7-Patient Refused. 9-Not Applicable-not attempted and the patient did not perform the activity before the current illness, exacerbation or injury. 10-Not Attempted due to Environmental Limitations-(lack of equipment, weather restraints, etc.). 88-Not Attempted due to Medical Conditions or Safety Concerns. Roll Left to Right (QC): 4 Sit to Lying (QC): 5 Sit to Stand (QC): 4 Chair/Izv-lh-Gptka Xfer(QC): 4 Car Transfer (QC): 3 Gait Training Does the Patient Walk?: Yes Distance: 150'x2 Walk 10 feet (QC): 4 Walk 50 ft with 2 Turns(QC): 4 Walk 150 ft (QC): 4 Walking 10ft/uneven surface-QC: 4 Gait Persons Needed: 1 Gait Assistive Device: None Wheelchair Training Does the Pt Use a Wheelchair?: No Wheel 50 ft with 2 turns (QC): 9 Wheel 150 ft (QC): 9 Stair Training Stair Training: Handrails/: 2 handrails #of Steps: 4 1 Step (curb) (QC): 4 4 Steps (QC): 4 12 Steps (QC): 88 Stairs: Pattern: Reciprocal Balance Picking up an Object (QC): 4 ADL-Treatment Eating (QC): 7 Oral Hygiene (QC): 7 Shower/Bathe Self (QC): 4 (SBA) Upper Body Dressing (QC): 4 (Pt gathers clothing after VC and completes while standing, SBA.) Lower Body Dressing (QC): 4 (Pt gathers clothing after VC, completes independently in sitting.) On/Off Footwear (QC): 3 (Pt required Min A to don socks while seated in recliner. Pt able to don shoes independently while seated.) Toileting Hygiene (QC): 4 (Pt able to cleanse self and manage clothing CGA due to impulsivity.) Toilet Transfer (QC): 4 (CGA) Assessment/Plan Assessment and Plan Assess & Plan/Chief Complaint Assessment: 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 transferred to [facility] then again 10/03/21 s/p thrombect cindy after emergent med flight Expressive aphasia s/p left CEA due to left thrombosis in [facility] 09/22/2021 Right-sided vision neglect Hypertension Diabetes Chronic atrial fibrillation Oral anticoagulation now maintained Acute hematuria may need urology consult if continues GERD Gout Urinary retention Recent hypoglycemia Plan: Inpatient rehab protocol Supportive care Out caths for retention Cardiology consult 10/09/2021: Appreciate cardiology Monitor for urinary retention 10/10/2021: Straight cath in and out as needed Urecholine start Monitor blood sugars 10/11/2021: Urecholine Monitor sugars 10/12/21: Monitor sugars Monitor retention (1) CVA (cerebral infarction) Status: Acute (2) Chronic atrial fibrillation Status: Acute (3) HTN (hypertension) Status: Acute (4) Expressive aphasia Status: Acute (5) IDDM (insulin dependent diabetes mellitus) Status: Acute (6) CVA (cerebral infarction) Status: Acute NKECHI VO DO Oct 12, 2021 09:16
--- NOTE | 2021-10-12 10:00 | Physical Therapy Daily Note ---
PT Daily Note-Current Subjective Pt. agrees to Rx. Appears to be having more difficulty expressing herself today . Pt. shared in broken wording that she lost a son on several years ago. Pt. needed many repeated instructions and gestures to follow commands for Rx Pain Location: No Pain Reported Appearance audible wheezing throughout Rx Mental Status Patient Orientation: Non-Verbal/Aphasic Transfers SCALE: Activities may be completed with or without assistive devices. 9-Bxveaukran-jinlxcc completes the activity by him/herself with no assistance from a helper. 5-Set-up or Clean-up Assistance-helper sets up or cleans up; patient completes activity. [place] assists only prior to or following the activity. 4-Supervision or Touching Assistance-helper provides verbal cues and/or touching/steadying and/or contact guard assistance as patient completes activity. Assistance may be provided throughout the activity or intermittently. 3-Partial/Moderate Assistance-helper does LESS THAN HALF the effort. [place] lifts, holds or supports trunk or limbs, but provides less than half the effort. 2-Substantial/Maximal Assistance-helper does MORE THAN HALF the effort. [place] lifts or holds trunk or limbs and provides more than half the effort. 0-Frydrkjll-ajifnk does ALL the effort. Patient does none of the effort to complete the activity. Or, the assistance of 2 or more helpers is required for the patient to complete the activity. If activity was not attempted, code reason: 7-Patient Refused. 9-Not Applicable-not attempted and the patient did not perform the activity before the current illness, exacerbation or injury. 10-Not Attempted due to Environmental Limitations-(lack of equipment, weather restraints, etc.). 88-Not Attempted due to Medical Conditions or Safety Concerns. Roll Left & Right (QC): 5 Sit to Lying (QC): 5 Lying to Sitting/Side of Bed(Q: 5 Sit to Stand (QC): 5 Chair/Krt-qc-Vhgnx Xfer(QC): 5 Car Transfer (QC): 5 Gait Training Does the Patient Walk?: Yes Walk 10 feet (QC): 4 Walk 50 ft with 2 Turns(QC): 4 Walk 150 ft (QC): 4 Gait Persons Needed: 1 Gait Assistive Device: None pt. needs instruction and tactile cuing for turns as she does not respond accurately to 'left' and 'right' Stair Training Stair Training: Handrails/: 2 handrails #of Steps: 4 4 Steps (QC): 4 12 Steps (QC): 88 Stairs: Pattern: Reciprocal Exercises Supine Ex: Bridging, Ankle pumps, Rolling, Heel Slides, Short Arc Quads, Scooting, Straight leg raise, Hip abd/add Supine Reps: 12 Seated Therapy Exercises: Ankle pumps, Sit to stand, Long arc quads, Hip flexion Seated Reps: 12 NuStep Minutes: 10 NuStep Workload: 3 Treatments leg presses on Nustep x 12 Assessment Current Status: Good Progress appears to be having greater difficulty expressing herself and following commands today PT Short Term Goals Short Term Goals Time Frame: Oct 15, 2021 Roll Left & Right: 6 Sit to lyin Lying to sitting on side of be: 6 Sit to stand: 4 (SBA) Chair/hbg-qm-ehaaf transfer: 4 (SBA) Walk 10 feet: 4 (SBA) Walk 50 feet with two turns: 4 (SBA) Walk 150 feet: 4 (SBA) PT Dinkey Skinner Goals Shelter Goals PT Dinkey Skinner Goals Time Frame: Oct 29, 2021 Roll Left & Right (QC): 6 Sit to Lying (QC): 6 Lying-Sitting on Side/Bed(QC): 6 Sit to Stand (QC): 5 Chair/Xdv-dt-Lpmjx Xfer(QC): 5 Toilet Transfer (QC): 5 Car Transfer (QC): 5 Does the Patient Walk: Yes Walk 10 feet (QC): 5 Walk 50ft with 2 Turns (QC): 5 Walk 150 ft (QC): 5 Walking 10ft on Uneven Surface: 5 1 Step (curb) (QC): 4 4 Steps (QC): 4 12 Steps (QC): 4 Picking up an Object (QC): 5 Wheel 50 feet with 2 turns (QC: 9 Wheel 150 feet: 9 PT Plan Treatment/Plan Treatment Plan: Continue Plan of Care Treatment Plan: Bed Mobility, Education, Functional Activity Helen, Functional Strength, Group Therapy, Gait, Safety, Therapeutic Exercise, Transfers Treatment Duration: Oct 29, 2021 Frequency: At least 5 of 7 days/Wk (IRF) Estimated Hrs Per Day: 1.5 hours per day Patient and/or Family Agrees t: Yes Safety Risks/Education Patient Education: Gait Training, Transfer Techniques, Steps, Correct Positioning, Disease Process, Safety Issues Teaching Recipient: Patient Teaching Methods: Demonstration, Discussion Response to Teaching: Verbalize Understanding, Return Demonstration, Reinforcement Needed Time/GCodes Time In: 900 Time Out: 1000 Total Billed Treatment Time: 60 Total Billed Treatment 1,GT15m,FA20m,EX25m IKE MONTESINOS COMMERCIAL CENSUS TAKER Oct 12, 2021 10:00
--- NOTE | 2021-10-12 11:33 | Occupational Ther Daily Note ---
OT Current Status-Daily Note Subjective Pt sitting in recliner, alert. No c/o pain. Pt agrees to therapy. Mental Status/Objective Patient Orientation: Person, Place, Time, Situation ADL-Treatment Pt agrees to shower. Pt asked to gather clothing from closet. Pt confused on where clothing was located, after VC x2 and tactile cue, pt gathered clothing, ambulated to bathroom, placed clothing in chair. Pt sat on shower bench using grabbars for support, doffed clothing while on shower bench. VC given to doff socks before turning on water. Pt returned to recliner after shower. Pt required tactile cues on donning socks while seated in recliner. Pt continues to require cues to use sock aide to don socks. Pt demonstrated fair return on skilled instruction. Pt then groomed self while seated in recliner. After session, pt sitting in recliner with call light/phone within reach. All needs met in room. Therapy Code Descriptions/Definitions Functional [place] Measure: 0=Not Assessed/NA 4=Minimal Assistance 1=Total Assistance 5=Supervision or Setup 2=Maximal Assistance 6=Modified [place] 3=Moderate Assistance 7=Complete IndependenceSCALE: Activities may be completed with or without assistive devices. 7-Qamfldbbxs-ljmjmee completes the activity by him/herself with no assistance from a helper. 5-Set-up or Clean-up Assistance-helper sets up or cleans up; patient completes activity. [place] assists only prior to or following the activity. 4-Supervision or Touching Assistance-helper provides verbal cues and/or touching/steadying and/or contact guard assistance as patient completes ac tivity. Assistance may be provided throughout the activity or intermittently. 3-Partial/Moderate Assistance-helper does LESS THAN HALF the effort. [place] lifts, holds or supports trunk or limbs, but provides less than half the effort. 2-Substantial/Maximal Assistance-helper does MORE THAN HALF the effort. [place] lifts or holds trunk or limbs and provides more than half the effort. 2-Wmhcwvrdf-lcxwdp does ALL the effort. Patient does none of the effort to complete the activity. Or, the assistance of 2 or more helpers is required for the patient to complete the activity. If activity was not attempted, code reason: 7-Patient Refused. 9-Not Applicable-not attempted and the patient did not perform the activity before the current illness, exacerbation or injury. 10-Not Attempted due to Environmental Limitations-(lack of equipment, weather restraints, etc.). 88-Not Attempted due to Medical Conditions or Safety Concerns. Oral Hygiene (QC): 4 (Pt completes while standing at sink with supervision.) Bathing Location: L Arm, R Arm, L Upper Leg, R Upper Leg, L Lower Leg (including foot), R Lower Leg (including foot), Chest, Abdomen, Buttocks, Perineal Area Shower/Bathe Self (QC): 6 ( Independent, pt able to cleanse all areas while seated on shower bench.) Upper Body Dressing (QC): 4 (VC to gather clothing then completed by self.) Lower Body Dressing (QC): 4 (Pt threads over ankles while seated by self, CGA to hike over hips while standing.) On/Off Footwear: 4 Education OT Patient Education: Use of adapted equipment Teaching Recipient: Patient Teaching Methods: Demonstration, Discussion Response to Teaching: Verbalize Understanding, Return Demonstration, Reinfo rcement Needed OT Short Term Goals Short Term Goals Time Frame: Oct 21, 2021 Eatin Oral hygiene: 5 Shower/bathe self: 5 Upper body dressin Lower body dressin Putting on/taking off footwear: 5 OT Water Sponger Goals Water Sponger Goals Time Frame: Oct 30, 2021 Eating (QC): 6 Oral Hygiene (QC): 6 Toileting Hygiene (QC): 6 Shower/Bathe Self (QC): 6 Upper Body Dressing (QC): 6 Lower Body Dressing (QC): 6 On/Off Footwear (QC): 6 Additional Goals: 1-Demonstrate ADL Tasks, 2-Verbalize Understanding, 3- ImproveStrength/Helen 1=Demonstrate adherence to instructed precautions during ADL tasks. 2=Patient will verbalize/demonstrate understanding of assistive devices/modifications for ADL. 3=Patient will improve strength/tolerance for activity to enable patient to perform ADL's. OT Education/Plan Problem List/Assessment Assessment: Decreased Safety Aware, Impaired Cognition, Impaired Funct Balance, Impaired Self-Care Skills Discharge Recommendations Plan/Recommendations: Continue POC Treatment Plan/Plan of Care Patient would benefit from OT for education, treatment and training to promote independence in ADL's, mobility, safety and/or upper extremity function for ADL's. Plan of Care: ADL Retraining, Functional Mobility, UE Funct Exercise/Act Treatment Duration: Oct 30, 2021 Frequency: At least 5 of 7 days/Wk (IRF) Estimated Hrs Per Day: 1.5 hours per day Agreement: Yes Rehab Potential: Fair Time/GCodes Start Time: 10:15 Stop Time: 11:30 Total Time Billed (hr/min): 75 Billed Treatment Time 1 Visit-ADL 4 (60 min) FA (15 min) HUBERT PELLETIER Oct 12, 2021 11:33
--- NOTE | 2021-10-12 11:40 | Progress Note - Cardiology ---
Cardiology SOAP Progress Note Subjective: Sitting up in recliner at the bedside States she feels well Objective: I&O/Vital Signs 10/12/21 10/12/21 08:00 09:15 Temp 35.9 Pulse 71 Resp 14 B/P (MAP) 130/64 (86) Pulse Ox 99 O2 Delivery Room Air Room Air Weight (Pounds): 225 Weight (Calculated Kilograms): 101.761916 Constitutional: AAO x 3, well-developed, well-nourished Respiratory: No accessory muscle use; other (good, bilat air entry) Cardiovascular: irregularly irregular, systolic murmur (soft LAYLA at card base) Gastrointestional: No tender; soft; No guarding; audible bowel sounds Extremities: No clubbing, No cyanosis, No significant edema Neurologic/Psychiatric: oriented x 3, other (moves all limbs equally, intermittent "word salad," appears to neglect R side) Skin: No rash on exposed areas, No ulcerations on exposed areas Results/Procedures: Labs Laboratory Tests 10/11/21 15:29: Glucometer 155H 10/11/21 20:28: Glucometer 173H 10/12/21 05:43: White Blood Count 10.2, Red Blood Count 3.77L, Hemoglobin 11.2L, Hematocrit 36, Mean Corpuscular Volume 95, Mean Corpuscular Hemoglobin 30, Mean Corpuscular Hemoglobin Concent 31L, Red Cell Distribution Width 14.0, Platelet Count 368, Mean Platelet Volume 11.2, Immature Granulocyte % (Auto) 1, Neutrophils (%) (Auto) 68, Lymphocytes (%) (Auto) 12, Monocytes (%) (Auto) 9, Eosinophils (%) (Auto) 9, Basophils (%) (Auto) 1, Neutrophils # (Auto) 7.0, Lymphocytes # (Auto) 1.2, Monocytes # (Auto) 0.9, Eosinophils # (Auto) 0.9H, Basophils # (Auto) 0.1, Immature Granulocyte # (Auto) 0.1, Sodium Level 138, Potassium Level 4.4, Chloride Level 105, Carbon Dioxide Level 22, Anion Gap 11, Blood Urea Nitrogen 30H, Creatinine 1.58H, Estimat Glomerular Filtration Rate 31, BUN/Creatinine Ratio 19, Glucose Level 154H, Calcium Level 8.9, Corrected Calcium 9.5, Total Bilirubin 0.4, Aspartate Amino Transf (AST/SGOT) 18, Alanine Aminotransferase (ALT/SGPT) 12, Alkaline Phosphatase 89, Total Protein 7.0, Albumin 3.3 10/12/21 11:03: Glucometer 157H Laboratory Tests 10/12/21 05:43 A/P: Assessment: 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
--- NOTE | 2021-10-12 13:29 | Physical Therapy Daily Note ---
PT Daily Note-Current Subjective Agrees to Rx. Feels like a nap Pain Location: No Pain Reported Mental Status Patient Orientation: Non-Verbal/Aphasic Attachments: Other-See Comments (mask) Transfers SCALE: Activities may be completed with or without assistive devices. 2-Reuybvaupx-kavufls completes the activity by him/herself with no assistance from a helper. 5-Set-up or Clean-up Assistance-helper sets up or cleans up; patient completes activity. [place] assists only prior to or following the activity. 4-Supervision or Touching Assistance-helper provides verbal cues and/or touching/steadying and/or contact guard assistance as patient completes activity. Assistance may be provided throughout the activity or intermittently. 3-Partial/Moderate Assistance-helper does LESS THAN HALF the effort. [place] lifts, holds or supports trunk or limbs, but provides less than half the effort. 2-Substantial/Maximal Assistance-helper does MORE THAN HALF the effort. [place] lifts or holds trunk or limbs and provides more than half the effort. 8-Smwkjtxtx-lxcofk does ALL the effort. Patient does none of the effort to complete the activity. Or, the assistance of 2 or more helpers is required for the patient to complete the activity. If activity was not attempted, code reason: 7-Patient Refused. 9-Not Applicable-not attempted and the patient did not perform the activity before the current illness, exacerbation or injury. 10-Not Attempted due to Environmental Limitations-(lack of equipment, weather restraints, etc.). 88-Not Attempted due to Medical Conditions or Safety Concerns. all sit to stands SBA Gait Training Does the Patient Walk?: Yes Gait Assistive Device: None gait training 200ft x 2 CGA to ROTO MIXER OPERATOR , pt. with poor awareness at times and needs tactile cues to turn left and right etc. as well as to clear floor with feet safely etc Exercises Seated Therapy Exercises: Ankle pumps, Sit to stand, Long arc quads, Hip flexion, Hip abd/add Seated Reps: 12 Assessment Current Status: Good Progress PT Short Term Goals Short Term Goals Time Frame: Oct 15, 2021 Roll Left & Right: 6 Sit to lyin Lying to sitting on side of be: 6 Sit to stand: 4 (SBA) Chair/crs-uz-jebww transfer: 4 (SBA) Walk 10 feet: 4 (SBA) Walk 50 feet with two turns: 4 (SBA) Walk 150 feet: 4 (SBA) PT Machine Tool Rebuilder Goals Machine Tool Rebuilder Goals PT Retirement Goals Time Frame: Oct 29, 2021 Roll Left & Right (QC): 6 Sit to Lying (QC): 6 Lying-Sitting on Side/Bed(QC): 6 Sit to Stand (QC): 5 Chair/Ubj-er-Ckiyj Xfer(QC): 5 Toilet Transfer (QC): 5 Car Transfer (QC): 5 Does the Patient Walk: Yes Walk 10 feet (QC): 5 Walk 50ft with 2 Turns (QC): 5 Walk 150 ft (QC): 5 Walking 10ft on Uneven Surface: 5 1 Step (curb) (QC): 4 4 Steps (QC): 4 12 Steps (QC): 4 Picking up an Object (QC): 5 Wheel 50 feet with 2 turns (QC: 9 Wheel 150 feet: 9 PT Plan Treatment/Plan Treatment Plan: Continue Plan of Care Treatment Plan: Bed Mobility, Education, Functional Activity Helen, Functional Strength, Group Therapy, Gait, Safety, Therapeutic Exercise, Transfers Treatment Duration: Oct 29, 2021 Frequency: At least 5 of 7 days/Wk (IRF) Estimated Hrs Per Day: 1.5 hours per day Patient and/or Family Agrees t: Yes Safety Risks/Education Patient Education: Gait Training, Transfer Techniques Response to Teaching: Reinforcement Needed Time/GCodes Time In: 1305 Time Out: 1520 Total Billed Treatment Time: 15 Total Billed Treatment 1,GT15 IKE MONTESINOS CAB STARTER Oct 12, 2021 13:29
--- NOTE | 2021-10-12 15:51 | Progress Note - Cardiology ---
Cardiology SOAP Progress Note Subjective: No cp or palp or syncope No shortness of breath at rest No n/v/d Gen weakness and malaise are improving Objective: I&O/Vital Signs 10/12/21 10/12/21 08:00 09:15 Temp 35.9 Pulse 71 Resp 14 B/P (MAP) 130/64 (86) Pulse Ox 99 O2 Delivery Room Air Room Air Weight (Pounds): 225 Weight (Calculated Kilograms): 101.418170 Constitutional: AAO x 3, well-developed, well-nourished Respiratory: other Cardiovascular: irregularly irregular, systolic murmur Gastrointestional: soft, audible bowel sounds Extremities: No clubbing, No cyanosis, No significant edema Neurologic/Psychiatric: oriented x 3, other Skin: No rash on exposed areas, No ulcerations on exposed areas Results/Procedures: Labs Laboratory Tests 10/11/21 20:28: Glucometer 173H 10/12/21 05:43: White Blood Count 10.2, Red Blood Count 3.77L, Hemoglobin 11.2L, Hematocrit 36, Mean Corpuscular Volume 95, Mean Corpuscular Hemoglobin 30, Mean Corpuscular Hemoglobin Concent 31L, Red Cell Distribution Width 14.0, Platelet Count 368, Mean Platelet Volume 11.2, Immature Granulocyte % (Auto) 1, Neutrophils (%) (Auto) 68, Lymphocytes (%) (Auto) 12, Monocytes (%) (Auto) 9, Eosinophils (%) (Auto) 9, Basophils (%) (Auto) 1, Neutrophils # (Auto) 7.0, Lymphocytes # (Auto) 1.2, Monocytes # (Auto) 0.9, Eosinophils # (Auto) 0.9H, Basophils # (Auto) 0.1, Immature Granulocyte # (Auto) 0.1, Sodium Level 138, Potassium Level 4.4, Chloride Level 105, Carbon Dioxide Level 22, Anion Gap 11, Blood Urea Nitrogen 30H, Creatinine 1.58H, Estimat Glomerular Filtration Rate 31, BUN/Creatinine Ratio 19, Glucose Level 154H, Calcium Level 8.9, Corrected Calcium 9.5, Total Bilirubin 0.4, Aspartate Amino Transf (AST/SGOT) 18, Alanine Aminotransferase (ALT/SGPT) 12, Alkaline Phosphatase 89, Total Protein 7.0, Albumin 3.3 10/12/21 11:03: Glucometer 157H 10/12/21 15:30: Glucometer 105 Laboratory Tests 10/12/21 05:43 A/P: Assessment: 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 Oct 12, 2021 15:51
[2021-10-12 19:36] VITALS: BP 132/82
[2021-10-12] MEDS: meTOproloL SUCCINATE 50 MG (TOPROL XL) TAB PO SCH (21:02)
[2021-10-13] MEDS: inSUlin ASPART (NovoLOG) 1 UNIT/0.01 ML (CHARGE PER UNIT) SC SCH ×4 (05:33→20:54)
[2021-10-13] MEDS: BETHANECHOL 10 MG (URECHOLINE) TAB PO SCH ×4 (06:06→20:54)
[2021-10-13] MEDS: VENlafaxine XR 75 MG (EFFEXOR XR) CAP PO SCH (06:06)
[2021-10-13] MEDS: LEVOTHYROXINE 75 MCG (LEVOTHROID) TABLET PO SCH (06:06)
[2021-10-13] MEDS: PANTOPRAZOLE 40 MG (PROTONIX) TAB PO SCH (07:50)
[2021-10-13] MEDS: metFORMIN XR 500 MG (GLUCOPHAGE XR) TAB PO SCH (07:50)
[2021-10-13] MEDS: meTOprolol SUCCINATE 100 MG (TOPROL XL) TAB PO SCH (07:51)
[2021-10-13] MEDS: GABAPENTIN 300 MG (NEURONTIN) CAP PO SCH (07:51)
[2021-10-13] MEDS: ALLOPURINOL 100 MG (ZYLOPRIM) TAB PO SCH ×2 (07:51→20:54)
[2021-10-13] MEDS: APIXABAN 5 MG (ELIQUIS) TABLET PO SCH ×2 (07:51→20:54)
[2021-10-13] MEDS: LOSARTAN 100 MG (COZAAR) TABLET PO SCH (07:51)
[2021-10-13 07:59] VITALS: BP 149/65
--- NOTE | 2021-10-13 08:13 | Cardiology Progress Note ---
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
--- NOTE | 2021-10-13 08:44 | Physical Therapy Daily Note ---
PT Daily Note-Current Subjective Pt denies pain. Pt agreeable. Pt participates in conversation throughout treatment, occasionally has word finding difficulty. Mental Status Patient Orientation: Person, Place, Situation Transfers SCALE: Activities may be completed with or without assistive devices. 5-Jyjpjqiauf-noayxek completes the activity by him/herself with no assistance from a helper. 5-Set-up or Clean-up Assistance-helper sets up or cleans up; patient completes activity. [place] assists only prior to or following the activity. 4-Supervision or Touching Assistance-helper provides verbal cues and/or touching/steadying and/or contact guard assistance as patient completes activity. Assistance may be provided throughout the activity or intermittently. 3-Partial/Moderate Assistance-helper does LESS THAN HALF the effort. [place] lifts, holds or supports trunk or limbs, but provides less than half the effort. 2-Substantial/Maximal Assistance-helper does MORE THAN HALF the effort. [place] lifts or holds trunk or limbs and provides more than half the effort. 7-Smldopukc-xqtyoj does ALL the effort. Patient does none of the effort to complete the activity. Or, the assistance of 2 or more helpers is required for the patient to complete the activity. If activity was not attempted, code reason: 7-Patient Refused. 9-Not Applicable-not attempted and the patient did not perform the activity before the current illness, exacerbation or injury. 10-Not Attempted due to Environmental Limitations-(lack of equipment, weather restraints, etc.). 88-Not Attempted due to Medical Conditions or Safety Concerns. Transfers mod (I) Gait Training Gait Assistive Device: None Pt amb (I), CGA 1 x 400ft, 2 x 125ft Exercises Seated Therapy Exercises: Ankle pumps, Long arc quads, Hip flexion, Hip abd/add Seated Reps: 20 NuStep Minutes: 10 NuStep Workload: 1 Assessment Current Status: Good Progress Pt showed very good balance and functional mobility. Pt fatigues with exertion but able to recover with 1-2 min rest as needed. Pt jane above well. Pt back to recliner with call light and all needs met post therapy session. PT Short Term Goals Short Term Goals Time Frame: Oct 15, 2021 Roll Left & Right: 6 Sit to lyin Lying to sitting on side of be: 6 Sit to stand: 4 (SBA) Chair/opa-cj-lcmxs transfer: 4 (SBA) Walk 10 feet: 4 (SBA) Walk 50 feet with two turns: 4 (SBA) Walk 150 feet: 4 (SBA) PT Fdc Goals Fdc Goals PT Assistant Controller Goals Time Frame: Oct 29, 2021 Roll Left & Right (QC): 6 Sit to Lying (QC): 6 Lying-Sitting on Side/Bed(QC): 6 Sit to Stand (QC): 5 Chair/Zbw-el-Lpdmn Xfer(QC): 5 Toilet Transfer (QC): 5 Car Transfer (QC): 5 Does the Patient Walk: Yes Walk 10 feet (QC): 5 Walk 50ft with 2 Turns (QC): 5 Walk 150 ft (QC): 5 Walking 10ft on Uneven Surface: 5 1 Step (curb) (QC): 4 4 Steps (QC): 4 12 Steps (QC): 4 Picking up an Object (QC): 5 Wheel 50 feet with 2 turns (QC: 9 Wheel 150 feet: 9 PT Plan Treatment/Plan Treatment Plan: Continue Plan of Care Treatment Plan: Bed Mobility, Education, Functional Activity Helen, Functional Strength, Group Therapy, Gait, Safety, Therapeutic Exercise, Transfers Treatment Duration: Oct 29, 2021 Frequency: At least 5 of 7 days/Wk (IRF) Estimated Hrs Per Day: 1.5 hours per day Patient and/or Family Agrees t: Yes Time/GCodes Time In: 800 Time Out: 900 Total Billed Treatment Time: 60 Total Billed Treatment 1, ther ex 30', gait 15', FA 15' CYNDI XIAO CPTA Oct 13, 2021 08:44
[2021-10-13] MEDS: polyethylene glycoL POWDER 17 GM (MIRALAX) PACK PO SCH ×2 (09:00→20:41)
[2021-10-13] MEDS: SENNA W/DOCUSATE (SENOKOT S) TABLET PO SCH ×2 (09:00→20:42)
[2021-10-13] MEDS: DOCUSATE SODIUM 100 MG (COLACE) CAP PO SCH ×2 (09:00→20:41)
--- NOTE | 2021-10-13 09:24 | PM&R Progress Note ---
Subjective HPI/CC On Admission Date Seen by Provider: Oct 13, 2021 Time Seen by Provider: 09:30 Subjective/Events-last exam 10/13/2021: Patient doing well Sugars are good Urinating well Urecholine really helping Postvoid residual is minimal Bowels are moving 10/12/21: Pt doing well Walking around the gym No other concerns BP is stable Blood sugars stable No more urinary retention 10/11/2021: Patient doing really well Urecholine helping urinary retention Bowels are moving Sugars are [id number] 10/10/21: Patient doing really well Straight cath in and out was required due to 550 residual Urecholine will be started Sugars are good 10/09/2021: Pt doing well Sugars are good at 132 and 150 Holding Levemir No straight cath needed up until this point Checked meds and labs No pain is reported Review of Systems General: Fatigue, Malaise Objective Exam Vital Signs Vital Signs Date Time Temp Pulse Resp B/P (MAP) Pulse Ox O2 Delivery O2 Flow Rate FiO2 10/13/21 20:56 Room Air 10/13/21 20:14 36.8 82 18 124/84 (97) 94 Capillary Refill : General Appearance: No Apparent Distress, WD/WN, Chronically ill HEENT: PERRL/EOMI, Normal ENT Inspection, Pharynx Normal Neck: Full Range of Motion, Normal Inspection, Non Tender, Supple, Carotid Bruit Respiratory: Chest Non Tender, Lungs Clear, Normal Breath Sounds, No Accessory Muscle Use, No Respiratory Distress Cardiovascular: No Edema, No Gallop, No JVD, No Murmur, Normal Peripheral Pulses, Irregularly Irregular Gastrointestinal: Normal Bowel Sounds, No Organomegaly, No Pulsatile Mass, Non Tender, Soft Back: Normal Inspection, No CVA Tenderness, No Vertebral Tenderness Extremity: Normal Capillary Refill, Normal Inspection, Normal Range of Motion, Non Tender, No Calf Tenderness, No Pedal Edema Neurologic/Psychiatric: Alert, Oriented x3, No Motor/Sensory Deficits, Normal Mood/Affect, Abnormal Gait, Depressed Affect, Motor Weakness (Left-sided greater than right) Skin: Normal Color, Warm/Dry Lymphatic: No Adenopathy Results/Procedures Lab Patient resulted labs reviewed. FIM Transfers Therapy Code Descriptions/Definitions Functional [place] Measure: 0=Not Assessed/NA 4=Minimal Assistance 1=Total Assistance 5=Supervision or Setup 2=Maximal Assistance 6=Modified [place] 3=Moderate Assistance 7=Complete IndependenceSCALE: Activities may be completed with or without assistive devices. 2-Zcgkkvasmq-uhtdgbq completes the activity by him/herself with no assistance from a helper. 5-Set-up or Clean-up Assistance-helper sets up or cleans up; patient completes activity. [place] assists only prior to or following the activity. 4-Supervision or Touching Assistance-helper provides verbal cues and/or touching/steadying and/or contact guard assistance as patient completes activity. Assistance may be provided throughout the activity or intermittently. 3-Partial/Moderate Assistance-helper does LESS THAN HALF the effort. [place] lifts, holds or supports trunk or limbs, but provides less than half the effort. 2-Substantial/Maximal Assistance-helper does MORE THAN HALF the effort. [place] lifts or holds trunk or limbs and provides more than half the effort. 5-Tdsttbvbj-agoajj does ALL the effort. Patient does none of the effort to complete the activity. Or, the assistance of 2 or more helpers is required for the patient to complete the activity. If activity was not attempted, code reason: 7-Patient Refused. 9-Not Applicable-not attempted and the patient did not perform the activity before the current illness, exacerbation or injury. 10-Not Attempted due to Environmental Limitations-(lack of equipment, weather restraints, etc.). 88-Not Attempted due to Medical Conditions or Safety Concerns. Roll Left to Right (QC): 5 Sit to Lying (QC): 5 Sit to Stand (QC): 5 Chair/Zkx-wb-Xpnwo Xfer(QC): 5 Car Transfer (QC): 5 Gait Training Does the Patient Walk?: Yes Distance: 150'x2 Walk 10 feet (QC): 4 Walk 50 ft with 2 Turns(QC): 4 Walk 150 ft (QC): 4 Walking 10ft/uneven surface-QC: 4 Gait Persons Needed: 1 Gait Assistive Device: None Wheelchair Training Does the Pt Use a Wheelchair?: No Wheel 50 ft with 2 turns (QC): 9 Wheel 150 ft (QC): 9 Stair Training Stair Training: Handrails/: 2 handrails #of Steps: 4 1 Step (curb) (QC): 4 4 Steps (QC): 4 12 Steps (QC): 88 Stairs: Pattern: Reciprocal Balance Picking up an Object (QC): 4 ADL-Treatment Eating (QC): 7 Oral Hygiene (QC): 4 (Pt completes while standing at sink with supervision.) Bathing Location: L Arm, R Arm, L Upper Leg, R Upper Leg, L Lower Leg (including foot), R Lower Leg (including foot), Chest, Abdomen, Buttocks, Perineal Area Shower/Bathe Self (QC): 6 ( Independent, pt able to cleanse all areas while seated on shower bench.) Upper Body Dressing (QC): 4 (VC to gather clothing then completed by self.) Lower Body Dressing (QC): 4 (Pt threads over ankles while seated by self, CGA to hike over hips while standing.) On/Off Footwear (QC): 4 Toileting Hygiene (QC): 4 (Pt able to cleanse self and manage clothing CGA due to impulsivity.) Toilet Transfer (QC): 4 (CGA) Assessment/Plan Assessment and Plan Assess & Plan/Chief Complaint Assessment: 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 transferred to then again 10/03/21 s/p thrombectomy after emergent med flight Expressive aphasia s/p left CEA due to left thrombosis in ICA 09/22/2021 Right-sided vision neglect Hypertension Diabetes Chronic atrial fibrillation Oral anticoagulation now maintained Acute hematuria may need urology consult if continues GERD Gout Urinary retention Recent hypoglycemia Plan: Inpatient rehab protocol Supportive care Out caths for retention Cardiology consult 10/09/2021: Appreciate cardiology Monitor for urinary retention 10/10/2021: Straight cath in and out as needed Urecholine start Monitor blood sugars 10/11/2021: Urecholine Monitor sugars 10/12/21: Monitor sugars Monitor retention 10/13/2021: Supportive care Monitor closely (1) CVA (cerebral infarction) Status: Acute (2) Chronic atrial fibrillation Status: Acute (3) HTN (hypertension) Status: Acute (4) Expressive aphasia Status: Acute (5) IDDM (insulin dependent diabetes mellitus) Status: Acute (6) CVA (cerebral infarction) Status: Acute NEKCHI VO DO Oct 13, 2021 09:24
--- NOTE | 2021-10-13 09:37 | Speech Therapy Daily Note ---
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 She was up in her recliner following her PT session. Pain Location: Incisional Objective Patient provided pictures for communication as well as an alphabet page. She demonstrated spelling out provided words by pointing to each letter with 90% accuracy. She continues to answer appropriately for general answers but struggles with much of her expressive speech. Assessment Assessment Current Status: Fair Progress Treatment Plan Continue Plan of Care Speech Short Term Goals Short Term Goals Short Term Goals 1) Patient will independently complete automatic speech tasks with 75% or greater given 20% cues 2) Patient will attend to structured tasks for duration of 20 minutes with intermittent clinician interruptions at 75% (sustained and divided attention) 3) Patient will demonstrate 75% accuracy with confrontational naming, independently. Speech-Plan Patient/Family Goals Patient/Family Goals: Patient plans on returning to her home where she lives with her . He will assist her with needs as well as other family members. Treatment Plan Speech Therapy Treatment Plan: Continue Plan of Care Treatment Duration: Oct 23, 2021 Frequency: 4 times per week (Patient will receive skilled ST 4-5x per week) Estimated Hrs Per Day: .5 hour per day Rehab Potential: Fair Barriers to Learning: Patient's communication difficulties, recent strokes/debility Pt/Family Agrees to Plan: Yes Safety Risks/Education Teaching Recipient: Patient Teaching Methods: Demonstration, Discussion Response to Teaching: Verbalize Understanding, Return Demonstration Education Topics Provided: Continued safety and communication with provided materials Time Speech Therapy Time In: 09:00 Speech Therapy Time Out: 09:30 Total Billed Time: 30 Billed Treatment Time 1, LYUBOV Pruitt Oct 13, 2021 09:37
--- NOTE | 2021-10-13 09:43 | Cardiology Progress Note ---
Subjective Date Seen by Provider: Oct 13, 2021 Time Seen by Provider: 08:15 Subjective/Events-last exam Patient is with PT, no new complaints. Denies any chest pain or palpitations. Review of Systems General: No Chills, No Night Sweats, No Fatigue, No Malaise, No Appetite, No Other HEENT: No Head Aches, No Visual Changes, No Eye Pain, No Ear Pain, No Dysphasia, No Sinus Congestion, No Post Nasal Drip, No Sore Throat, No Other Pulmonary: No Dyspnea, No Cough, No Pleuritic Chest Pain, No Other Cardiovascular: No: Chest Pain, Palpitations, Orthopnea, Paroxysmal Noc. Dyspnea, Edema, Lt Headedness, Other Objective-Cardiology Exam Last Set of Vital Signs Vital Signs 10/13/21 10/13/21 07:59 09:00 Temp 36.6 Pulse 74 Resp 18 B/P (MAP) 149/65 (93) Pulse Ox 94 O2 Delivery Room Air General: Alert, Oriented X3, Cooperative HEENT: Atraumatic, PERRLA Neck: Supple, No JVD, No Thyromegaly Lungs: Clear to Auscultation, Normal Air Movement Heart: Other (irregularly irregular) Abdomen: Normal Bowel Sounds, Soft Extremities: No Edema Skin: No Rashes, No Significant Lesion Neuro: Normal Gait, Cranial Nerves 3-12 NL Psych/Mental Status: Mental Status NL, Mood NL A/P-Cardiology Admission Diagnosis CVA Afib HTN ELISEO Assessment/Plan 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 Maintained on Eliquis Hypertension, controlled, continue to monitor. DM II, managed by Dr Little Chronic atrial fibrillation, rate controlled, OAC with apixaban H/o GERD H/o Gout Urinary retention and hematuria, managed by Dr Little Supervisory-Addendum Brief Supervisory Addendum Participated in pt care: history, MDM, physical Personally performed: exam, history, MDM Care discussed with: DOMINIQUE Results interpretation: Verified all documentation Notes: Patient was seen and evaluated with La, examination performed, management plan was discussed, agree with the current scribed note, I made few changes to the note using Italic font Patient was seen during physical therapy session, improving Events since her transfer to were reviewed Currently maintained on oral anticoagulation Receiving physical therapy Continue to monitor blood pressure, no change from cardiology standpoint AL ALEXIS Oct 13, 2021 09:43 MILLIE MAGDALENO MD Oct 13, 2021 12:00
--- NOTE | 2021-10-13 11:25 | Occupational Ther Daily Note ---
OT Current Status-Daily Note Subjective Pt sitting in recliner, alert. No c/o pain. Pt agrees to therapy. Mental Status/Objective Patient Orientation: Person, Place, Time, Situation ADL-Treatment Pt sit<->stand using arm rests for stability with no LOB. Pt ambulated to closet and retrieved clothing, ambulated to bathroom putting clothing in chair. Therapy Code Descriptions/Definitions Functional [place] Measure: 0=Not Assessed/NA 4=Minimal Assistance 1=Total Assistance 5=Supervision or Setup 2=Maximal Assistance 6=Modified [place] 3=Moderate Assistance 7=Complete IndependenceSCALE: Activities may be completed with or without assistive devices. 3-Bbiwfdrorc-kmdbicf completes the activity by him/herself with no assistance from a helper. 5-Set-up or Clean-up Assistance-helper sets up or cleans up; patient completes a ctivity. [place] assists only prior to or following the activity. 4-Supervision or Touching Assistance-helper provides verbal cues and/or touching/steadying and/or contact guard assistance as patient completes activity. Assistance may be provided throughout the activity or intermittently. 3-Partial/Moderate Assistance-helper does LESS THAN HALF the effort. [place] lifts, holds or supports trunk or limbs, but provides less than half the effort. 2-Substantial/Maximal Assistance-helper does MORE THAN HALF the effort. [place] lifts or holds trunk or limbs and provides more than half the effort. 9-Pwwfhdest-iuefsx does ALL the effort. Patient does none of the effort to complete the activity. Or, the assistance of 2 or more helpers is required for the patient to complete the activity. If activity was not attempted, code reason: 7-Patient Refused. 9-Not Applicable-not attempted and the patient did not perform the activity before the current illness, exacerbation or injury. 10-Not Attempted due to Environmental Limitations-(lack of equipment, weather restraints, etc.). 88-Not Attempted due to Medical Conditions or Safety Concerns. Upper Body Dressing (QC): 4 (Pt don/doffs while standing in bathroom with supervision.) Lower Body Dressing (QC): 4 (SBA due to impulsivity, pt threaded underwear over ankles while standing. VC given for pt to sit in chair to thread pants over ankles. Pt able to hike over hips with supervision.) On/Off Footwear: 4 (Pt able to don/doff socks/shoes while seated using AE with VC/TC to initiate use of AE.) Inconsistency due to impulsivity and safety concerns with LB dressing. Other Treatment Pt ambulated to therapy gym to participate in word matching activity to increase cognition, memory and fine motor skill needed for ADL/IADL completion. Pt given skilled instruction to placing the correct word into corresponding boxes. Pt demonstrated poor return and required more time to process words. After VC and TC pt unable to complete task. After session, pt sitting in recliner with call light within reach. All needs met in room. OT Short Term Goals Short Term Goals Time Frame: Oct 21, 2021 Eatin Oral hygiene: 5 Shower/bathe self: 5 Upper body dressin Lower body dressin Putting on/taking off footwear: 5 OT Correction Goals Correction Goals Time Frame: Oct 30, 2021 Eating (QC): 6 Oral Hygiene (QC): 6 Toileting Hygiene (QC): 6 Shower/Bathe Self (QC): 6 Upper Body Dressing (QC): 6 Lower Body Dressing (QC): 6 On/Off Footwear (QC): 6 Additional Goals: 1-Demonstrate ADL Tasks, 2-Verbalize Understanding, 3-Improv eStrength/Helen 1=Demonstrate adherence to instructed precautions during ADL tasks. 2=Patient will verbalize/demonstrate understanding of assistive devices/modifications for ADL. 3=Patient will improve strength/tolerance for activity to enable patient to p erform ADL's. OT Education/Plan Problem List/Assessment Assessment: Decreased Safety Aware, Impaired Cognition, Impaired I ADL's, Impaired Self-Care Skills Discharge Recommendations Plan/Recommendations: Continue POC Treatment Plan/Plan of Care Patient would benefit from OT for education, treatment and training to promote independence in ADL's, mobility, safety and/or upper extremity function for ADL's. Plan of Care: ADL Retraining, Functional Mobility, UE Funct Exercise/Act Treatment Duration: Oct 30, 2021 Frequency: At least 5 of 7 days/Wk (IRF) Estimated Hrs Per Day: 1.5 hours per day Agreement: Yes Rehab Potential: Fair Time/GCodes Start Time: 10:00 Stop Time: 11:15 Total Time Billed (hr/min): 75 Billed Treatment Time 1 Visit- ADL 3 (45 min) FA 2 (30 min) HUBERT PELLETIER Oct 13, 2021 11:25
--- NOTE | 2021-10-13 14:08 | Physical Therapy Daily Note ---
PT Daily Note-Current Subjective Patient sitting in chair with grand-daughter in the room upon PT arrival, agreeable to treatment. Patient reports 0/10 pain currently. Mental Status Patient Orientation: Person Transfers SCALE: Activities may be completed with or without assistive devices. 1-Nemhkmciji-vvowvoo completes the activity by him/herself with no assistance from a helper. 5-Set-up or Clean-up Assistance-helper sets up or cleans up; patient completes activity. [place] assists only prior to or following the activity. 4-Supervision or Touching Assistance-helper provides verbal cues and/or touching/steadying and/or contact guard assistance as patient completes activity. Assistance may be provided throughout the activity or intermittently. 3-Partial/Moderate Assistance-helper does LESS THAN HALF the effort. [place] lifts, holds or supports trunk or limbs, but provides less than half the effort. 2-Substantial/Maximal Assistance-helper does MORE THAN HALF the effort. [place] lifts or holds trunk or limbs and provides more than half the effort. 2-Zbijnpywn-stzdno does ALL the effort. Patient does none of the effort to complete the activity. Or, the assistance of 2 or more helpers is required for the patient to complete the activity. If activity was not attempted, code reason: 7-Patient Refused. 9-Not Applicable-not attempted and the patient did not perform the activity before the current illness, exacerbation or injury. 10-Not Attempted due to Environmental Limitations-(lack of equipment, weather restraints, etc.). 88-Not Attempted due to Medical Conditions or Safety Concerns. Sit to Stand (QC): 6 Chair/Aas-fu-Pghsb Xfer(QC): 6 Gait Training Does the Patient Walk?: Yes Distance: 200 ft, 200 ft Walk 10 feet (QC): 4 Walk 50 ft with 2 Turns(QC): 4 Walk 150 ft (QC): 4 Patient ambulates with fair overall gait pattern, however as she fatigues her posture declines. Demonstrates increased rounding of bilateral shoulders with mildly accentuated thoracic kyphosis. Requires sitting rest break at midway point. Assessment Current Status: Fair Progress Patient tolerated treatment fair. Currently reports no pain at this time. Patient performs all observed bed mobility and transfers with I. Patient ambulates with fair overall gait pattern, however as she fatigues her posture declines. Demonstrates increased rounding of bilateral shoulders with mildly accentuated thoracic kyphosis. Requires sitting rest break at midway point. Patient in chair post treatment with all needs met, nursing notified, call light in hand, and family in the room. PT Short Term Goals Short Term Goals Time Frame: Oct 15, 2021 Roll Left & Right: 6 Sit to lyin Lying to sitting on side of be: 6 Sit to stand: 4 (SBA) Chair/kmd-ey-hzooz transfer: 4 (SBA) Walk 10 feet: 4 (SBA) Walk 50 feet with two turns: 4 (SBA) Walk 150 feet: 4 (SBA) PT Crime Scene Investigator Goals Crime Scene Investigator Goals PT Crime Scene Investigator Goals Time Frame: Oct 29, 2021 Roll Left & Right (QC): 6 Sit to Lying (QC): 6 Lying-Sitting on Side/Bed(QC): 6 Sit to Stand (QC): 5 Chair/Yan-zr-Ujnkh Xfer(QC): 5 Toilet Transfer (QC): 5 Car Transfer (QC): 5 Does the Patient Walk: Yes Walk 10 feet (QC): 5 Walk 50ft with 2 Turns (QC): 5 Walk 150 ft (QC): 5 Walking 10ft on Uneven Surface: 5 1 Step (curb) (QC): 4 4 Steps (QC): 4 12 Steps (QC): 4 Picking up an Object (QC): 5 Wheel 50 feet with 2 turns (QC: 9 Wheel 150 feet: 9 PT Plan Treatment/Plan Treatment Plan: Continue Plan of Care Treatment Plan: Bed Mobility, Education, Functional Activity Helen, Functional Strength, Group Therapy, Gait, Safety, Therapeutic Exercise, Transfers Treatment Duration: Oct 29, 2021 Frequency: At least 5 of 7 days/Wk (IRF) Estimated Hrs Per Day: 1.5 hours per day Patient and/or Family Agrees t: Yes Safety Risks/Education Patient Education: Gait Training Teaching Recipient: Patient Teaching Methods: Demonstration, Discussion Response to Teaching: Verbalize Understanding, Return Demonstration Time/GCodes Time In: 1335 Time Out: 1350 Total Billed Treatment Time: 15 Total Billed Treatment Visit, FATOU Zavala PT Oct 13, 2021 14:08
[2021-10-13 20:14] VITALS: BP 124/84
[2021-10-13] MEDS: meTOproloL SUCCINATE 50 MG (TOPROL XL) TAB PO SCH (20:54)
--- NOTE | 2021-10-14 05:48 | PM&R Progress Note ---
Subjective HPI/CC On Admission Date Seen by Provider: Oct 14, 2021 Time Seen by Provider: 10:00 Subjective/Events-last exam 10/14/21: Pt doing really well DC planned for tomorrow Urinary output good Family very involved No issues 10/13/2021: Patient doing well Sugars are good Urinating well Urecholine really helping Postvoid residual is minimal Bowels are moving 10/12/21: Pt doing well Walking around the gym No other concerns BP is stable Blood sugars stable No more urinary retention 10/11/2021: Patient doing really well Urecholine helping urinary retention Bowels are moving Sugars are [id number] 10/10/21: Patient doing really well Straight cath in and out was required due to 550 residual Urecholine will be started Sugars are good 10/09/2021: Pt doing well Sugars are good at 132 and 150 Holding Levemir No straight cath needed up until this point Checked meds and labs No pain is reported Review of Systems General: Fatigue, Malaise Neurological: Change in speech, Confusion Objective Exam Vital Signs Vital Signs Date Time Temp Pulse Resp B/P (MAP) Pulse Ox O2 Delivery O2 Flow Rate FiO2 10/14/21 20:51 95 Room Air 10/14/21 20:19 36.2 68 18 142/65 (90) Capillary Refill : General Appearance: No Apparent Distress, WD/WN, Chronically ill HEENT: PERRL/EOMI, Normal ENT Inspection, Pharynx Normal Neck: Full Range of Motion, Normal Inspection, Non Tender, Supple, Carotid Bruit Respiratory: Chest Non Tender, Lungs Clear, Normal Breath Sounds, No Accessory Muscle Use, No Respiratory Distress Cardiovascular: No Edema, No Gallop, No JVD, No Murmur, Normal Peripheral Pulses, Irregularly Irregular Gastrointestinal: Normal Bowel Sounds, No Organomegaly, No Pulsatile Mass, Non Tender, Soft Back: Normal Inspection, No CVA Tenderness, No Vertebral Tenderness Extremity: Normal Capillary Refill, Normal Inspection, Normal Range of Motion, Non Tender, No Calf Tenderness, No Pedal Edema Neurologic/Psychiatric: Alert, Oriented x3, No Motor/Sensory Deficits, Normal Mood/Affect, Abnormal Gait, Depressed Affect, Motor Weakness (Left-sided greater than right) Skin: Normal Color, Warm/Dry Lymphatic: No Adenopathy Results/Procedures Lab Patient resulted labs reviewed. FIM Transfers Therapy Code Descriptions/Definitions Functional [place] Measure: 0=Not Assessed/NA 4=Minimal Assistance 1=Total Assistance 5=Supervision or Setup 2=Maximal Assistance 6=Modified [place] 3=Moderate Assistance 7=Complete IndependenceSCALE: Activities may be completed with or without assistive devices. 9-Ypxqfheybh-vnsgjtg completes the activity by him/herself with no assistance from a helper. 5-Set-up or Clean-up Assistance-helper sets up or cleans up; patient completes activity. [place] assists only prior to or following the activity. 4-Supervision or Touching Assistance-helper provides verbal cues and/or touching/steadying and/or contact guard assistance as patient completes activity. Assistance may be provided throughout the activity or intermittently. 3-Partial/Moderate Assistance-helper does LESS THAN HALF the effort. [place] lifts, holds or supports trunk or limbs, but provides less than half the effort. 2-Substantial/Maximal Assistance-helper does MORE THAN HALF the effort. [place] lifts or holds trunk or limbs and provides more than half the effort. 8-Zbzydjskr-xbwpqq does ALL the effort. Patient does none of the effort to complete the activity. Or, the assistance of 2 or more helpers is required for the patient to complete the activity. If activity was not attempted, code reason: 7-Patient Refused. 9-Not Applicable-not attempted and the patient did not perform the activity before the current illness, exacerbation or injury. 10-Not Attempted due to Environmental Limitations-(lack of equipment, weather restraints, etc.). 88-Not Attempted due to Medical Conditions or Safety Concerns. Roll Left to Right (QC): 5 Sit to Lying (QC): 5 Sit to Stand (QC): 6 Chair/Vuc-sa-Wjxuf Xfer(QC): 6 Car Transfer (QC): 5 Gait Training Does the Patient Walk?: Yes Distance: 200 ft, 200 ft Walk 10 feet (QC): 4 Walk 50 ft with 2 Turns(QC): 4 Walk 150 ft (QC): 4 Walking 10ft/uneven surface-QC: 4 Gait Persons Needed: 1 Gait Assistive Device: None Wheelchair Training Does the Pt Use a Wheelchair?: No Wheel 50 ft with 2 turns (QC): 9 Wheel 150 ft (QC): 9 Stair Training Stair Training: Handrails/: 2 handrails #of Steps: 4 1 Step (curb) (QC): 4 4 Steps (QC): 4 12 Steps (QC): 88 Stairs: Pattern: Reciprocal Balance Picking up an Object (QC): 4 ADL-Treatment Eating (QC): 7 Oral Hygiene (QC): 4 (Pt completes while standing at sink with supervision.) Bathing Location: L Arm, R Arm, L Upper Leg, R Upper Leg, L Lower Leg (including foot), R Lower Leg (including foot), Chest, Abdomen, Buttocks, Perineal Area Shower/Bathe Self (QC): 6 ( Independent, pt able to cleanse all areas while seated on shower bench.) Upper Body Dressing (QC): 4 (Pt don/doffs while standing in bathroom with supervision.) Lower Body Dressing (QC): 4 (SBA due to impulsivity, pt threaded underwear over ankles while standing. VC given for pt to sit in chair to thread pants over ankles. 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 transferred to [facility] then again 10/03/21 s/p thrombectomy after emergent med flight Expressive aphasia s/p left CEA due to left thrombosis in ICA 09/22/2021 Right-sided vision neglect Hypertension Diabetes Chronic atrial fibrillation Oral anticoagulation now maintained Acute hematuria may need urology consult if continues GERD Gout Urinary retention Recent hypoglycemia Plan: Inpatient rehab protocol Supportive care Out caths for retention Cardiology consult 10/09/2021: Appreciate cardiology Monitor for urinary retention 10/10/2021: Straight cath in and out as needed Urecholine start Monitor blood sugars 10/11/2021: Urecholine Monitor sugars 10/12/21: Monitor sugars Monitor retention 10/13/2021: Supportive care Monitor closely 10/14/21: OAC at DC DC tomorrow (1) CVA (cerebral infarction) Status: Acute (2) Chronic atrial fibrillation Status: Acute (3) HTN (hypertension) Status: Acute (4) Expressive aphasia Status: Acute (5) IDDM (insulin dependent diabetes mellitus) Status: Acute (6) CVA (cerebral infarction) Status: Acute NKECHI VO DO Oct 14, 2021 05:48
[2021-10-14] MEDS: inSUlin ASPART (NovoLOG) 1 UNIT/0.01 ML (CHARGE PER UNIT) SC SCH ×4 (06:10→20:27)
[2021-10-14] MEDS: LEVOTHYROXINE 75 MCG (LEVOTHROID) TABLET PO SCH (06:11)
[2021-10-14] MEDS: BETHANECHOL 10 MG (URECHOLINE) TAB PO SCH ×4 (06:11→20:26)
[2021-10-14] MEDS: VENlafaxine XR 75 MG (EFFEXOR XR) CAP PO SCH (06:11)
[2021-10-14 08:22] VITALS: BP 151/69
--- NOTE | 2021-10-14 08:47 | Occupational Ther Daily Note ---
OT Current Status-Daily Note Subjective Pt sitting in recliner, eating breakfast and watching TV. No c/o pain. Pt agrees to therapy. Mental Status/Objective Patient Orientation: Person, Place, Time, Situation Pt agrees to shower. Sit->stand using arm rests for stability. Pt required VC to gather clothing from closet. Pt put clothing on bed, ambulated to shower bench. Stand->sit using grabbars for stability. Pt doffs clothing seated on shower bench. After dressing, pt engaged in grooming while seated at sink. After session, pt sitting in recliner with call light within reach. All needs met in room. ADL-Treatment Therapy Code Descriptions/Definitions Functional [place] Measure: 0=Not Assessed/NA 4=Minimal Assistance 1=Total Assistance 5=Supervision or Setup 2=Maximal Assistance 6=Modified [place] 3=Moderate Assistance 7=Complete IndependenceSCALE: Activities may be completed with or without assistive devices. 3-Itdlfhmazj-rblzgtl completes the activity by him/herself with no assistance from a helper. 5-Set-up or Clean-up Assistance-helper sets up or cleans up; patient completes activity. [place] assists only prior to or following the activity. 4-Supervision or Touching Assistance-helper provides verbal cues and/or touching/steadying and/or contact guard assistance as patient completes activity. Assistance may be provided throughout the activity or intermittently. 3-Partial/Moderate Assistance-helper does LESS THAN HALF the effort. [place] lif ts, holds or supports trunk or limbs, but provides less than half the effort. 2-Substantial/Maximal Assistance-helper does MORE THAN HALF the effort. [place] lifts or holds trunk or limbs and provides more than half the effort. 9-Aqgbplrkv-rekdzd does ALL the effort. Patient does none of the effort to complete the activity. Or, the assistance of 2 or more helpers is required for the patient to complete the activity. If activity was not attempted, code reason: 7-Patient Refused. 9-Not Applicable-not attempted and the patient did not perform the activity before the current illness, exacerbation or injury. 10-Not Attempted due to Environmental Limitations-(lack of equipment, weather restraints, etc.). 88-Not Attempted due to Medical Conditions or Safety Concerns. Eating (QC): 6 (Independent, pt opens containers and uses regular utensils seated in recliner.) Oral Hygiene (QC): 6 (Independent while seated in chair at sink.) Bathing Location: L Arm, R Arm, L Upper Leg, R Upper Leg, L Lower Leg (including foot), R Lower Leg (including foot), Chest, Abdomen, Buttocks, Radha daryl Area Shower/Bathe Self (QC): 6 (Independent, pt able to cleanse using hand held shower and grabbars to stand to clean buttocks, all other areas cleansed while seated on shower bench.) Upper Body Dressing (QC): 4 (VC to gather clothing from bed with supervision.Pt able to don clothing by self while standing.) Lower Body Dressing (QC): 4 (VC to gather clothes from bed with supervision. Pt dresses LB by self.) On/Off Footwear: 5 (Pt able to don/doff using AE while seated with supplies gathered.) OT Short Term Goals Short Term Goals Time Frame: Oct 21, 2021 Eatin Oral hygiene: 5 Shower/bathe self: 5 Upper body dressin Lower body dressin Putting on/taking off footwear: 5 OT Rn Review Goals Rn Review Goals Time Frame: Oct 30, 2021 Eating (QC): 6 (met) Oral Hygiene (QC): 6 (et) Toileting Hygiene (QC): 6 (met) Shower/Bathe Self (QC): 6 (met) Upper Body Dressing (QC): 6 (not met) Lower Body Dressing (QC): 6 (not met) On/Off Footwear (QC): 6 (not met) Additional Goals: 1-Demonstrate ADL Tasks, 2-Verbalize Understanding, 3-I mproveStrength/Helen 1=Demonstrate adherence to instructed precautions during ADL tasks. 2=Patient will verbalize/demonstrate understanding of assistive devices/modifications for ADL. 3=Patient will improve strength/tolerance for activity to enable patient to perform ADL's. OT Education/Plan Problem List/Assessment Assessment: Impaired Cognition, Impaired Self-Care Skills Discharge Recommendations Plan/Recommendations: Continue POC Treatment Plan/Plan of Care Patient would benefit from OT for education, treatment and training to promote independence in ADL's, mobility, safety and/or upper extremity function for ADL's. Plan of Care: ADL Retraining, Functional Mobility, UE Funct Exercise/Act Treatment Duration: Oct 30, 2021 Frequency: At least 5 of 7 days/Wk (IRF) Estimated Hrs Per Day: 1.5 hours per day Agreement: Yes Rehab Potential: Fair Time/GCodes Start Time: 07:30 Stop Time: 08:45 Total Time Billed (hr/min): 75 Billed Treatment Time 1 Visit ADL 5 (75 min) HUBERT PELLETIER Oct 14, 2021 08:47
[2021-10-14] MEDS: meTOprolol SUCCINATE 100 MG (TOPROL XL) TAB PO SCH (08:48)
[2021-10-14] MEDS: ALLOPURINOL 100 MG (ZYLOPRIM) TAB PO SCH ×2 (08:48→20:26)
[2021-10-14] MEDS: APIXABAN 5 MG (ELIQUIS) TABLET PO SCH ×2 (08:48→20:26)
[2021-10-14] MEDS: metFORMIN XR 500 MG (GLUCOPHAGE XR) TAB PO SCH (08:48)
[2021-10-14] MEDS: GABAPENTIN 300 MG (NEURONTIN) CAP PO SCH (08:48)
[2021-10-14] MEDS: LOSARTAN 100 MG (COZAAR) TABLET PO SCH (08:49)
[2021-10-14] MEDS: PANTOPRAZOLE 40 MG (PROTONIX) TAB PO SCH (08:49)
--- NOTE | 2021-10-14 09:03 | Cardiology Progress Note ---
Subjective Date Seen by Provider: Oct 14, 2021 Time Seen by Provider: 09:00 Subjective/Events-last exam Patient doing ADL's. Denies any chest pain or dyspnea. Review of Systems General: No Chills, No Night Sweats, No Fatigue, No Malaise, No Appetite, No Other HEENT: No Head Aches, No Visual Changes, No Eye Pain, No Ear Pain, No Dysphasia, No Sinus Congestion, No Post Nasal Drip, No Sore Throat, No Other Pulmonary: No Dyspnea, No Cough, No Pleuritic Chest Pain, No Other Cardiovascular: No: Chest Pain, Palpitations, Orthopnea, Paroxysmal Noc. Dyspnea, Edema, Lt Headedness, Other Objective-Cardiology Exam Last Set of Vital Signs Vital Signs 10/14/21 10/14/21 08:22 14:21 Temp 36.4 Pulse 78 Resp 18 B/P (MAP) 151/69 (96) Pulse Ox 94 O2 Delivery Room Air General: Alert, Oriented X3, Cooperative HEENT: Atraumatic, PERRLA Neck: Supple, No JVD, No Thyromegaly Lungs: Clear to Auscultation, Normal Air Movement Heart: Other (irregularly irregular) Abdomen: Normal Bowel Sounds, Soft Extremities: No Edema Skin: No Rashes, No Significant Lesion Neuro: Normal Gait, Cranial Nerves 3-12 NL Psych/Mental Status: Mental Status NL, Mood NL A/P-Cardiology Admission Diagnosis CVA Afib HTN ELISEO Assessment/Plan 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 Maintained on Eliquis Hypertension, controlled, continue to monitor. DM II, managed by Dr Little Chronic atrial fibrillation, rate controlled, OAC with apixaban H/o GERD H/o Gout Urinary retention and hematuria, managed by Dr Little Supervisory-Addendum Brief Supervisory Addendum Participated in pt care: history, MDM, physical Personally performed: exam, history, MDM Care discussed with: DOMINIQUE Results interpretation: Verified all documentation Notes: Patient was seen and evaluated with La, examination performed, management plan was discussed, agree with the current scribed note, I made few changes to the note using Italic font Patient was seen at bedside, sitting comfortably, no new complaint Tolerating current medication well Possible discharge in the morning, patient follows with Dr. Louie as an outpatient Arrange for follow-up with primary chief wellness officer. LA ALEXIS Oct 14, 2021 09:03 MILLIE MAGDALENO MD Oct 14, 2021 16:08
[2021-10-14] MEDS: DOCUSATE SODIUM 100 MG (COLACE) CAP PO SCH ×2 (09:26→20:22)
[2021-10-14] MEDS: polyethylene glycoL POWDER 17 GM (MIRALAX) PACK PO SCH ×2 (09:26→20:22)
[2021-10-14] MEDS: SENNA W/DOCUSATE (SENOKOT S) TABLET PO SCH ×2 (09:26→20:23)
--- NOTE | 2021-10-14 09:41 | Speech Therapy Daily Note ---
Speech Daily Progress Note Subjective Date Seen by Provider: Oct 14, 2021 Time Seen by Provider: 00:30 Patient was resting in her recliner following her OT session which included a shower today. Patient was very cheerful and alert. She continues to struggle with her expressive language. Objective Patient completed a series of q/a regarding her home and return to home with 50% correct responses with 20% cues. She demonstrated self correction when she stated the incorrect words and searches for the correct words. Assessment Assessment Current Status: Fair Progress Treatment Plan Continue Plan of Care Speech Short Term Goals Short Term Goals Short Term Goals 1) Patient will independently complete automatic speech tasks with 75% or greater given 20% cues 2) Patient will attend to structured tasks for duration of 20 minutes with intermittent clinician interruptions at 75% (sustained and divided attention) 3) Patient will demonstrate 75% accuracy with confrontational naming, independently. Speech-Plan Patient/Family Goals Patient/Family Goals: Patient plans on returning to her home where she lives with her . Treatment Plan Speech Therapy Treatment Plan: Continue Plan of Care Treatment Duration: Oct 23, 2021 Frequency: 4 times per week (Patient will receive skilled ST 4-5x per week) Estimated Hrs Per Day: .5 hour per day Rehab Potential: Fair Barriers to Learning: Patient's new onset strokes, expressive language deficit for effective communication Pt/Family Agrees to Plan: Yes Safety Risks/Education Teaching Recipient: Patient Teaching Methods: Demonstration, Discussion Response to Teaching: Verbalize Understanding, Return Demonstration Education Topics Provided: Patient's utilization of communication boards Time Speech Therapy Time In: 09:00 Speech Therapy Time Out: 09:30 Total Billed Time: 30 Billed Treatment Time RANDY Fischer [facility] Oct 14, 2021 09:41
--- NOTE | 2021-10-14 11:48 | Physical Therapy Daily Note ---
PT Daily Note-Current Subjective Pt agreeable. Pt denies pain. Mental Status Patient Orientation: Person, Place, Situation Transfers SCALE: Activities may be completed with or without assistive devices. 7-Hlpzmpiiig-ialxbou completes the activity by him/herself with no assistance f rom a helper. 5-Set-up or Clean-up Assistance-helper sets up or cleans up; patient completes activity. [place] assists only prior to or following the activity. 4-Supervision or Touching Assistance-helper provides verbal cues and/or touching/steadying and/or contact guard assistance as patient completes activity. Assistance may be provided throughout the activity or intermittently. 3-Partial/Moderate Assistance-helper does LESS THAN HALF the effort. [place] lifts, holds or supports trunk or limbs, but provides less than half the effort. 2-Substantial/Maximal Assistance-helper does MORE THAN HALF the effort. [place] lifts or holds trunk or limbs and provides more than half the effort. 4-Sdahsjmkh-gllyiu does ALL the effort. Patient does none of the effort to complete the activity. Or, the assistance of 2 or more helpers is required for the patient to complete the activity. If activity was not attempted, code reason: 7-Patient Refused. 9-Not Applicable-not attempted and the patient did not perform the activity before the current illness, exacerbation or injury. 10-Not Attempted due to Environmental Limitations-(lack of equipment, weather restraints, etc.). 88-Not Attempted due to Medical Conditions or Safety Concerns. Pt is mod (I) with all transfers Gait Training Gait Assistive Device: None Pt amb (I) SBA 2 x 300ft, 2 x 125ft. Exercises Seated Therapy Exercises: Ankle pumps, Long arc quads, Hip flexion Seated Reps: [address] Ex=Flex, Abd, Ext, Side steps Standing Reps: 15 NuStep Minutes: 10 NuStep Workload: 1 Treatments Pt toileted (I) Assessment Current Status: Excellent Progress Pt shows good functional mobility. Pt demonstrates good endurance for therapy and steady balance throughout. Pt does however, have some difficulty with following instruction. For example, when instructed to "sit down" pt responds each time "ok" but does not sit. When performing new ther ex pt requires extra instructions requiring verbal, tactile and visual cueing. Otherwise, very good performance with therapy. Pt back to recliner with call light and all needs met. PT Short Term Goals Short Term Goals Time Frame: Oct 15, 2021 Roll Left & Right: 6 Sit to lyin Lying to sitting on side of be: 6 Sit to stand: 4 (SBA) Chair/mte-zl-fvuzi transfer: 4 (SBA) Walk 10 feet: 4 (SBA) Walk 50 feet with two turns: 4 (SBA) Walk 150 feet: 4 (SBA) PT Mcfp Goals Preschool Teacher Goals PT Preschool Teacher Goals Time Frame: Oct 29, 2021 Roll Left & Right (QC): 6 Sit to Lying (QC): 6 Lying-Sitting on Side/Bed(QC): 6 Sit to Stand (QC): 5 Chair/Aqk-vw-Mdtll Xfer(QC): 5 Toilet Transfer (QC): 5 Car Transfer (QC): 5 Does the Patient Walk: Yes Walk 10 feet (QC): 5 Walk 50ft with 2 Turns (QC): 5 Walk 150 ft (QC): 5 Walking 10ft on Uneven Surface: 5 1 Step (curb) (QC): 4 4 Steps (QC): 4 12 Steps (QC): 4 Picking up an Object (QC): 5 Wheel 50 feet with 2 turns (QC: 9 Wheel 150 feet: 9 PT Plan Treatment/Plan Treatment Plan: Continue Plan of Care Treatment Plan: Bed Mobility, Education, Functional Activity Helen, Functional Strength, Group Therapy, Gait, Safety, Therapeutic Exercise, Transfers Treatment Duration: Oct 29, 2021 Frequency: At least 5 of 7 days/Wk (IRF) Estimated Hrs Per Day: 1.5 hours per day Patient and/or Family Agrees t: Yes Time/GCodes Time In: 945 Time Out: 1045 Total Billed Treatment Time: 60 Total Billed Treatment 1, FA x 15', Gait 15', ther ex 30' CYNDI XIAO CPTA Oct 14, 2021 11:48
--- NOTE | 2021-10-14 13:32 | Physical Therapy Daily Note ---
PT Daily Note-Current Subjective Pt up in chair, agreeable to treatment. Mental Status Patient Orientation: Person, Place, Situation Transfers SCALE: Activities may be completed with or without assistive devices. 4-Qmppzbpxnz-wnoflla completes the activity by him/herself with no assistance from a helper. 5-Set-up or Clean-up Assistance-helper sets up or cleans up; patient completes activity. [place] assists only prior to or following the activity. 4-Supervision or Touching Assistance-helper provides verbal cues and/or touching/steadying and/or contact guard assistance as patient completes activity. Assistance may be provided throughout the activity or intermittently. 3-Partial/Moderate Assistance-helper does LESS THAN HALF the effort. [place] lifts, holds or supports trunk or limbs, but provides less than half the effort. 2-Substantial/Maximal Assistance-helper does MORE THAN HALF the effort. [place] lifts or holds trunk or limbs and provides more than half the effort. 1-Hhecqrssy-gekgky does ALL the effort. Patient does none of the effort to complete the activity. Or, the assistance of 2 or more helpers is required for the patient to complete the activity. If activity was not attempted, code reason: 7-Patient Refused. 9-Not Applicable-not attempted and the patient did not perform the activity before the current illness, exacerbation or injury. 10-Not Attempted due to Environmental Limitations-(lack of equipment, weather restraints, etc.). 88-Not Attempted due to Medical Conditions or Safety Concerns. Gait Training Gait Assistive Device: None Pt amb 2 x 125ft, SBA Exercises Supine Ex: Ankle pumps, Quad Set, Hip abd/add Supine Reps: 15 Seated Therapy Exercises: Long arc quads Seated Reps: 15 NuStep Minutes: 7 NuStep Workload: 1 Assessment Current Status: Excellent Progress Pt doing very well with functional mobility. Pt jane above well. Pt back to recliner with legs elevated, call light in lap and all needs met. PT Short Term Goals Short Term Goals Time Frame: Oct 15, 2021 Roll Left & Right: 6 Sit to lyin Lying to sitting on side of be: 6 Sit to stand: 4 (SBA) Chair/gta-ry-vnoeg transfer: 4 (SBA) Walk 10 feet: 4 (SBA) Walk 50 feet with two turns: 4 (SBA) Walk 150 feet: 4 (SBA) PT Snf Goals Snf Goals PT Snf Goals Time Frame: Oct 29, 2021 Roll Left & Right (QC): 6 Sit to Lying (QC): 6 Lying-Sitting on Side/Bed(QC): 6 Sit to Stand (QC): 5 Chair/Sod-qk-Jwemf Xfer(QC): 5 Toilet Transfer (QC): 5 Car Transfer (QC): 5 Does the Patient Walk: Yes Walk 10 feet (QC): 5 Walk 50ft with 2 Turns (QC): 5 Walk 150 ft (QC): 5 Walking 10ft on Uneven Surface: 5 1 Step (curb) (QC): 4 4 Steps (QC): 4 12 Steps (QC): 4 Picking up an Object (QC): 5 Wheel 50 feet with 2 turns (QC: 9 Wheel 150 feet: 9 PT Plan Treatment/Plan Treatment Plan: Continue Plan of Care Treatment Plan: Bed Mobility, Education, Functional Activity Helen, Functional Strength, Group Therapy, Gait, Safety, Therapeutic Exercise, Transfers Treatment Duration: Oct 29, 2021 Frequency: At least 5 of 7 days/Wk (IRF) Estimated Hrs Per Day: 1.5 hours per day Patient and/or Family Agrees t: Yes Time/GCodes Time In: 1300 Time Out: 1315 Total Billed Treatment Time: 15 Total Billed Treatment 1, FA x 15' CYNDI XIAO CPTA Oct 14, 2021 13:32
[2021-10-14 20:19] VITALS: BP 142/65
[2021-10-14] MEDS: meTOproloL SUCCINATE 50 MG (TOPROL XL) TAB PO SCH (20:26)
[2021-10-14] MEDS ORDERED: PANT40TA52 PO (20:53)
[2021-10-14] MEDS ORDERED: ATOR80TA76 PO (20:53)
[2021-10-14] MEDS ORDERED: VENL150C98 PO (20:53)
[2021-10-14] MEDS ORDERED: OLME20TA24 PO (20:53)
[2021-10-14] MEDS ORDERED: GABA300C PO (20:53)
[2021-10-14] MEDS ORDERED: BTH10T PO (20:53)
[2021-10-14] MEDS ORDERED: METF-865 PO (20:53)
[2021-10-14] MEDS ORDERED: APIX5TAB PO (20:53)
[2021-10-14] MEDS ORDERED: LEVO75TA6 PO (20:53)
[2021-10-14] MEDS ORDERED: MTP100TCR PO (20:53)
[2021-10-14] MEDS ORDERED: ALLO100T PO (20:53)
[2021-10-14] MEDS ORDERED: METO50TA7 PO (20:53)
--- NOTE | 2021-10-14 20:54 | D/C HH Face to Face Order ---
D/C Face to Face Orders Reconcile Patient Problems Problems Reviewed?: Yes Instructions for Patient Via [facility], Patient Instructions/FollowUp: PCP 1 week Physician to follow Patient: Raphael Discharge Diet for Home: ADA Diet, Cardiac Diet Patient Problems: CVA Patient Data-Allergies,Ht & Wt Patient Allergies: Coded Allergies: No Known Drug Allergies (Unverified , 02/19/13) Height (Feet): 5 Height (Inches): 3.00 Weight (Pounds): 225 Home Health Need/Face to Face Date of Face to Face: Oct 14, 2021 Clinical Findings: Generalized weakness and fatigue, Instability, Muscle weakness, Unsteady gait I have seen Pt [id number]: Yes Discharged To: Home Diagnosis/Conditions: CVA Patient is Homebound due to: CognItive deficits, Mike fall risk due to instabilty, Muscle weakness Homebound Status Due to the above stated illness, injury or surgical procedure (medical condition or diagnosis) and associated clinical findings, the patient is homebound because of his/her inability to leave home except with aid of a supportive device and/or person AND leaving the home requires a considerable and taxing effort or is medically contraindicated. Pt req the following assistanc: Walker Home Health Nursing Orders Home Health Services Order: Nursing Services, Software Development Manager-Evaluate & Treat, Physical Therapy-Evaluate & Treat, Speech Language-Evaluate & Treat Certify Stmt I certify that this patient is under my care and that I, a nurse practitioner or a physician; a junior sales assistant working with me, had a face to face encounter that - meets the physician face to face encounter requirements with this patient as dated. NKECHI VO DO Oct 14, 2021 20:54
[2021-10-15] MEDS: inSUlin ASPART (NovoLOG) 1 UNIT/0.01 ML (CHARGE PER UNIT) SC SCH (05:24)
[2021-10-15] MEDS: LEVOTHYROXINE 75 MCG (LEVOTHROID) TABLET PO SCH (06:21)
[2021-10-15] MEDS: BETHANECHOL 10 MG (URECHOLINE) TAB PO SCH (06:21)
[2021-10-15] MEDS: VENlafaxine XR 75 MG (EFFEXOR XR) CAP PO SCH (06:21)
[2021-10-15 07:13] VITALS: BP 141/67
[2021-10-15] MEDS: GABAPENTIN 300 MG (NEURONTIN) CAP PO SCH (07:44)
[2021-10-15] MEDS: APIXABAN 5 MG (ELIQUIS) TABLET PO SCH (07:45)
[2021-10-15] MEDS: metFORMIN XR 500 MG (GLUCOPHAGE XR) TAB PO SCH (07:45)
[2021-10-15] MEDS: LOSARTAN 100 MG (COZAAR) TABLET PO SCH (07:45)
[2021-10-15] MEDS: PANTOPRAZOLE 40 MG (PROTONIX) TAB PO SCH (07:45)
[2021-10-15] MEDS: meTOprolol SUCCINATE 100 MG (TOPROL XL) TAB PO SCH (07:45)
[2021-10-15] MEDS: ALLOPURINOL 100 MG (ZYLOPRIM) TAB PO SCH (07:45)
--- NOTE | 2021-10-15 08:33 | Therapy Team Discharge Summary ---
Therapy Discharge Summary Discharge Recommendations Date of Discharge Occupational Therapy Impaired Cognition, Impaired Self-Care Skills Speech-Language Pathology Patient was readmitted to the ARU following a second stroke. She was given the SLUMS with a score indicating the need for ST. However, this score is depressed due to her severe Expressive Aphasia. ST services focused on effective communication including the use of pictures and a spelling board. She is discharging to her home where she lives with her . Patient progressed, however she has not met her goals upon discharge. PT Senior Care Goals Senior Care Goals PT Senior Care Goals Time Frame: Oct 29, 2021 Roll Left to Right (QC): 6 Sit to Lying (QC): 6 Lying-Sitting on Side/Bed(QC): 6 Sit to Stand (QC): 5 Chair/Myh-id-Wyfym Xfer(QC): 5 Car Transfer (QC): 5 Does the Patient Walk: Yes Walk 10 feet (QC): 5 Walk 10ft-Uneven Surface(QC): 5 Walk 50ft with 2 Turns (QC): 5 Walk 150 ft (QC): 5 Wheel 50 feet with 2 turns (QC: 9 1 Step (curb) (QC): 4 4 Steps (QC): 4 12 Steps (QC): 4 Picking up an Object (QC): 5 OT Senior Care Goals Superintendent Factory Goals Time Frame: Oct 30, 2021 Eating (QC): 6 (met) Oral Hygiene (QC): 6 (et) Shower/Bathe Self (QC): 6 (met) Upper Body Dressing (QC): 6 (not met) Lower Body Dressing (QC): 6 (not met) On/Off Footwear (QC): 6 (not met) Toileting Hygiene (QC): 6 (met) Toilet/Commode Transfer (QC): 5 Additional Goals: 1-Demonstrate ADL Tasks, 2-Verbalize Understanding, 3- ImproveStrength/Helen 1=Demonstrate adherence to instructed precautions during ADL tasks. 2=Patient will verbalize/demonstrate understanding of assistive devices/modifications for ADL. 3=Patient will improve strength/tolerance for activity to enable patient to perform ADL's. LYUBOV MARTINEZ Oct 15, 2021 08:33
--- NOTE | 2021-10-15 08:35 | Cardiology Progress Note ---
Subjective Date Seen by Provider: Oct 15, 2021 Time Seen by Provider: 08:34 Subjective/Events-last exam Patient was seen at bedside, sitting comfortably, denied any chest pain, pos sible discharge today Review of Systems General: No Chills, No Night Sweats, No Fatigue, No Malaise, No Appetite, No Other HEENT: No Head Aches, No Visual Changes, No Eye Pain, No Ear Pain, No Dysphasi a, No Sinus Congestion, No Post Nasal Drip, No Sore Throat, No Other Pulmonary: No Dyspnea, No Cough, No Pleuritic Chest Pain, No Other Cardiovascular: No: Chest Pain, Palpitations, Orthopnea, Paroxysmal Noc. Dys pnea, Edema, Lt Headedness, Other Objective-Cardiology Exam Last Set of Vital Signs Vital Signs 10/15/21 07:13 Temp 36.8 Pulse 80 Resp 14 B/P (MAP) 141/67 (91) Pulse Ox 92 O2 Delivery Room Air General: Alert, Oriented X3, Cooperative HEENT: Atraumatic, PERRLA Neck: Supple, No JVD, No Thyromegaly Lungs: Clear to Auscultation, Normal Air Movement Heart: Other (irregularly irregular) Abdomen: Normal Bowel Sounds, Soft Extremities: No Edema Skin: No Rashes, No Significant Lesion Neuro: Normal Gait, Cranial Nerves 3-12 NL Psych/Mental Status: Mental Status NL, Mood NL A/P-Cardiology Admission Diagnosis CVA Afib HTN ELISEO Assessment/Plan 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 Maintained on Eliquis Hypertension, controlled, continue to monitor. DM II, managed by Dr Little Chronic atrial fibrillation, rate controlled, OAC with apixaban H/o GERD H/o Gout Urinary retention and hematuria, managed by Dr Anabel Palacio for discharge, follow-up with Dr. Louie as an outpatient MILLIE MAGDALENO MD Oct 15, 2021 08:35
[2021-10-15] MEDS: polyethylene glycoL POWDER 17 GM (MIRALAX) PACK PO SCH (09:06)
[2021-10-15] MEDS: DOCUSATE SODIUM 100 MG (COLACE) CAP PO SCH (09:06)
[2021-10-15] MEDS: SENNA W/DOCUSATE (SENOKOT S) TABLET PO SCH (09:06)
[2021-10-15 10:40] VITALS: BP 141/67
--- NOTE | 2021-10-15 10:44 | Discharge Summary ---
Diagnosis/Chief Complaint Date of Admission Oct 08, 2021 at 15:07 Date of Discharge Discharge Date: Oct 15, 2021 Discharge Diagnosis Assessment: 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 transferred to then again 10/03/21 s/p thrombectomy after emergent med flight Expressive aphasia s/p left CEA due to left thrombosis in ICA 09/22/2021 Right-sided vision neglect Hypertension Diabetes Chronic atrial fibrillation Oral anticoagulation now maintained Acute hematuria may need urology consult if continues GERD Gout Urinary retention Recent hypoglycemia Plan: Inpatient rehab protocol Supportive care Out caths for retention Cardiology consult 10/09/2021: Appreciate cardiology Monitor for urinary retention 10/10/2021: Straight cath in and out as needed Urecholine start Monitor blood sugars 10/11/2021: Urecholine Monitor sugars 10/12/21: Monitor sugars Monitor retention 10/13/2021: Supportive care Monitor closely 10/14/21: OAC at DC DC tomorrow (1) CVA (cerebral infarction) Status: Acute (2) Chronic atrial fibrillation Status: Acute (3) HTN (hypertension) Status: Acute (4) Expressive aphasia Status: Acute (5) IDDM (insulin dependent diabetes mellitus) Status: Acute (6) CVA (cerebral infarction) Status: Acute Discharge Summary Discharge Physical Examination Allergies: Coded Allergies: No Known Drug Allergies (Unverified , 02/19/13) Vitals & I&Os Vital Signs Date Time Temp Pulse Resp B/P (MAP) Pulse Ox O2 Delivery O2 Flow Rate FiO2 10/15/21 10:40 36.8 80 14 141/67 92 Room Air General Appearance: Alert, Oriented X3, Cooperative Respiratory: Clear to Auscultation Cardiovascular: Regular Rate Neuro: Normal Gait, Normal Speech, Strength at 5/5 X4 Ext Psych/Mental Status: Mental Status NL Hospital Course Was the Problem List Reviewed?: Yes Hospital course: Patient had an uneventful 7-day hospital stay. Patient was transferred from after thrombectomy and placed on Eliquis. Patient recovered quickly was able to participate in PT and OT and speech therapy and overall did very well. Blood pressure remained stable labs remained stable held insulin due to hypoglycemia and urinary retention resolved with Urecholine. She was deemed stable for discharge for home health. Labs (last 24 hrs) Laboratory Tests 10/08/21 15:47: Glucometer 113H 10/08/21 20:39: Glucometer 132H 10/09/21 05:25: White Blood Count 9.6, Red Blood Count 3.65L, Hemoglobin 10.8L, Hematocrit 34L, Mean Corpuscular Volume 94, Mean Corpuscular Hemoglobin 30, Mean Corpuscular Hemoglobin Concent 31L, Red Cell Distribution Width 14.1, Platelet Count 373, Mean Platelet Volume 11.3, Immature Granulocyte % (Auto) 1, Neutrophils (%) (Auto) 69, Lymphocytes (%) (Auto) 13, Monocytes (%) (Auto) 7, Eosinophils (%) (Auto) 10, Basophils (%) (Auto) 1, Neutrophils # (Auto) 6.6, Lymphocytes # (Auto) 1.2, Monocytes # (Auto) 0.6, Eosinophils # (Auto) 1.0H, Basophils # (Auto) 0.1, Immature Granulocyte # (Auto) 0.1, Sodium Level 138, Potassium Level 4.6, Chloride Level 105, Carbon Dioxide Level 22, Anion Gap 11, Blood Urea Nitrogen 17, Creatinine 1.19, Estimat Glomerular Filtration Rate 44, BUN/Creatinine Ratio 14, Glucose Level 160H, Calcium Level 9.1, Corrected Calcium 9.6, Total Bilirubin 0.3, Aspartate Amino Transf (AST/SGOT) 19, Alanine Aminotransferase (ALT/SGPT) 10, Alkaline Phosphatase 87, Total Protein 7.1, Albumin 3.4 10/09/21 06:05: Glucometer 153H 10/09/21 12:09: Glucometer 135H 10/09/21 15:28: Glucometer 160H 10/09/21 20:26: Glucometer 168H 10/10/21 06:17: Glucometer 120H 10/10/21 11:54: Glucometer 180H 10/10/21 16:43: Glucometer 155H 10/10/21 20:57: Glucometer 196H 10/11/21 06:17: Glucometer 138H 10/11/21 11:15: Glucometer 147H 10/11/21 15:29: Glucometer 155H 10/11/21 20:28: Glucometer 173H 10/12/21 05:43: White Blood Count 10.2, Red Blood Count 3.77L, Hemoglobin 11.2L, Hematocrit 36, Mean Corpuscular Volume 95, Mean Corpuscular Hemoglobin 30, Mean Corpuscular Hemoglobin Concent 31L, Red Cell Distribution Width 14.0, Platelet Count 368, Mean Platelet Volume 11.2, Immature Granulocyte % (Auto) 1, Neutrophils (%) (Auto) 68, Lymphocytes (%) (Auto) 12, Monocytes (%) (Auto) 9, Eosinophils (%) (Auto) 9, Basophils (%) (Auto) 1, Neutrophils # (Auto) 7.0, Lymphocytes # (Auto) 1.2, Monocytes # (Auto) 0.9, Eosinophils # (Auto) 0.9H, Basophils # (Auto) 0.1, Immature Granulocyte # (Auto) 0.1, Sodium Level 138, Potassium Level 4.4, Chloride Level 105, Carbon Dioxide Level 22, Anion Gap 11, Blood Urea Nitrogen 30H, Creatinine 1.58H, Estimat Glomerular Filtration Rate 31, BUN/Creatinine Ratio 19, Glucose Level 154H, Calcium Level 8.9, Corrected Calcium 9.5, Total Bilirubin 0.4, Aspartate Amino Transf (AST/SGOT) 18, Alanine Aminotransferase (ALT/SGPT) 12, Alkaline Phosphatase 89, Total Protein 7.0, Albumin 3.3 10/12/21 11:03: Glucometer 157H 10/12/21 15:30: Glucometer 105 10/12/21 20:32: Glucometer 174H 10/13/21 05:27: Glucometer 145H 10/13/21 10:50: Glucometer 148H 10/13/21 16:43: Glucometer 158H 10/13/21 20:44: Glucometer 213H 10/14/21 06:10: Glucometer 131H 10/14/21 16:47: Glucometer 155H 10/14/21 20:01: Glucometer 171H 10/15/21 05:21: Glucometer 147H Pending Labs Laboratory Tests 10/08/21 15:47: Glucometer 113 10/08/21 20:39: Glucometer 132 10/09/21 05:25: White Blood Count 9.6, Red Blood Count 3.65, Hemoglobin 10.8, Hematocrit 34, Mean Corpuscular Volume 94, Mean Corpuscular Hemoglobin 30, Mean Corpuscular Hemoglobin Concent 31, Red Cell Distribution Width 14.1, Platelet Count 373, Mean Platelet Volume 11.3, Immature Granulocyte % (Auto) 1, Neutrophils (%) (Auto) 69, Lymphocytes (%) (Auto) 13, Monocytes (%) (Auto) 7, Eosinophils (%) (Auto) 10, Basophils (%) (Auto) 1, Neutrophils # (Auto) 6.6, Lymphocytes # (Auto) 1.2, Monocytes # (Auto) 0.6, Eosinophils # (Auto) 1.0, Basophils # (Auto) 0.1, Immature Granulocyte # (Auto) 0.1, Sodium Level 138, Potassium Level 4.6, Chloride Level 105, Carbon Dioxide Level 22, Anion Gap 11, Blood Urea Nitrogen 17, Creatinine 1.19, Estimat Glomerular Filtration Rate 44, BUN/Creatinine Ratio 14, Glucose Level 160, Calcium Level 9.1, Corrected Calcium 9.6, Total Bilirubin 0.3, Aspartate Amino Transf (AST/SGOT) 19, Alanine Aminotransferase (ALT/SGPT) 10, Alkaline Phosphatase 87, Total Protein 7.1, Albumin 3.4 10/09/21 06:05: Glucometer 153 10/09/21 12:09: Glucometer 135 10/09/21 15:28: Glucometer 160 10/09/21 20:26: Glucometer 168 10/10/21 06:17: Glucometer 120 10/10/21 11:54: Glucometer 180 10/10/21 16:43: Glucometer 155 10/10/21 20:57: Glucometer 196 10/11/21 06:17: Glucometer 138 10/11/21 11:15: Glucometer 147 10/11/21 15:29: Glucometer 155 10/11/21 20:28: Glucometer 173 10/12/21 05:43: White Blood Count 10.2, Red Blood Count 3.77, Hemoglobin 11.2, Hematocrit 36, Mean Corpuscular Volume 95, Mean Corpuscular Hemoglobin 30, Mean Corpuscular Hemoglobin Concent 31, Red Cell Distribution Width 14.0, Platelet Count 368, Mean Platelet Volume 11.2, Immature Granulocyte % (Auto) 1, Neutrophils (%) (Auto) 68, Lymphocytes (%) (Auto) 12, Monocytes (%) (Auto) 9, Eosinophils (%) (Auto) 9, Basophils (%) (Auto) 1, Neutrophils # (Auto) 7.0, Lymphocytes # (Auto) 1.2, Monocytes # (Auto) 0.9, Eosinophils # (Auto) 0.9, Basophils # (Auto) 0.1, Immature Granulocyte # (Auto) 0.1, Sodium Level 138, Potassium Level 4.4, Chloride Level 105, Carbon Dioxide Level 22, Anion Gap 11, Blood Urea Nitrogen 30, Creatinine 1.58, Estimat Glomerular Filtration Rate 31, BUN/Creatinine Ratio 19, Glucose Level 154, Calcium Level 8.9, Corrected Calcium 9.5, Total Bilirubin 0.4, Aspartate Amino Transf (AST/SGOT) 18, Alanine Aminotransferase (ALT/SGPT) 12, Alkaline Phosphatase 89, Total Protein 7.0, Albumin 3.3 10/12/21 11:03: Glucometer 157 10/12/21 15:30: Glucometer 105 10/12/21 20:32: Glucometer 174 10/13/21 05:27: Glucometer 145 10/13/21 10:50: Glucometer 148 10/13/21 16:43: Glucometer 158 10/13/21 20:44: Glucometer 213 10/14/21 06:10: Glucometer 131 10/14/21 16:47: Glucometer 155 10/14/21 20:01: Glucometer 171 10/15/21 05:21: Glucometer 147 Discharge Home Medications: Active Scripts Active Metoprolol Succinate 100 Mg Tab.er.24h 100 Mg PO DAILY Urecholine (Bethanechol Chloride) 10 Mg Tablet 10 Mg PO ACHS Pantoprazole Sodium 40 Mg Tablet.dr 40 Mg PO DAILY Venlafaxine HCl ER (Venlafaxine HCl) 150 Mg Cap.er.24h 150 Mg PO DAILY Olmesartan Medoxomil 20 Mg Tablet 20 Mg PO DAILY Metoprolol Succinate 50 Mg Tab.er.24h 50 Mg PO HS Metformin HCl ER (Metformin HCl) 500 Mg Tab.er.24h 500 Mg PO DAILY Levothyroxine Sodium 75 Mcg Tablet 75 Mcg PO DAILY Neurontin (Gabapentin) 300 Mg Capsule 300 Mg PO DAILY Atorvastatin Calcium 80 Mg Tablet 80 Mg PO DAILY Allopurinol 100 Mg Tablet 100 Mg PO BID Eliquis (Apixaban) 5 Mg Tablet 5 Mg PO BID Reported Cyanocobalamin Injection (Cyanocobalamin) 1,000 Mcg/Ml Inj 1,000 Mcg IM MONTHLY Tylenol (Acetaminophen) 325 Mg Tablet 650 Mg PO Q4H PRN Instructions to patient/family Please see electronic discharge instructions given to patient. Diagnosis/Problems Diagnosis/Problems (1) CVA (cerebral infarction) Status: Acute (2) Chronic atrial fibrillation Status: Acute (3) HTN (hypertension) Status: Acute (4) Expressive aphasia Status: Acute (5) IDDM (insulin dependent diabetes mellitus) Status: Acute (6) CVA (cerebral infarction) Status: Acute NKECHI VO DO Oct 15, 2021 10:44
--- NOTE | 2021-10-15 13:06 | Therapy Team Discharge Summary ---
Therapy Discharge Summary Discharge Recommendations Date of Discharge Oct 15, 2021 at 10:40 Physical Therapy Patient came to rehab following a CVA. Upon evaluation patient performed rolling with independence, supine <-> sit SBA, sit <-> stand and transfers CGA, car transfer CGA, ambulated 150' without an assistive device with CGA (including 50' with at least 2 turns of 90 degrees and 10' over an uneven surface), can go up and down 4 steps using 2 handrails with CGA, and can filler picker an object from the floor with CGA. Patient has been performing bed mobility and transfer training, balance and endurance training, functional strengthening, stair training, gait training, and education. Patient has made some progress but has not met any of his intermediate card tender goals. Now, patient performs bed mobility and transfers with setup, car transfer with setup, ambulates at least 150' with a rolling walker with CGA/SBA, and can go up and down 4 steps using 2 handrails with CGA/SBA. Patient has been discharged from this facility and will be discharged from PT at this time. Occupational Therapy Impaired Cognition, Impaired Self-Care Skills PT Skilled Nursing Goals Skilled Nursing Goals PT Electric Motor Mechanic Goals Time Frame: Oct 29, 2021 Roll Left to Right (QC): 6 Sit to Lying (QC): 6 Lying-Sitting on Side/Bed(QC): 6 Sit to Stand (QC): 5 Chair/Dxv-er-Iqfig Xfer(QC): 5 Car Transfer (QC): 5 Does the Patient Walk: Yes Walk 10 feet (QC): 5 Walk 10ft-Uneven Surface(QC): 5 Walk 50ft with 2 Turns (QC): 5 Walk 150 ft (QC): 5 Wheel 50 feet with 2 turns (QC: 9 1 Step (curb) (QC): 4 4 Steps (QC): 4 12 Steps (QC): 4 Picking up an Object (QC): 5 OT Skilled Nursing Goals Electric Motor Mechanic Goals Time Frame: Oct 30, 2021 Eating (QC): 6 (met) Oral Hygiene (QC): 6 (et) Shower/Bathe Self (QC): 6 (met) Upper Body Dressing (QC): 6 (not met) Lower Body Dressing (QC): 6 (not met) On/Off Footwear (QC): 6 (not met) Toileting Hygiene (QC): 6 (met) Toilet/Commode Transfer (QC): 5 Additional Goals: 1-Demonstrate ADL Tasks, 2-Verbalize Understanding, 3- ImproveStrength/Helen 1=Demonstrate adherence to instructed precautions during ADL tasks. 2=Patient will verbalize/demonstrate understanding of assistive devices/modifications for ADL. 3=Patient will improve strength/tolerance for activity to enable patient to perform ADL's. TYRESE LEÓN PT Oct 15, 2021 13:06
--- NOTE | 2021-10-15 14:29 | Therapy Team Discharge Summary ---
Therapy Discharge Summary Discharge Recommendations Date of Discharge Oct 15, 2021 at 10:40 Occupational Therapy Pt admitted to ARU s/p CVA. At PLOF pt independent with ADLs and functional mo bility, no AD. Upon initial evaluation, pt required SBA with eating, oral care, showering, upper body dressing, lower body dressing, max A footwear, and CGA toileting. OT Tx focused on increasing BUE strength and activity tolerance and increasing safety, independence with ADLs and functional mobility, visual attention/scanning, problem solving, 1-2 step directions, and safety awareness. At discharge, pt was independent with eating, oral care, showering, and toileting, required set up assistance with footwear, and SBA with upper/lower body dressing. Goals addressed, but not all goals attained. Pt discharged from facility, d/c from OT. Impaired Cognition, Impaired Self-Care Skills PT Residential Goals Nursing Clinical Director Goals PT Residential Goals Time Frame: Oct 29, 2021 Roll Left to Right (QC): 6 Sit to Lying (QC): 6 Lying-Sitting on Side/Bed(QC): 6 Sit to Stand (QC): 5 Chair/Kpd-kt-Eoevl Xfer(QC): 5 Car Transfer (QC): 5 Does the Patient Walk: Yes Walk 10 feet (QC): 5 Walk 10ft-Uneven Surface(QC): 5 Walk 50ft with 2 Turns (QC): 5 Walk 150 ft (QC): 5 Wheel 50 feet with 2 turns (QC: 9 1 Step (curb) (QC): 4 4 Steps (QC): 4 12 Steps (QC): 4 Picking up an Object (QC): 5 OT Nursing Clinical Director Goals Nursing Clinical Director Goals Time Frame: Oct 30, 2021 Eating (QC): 6 (met) Oral Hygiene (QC): 6 (et) Shower/Bathe Self (QC): 6 (met) Upper Body Dressing (QC): 6 (not met) Lower Body Dressing (QC): 6 (not met) On/Off Footwear (QC): 6 (not met) Toileting Hygiene (QC): 6 (met) Toilet/Commode Transfer (QC): 5 Additional Goals: 1-Demonstrate ADL Tasks, 2-Verbalize Understanding, 3- ImproveStrength/Helen 1=Demonstrate adherence to instructed precautions during ADL tasks. 2=Patient will verbalize/demonstrate understanding of assistive devices/modifications for ADL. 3=Patient will improve strength/tolerance for activity to enable patient to perform ADL's. SHELLEY PALOMO OT Oct 15, 2021 14:29
== END 2021-10-15 10:40 | disposition home health service (06) | DRG 57 ==
PROVIDERS: ADMIT Internal Medicine; ATTEND Internal Medicine
DX: I69.354 Hemiplegia and hemiparesis following cerebral infarction affecting left non-dominant side (principal); I69.351 Hemiplegia and hemiparesis following cerebral infarction affecting right dominant side; R41.4 Neurologic neglect syndrome; I48.20 Chronic atrial fibrillation, unspecified; R47.01 Aphasia; I69.320 Aphasia following cerebral infarction; I69.398 Other sequelae of cerebral infarction; H53.451 Other localized visual field defect, right eye; R33.9 Retention of urine, unspecified; R31.9 Hematuria, unspecified; I25.10 Atherosclerotic heart disease of native coronary artery without angina pectoris; E78.00 Pure hypercholesterolemia, unspecified; I10 Essential (primary) hypertension; K21.9 Gastro-esophageal reflux disease without esophagitis; K57.90 Diverticulosis of intestine, part unspecified, without perforation or abscess without bleeding; M19.91 Primary osteoarthritis, unspecified site; E11.9 Type 2 diabetes mellitus without complications; E03.9 Hypothyroidism, unspecified; M10.9 Gout, unspecified; Z79.01 Long term (current) use of anticoagulants; Z79.4 Long term (current) use of insulin; Z79.84 Long term (current) use of oral hypoglycemic drugs
CPT/HCPCS: 36415; 80053; 82947; 85025; 94664

== ENCOUNTER 2021-11-12 09:46 | Outpatient (RCR) | payer MEDICARE ==
[~2021-11-12 09:46] MED LIST changes: -ALPRAZolam 0.25 MG (XANAX) TAB PO PRN; -BISACODYL 10 MG SUPP (DULCOLAX) PR PRN; +BTH10T PO; -CALCIUM CARBONATE 500 MG (TUMS) TAB.CHEW PO PRN; -DOCUSATE SODIUM 100 MG (COLACE) CAP PO PRN; -FLEET ENEMA ADULT 1 EA BTL PR PRN; -LACTULOSE SYRUP 10GM/15ML (ENULOSE) 30ML UDC PO PRN; -LOPERAMIDE 2 MG (IMODIUM) TABLET PO PRN; -MELATONIN 3 MG TABLET PO PRN; +MTP100TCR PO; -ONDANSETRON 4 MG (ZOFRAN) ORAL DISSOLVE TAB PO PRN; -diphenhydrAMINE 25 MG TAB (BENADRYL) PO PRN; -guaiFENesin/CODEINE (ROBITUSSIN AC) 10ML UDC PO PRN
[2021-11-12 10:01] LABS: ABSOLUTE RETIC # 67 10e9/uL (24-90); BASOPHILS # (AUTO) 0.1 10^3/uL (0.0-0.1); BASOPHILS % (AUTO) 1 % (0-10); EOSINOPHILS # (AUTO) 0.6 10^3/uL (0.0-0.3); EOSINOPHILS % (AUTO) 7 % (0-10); HEMATOCRIT 37 % (35-52); HEMOGLOBIN 11.8 g/dL (11.5-16.0); LYMPHOCYTES % (AUTO) 11 % (12-44); MEAN CORPUSCULAR HEMOGLOBIN 30 pg (25-34); MEAN CORPUSCULAR HGB CONC 32 g/dL (32-36); MEAN CORPUSCULAR VOLUME 94 fL (80-99); MEAN PLATELET VOLUME 11.3 fL (9.0-12.2); MONOCYTES # (AUTO) 0.6 10^3/uL (0.0-1.0); MONOCYTES % (AUTO) 7 % (0-12); NEUTROPHILS # (AUTO) 6.3 10^3/uL (1.8-7.8); NEUTROPHILS % (AUTO) 74 % (42-75); PLATELET COUNT 318 10^3/uL (130-400); RETICULOCYTE % 1.68 % (0.50-2.40); WHITE BLOOD COUNT 8.6 10^3/uL (4.3-11.0)
[2021-11-12 10:34] LABS: ALBUMIN 3.7 GM/DL (3.2-4.5); BILIRUBIN,TOTAL 0.8 MG/DL (0.1-1.0); CALCIUM 9.4 MG/DL (8.5-10.1); CREATININE SERUM 1.31 MG/DL (0.60-1.30); POTASSIUM 4.4 MMOL/L (3.6-5.0); TOTAL PROTEIN 7.8 GM/DL (6.4-8.2)
[2021-11-12] MEDS ORDERED: CYANOCOBALAMIN INJ 1000 MCG/ML (CANCER CENTER) ONE (10:34)
== END 2021-12-07 | disposition home or self-care (01) ==
LOC: ONC 09:46
PROVIDERS: ATTEND Internal Medicine Hematology & Oncology
DX: D51.9 Vitamin B12 deficiency anemia, unspecified (principal); E11.22 Type 2 diabetes mellitus with diabetic chronic kidney disease; D61.818 Other pancytopenia; I12.9 Hypertensive chronic kidney disease with stage 1 through stage 4 chronic kidney disease, or unspecified chronic kidney disease; N18.30 Chronic kidney disease, stage 3 unspecified; I48.20 Chronic atrial fibrillation, unspecified; Z79.899 Other long term (current) drug therapy
CPT/HCPCS: 80053; 82728; 83921; 85025; 85045; 96372; G0463; 99213

== ENCOUNTER 2021-12-17 12:28 | Inpatient (IN) | payer MEDICARE ==
[~2021-12-17] VITALS: Ht 157 cm; Wt 92.5 kg
[2021-12-17 13:00] LABS: BASOPHILS # (AUTO) 0.1 10^3/uL (0.0-0.1); BASOPHILS % (AUTO) 1 % (0-10); EOSINOPHILS # (AUTO) 0.3 10^3/uL (0.0-0.3); EOSINOPHILS % (AUTO) 3 % (0-10); HEMATOCRIT 40 % (35-52); HEMOGLOBIN 12.8 g/dL (11.5-16.0); LYMPHOCYTES # (AUTO) 1.4 10^3/uL (1.0-4.0); LYMPHOCYTES % (AUTO) 14 % (12-44); MEAN CORPUSCULAR HEMOGLOBIN 29 pg (25-34); MEAN CORPUSCULAR HGB CONC 32 g/dL (32-36); MEAN CORPUSCULAR VOLUME 91 fL (80-99); MONOCYTES # (AUTO) 0.8 10^3/uL (0.0-1.0); MONOCYTES % (AUTO) 8 % (0-12); NEUTROPHILS # (AUTO) 7.4 10^3/uL (1.8-7.8); NEUTROPHILS % (AUTO) 74 % (42-75); PLATELET COUNT 342 10^3/uL (130-400)
--- NOTE | 2021-12-17 13:00 | ED Neurological Problem ---
General Stated Complaint: BEHAVIOR CHANGE/CONFUSION Source: family (daughter), old records Exam Limitations: clinical condition History of Present Illness Date Seen by Provider: Dec 17, 2021 Time Seen by Provider: 12:34 Initial Comments Patient is an 81-year-old female who presents to the emergency department today with a chief complaint of increasing confusion/worsening aphasia over the last 3 days. Her daughter brings her into the emergency department and provides the majority of the history as the patient is not reliable secondary to her confusion and aphasia. Reportedly the patient had 2 ischemic strokes right around [facility]. It sounds like she did receive TPA and had clot retrieval from a carotid artery. Subsequent to that she had a cerebral stroke. She also sounds like she had clot retrieval for that stroke as well. She has chronic atrial fibrillation. She was started back on her Eliquis just before leaving , spent a week in rehab and up until 3 days ago has been doing very well. Minimal aphasia. Able to take care of her own ADLs. Able to play on "[employer]". Her daughter does state that occasionally she has some trouble but for the most part has been recovering. No recent fevers, chills, cough or congestion. No urinary complaints as far as the daughter is aware. Her daughter and primarily make sure that she takes her medications. She went to her primary care doctor's office, Dr. Vaughn this morning for routine visit and was sent here. Daughter reports that her blood pressure was in the 140s to 160s at Dr. Vaughn's office her systolic is 200 here. According to the daughter she has been complaining of a headache for the last 2 days. No complaints of falls or trauma/head injuries. Daughter was concerned that potentially she had a urinary tract infection, she reports that Dr. Vaughn's office checked her urine and it was clean. All other review of systems reviewed and negative except as stated Timing/Duration: other (3 days) Severity: moderate Associated Symptoms: confusion (aphasia) Allergies and Home Medications Allergies Coded Allergies: No Known Drug Allergies (Unverified , 02/19/13) Patient Home Medication List Home Medication List Reviewed: Yes Acetaminophen (Tylenol) 325 Mg Tablet, 650 MG PO Q4H PRN for PAIN-MILD (1-4), (Reported) Entered as Reported by: ERNESTO MELTON on 09/29/21 1127 Last Action: Reviewed Allopurinol (Allopurinol) 100 Mg Tablet, 100 MG PO BID, (Reported) Entered as Reported by: ERNESTO MELTON on 12/18/211021 Last Action: Reviewed Atorvastatin Calcium (Atorvastatin Calcium) 80 Mg Tablet, 80 MG PO HS, (Reported) Entered as Reported by: ERNESTO MELTON on 12/18/211021 Last Action: Reviewed Bethanechol Chloride (Urecholine) 10 Mg Tablet, 10 MG PO ACHS, (Reported) Entered as Reported by: ERNESTO MELTON on 12/18/211021 Last Action: Reviewed Cyanocobalamin (Cyanocobalamin Injection) 1,000 Mcg/Ml Inj, 1,000 MCG IM MONTHLY, (Reported) Entered as Reported by: ERNESTO METLON on 09/29/21 112 Last Action: Reviewed Ferrous Sulfate (Iron) 325 Mg Tablet, 325 MG PO HS, (Reported) Entered as Reported by: ERNESTO MELTON on 12/18/211021 Last Action: Reviewed Gabapentin (Neurontin) 300 Mg Capsule, 300 MG PO DAILY, (Reported) Entered as Reported by: ERNESTO MELTON on 12/18/211021 Last Action: Reviewed Levothyroxine Sodium (Levothyroxine Sodium) 75 Mcg Tablet, 75 MCG PO DAILY, (Reported) Entered as Reported by: ERNESTO MELTON on 12/18/211021 Last Action: Reviewed Liraglutide (Victoza 2-Sanket) 0.6 Mg/0.1 Ml Pen.injctr, 1.2 MG SQ 1200, (Reported) Entered as Reported by: ERNESTO MELTON on 12/18/211021 Last Action: Reviewed Metformin HCl (Metformin HCl ER) 500 Mg Tab.er.24, 500 MG PO DAILY, (Reported) Entered as Reported by: ERNESTO MELTON on 12/18/211021 Last Action: Reviewed Metoprolol Succinate (Metoprolol Succinate) 50 Mg Tab.er.24h, 50 MG PO HS, (Reported) Entered as Reported by: ERNESTO MELTON on 12/18/211021 Last Action: Reviewed Metoprolol Succinate (Metoprolol Succinate) 100 Mg Tab.er.24h, 100 MG PO DAILY, (Reported) Entered as Reported by: ERNESTO MELTON on 12/18/211021 Last Action: Reviewed Olmesartan Medoxomil (Olmesartan Medoxomil) 20 Mg Tablet, 20 MG PO DAILY, (Reported) Entered as Reported by: ERNESTO MELTON on 12/18/211022 Last Action: Reviewed Pantoprazole Sodium (Pantoprazole Sodium) 40 Mg Tablet.dr, 40 MG PO DAILY, (Reported) Entered as Reported by: ERNESTO MELTON on 12/18/21 102 Last Action: Reviewed Venlafaxine HCl (Venlafaxine HCl ER) 150 Mg Cap.er.24h, 150 MG PO DAILY, (Rep orted) Entered as Reported by: ERNESTO MELTON on 12/18/21 102 Last Action: Reviewed Discontinued Medications Allopurinol (Allopurinol) 100 Mg Tablet, 100 MG PO BID Discontinued Reason: Duplicate Order Prescribed by: NKECHI VO on 10/14/212052 Last Action: Discontinued Apixaban (Eliquis) 5 Mg Tablet, 5 MG PO BID Discontinued Reason: Duplicate Order Prescribed by: NKECHI VO on 10/14/212052 Last Action: Discontinued Apixaban (Eliquis) 5 Mg Tablet, 5 MG PO BID, (Reported) Discontinued Reason: Provider Ok'd Entered as Reported by: ERNESTO MELTON on 12/18/211021 Last Action: Reviewed Atorvastatin Calcium (Atorvastatin Calcium) 80 Mg Tablet, 80 MG PO DAILY Discontinued Reason: No Longer Taking Prescribed by: NKECHI VO on 10/14/212052 Last Action: Discontinued Bethanechol Chloride (Urecholine) 10 Mg Tablet, 10 MG PO ACHS Discontinued Reason: No Longer Taking Prescribed by: NKECHI VO on 10/14/212052 Last Action: Discontinued Gabapentin (Neurontin) 300 Mg Capsule, 300 MG PO DAILY Discontinued Reason: Duplicate Order Prescribed by: NKECHI VO on 10/14/212052 Last Action: Discontinued Levothyroxine Sodium (Levothyroxine Sodium) 75 Mcg Tablet, 75 MCG PO DAILY Discontinued Reason: Duplicate Order Prescribed by: NKECHI VO on 10/14/212052 Last Action: Discontinued Metformin HCl (Metformin HCl ER) 500 Mg Tab.er.24h, 500 MG PO DAILY Discontinued Reason: Duplicate Order Prescribed by: NKECHI VO on 10/14/212052 Last Action: Discontinued Metoprolol Succinate (Metoprolol Succinate) 50 Mg Tab.er.24h, 50 MG PO HS Discontinued Reason: Duplicate Order Prescribed by: NKECHI VO on 10/14/212052 Last Action: Discontinued Metoprolol Succinate (Metoprolol Succinate) 100 Mg Tab.er.24h, 100 MG PO DAILY Discontinued Reason: Duplicate Order Prescribed by: NKECHI VO on 10/14/212052 Last Action: Discontinued Olmesartan Medoxomil (Olmesartan Medoxomil) 20 Mg Tablet, 20 MG PO DAILY Discontinued Reason: Duplicate Order Prescribed by: NKECHI VO on 10/14/212052 Last Action: Discontinued Olmesartan Medoxomil (Olmesartan Medoxomil) 40 Mg Tablet, 40 MG PO DAILY, (Reported) Discontinued Reason: Prescription changed Entered as Reported by: ERNESTO MELTON on 12/18/21 1022 Last Action: New Order Pantoprazole Sodium (Pantoprazole Sodium) 40 Mg Tablet.dr, 40 MG PO DAILY Discontinued Reason: Duplicate Order Prescribed by: NKECHI VO on 10/14/212052 Last Action: Discontinued Venlafaxine HCl (Venlafaxine HCl ER) 150 Mg Cap.er.24h, 150 MG PO DAILY Discontinued Reason: Duplicate Order Prescribed by: NKECHI VO on 10/14/212052 Last Action: Discontinued Review of Systems Review of Systems Constitutional: see HPI Gastrointestinal: other ("choked on pills this morning and chips yestrday") Genitourinary: no symptoms reported Musculoskeletal: no symptoms reported Skin: no symptoms reported Psychiatric/Neurological: Weakness (aphasia significatly worsening in the last 3 days) All Other Systems Reviewed Negative Unless Noted: Yes Past Kyhhigq-Zwsbfg-Czhunh Hx Immunizations Up To Date First/Initial COVID19 Vaccinat: 12/2020 Second COVID19 Vaccination Maninder: 01/2021 Third COVID19 Vaccination Date: 09/29/2021 Past Medical History Surgeries: Yes (SEE BELOW) Eye Surgery, Gallbladder, Hysterectomy, Joint Replacement, Oophorectomy, Orthopedic, Vascular Surgery Respiratory: No Cardiac: Yes (CAROTID DISEASE) Atrial Fibrillation, Coronary Artery Disease, Heart Attack, High Cholesterol, Hypertension, Peripheral Vascular Neurological: Yes Headaches /Migraines, Stroke 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 Disorders: No 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: Hysterectomy, Menopausal Genitourinary: No Gastrointestinal: Yes Gastroesophageal Reflux, Diverticulosis Musculoskeletal: Yes (BILATERAL TOTAL KNEE REPLACEMENT: CERVICAL SPINE SURGERY) Degenerate Disk Disease, Arthritis Endocrine: Yes Diabetes, Insulin dep, Hypothyroidsim HEENT: Yes Cataract Cancer: No Psychosocial: No Integumentary: No Blood Disorders: Yes (ANEMIA) Family Medical History No Pertinent Family Hx SOCIAL HISTORY: -NO SMOKING -NO ETOH -NO DRUGS PAST SURGICAL HISTORY: -LEFT CAROTID ENDARTERECTOMY -HYSTERECTOMY WITH RIGHT SALPINGO-OOPHORECTOMY -BILATERAL CATARACT SURGERY -CERVICAL SPINE SURGERY -BILATERAL TOTAL KNEE REPLACEMENT -CHOLECYSTECTOMY -EGD/COLONOSCOPY 02/[address] PITT Physical Exam Vital Signs Vital Signs - First Documented 12/17/21 12:30 Temp 36.4 Pulse 76 Resp 18 B/P (MAP) 212/108 (142) Pulse Ox 98 Capillary Refill : Height, Weight, BMI Height: 5'3.00" Weight: 225lbs. oz. 101.758503wq; 39.06 BMI Method:Estimated General Appearance: WD/WN, no apparent distress HEENT: PERRL/EOMI, pharynx normal Neck: normal inspection Respiratory: lungs clear, normal breath sounds, no respiratory distress, no accessory muscle use Cardiovascular: irregularly irregular (60's) Peripheral Pulses: 1+ Radial Pulses (R), 1+ Radial Pulses (L) Gastrointestinal: normal bowel sounds, non tender, soft Extremities: normal range of motion, non-tender, normal inspection, pedal edema (1-2+ pitting edema bilateral LE) Neurologic/Psychiatric: alert, motor weakness (appropriate hand strength bilateraly; cannot really follow commnads to push and pull. has LE weakness - cannot keep legs elevated (not sure she understands the instruction) will not dorsiflex feet; uncertain sensory exam to light touch - (she states "I dont know" when asked if one side feels the same as the other)), other (flat affect; no slurred speech; signiifcant receptive aphasia, also expressive aphasia) Crainal Nerves: normal hearing, normal speech, PERRL; No abnormal eye position Coordination/Gait: other (difficulty following commands) Skin: normal color, warm/dry Stroke NIH Stroke Scale Assessment Gaze: Normal (0), Total: Stroke Thrombolytic Exclusion Age 18 or Over: Yes Acute intenal hemorrhage: No History of CVA: Yes Uncontrolled Coagulation Defec: No Intracranial Hemorrhage: No Severe Hypertension: No GI or Bleed: No Subarachnoid Hemorrhage: No Intracranial Neoplasm/Aneurysm: No Oral Anticoagulants: Yes Surgery or Trauma: No Puncture of Non-Compressible V: No Recent CPR: No Diabetic Hemorrhagic Retinopat: No Organ Biopsy: No Recent Obstetric Delivery: No Glucose: No Significant Hepatic Dysfunctio: No NIH Stoke Scale >22: No Bacterial Endocarditis: No Pericarditis: No Improving Symptoms: Yes Platelets: No Progress/Results/Core Measures Results/Orders Lab Results Laboratory Tests Test 12/17/21 12:53 12/17/21 13:00 Range/Units White Blood Count 10.0 4.3-11.0 10^3/uL Red Blood Count 4.42 3.80-5.11 10^6/uL Hemoglobin 12.8 11.5-16.0 g/dL Hematocrit 40 35-52 % Mean Corpuscular Volume 91 80-99 fL Mean Corpuscular Hemoglobin 29 25-34 pg Mean Corpuscular Hemoglobin Concent 32 32-36 g/dL Red Cell Distribution Width 14.6 H 10.0-14.5 % Platelet Count 342 130-400 10^3/uL Mean Platelet Volume 11.0 9.0-12.2 fL Immature Granulocyte % (Auto) 0 % Neutrophils (%) (Auto) 74 42-75 % Lymphocytes (%) (Auto) 14 12-44 % Monocytes (%) (Auto) 8 0-12 % Eosinophils (%) (Auto) 3 0-10 % Basophils (%) (Auto) 1 0-10 % Neutrophils # (Auto) 7.4 1.8-7.8 10^3/uL Lymphocytes # (Auto) 1.4 1.0-4.0 10^3/uL Monocytes # (Auto) 0.8 0.0-1.0 10^3/uL Eosinophils # (Auto) 0.3 0.0-0.3 10^3/uL Basophils # (Auto) 0.1 0.0-0.1 10^3/uL Immature Granulocyte # (Auto) 0.0 0.0-0.1 10^3/uL Prothrombin Time 20.8 H 12.2-14.7 SEC INR Comment 1.7 H 0.8-1.4 Activated Partial Thromboplast Time 39 H 24-35 SEC D-Dimer 0.30 0.00-0.49 UG/ML Sodium Level 137 135-145 MMOL/L Potassium Level 3.7 3.6-5.0 MMOL/L Chloride Level 101 98-107 MMOL/L Carbon Dioxide Level 22 21-32 MMOL/L Anion Gap 14 5-14 MMOL/L Blood Urea Nitrogen 15 7-18 MG/DL Creatinine 1.16 0.60-1.30 MG/DL Estimat Glomerular Filtration Rate 48 BUN/Creatinine Ratio 13 Glucose Level 110 H 70-105 MG/DL Calcium Level 9.7 8.5-10.1 MG/DL Corrected Calcium 9.9 8.5-10.1 MG/DL Total Bilirubin 1.1 H 0.1-1.0 MG/DL Aspartate Amino Transf (AST/SGOT) 18 5-34 U/L Alanine Aminotransferase (ALT/SGPT) 6 0-55 U/L Alkaline Phosphatase 112 40-136 U/L Troponin I < 0.028 <0.028 NG/ML Total Protein 8.1 6.4-8.2 GM/DL Albumin 3.8 3.2-4.5 GM/DL Urine Color YELLOW Urine Clarity CLEAR Urine pH 6.0 5-9 Urine Specific Ralls 1.010 L 1.016-1.022 Urine Protein TRACE H NEGATIVE Urine Glucose (UA) NEGATIVE NEGATIVE Urine Ketones NEGATIVE NEGATIVE Urine Nitrite NEGATIVE NEGATIVE Urine Bilirubin NEGATIVE NEGATIVE Urine Urobilinogen 0.2 < = 1.0 MG/DL Urine Leukocyte Esterase 1+ H NEGATIVE Urine RBC (Auto) 2+ H NEGATIVE Urine RBC RARE /HPF Urine WBC 2-5 /HPF Urine Squamous Epithelial Cells 5-10 /HPF Urine Crystals NONE /LPF Urine Bacteria TRACE /HPF Urine Casts NONE /LPF Urine Mucus NEGATIVE /LPF Urine Culture Indicated NO My Orders Orders - TAMMY FARLEY MD Cbc With Automated Diff (12/17/21 12:52) Protime With Inr (12/17/21 12:52) Partial Thromboplastin Time (12/17/21 12:52) Comprehensive Metabolic Panel (12/17/21 12:52) Fibrin Degradation Products (12/17/21 12:52) Troponin I Mine (12/17/21 12:52) Ua Culture If Indicated (12/17/21 12:52) Chest 1 View, Ap/Pa Only (12/17/21 12:52) Ekg Tracing (12/17/21 12:52) Nothing By Mouth (12/17/21 Lunch) Accucheck Stat ONCE (12/17/21 12:52) Ed Iv/Invasive Line Start (12/17/21 12:52) Ed Iv/Invasive Line Start (12/17/21 12:52) Vital Signs Stroke Patient Q15M (12/17/21 12:52) Ct Head Wo-R/O Stroke (12/17/21 12:52) O2 (12/17/21 12:52) Intake & Output ,14,22 (12/17/21 12:52) Monitor-Rhythm Ecg Trace Only (12/17/21 12:52) Dysphagia Screening Tool (12/17/21 12:52) Post Thrombolytic Adminstratio (12/17/21 12:52) Lipid Panel (12/18/21 06:00) Ct Angio Head/Neck (12/17/21 14:16) Ns Iv 1000 Ml (Sodium Chloride 0.9%) (12/17/21 14:30) Iohexol Injection (Omnipaque 350 Mg/Ml 1 (12/17/21 14:45) Received Contrast (Hold Metformin- Contr (12/17/21 14:45) Ns (Ivpb) (Sodium Chloride 0.9% Ivpb Bag (12/17/21 14:45) Ondansetron Injection (Zofran Injectio (12/17/21 15:00) Ondansetron Injection (Zofran Injectio (12/17/21 15:01) Ed Admission (Communication) (12/17/21 16:29) Medications Given in ED Vital Signs/I&O 12/17/21 12:30 Temp 36.4 Pulse 76 Resp 18 B/P (MAP) 212/108 (142) Pulse Ox 98 Admisison Planning May Need Admission (Planning): 14:25 Progress Progress Note #1: Time: 14:[address] Angio's ordered. Patient re-assessed and is the same. Still "inattentive" to LUE. Will not follow commands with the LUE or acknowledge it. Once I garb her hand however, she will squeeze. She has great strength RUE. Still will not lift bilateral LE. Seems to understand (?) yes and no questions... Progress Note #2: Time: 15:53 Progress Note Images uploaded to [facility]. I spoke with Dr. Cardoza, neurology. He said etiologies for new onset/worsening symptoms to consider would be an infection that may be causing old symptoms to return, and new onset tiny stroke not visualized on CT or possibly new onset seizure disorder causing symptoms. We talked about the fact that her laboratory evaluation today is negative so therefore infection is not really at the top of the list. There was no mention of seizure-like activity by the daughter therefore that is likely low as well. Suspect new small stroke not able to be vsualised on CT. discussed with Dr Vo, she would like repeat MRI Brain without contrast from the ER before accepting to inpatient status. Progress Note #3: Time: 16:35 Progress Note Went to advise daughter that patient would be admitted overnight in the ICU. Nursing had gotten her up to the bedside commode of which she was able to do with assistance. Her nurse, JOHN Zhong stated that she was moving her left arm a lot more and was able to button her own pants. She seems more alert at this time according to nursing staff. e-ICU consult made @ this time; Still waaiting to talk to Cardiology, Dr Hurtado Progress Note #4: Time: 16:[address] Hurtado notified of consult Initial ECG Impression Date: Dec 17, 2021 Initial ECG Impression Time: 13:15 Initial ECG Rate: 74 Initial ECG Rhythm: A Fib/Flutter Initial ECG Impression: Atrial Fibrillation Diagnostic Imaging Diagonstic Imaging: Xray, CT Plain Films/CT/US/NM/MRI: chest Comments [facility]. [place], [place] NAME: GOLDY SHIPLEY [facility] REC#: [id number] PT STATUS: REG ER : 1940 PHYSICIAN: TAMMY FARLEY MD ADMIT DATE: 12/17/21/ER Draft Date of Exam:12/17/21 CHEST 1 VIEW, AP/PA ONLY INDICATION: Stroke-like symptoms. COMPARISON: 09/22/2021. FINDINGS: Single frontal radiographic view of the chest was obtained and demonstrates mild cardiomegaly. There is also mild prominence of the pulmonary vasculature and slight diffuse prominence of the interstitium. There is no large effusion or pneumothorax. Osseous structures show no gross acute abnormalities. IMPRESSION: 1. Mild cardiomegaly and pulmonary vascular congestion. 2. Mild prominence of the interstitium; suspect pulmonary edema. Dictated on workstation # [id number] Dict: 12/17/21 1326 Trans: 12/17/21 1329 [id number] Interpreted by: GRACE GALLAGHER MD Electronically signed by: [facility] [place] NAME: GOLDY SHIPLEY [facility] REC#: [id number] PT STATUS: REG ER : 1940 PHYSICIAN: TAMMY FARLEY MD ADMIT DATE: 12/17/21/ER Draft Date of Exam:12/17/21 CT HEAD WO-R/O STROKE CLINICAL INDICATION: Patient with behavior change, confusion, neuro deficit. Patient has headaches x2-3 days and trouble swallowing x2. Patient has history of recent strokes. EXAM: Axial CT scan of the brain performed without IV contrast. High-resolution axial CT brain images with sagittal and coronal reformations were also created. Auto Exposure Controls were utilized during the CT exam to meet ALARA standards for radiation dose reduction. COMPARISON: CT angiogram of the head/neck dated 10/03/2021. FINDINGS: There is interval progression of a small area of chronic appearing encephalomalacia involving the right frontal lobe anterior insular region. There is progression of circumscribed focal low density involving the right frontal lobe likely related to progression of now chronic infarct changes. There is interval progression of chronic encephalomalacia involving the adwjl-gd-uqvatyhj infarct involving the left parietal region, which has evolved from the prior head CT. There are no new areas of acute cerebral infarct. There is no evidence of hemorrhagic transformation or intracranial hemorrhage. There is diffuse brain parenchymal volume loss. There is no hydrocephalus, brain herniation, or midline shift. Basal cisterns are unremarkable. There is no dense vessel sign seen. The extracranial soft tissue, skull, and orbits are unremarkable. The paranasal sinuses and mastoid air cells are clear. IMPRESSION: 1: There is no dense vessel sign seen. There is no definite CT evidence of interval acute cerebral infarction, intracranial hemorrhage, or mass seen. The diffuse low attenuation changes throughout the brain parenchyma may possibly obscure more subtle findings. If there is clinical concern for acute cerebral infarction, MRI of the brain would better evaluate. 2: There is interval progression of chronic appearing encephalomalacia involving the left parietal lobe and right frontal lobe regions. There is no evidence of hemorrhagic transformation. Results of this report were discussed with Dr. Farley via the telephone on 12/17/2021 at 1402 hours. Dictated on workstation # [id number] Dict: 12/17/21 1351 Trans: 12/17/21 1408 [id number] Interpreted by: TORIBIO IBANEZ MD Electronically signed by: CT Read Date: Dec 17, 2021 CT Read Time: 14:00 CT Results/Progress Notes no bleed no obvious new infarcts Departure Communication (Admissions) Time/Spoke to Admitting Phy: 15:[address] Vo Impression Primary Impression: Chronic atrial fibrillation Additional Impression: Expressive aphasia Disposition: ADMITTED INPATIENT Condition: Stable Admissions Decision to Admit Reason: Admit from ER (General) Decision to Admit/Date: Dec 17, 2021 Time/Decision to Admit Time: 16:27 Departure-Patient Inst. Referrals: NICOLE VAUGHN DO (PCP/Family) Primary Care Physician TAMMY FARLEY MD Dec 17, 2021 13:00
[2021-12-17 13:06] LABS: BILIRUBIN,URINE NEGATIVE (NEGATIVE); CLARITY,URINE CLEAR; COLOR,URINE YELLOW; GLUCOSE, URINE (UA) NEGATIVE (NEGATIVE); KETONES,URINE NEGATIVE (NEGATIVE); LEUKOCYTE ESTERASE ,URINE 1+ (NEGATIVE); NITRITE,URINE NEGATIVE (NEGATIVE); PROTEIN,URINE TRACE (NEGATIVE)
[2021-12-17 13:08] LABS: ALBUMIN 3.8 GM/DL (3.2-4.5); CHLORIDE 101 MMOL/L (98-107); POTASSIUM 3.7 MMOL/L (3.6-5.0); SODIUM 137 MMOL/L (135-145)
[2021-12-17 13:10] LABS: CALCIUM 9.7 MG/DL (8.5-10.1)
[2021-12-17 13:11] LABS: GLUCOSE 110 MG/DL (70-105); TOTAL PROTEIN 8.1 GM/DL (6.4-8.2)
[2021-12-17 13:12] LABS: BILIRUBIN,TOTAL 1.1 MG/DL (0.1-1.0); CARBON DIOXIDE 22 MMOL/L (21-32)
[2021-12-17 13:14] LABS: BACTERIA,URINE TRACE /HPF; RBC,URINE RARE /HPF
[2021-12-17 13:14] LABS: ALKALINE PHOSPHATASE 112 U/L (40-136); CREATININE SERUM 1.16 MG/DL (0.60-1.30); FIBRIN DEGRADATION PRODUCTS 0.3 UG/ML (0.00-0.49); GFR ESTIMATED 48; INR 1.7 (0.8-1.4); PROTHROMBIN TIME PATIENT 20.8 SEC (12.2-14.7)
[2021-12-17 13:15] LABS: BUN/CREATININE RATIO 13
[2021-12-17 13:17] LABS: ALANINE AMINOTRANSFERASE 6 U/L (0-55)
--- NOTE | 2021-12-17 13:30 | Diagnostic Imaging Report ---
INDICATION: Stroke-like symptoms. COMPARISON: 09/22/2021. FINDINGS: Single frontal radiographic view of the chest was obtained and demonstrates mild cardiomegaly. There is also mild prominence of the pulmonary vasculature and slight diffuse prominence of the interstitium. There is no large effusion or pneumothorax. Osseous structures show no gross acute abnormalities. IMPRESSION: 1. Mild cardiomegaly and pulmonary vascular congestion. 2. Mild prominence of the interstitium; suspect pulmonary edema. Dictated by: Dictated on workstation # [id number]
--- NOTE | 2021-12-17 14:08 | Diagnostic Imaging Report ---
CLINICAL INDICATION: Patient with behavior change, confusion, neuro deficit. Patient has headaches x2-3 days and trouble swallowing x2. Patient has history of recent strokes. EXAM: Axial CT scan of the brain performed without IV contrast. High-resolution axial CT brain images with sagittal and coronal reformations were also created. Auto Exposure Controls were utilized during the CT exam to meet ALARA standards for radiation dose reduction. COMPARISON: CT angiogram of the head/neck dated 10/03/2021. FINDINGS: There is interval progression of a small area of chronic appearing encephalomalacia involving the right frontal lobe anterior insular region. There is progression of circumscribed focal low density involving the right frontal lobe likely related to progression of now chronic infarct changes. There is interval progression of chronic encephalomalacia involving the usyxg-wf-ebihswzo infarct involving the left parietal region, which has evolved from the prior head CT. There are no new areas of acute cerebral infarct. There is no evidence of hemorrhagic transformation or intracranial hemorrhage. There is diffuse brain parenchymal volume loss. There is no hydrocephalus, brain herniation, or midline shift. Basal cisterns are unremarkable. There is no dense vessel sign seen. The extracranial soft tissue, skull, and orbits are unremarkable. The paranasal sinuses and mastoid air cells are clear. IMPRESSION: 1: There is no dense vessel sign seen. There is no definite CT evidence of interval acute cerebral infarction, intracranial hemorrhage, or mass seen. The diffuse low attenuation changes throughout the brain parenchyma may possibly obscure more subtle findings. If there is clinical concern for acute cerebral infarction, MRI of the brain would better evaluate. 2: There is interval progression of chronic appearing encephalomalacia involving the left parietal lobe and right frontal lobe regions. There is no evidence of hemorrhagic transformation. Results of this report were discussed with Dr. Farley via the telephone on 12/17/2021 at 1402 hours. Dictated by: Dictated on workstation # [id number]
[2021-12-17] MEDS ORDERED: NS IV 1000 ML 1,000 ML IV SCH (14:30)
[2021-12-17] MEDS ORDERED: IOHEXOL 350 MG/ML 100 ML (OMNIPAQUE 350) VIAL IV ONE (14:45)
[2021-12-17] MEDS ORDERED: HOLD METFORMIN - RECEIVED CONTRAST 20 ML VIAL IV SCH (14:45)
[2021-12-17] MEDS ORDERED: NS 100 ML (IVPB) BAG IV ONE (14:45)
[2021-12-17] MEDS ORDERED: ONDANSETRON 4 MG/2 ML (SDV) Z0FRAN IVP ONE (15:00)
[2021-12-17] MEDS ORDERED: ONDANSETRON 4 MG/2 ML (SDV) Z0FRAN ONE (15:01)
--- NOTE | 2021-12-17 15:18 | Diagnostic Imaging Report ---
PROCEDURE: CT angiography of the head and CT angiography of the neck with and without contrast. TECHNIQUE: Contiguous noncontrast images were obtained from the skull base through the vertex. After intravenous contrast administration, helical CT angiography of the neck was performed. Source data was reformatted into 3D MIP projections. Delayed post contrast acquisition was also obtained. Auto Exposure Controls were utilized during the CT exam to meet ALARA standards for radiation dose reduction. INDICATION: Confusion. Concern for acute ischemia. Comparison: CT head performed earlier the same date. CTA head and neck on 10/03/2021. FINDINGS: CTA Neck: The visualized portions of the aortic arch demonstrate calcified atherosclerotic plaque without evidence of aneurysm or dissection. There is conventional branching pattern of the great vessels of the aorta. The brachiocephalic artery is normal in course and caliber. The right and left common carotid origins are unremarkable. The origin of the left subclavian artery is patent. The common carotid arteries and internal carotid arteries demonstrate a tortuous course. There is calcified atherosclerotic plaque in the bilateral carotid bulbs and proximal internal carotid arteries without flow-limiting stenosis. No evidence of dissection in the carotid systems. The external carotid arteries are patent and unremarkable. The vertebral arteries are codominant. The origin of the right vertebral artery is seen and is unremarkable. The origin of the left vertebral artery is seen and is unremarkable. There is no focal stenosis seen within the neck. There is no dissection. The vertebral arteries are well visualized to up to the level of the basilar artery. No acute fracture in the cervical spine. There is osseous fusion of the C5 and C6 vertebral bodies. Grade 1 anterolisthesis of C4 on C5 is noted. Included views through the lung apices demonstrate no focal consolidation. CTA brain: Atherosclerotic plaque is seen in the gutierrez of the bilateral terminal internal carotid arteries without significant stenosis. No stenosis is seen in the bilateral anterior, middle, and posterior cerebral arteries. There is origin of the left RN IMMUNOLOGY. No evidence of aneurysm the ione of [place]. In the posterior circulation, both of the vertebral arteries demonstrate normal opacification. Both the right and left PICA arteries are identified. The basilar artery is normal in course and caliber. The terminal branch vessels including the superior cerebellar arteries unremarkable. IMPRESSION: 1. No stenosis or aneurysm in the ione of [place]. No evidence of large vessel occlusion. 2. No stenosis or dissection the bilateral carotid and vertebral arteries. Dictated by: Dictated on workstation # [id number]
[2021-12-17] MEDS ORDERED: ONDANSETRON 4 MG (ZOFRAN) ORAL DISSOLVE TAB PO PRN (18:15)
[2021-12-17] MEDS ORDERED: diphenhydrAMINE 25 MG TAB (BENADRYL) PO PRN (18:15)
[2021-12-17] MEDS ORDERED: morphine INJ 4 MG/ML 1 ML (VIAL/SYRINGE) IV PRN (18:15)
[2021-12-17] MEDS ORDERED: ONDANSETRON 4 MG/2 ML (SDV) Z0FRAN IV PRN (18:15)
[2021-12-17] MEDS ORDERED: LACTULOSE SYRUP 10GM/15ML (ENULOSE) 30ML UDC PO PRN (18:15)
[2021-12-17] MEDS ORDERED: ACETAMINOPHEN 325 MG TABLET PO PRN (18:15)
[2021-12-17] MEDS ORDERED: MELATONIN 3 MG TABLET PO PRN (18:15)
[2021-12-17] MEDS ORDERED: NALOXONE 0.4 MG/ML 1 ML (NARCAN) VIAL IV PRN (18:15)
[2021-12-17] MEDS ORDERED: MILK OF MAGNESIA 400 MG/5 ML 30 ML UDC PO PRN (18:15)
[2021-12-17] MEDS ORDERED: CALCIUM CARBONATE 500 MG (TUMS) TAB.CHEW PO PRN (18:15)
[2021-12-17] MEDS ORDERED: ANTACID SUSP 30 ML UDC (MYLANTA) PO PRN (18:15)
[2021-12-17] MEDS ORDERED: BISACODYL 10 MG SUPP (DULCOLAX) PR PRN (18:15)
[2021-12-17] MEDS ORDERED: hydrALAZINE (APESOLINE) 20 MG/ML VIAL IV PRN (18:15)
[2021-12-17] MEDS ORDERED: LABETALOL HCL 20 MG/4 ML VIAL IV PRN (18:15)
[2021-12-17] MEDS ORDERED: polyethylene glycoL POWDER 17 GM (MIRALAX) PACK PO PRN (18:15)
[2021-12-17] MEDS ORDERED: diphenhydrAMINE 50 MG/ML INJ (BENADRYL) IVP PRN (18:15)
--- NOTE | 2021-12-17 18:24 | Tele-ICU Progress Note ---
Subjective Date Seen by a Provider: Dec 17, 2021 Time Seen by a Provider: 18:14 Subjective/Events-last exam She is a 81-year-old female with past medical history of hypertension, CVA, chronic atrial fibrillation was brought to the emergency room with a complaint that she has been having confusion and worsening of aphasia over the last 3 days. At baseline she is able to take care of her ADLs. I believe around Thanksving time of 2020 she did not receive any TPA and clot retrieval from carotid artery. Today she is evaluated with a CT of the brain which is negative for any new findings and also CT angiogram of the head is negative for any large vessel occlusion. She is not a candidate for TPA because she is on Eliquis. She is currently being admitted for close monitoring and management. I have made a video visit and discussed with the patient and RN. She is able to lift her both arms. Apparently her systolic blood pressure over 600 initially but it came down by itself to 180. We will keep her systolic blood pressure for the first 24 hours under 180 Review of Systems ros per rn Sepsis Event Evaluation Height, Weight, BMI Height: 5'3.00" Weight: 225lbs. oz. [id number]; 36.00 BMI Method:Estimated Exam Exam Patient acknowledged, consented, and participated in this virtual visit which was conducted using real time audio/video Vital Signs Date Time Temp Pulse Resp B/P (MAP) Pulse Ox O2 Delivery O2 Flow Rate FiO2 12/17/21 17:27 84 16 182/94 94 Room Air 12/17/21 12:30 36.4 76 18 212/108 (142) 98 Height & Weight Height: 5'3.00" Weight: 225lbs. oz. 101.886062rl; 36.00 BMI Method:Estimated General Appearance: No Apparent Distress Capillary Refill: Less Than 3 Seconds Peripheral Pulses: 1+ Radial Pulses (R), 1+ Radial Pulses (L) Gastrointestinal: normal bowel sounds, non tender, soft Other comments PE PER RN. Results Lab Laboratory Tests 12/17/21 12:53 Assessment/Plan Assessment/Plan 1. Possible recurrent CVA versus TIA. 2. Accelerated hypertension 3. Chronic atrial fibrillation. Recommendations 1. Her systolic blood pressure less than 180 and use hydralazine and labetalol to keep systolic blood pressure controlled. 2. Suggest to resume aspirin as soon as possible. 3. Physical therapy and Occupational Therapy 4. LDL goal less than 70. 5. Hemoglobin A1c goal less than 7. 6. Speech therapy. 7. video visit made and d/w RN. Discussed earlier with ED physician Critical Care: Critically Ill Patient Time spent with patient (mins): 30 NYDIA PRINGLE MD Dec 17, 2021 18:24
[2021-12-17 18:47] VITALS: BP 212/108
[2021-12-17] MEDS: NS IV 1000 ML 1,000 ML IV SCH (18:55)
[2021-12-17] MEDS ORDERED: RT-ALBUTEROL SULF 2.5 MG/3 ML PRE-MIX VIAL INH PRN (19:00)
[2021-12-17] MEDS: DOCUSATE SODIUM 100 MG (COLACE) CAP PO SCH (20:05)
[2021-12-17] MEDS: SENNOSIDES 8.6 MG (SENOKOT) TAB PO SCH (20:06)
[2021-12-17] MEDS: inSUlin ASPART (NovoLOG) 1 UNIT/0.01 ML (CHARGE PER UNIT) SC SCH (20:06)
[2021-12-17] MEDS ORDERED: APIXABAN 5 MG (ELIQUIS) TABLET PO SCH (21:00)
[2021-12-18 04:24] LABS: BASOPHILS # (AUTO) 0.1 10^3/uL (0.0-0.1); BASOPHILS % (AUTO) 1 % (0-10); EOSINOPHILS # (AUTO) 0.5 10^3/uL (0.0-0.3); EOSINOPHILS % (AUTO) 5 % (0-10); HEMATOCRIT 37 % (35-52); HEMOGLOBIN 11.5 g/dL (11.5-16.0); LYMPHOCYTES # (AUTO) 1.5 10^3/uL (1.0-4.0); LYMPHOCYTES % (AUTO) 17 % (12-44); MEAN CORPUSCULAR HEMOGLOBIN 29 pg (25-34); MEAN CORPUSCULAR HGB CONC 31 g/dL (32-36); MEAN CORPUSCULAR VOLUME 92 fL (80-99); MEAN PLATELET VOLUME 11.2 fL (9.0-12.2); MONOCYTES # (AUTO) 0.8 10^3/uL (0.0-1.0); MONOCYTES % (AUTO) 9 % (0-12); NEUTROPHILS # (AUTO) 5.7 10^3/uL (1.8-7.8); NEUTROPHILS % (AUTO) 66 % (42-75); PLATELET COUNT 308 10^3/uL (130-400); WHITE BLOOD COUNT 8.6 10^3/uL (4.3-11.0)
[2021-12-18 04:43] LABS: ALBUMIN 3.2 GM/DL (3.2-4.5); POTASSIUM 3.3 MMOL/L (3.6-5.0)
[2021-12-18 04:44] LABS: CALCIUM 8.6 MG/DL (8.5-10.1)
[2021-12-18 04:46] LABS: TOTAL PROTEIN 6.8 GM/DL (6.4-8.2)
[2021-12-18 04:47] LABS: BILIRUBIN,TOTAL 0.7 MG/DL (0.1-1.0)
[2021-12-18 04:49] LABS: CREATININE SERUM 1.08 MG/DL (0.60-1.30); PHOSPHORUS 4.3 MG/DL (2.3-4.7)
[2021-12-18 04:53] LABS: MAGNESIUM 1.7 MG/DL (1.6-2.4)
[2021-12-18 04:54] LABS: INR 1.4 (0.8-1.4)
[2021-12-18] MEDS: inSUlin ASPART (NovoLOG) 1 UNIT/0.01 ML (CHARGE PER UNIT) SC SCH ×2 (05:43→11:30)
[2021-12-18] MEDS: MAGNESIUM 1 GM/100 ML IVPB 100 ML IV SCH ×2 (05:57→06:46)
[2021-12-18] MEDS: POTASSIUM CL 10MEQ/50ML IVPB 50 ML IV SCH ×4 (05:57→10:22)
[2021-12-18] MEDS: NS IV 1000 ML 1,000 ML IV SCH (05:59)
[2021-12-18] MEDS ORDERED: MAGNESIUM 1 GM/100 ML IVPB 100 ML IV SCH (06:00)
[2021-12-18] MEDS ORDERED: POTASSIUM CL 10MEQ/50ML IVPB 50 ML IV SCH (06:00)
[2021-12-18] MEDS ORDERED: KCL 20 MEQ TAB (K-DUR) PO SCH (06:00)
--- NOTE | 2021-12-18 08:46 | Tele-ICU Progress Note ---
Subjective Date Seen by a Provider: Dec 18, 2021 Time Seen by a Provider: 07:25 Subjective/Events-last exam This virtual visit was conducted using real time audio/video. Thank you for asking us to see this patient for isch. CVA PE: Obese. Intermittently confused. No distress. VSS. O2 94% sat on RA HEENT: No obvious masses, adenopathy or JVD. Chest: clear to auscultation. CVS: Irreg 67-70 BPM. S1 S2 No murmur or added sounds. Abd: Non-tender. Bowel sounds Y. : Unremarkable. Andrade N. SPECIAL NEEDS NANNY/psychiatric: L hemiparesis Extremities: No edema. Capillary refill < 3 seconds. Skin: unremarkable. Results: Decreased K 3.3. Available chart/ vitals / labs / images reviewed. Video assessment done using teleICU camera, rest of exam as per RN. A/P: Monitor for ability to defend airway, neurologic decline. Critical Care: critically ill patient. Cont. ASA, Eliquis, PRN antihypertensives, SSI. Replace K. Discussed with RN Magaly. Asked RN to reach out to eICU if any questions or concerns later. Time spent with patient/coordination of care with other health professionals (mins): 22 Sepsis Event Evaluation Height, Weight, BMI Height: 5'3.00" Weight: 225lbs. oz. 101.213040sl; 36.51 BMI Method:Estimated Exam Exam Patient acknowledged, consented, and participated in this virtual visit which was conducted using real time audio/video Vital Signs Date Time Temp Pulse Resp B/P (MAP) Pulse Ox O2 Delivery O2 Flow Rate FiO2 12/18/21 08:00 94 Room Air 12/18/21 08:00 66 24 144/84 94 Nasal Cannula 2.00 12/18/21 07:48 36.3 12/18/21 07:34 95 Nasal Cannula 2.00 12/18/21 07:00 62 12/18/21 07:00 63 17 144/68 100 Nasal Cannula 2.00 12/18/21 04:00 69 18 145/74 95 Nasal Cannula 2.00 12/18/21 03:23 35.9 Nasal Cannula 2.00 12/18/21 03:01 Nasal Cannula 2.00 12/18/21 01:00 67 12/18/21 00:00 68 19 153/96 96 Nasal Cannula 2.00 12/17/21 23:52 Nasal Cannula 2.00 12/17/21 23:05 36.6 12/17/21 23:00 73 27 159/87 96 Nasal Cannula 2.00 12/17/21 22:00 66 20 143/74 96 Nasal Cannula 2.00 12/17/21 21:30 Nasal Cannula 2.00 12/17/21 21:00 70 20 147/75 95 Room Air 12/17/21 20:38 37.2 12/17/21 20:00 81 14 122/61 94 Room Air 12/17/21 20:00 Nasal Cannula 2.00 12/17/21 19:45 81 20 134/95 90 Room Air 12/17/21 19:39 37.2 12/17/21 19:30 77 19 142/65 91 Room Air 12/17/21 19:15 77 19 136/95 90 Room Air 12/17/21 19:00 75 12/17/21 19:00 75 18 141/84 90 Room Air 12/17/21 18:47 36.4 76 98 12/17/21 18:20 Room Air 12/17/21 17:58 80 12/17/21 17:27 84 16 182/94 94 Room Air 12/17/21 12:30 36.4 76 18 212/108 (142) 98 I & O 12/18/21 07:00 Intake Total 2850 ml Balance 2850 ml Height & Weight Height: 5'3.00" Weight: 225lbs. oz. 101.864149ph; 36.51 BMI Method:Estimated General Appearance: No Apparent Distress Capillary Refill: Less Than 3 Seconds Peripheral Pulses: 1+ Radial Pulses (R), 1+ Radial Pulses (L) Gastrointestinal: normal bowel sounds, non tender, soft Results Lab Laboratory Tests 12/17/21 12:53 12/18/21 04:05 Assessment/Plan Assessment/Plan See free text. Critical Care: Critically Ill Patient TAWNY OSEI MD Dec 18, 2021 08:46
[2021-12-18] MEDS ORDERED: ASPIRIN E.C. 81 MG (ECOTRIN) TAB PO SCH (09:00)
--- NOTE | 2021-12-18 09:43 | Consultation-Cardiology ---
HPI-Cardiology Cardiology Consultation: Date of Consultation 12/18/2021 Date of Admission 12/17/2021 Attending Physician Lillian Vo DO Admitting Physician Josue Lim DO Consulting Physician HOLLY WOO JR, MD HPI: Time Seen by a Provider: 09:41 Chief Complaint: Reason for consultation: Permanent atrial fibrillation. I had the pleasure of seeing Jia in the intensive care unit at [facility] in [place], [place] this morning. The patient was awake and pleasant and answering questions but did not know where she was or why. Her daughter was sitting in the room and she did not recognize this person. I obtained the majority of the history from the patient's daughter. The patient had suffered a cerebrovascular accident in September. At that time she had left-sided weakness and presented to the emergency room. She was life flighted to [facility] and underwent left carotid thrombectomy. From her daughter's description, there may have been some slight hemorrhagic conversion of the ischemic infarction. Her daughter later discovered that the patient may not have been taking her Eliquis faithfully. A few days after this event, the patient was transferred to our inpatient rehab. However, then she had another stroke while she was in our rehab and was transferred back to the outside facility where it sounds as though she underwent percutaneous thrombectomy of a right-sided intracerebral artery. She was then transferred back to our inpatient rehab and after a few days discharged home. The daughter states that over the past few days the patient has been more confused. She cannot remember people or names. She also seemed to have worsening left-sided weakness. Becaus e of this, she was brought to the emergency room for further evaluation. She was admitted to the intensive care unit due to concern of a possible recurrent cerebrovascular accident. The patient denies chest discomfort but does report shortness of breath although she was breathing comfortably laying in bed in the intensive care unit. She denies paroxysmal nocturnal dyspnea, orthopnea, palpitations, lightheadedness, syncope, or lower extremity edema. However, the patient's answers may not be reliable due to her memory loss. According to the patient's daughter, the patient is in the process of getting scheduled to have a Watchman device implanted at [facility] in February,. Her daughter has been managing her medications and her daughter reports that the patient has been taking her Eliquis as prescribed. Certain portions of this document may have been dictated utilizing voice recognition technology. Inherent to this technology, typographical and grammatical errors may exist. As much as I am diligent to identify and correct these mistakes, some errors may remain in the document. Review of Systems-Cardiology Review of Systems Other comments Not obtainable due to the patient's memory loss. All Other Systems Reviewed Negative Unless Noted: Yes VIX-Egizus-Trbyju Hx Patient Social History Marrital Status: Smoking Status: Former Smoker Have you traveled recently?: No Alcohol Use?: No Pt feels they are or have been: No Immunizations Up To Date Date of Pneumonia Vaccine: Aug 07, 2012 Date of Influenza Vaccine: Aug 09, 2011 Past Medical History PMH As described under Assessment. Family Medical History Family Medical History: She does not report fam h/o early CAD or SCD Allergies and Home Medications Allergies Coded Allergies: No Known Drug Allergies (Unverified , 02/19/13) Patient Home Medication List Home Medication List Reviewed: Yes Acetaminophen (Tylenol) 325 Mg Tablet, 650 MG PO Q4H PRN for PAIN-MILD (1-4), (Reported) Entered as Reported by: ERNESTO MELTON on 09/29/211126 Last Action: Reviewed Allopurinol (Allopurinol) 100 Mg Tablet, 100 MG PO BID, (Reported) Entered as Reported by: ERNESTO MELTON on 12/18/21 102 Last Action: Reviewed Atorvastatin Calcium (Atorvastatin Calcium) 80 Mg Tablet, 80 MG PO HS, (Reported) Entered as Reported by: ERNESTO MELTON on 12/18/21 102 Last Action: Reviewed Bethanechol Chloride (Urecholine) 10 Mg Tablet, 10 MG PO ACHS, (Reported) Entered as Reported by: ERNESTO MELTON on 12/18/21 102 Last Action: Reviewed Cyanocobalamin (Cyanocobalamin Injection) 1,000 Mcg/Ml Inj, 1,000 MCG IM MONTHLY, (Reported) Entered as Reported by: ERNESTO MELTON on 09/29/211126 Last Action: Reviewed Ferrous Sulfate (Iron) 325 Mg Tablet, 325 MG PO HS, (Reported) Entered as Reported by: ERNESTO MELTON on 12/18/21 102 Last Action: Reviewed Gabapentin (Neurontin) 300 Mg Capsule, 300 MG PO DAILY, (Reported) Entered as Reported by: ERNESTO MELTON on 12/18/211021 Last Action: Reviewed Levothyroxine Sodium (Levothyroxine Sodium) 75 Mcg Tablet, 75 MCG PO DAILY, (Reported) Entered as Reported by: ERNESTO MELTON on 12/18/211021 Last Action: Reviewed Liraglutide (Victoza 2-Sanket) 0.6 Mg/0.1 Ml Pen.injctr, 1.2 MG SQ 1200, (Reported) Entered as Reported by: ERNESTO MELTON on 12/18/211021 Last Action: Reviewed Metformin HCl (Metformin HCl ER) 500 Mg Tab.er.24, 500 MG PO DAILY, (Reported) Entered as Reported by: ERNESTO MELTON on 12/18/211021 Last Action: Reviewed Metoprolol Succinate (Metoprolol Succinate) 50 Mg Tab.er.24h, 50 MG PO HS, (Rep orted) Entered as Reported by: ERNESTO MELTON on 12/18/211021 Last Action: Reviewed Metoprolol Succinate (Metoprolol Succinate) 100 Mg Tab.er.24h, 100 MG PO DAILY, (Reported) Entered as Reported by: ERNESTO MELTON on 12/18/211021 Last Action: Reviewed Olmesartan Medoxomil (Olmesartan Medoxomil) 20 Mg Tablet, 20 MG PO DAILY, (Reported) Entered as Reported by: ERNESTO MELTON on 12/18/211022 Last Action: Reviewed Pantoprazole Sodium (Pantoprazole Sodium) 40 Mg Tablet.dr, 40 MG PO DAILY, (Reported) Entered as Reported by: ERNESTO MELTON on 12/18/211021 Last Action: Reviewed Venlafaxine HCl (Venlafaxine HCl ER) 150 Mg Cap.er.24h, 150 MG PO DAILY, (Reported) Entered as Reported by: ERNESTO MELTON on 12/18/211021 Last Action: Reviewed Discontinued Medications Allopurinol (Allopurinol) 100 Mg Tablet, 100 MG PO BID Discontinued Reason: Duplicate Order Prescribed by: LILLIAN VO on 10/14/212052 Last Action: Discontinued Apixaban (Eliquis) 5 Mg Tablet, 5 MG PO BID Discontinued Reason: Duplicate Order Prescribed by: LILLIAN VO on 10/14/212052 Last Action: Discontinued Apixaban (Eliquis) 5 Mg Tablet, 5 MG PO BID, (Reported) Discontinued Reason: Provider Ok'd Entered as Reported by: ERNESTO MELTON on 12/18/21 102 Last Action: Reviewed Atorvastatin Calcium (Atorvastatin Calcium) 80 Mg Tablet, 80 MG PO DAILY Discontinued Reason: No Longer Taking Prescribed by: LILLIAN VO on 10/14/212052 Last Action: Discontinued Bethanechol Chloride (Urecholine) 10 Mg Tablet, 10 MG PO ACHS Discontinued Reason: No Longer Taking Prescribed by: LILLIAN VO on 10/14/212052 Last Action: Discontinued Gabapentin (Neurontin) 300 Mg Capsule, 300 MG PO DAILY Discontinued Reason: Duplicate Order Prescribed by: LILLIAN VO on 10/14/212052 Last Action: Discontinued Levothyroxine Sodium (Levothyroxine Sodium) 75 Mcg Tablet, 75 MCG PO DAILY Discontinued Reason: Duplicate Order Prescribed by: LILLIAN VO on 10/14/212052 Last Action: Discontinued Metformin HCl (Metformin HCl ER) 500 Mg Tab.er.24h, 500 MG PO DAILY Discontinued Reason: Duplicate Order Prescribed by: LILLIAN VO on 10/14/212052 Last Action: Discontinued Metoprolol Succinate (Metoprolol Succinate) 50 Mg Tab.er.24h, 50 MG PO HS Discontinued Reason: Duplicate Order Prescribed by: LILLIAN VO on 10/14/212052 Last Action: Discontinued Metoprolol Succinate (Metoprolol Succinate) 100 Mg Tab.er.24h, 100 MG PO DAILY Discontinued Reason: Duplicate Order Prescribed by: LILLIAN VO on 10/14/212052 Last Action: Discontinued Olmesartan Medoxomil (Olmesartan Medoxomil) 20 Mg Tablet, 20 MG PO DAILY Discontinued Reason: Duplicate Order Prescribed by: LILLIAN VO on 10/14/212052 Last Action: Discontinued Olmesartan Medoxomil (Olmesartan Medoxomil) 40 Mg Tablet, 40 MG PO DAILY, (Reported) Discontinued Reason: Prescription changed Entered as Reported by: ERNESTO MELTON on 12/18/211021 Last Action: New Order Pantoprazole Sodium (Pantoprazole Sodium) 40 Mg Tablet.dr, 40 MG PO DAILY Discontinued Reason: Duplicate Order Prescribed by: LILLIAN VO on 10/14/212052 Last Action: Discontinued Venlafaxine HCl (Venlafaxine HCl ER) 150 Mg Cap.er.24h, 150 MG PO DAILY Discontinued Reason: Duplicate Order Prescribed by: LILLIAN VO on 10/14/212052 Last Action: Discontinued Exam Vital Signs Vital Signs Date Time Temp Pulse Resp B/P (MAP) Pulse Ox O2 Delivery O2 Flow Rate FiO2 12/18/21 11:00 66 19 150/85 90 Nasal Cannula 2.00 12/18/21 07:48 36.3 Physical Exam General: Alert. No acute distress. Well nourished and appears stated age. Eye: Extraocular movements are intact. Conjunctivae are clear. There are no xanthelasma. HENT: Normocephalic. Atraumatic. Carotid pulsations 2/2 without bruits. Neck: Jugular venous pressure does not appear elevated. No thyromegaly appreciated. Respiratory: Lungs are clear to auscultation. Respirations are non-labored. Breath sounds are equal. Symmetrical chest wall expansion. Cardiovascular: Normal rate. Irregular rhythm. 3/6 high-pitched systolic ejection murmur. No gallop. Point of maximal impulse is not appear displaced. Good pulses equal in all extremities. No edema. Gastrointestinal: Soft. Normal bowel sounds. Skin: Skin turgor is normal. There is no pallor. Musculoskeletal: No kyphosis or scoliosis appreciated. Neurologic: Alert and oriented to person only. Cranial nerves 3-12 appear grossl y intact. The patient has left-sided partial hemiparesis worse in the leg. Psychiatric: Cooperative. Obvious short-term memory loss. Labs Laboratory Tests Test 12/17/21 12:53 12/17/21 13:00 12/17/21 20:04 12/18/21 04:05 Range/Units White Blood Count 10.0 8.6 4.3-11.0 10^3/uL Red Blood Count 4.42 4.00 3.80-5.11 10^6/uL Hemoglobin 12.8 11.5 11.5-16.0 g/dL Hematocrit 40 37 35-52 % Mean Corpuscular Volume 91 92 80-99 fL Mean Corpuscular Hemoglobin 29 29 25-34 pg Mean Corpuscular Hemoglobin Concent 32 31 L 32-36 g/dL Red Cell Distribution Width 14.6 H 14.7 H 10.0-14.5 % Platelet Count 342 308 130-400 10^3/uL Mean Platelet Volume 11.0 11.2 9.0-12.2 fL Immature Granulocyte % (Auto) 0 0 % Neutrophils (%) (Auto) 74 66 42-75 % Lymphocytes (%) (Auto) 14 17 12-44 % Monocytes (%) (Auto) 8 9 0-12 % Eosinophils (%) (Auto) 3 5 0-10 % Basophils (%) (Auto) 1 1 0-10 % Neutrophils # (Auto) 7.4 5.7 1.8-7.8 10^3/uL Lymphocytes # (Auto) 1.4 1.5 1.0-4.0 10^3/uL Monocytes # (Auto) 0.8 0.8 0.0-1.0 10^3/uL Eosinophils # (Auto) 0.3 0.5 H 0.0-0.3 10^3/uL Basophils # (Auto) 0.1 0.1 0.0-0.1 10^3/uL Immature Granulocyte # (Auto) 0.0 0.0 0.0-0.1 10^3/uL Prothrombin Time 20.8 H 18.0 H 12.2-14.7 SEC INR Comment 1.7 H 1.4 0.8-1.4 Activated Partial Thromboplast Time 39 H 24-35 SEC D-Dimer 0.30 0.00-0.49 UG/ML Sodium Level 137 139 135-145 MMOL/L Potassium Level 3.7 3.3 L 3.6-5.0 MMOL/L Chloride Level 101 107 98-107 MMOL/L Carbon Dioxide Level 22 19 L 21-32 MMOL/L Anion Gap 14 13 5-14 MMOL/L Blood Urea Nitrogen 15 14 7-18 MG/DL Creatinine 1.16 1.08 0.60-1.30 MG/DL Estimat Glomerular Filtration Rate 48 52 BUN/Creatinine Ratio 13 13 Glucose Level 110 H 102 70-105 MG/DL Calcium Level 9.7 8.6 8.5-10.1 MG/DL Corrected Calcium 9.9 9.2 8.5-10.1 MG/DL Total Bilirubin 1.1 H 0.7 0.1-1.0 MG/DL Aspartate Amino Transf (AST/SGOT) 18 15 5-34 U/L Alanine Aminotransferase (ALT/SGPT) 6 6 0-55 U/L Alkaline Phosphatase 112 95 40-136 U/L Troponin I < 0.028 <0.028 NG/ML Total Protein 8.1 6.8 6.4-8.2 GM/DL Albumin 3.8 3.2 3.2-4.5 GM/DL Urine Color YELLOW Urine Clarity CLEAR Urine pH 6.0 5-9 Urine Specific [place] 1.010 L 1.016-1.022 Urine Protein TRACE H NEGATIVE Urine Glucose (UA) NEGATIVE NEGATIVE Urine Ketones NEGATIVE NEGATIVE Urine Nitrite NEGATIVE NEGATIVE Urine Bilirubin NEGATIVE NEGATIVE Urine Urobilinogen 0.2 < = 1.0 MG/DL Urine Leukocyte Esterase 1+ H NEGATIVE Urine RBC (Auto) 2+ H NEGATIVE Urine RBC RARE /HPF Urine WBC 2-5 /HPF Urine Squamous Epithelial Cells 5-10 /HPF Urine Crystals NONE /LPF Urine Bacteria TRACE /HPF Urine Casts NONE /LPF Urine Mucus NEGATIVE /LPF Urine Culture Indicated NO Glucometer 128 H 70-110 MG/DL Phosphorus Level 4.3 2.3-4.7 MG/DL Magnesium Level 1.7 1.6-2.4 MG/DL Triglycerides Level 110 <150 MG/DL Cholesterol Level 99 < 200 MG/DL LDL Cholesterol Direct 43 1-129 MG/DL VLDL Cholesterol 22 5-40 MG/DL HDL Cholesterol 35 L 40-60 MG/DL Test 12/18/21 11:18 Range/Units Glucometer 116 H 70-110 MG/DL ECG Impression ECG Comment Atrial fibrillation with a ventricular rate of 74 bpm with poor R wave prog ression and inferolateral ST-T wave changes, consider ischemia. Compared to previous tracing from 09/22/2021, the inferolateral SST-T wave changes are more significant. Diagnosis/Problems Diagnosis/Problems (1) Acute cerebrovascular accident Assessment & Plan: The patient may be suffering another acute cerebrovascular accident despite being on oral anticoagulation with Eliquis in the setting of permanent atrial fibrillation. We are still waiting for the results of the MRI of the brain but the CT angiogram of the head and CT of the head did not reveal any acute abnormalities. This raises a concern for possible ineffectiveness of Eliquis in this patient. I recommend we change the Eliquis over to Xarelto. As above, she is waiting to undergo Watchman device implantation in the next couple of months. (2) Permanent atrial fibrillation Assessment & Plan: Heart rates are well controlled with metoprolol. This should be continued. As above, I will change her Eliquis over to Xarelto due to a recurrent stroke. The patient's creatinine clearance is right around the cutoff of 50 for reducing the dose of Xarelto. However, in light of the recurrent stroke while on Eliquis, I recommend we start the patient on Xarelto 20 mg daily and do not decrease the dose even if her creatinine clearance drops below 50 which it has in the past. (3) Primary hypertension Assessment & Plan: Resume outpatient antihypertensive medication but be cautious with any as needed medications to avoid iatrogenic hypotension. (4) Mixed hyperlipidemia Assessment & Plan: Resume statin medication. (5) Type 2 diabetes mellitus with complication Assessment & Plan: This will be managed by the hospitalist. (6) Chronic kidney disease, stage 3 Assessment & Plan: As above, her GFR and creatinine clearance levels both of her right around 50. I recommend placing her on standard dose rivaroxaban as outlined above. HOLLY WOO JR, MD Dec 18, 2021 09:43
--- NOTE | 2021-12-18 09:50 | Progress Note ---
KAREY BOBBY MED STUDENT 12/18/21 0950: Subjective Date Seen by a Provider: Dec 18, 2021 Time Seen by a Provider: 07:55 Subjective/Events-last exam Pt being followed for AMS and suspected stroke. Per nurse pt mental status declined since yesterday, then she was A&0x2 - today she is A&Ox0. Pt was alert, smiling, and tracking my movement in the room but completely non-responsive to my questions and commands. Her neurological assessment is difficult to perform because she dosnt follow any commands - Raised both the arms up - they stayed up b/l. Both legs fall straight to the ground without resistance when raised. Discussed case with daughter - she had mainly noticed confussion, dysphagia and weakness over the past 3-4 days - When asked if weakness global or focal - comments that L side seems worse, and that she had to raise her left leg into the car to help her in yesterday. Only med change recently was addition of victoza a couple weeks ago. Review of Systems cause not be obtained given pts AMS Objective Exam Last Set of Vital Signs Vital Signs Date Time Temp Pulse Resp B/P (MAP) Pulse Ox O2 Delivery O2 Flow Rate FiO2 12/18/21 09:00 65 23 107/85 92 Nasal Cannula 2.00 12/18/21 07:48 36.3 Capillary Refill : Less Than 3 Seconds I&O Intake and Output 12/18/21 00:00 Intake Total 1650 ml Balance 1650 ml Intake Oral 650 ml IV Total 1000 ml # Voids 2 Daily Weight Change No General: Alert, No Acute Distress HEENT: Atraumatic, Mucous Memb Moist/[place] Lungs: Clear to Auscultation, Normal Air Movement Heart: Other (irregular rate, normal rate ) Abdomen: Normal Bowel Sounds, Soft Extremities: No Clubbing, No Cyanosis Psych/Mental Status: Mood NL Results Lab Laboratory Tests 12/17/21 12:53: White Blood Count 10.0, Red Blood Count 4.42, Hemoglobin 12.8, Hematocrit 40, Mean Corpuscular Volume 91, Mean Corpuscular Hemoglobin 29, Mean Corpuscular Hemoglobin Concent 32, Red Cell Distribution Width 14.6H, Platelet Count 342, Mean Platelet Volume 11.0, Immature Granulocyte % (Auto) 0, Neutrophils (%) (Auto) 74, Lymphocytes (%) (Auto) 14, Monocytes (%) (Auto) 8, Eosinophils (%) (A uto) 3, Basophils (%) (Auto) 1, Neutrophils # (Auto) 7.4, Lymphocytes # (Auto) 1.4, Monocytes # (Auto) 0.8, Eosinophils # (Auto) 0.3, Basophils # (Auto) 0.1, Immature Granulocyte # (Auto) 0.0, Prothrombin Time 20.8H, INR Comment 1.7H, Activated Partial Thromboplast Time 39H, D-Dimer 0.30, Sodium Level 137, Potassium Level 3.7, Chloride Level 101, Carbon Dioxide Level 22, Anion Gap 14, Blood Urea Nitrogen 15, Creatinine 1.16, Estimat Glomerular Filtration Rate 48, BUN/Creatinine Ratio 13, Glucose Level 110H, Calcium Level 9.7, Corrected Calcium 9.9, Total Bilirubin 1.1H, Aspartate Amino Transf (AST/SGOT) 18, Alanine Aminotransferase (ALT/SGPT) 6, Alkaline Phosphatase 112, Troponin I < 0.028, Total Protein 8.1, Albumin 3.8 12/17/21 13:00: Urine Color YELLOW, Urine Clarity CLEAR, Urine pH 6.0, Urine Specific [place] 1.010L, Urine Protein TRACEH, Urine Glucose (UA) NEGATIVE, Urine Ketones NEGATIVE, Urine Nitrite NEGATIVE, Urine Bilirubin NEGATIVE, Urine Urobilinogen 0.2, Urine Leukocyte Esterase 1+H, Urine RBC (Auto) 2+H, Urine RBC RARE, Urine WBC 2-5, Urine Squamous Epithelial Cells 5-10, Urine Crystals NONE, Urine Bacteria TRACE, Urine Casts NONE, Urine Mucus NEGATIVE, Urine Culture Indicated NO 12/17/21 20:04: Glucometer 128H 12/18/21 04:05: White Blood Count 8.6, Red Blood Count 4.00, Hemoglobin 11.5, Hematocrit 37, Mean Corpuscular Volume 92, Mean Corpuscular Hemoglobin 29, Mean Corpuscular Hemoglobin Concent 31L, Red Cell Distribution Width 14.7H, Platelet Count 308, Mean Platelet Volume 11.2, Immature Granulocyte % (Auto) 0, Neutrophils (%) (Auto) 66, Lymphocytes (%) (Auto) 17, Monocytes (%) (Auto) 9, Eosinophils (%) (Auto) 5, Basophils (%) (Auto) 1, Neutrophils # (Auto) 5.7, Lymphocytes # (Auto) 1.5, Monocytes # (Auto) 0.8, Eosinophils # (Auto) 0.5H, Basophils # (Auto) 0.1, Immature Granulocyte # (Auto) 0.0, Prothrombin Time 18.0H, INR Comment 1.4, Sodium Level 139, Potassium Level 3.3L, Chloride Level 107, Carbon Dioxide Level 19L, Anion Gap 13, Blood Urea Nitrogen 14, Creatinine 1.08, Estimat Glomerular Filtration Rate 52, BUN/Creatinine Ratio 13, Glucose Level 102, Calcium Level 8.6, Corrected Calcium 9.2, Total Bilirubin 0.7, Aspartate Amino Transf (AST/SGOT) 15, Alanine Aminotransferase (ALT/SGPT) 6, Alkaline Phosphatase 95, Total Protein 6.8, Albumin 3.2, Phosphorus Level 4.3, Magnesium Level 1.7, Triglycerides Level 110, Cholesterol Level 99, LDL Cholesterol Direct 43, VLDL Cholesterol 22, HDL Cholesterol 35L Assessment/Plan Assessment/Plan Assess & Plan/Chief Complaint Delerium/AMS Chronic Afib - controlled rate. Etiology: suspect 2/2 ischemic stroke given chronic afib, and history of prior, recurrent, strokes. -No recent concerning med changes - doubt polypharmacy is at play, pt urinating frequently and normal U/A, CBC and CMP unremarkable for any causable infectious or electrolytes abnormalities. CT head and CTA head/neck unremarkable Pt was on eliquis 5BID @ home - Tpa contraindicated. Cards consulted for afib - started her on Xarelto and plans echo. MRI to confirm stroke Vs other etiology. RFs: Lipid panel - LDL under 70 (was 40). Resume home lipid med. Started ASA, consider adding plavix 75. Diet - pt passed bedside eval last night - advance diet as tolerated. q4 neurochecks, keep bed elevated @30 degrees. Hx of AUR Started after last stroke a coupe months ago. Was started on Bethanechol then which as worked since. Follow I/Os. Bethanechol had not been restarted yet. HTN Hypothyroidism NIDDM PRN hydralazine. Pt BP coming down w/o meds. RF workup for stroke: consider adding a TSH, HgA1c. SSI - goal glucose 150-180 GI ppx: 20 pepcid DVT ppx: Xarelto. Diet: Diet - pt passed bedside eval last night - advance diet as tolerated. Dispo: Consider moving to floor today. . LILLIAN VO DO 12/18/212129: Supervisory-Addendum Brief Verification & Attestation Participated in pt care: history, MDM, physical Personally performed: exam, history, MDM, supervision of care Care discussed with: Medical Student Procedures: n/a Results interpretation: Verified all documentation Verification and Attestation of Medical Student E/M Service A medical student performed and documented this service in my presence. I reviewed and verified all information documented by the medical student and made modifications to such information, when appropriate. I personally performed the physical exam and medical decision making. Lillian Vo, Dec 18, 2021,21:30 KAREY BOBBY MED STUDENT Dec 18, 2021 09:50 LILLIAN VO DO Dec 18, 2021 21:30
[2021-12-18] MEDS: DOCUSATE SODIUM 100 MG (COLACE) CAP PO SCH (10:22)
[2021-12-18] MEDS ORDERED: FERR-84 PO (10:22)
[2021-12-18] MEDS ORDERED: LIRA0.6P SQ (10:22)
[2021-12-18] MEDS ORDERED: APIX5TAB PO (10:22)
[2021-12-18] MEDS ORDERED: METO50TA7 PO (10:22)
[2021-12-18] MEDS ORDERED: METF-478 PO (10:22)
[2021-12-18] MEDS ORDERED: PANT40TA52 PO (10:22)
[2021-12-18] MEDS ORDERED: ALLO100T PO (10:22)
[2021-12-18] MEDS ORDERED: GABA300C PO (10:22)
[2021-12-18] MEDS ORDERED: LEVO75TA6 PO (10:22)
[2021-12-18] MEDS ORDERED: OLME40TA18 PO (10:22)
[2021-12-18] MEDS ORDERED: ATOR80TA76 PO (10:22)
[2021-12-18] MEDS ORDERED: VENL150C98 PO (10:22)
[2021-12-18] MEDS: SENNOSIDES 8.6 MG (SENOKOT) TAB PO SCH (10:22)
[2021-12-18] MEDS ORDERED: BTH10T PO (10:22)
[2021-12-18] MEDS ORDERED: MTP100TCR PO (10:22)
--- NOTE | 2021-12-18 10:22 | Physical Therapy Evaluation ---
PT Evaluation-General Medical Diagnosis Admission Date Dec 17, 2021 at 16:30 Medical Diagnosis: stroke Onset Date: Dec 17, 2021 Therapy Diagnosis Therapy Diagnosis: impaired mobility Height/Weight Height (Feet): 5 Height (Inches): 3.00 Weight (Pounds): 225 Precautions Precautions/Isolations: Fall Prevention, Standard Precautions Referral Physician: Lillian Little DO Reason for Referral: Evaluation/Treatment Medical History Pertinent Medical History: Atrial Fib, Arthritis, DM, HTN, [place] Additional Medical History Past Medical History Surgeries: Yes (SEE BELOW) Eye Surgery, Gallbladder, Hysterectomy, Joint Replacement, Oophorectomy, Orthopedic, Vascular Surgery Respiratory: No Cardiac: Yes (CAROTID DISEASE) Atrial Fibrillation, Coronary Artery Disease, Heart Attack, High Cholesterol, Hypertension, Peripheral Vascular Neurological: Yes Headaches /Migraines, Stroke 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 Disorders: No RESIDENTIAL DIRECT SUPPORT PROFESSIONAL History: Hysterectomy, 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 0-Aqmcbaolfv-rkockpq completes the activity by him/herself with no assistance from a helper. 5-Set-up or Clean-up Assistance-helper sets up or cleans up; patient completes activity. [place] assists only prior to or following the activity. 4-Supervision or Touching Assistance-helper provides verbal cues and/or touching/steadying and/or contact guard assistance as patient completes activity. Assistance may be provided throughout the activity or intermittently. 3-Partial/Moderate Assistance-helper does LESS THAN HALF the effort. [place] lifts, holds or supports trunk or limbs, but provides less than half the effort. 2-Substantial/Maximal Assistance-helper does MORE THAN HALF the effort. [place] lifts or holds trunk or limbs and provides more than half the effort. 0-Euapptdvc-xqtaqi does ALL the effort. Patient does none of the effort to complete the activity. Or, the assistance of 2 or more helpers is required for the patient to complete the activity. If activity was not attempted, code reason: 7-Patient Refused. 9-Not Applicable-not attempted and the patient did not perform the activity before the current illness, exacerbation or injury. 10-Not Attempted due to Environmental Limitations-(lack of equipment, weather restraints, etc.). 88-Not Attempted due to Medical Conditions or Safety Concerns. Bed Mobility: 6 Transfers (B,C,W/C): 6 Gait: 6 Stairs: 6 Indoor Mobility (Ambulation): Independent Stairs: Independent PT Evaluation-Current Subjective Patient in bed pre tx, has no complaints of pain, agrees to PT Pt/Family Goals to be independent at home Objective Patient Orientation: Person, Unable to Assess, [place] Patient has some difficulty with communication, she can answer some questions, has difficulty following directions ROM/Strength ROM Lower Extremities WNL Strength Lower Extremities grossly 4/5 BLE Sensory Sensation Lower Extremities patient has difficulty following directions for this testing Transfers Roll Left to Right (QC): 6 Lying to Sitting/Side of Bed(Q: 3 Sit to Stand (QC): 4 Chair/Gxz-ks-Bpbal Xfer(QC): 4 mod assist for supine to sit, CGA for sit to stand and transfers Gait Does the Patient Walk?: Yes Mode of Locomotion: Walk Anticipated Mode of Locomotion: Walk Walk 10 feet (QC): 4 Distance: 30' Gait Assistive Device: FWW Comments/Gait Description Patient has steady ambulation, small steps, but needs assist to guide her walker, she seems to not really know where do go even with cues for direction Balance Sitting Static: Normal Sitting Dynamic: Normal Standing Static: Fair Standing Dynamic: Fair Treatment BLE seated exercises x20 (AP, LAQ) Assessment/Needs Patient in recliner post tx with nurse call, phone, tray, all needs met, patient's family member says she is going to be in the room with her. Patient has impaired mobility and confusion. Rehab Potential: Fair PT Fdc Goals Data Integration Developer Goals PT Fdc Goals Time Frame: Dec 25, 2021 Roll Left & Right (QC): 6 Sit to Lying (QC): 6 Lying-Sitting on Side/Bed(QC): 6 Sit to Stand (QC): 4 (SBA) Chair/Stc-ob-Uzsqm Xfer(QC): 4 (SBA) Walk 10 feet (QC): 4 (SBA) Walk 50ft with 2 Turns (QC): 4 (SBA) Walk 150 ft (QC): 4 PT Plan Problem List Problem List: Activity Tolerance, Functional Strength, Safety, Balance, Gait, Transfer, Bed Mobility, ROM Treatment/Plan Treatment Plan: Continue Plan of Care Treatment Plan: Bed Mobility, Education, Functional Activity Helen, Functional Strength, Gait, Safety, Therapeutic Exercise, Transfers Treatment Duration: Dec 25, 2021 Frequency: 6 times per week Estimated Hrs Per Day: .25 hour per day Patient and/or Family Agrees t: Yes Safety Risks/Education Patient Education: Gait Training, Transfer Techniques, Correct Positioning, Safety Issues Teaching Recipient: Patient Teaching Methods: Demonstration, Discussion Response to Teaching: Reinforcement Needed Discharge Recommendations Plan Patient will perform bed mobility and transfer training, balance and endurance training, functional strengthening, stair training, gait training, and education, to improve functional mobility and independence at home. Therapy Discharge Recommendati: 24 Hour Supervision, Home & Family, Post Acute PT Time/GCodes Time In: 0956 Time Out: 1012 Total Billed Treatment Time: 16 Total Billed Treatment 1 visit TYRESE BAUM PT Dec 18, 2021 10:22
[2021-12-18] MEDS ORDERED: OLME20TA24 PO (10:23)
--- NOTE | 2021-12-18 10:59 | Occupational Therapy Eval ---
OT Evaluation-General/PLF Medical Diagnosis Admission Date Dec 17, 2021 at 16:30 Medical Diagnosis: stroke Onset Date: Dec 17, 2021 Therapy Diagnosis Therapy Diagnosis: reduced cognition and adl status Height/Weight Height (Feet): 5 Height (Inches): 3.00 Weight (Pounds): 225 Precautions Precautions/Isolations: Fall Prevention, Standard Precautions Referral Physician: Lillian Little DO Referral Reason: Evaluation/Treatment Medical History Pertinent Medical History: Atrial Fib, Arthritis, DM, HTN, [place] Current History Pt arrived to ER with increased confusion and worsening aphasia over last 3 days. Pt unable to answer PLOF questions. Daughter reports Pt lives with her spouse in a single story home (1 step into living area). She was indep with adls and has been performing more of her iadls recently. Daughter does help with meals and sometimes will assist with cleaning and transportation. Pt does not use any AD for mobility. Reviewed History: Yes Social History Home: Single Level (1 step down in living area ) Current Living Status: Spouse Entry Into Home: Stairs With Railing Steps Into Home: 4 ADL-Prior Level of Function SCALE: Activities may be completed with or without assistive devices. 8-Mxpsmumsod-pzxtuzb completes the activity by him/herself with no assistance from a helper. 5-Set-up or Clean-up Assistance-helper sets up or cleans up; patient completes activity. [place] assists only prior to or following the activity. 4-Supervision or Touching Assistance-helper provides verbal cues and/or touching/steadying and/or contact guard assistance as patient completes activity. Assistance may be provided throughout the activity or intermittently. 3-Partial/Moderate Assistance-helper does LESS THAN HALF the effort. [place] lifts, holds or supports trunk or limbs, but provides less than half the effort. 2-Substantial/Maximal Assistance-helper does MORE THAN HALF the effort. [place] lifts or holds trunk or limbs and provides more than half the effort. 1-Ijjvllqge-mqinjo does ALL the effort. Patient does none of the effort to complete the activity. Or, the assistance of 2 or more helpers is required for the patient to complete the activity. If activity was not attempted, code reason: 7-Patient Refused. 9-Not Applicable-not attempted and the patient did not perform the activity before the current illness, exacerbation or injury. 10-Not Attempted due to Environmental Limitations-(lack of equipment, weather restraints, etc.). 88-Not Attempted due to Medical Conditions or Safety Concerns. Self Care: Independent Functional Cognition: Unknown DME/Equipment: Grab Bars, Tub/Shower Drive Self: No OT Current Status Subjective Pt unable to follow directions. History of aphasia which appears to be worsening per daughter. Appearance Left sitting in chair, all needs within reach, family in room. Mental Status/Objective Patient Orientation: Unable to Assess Attachments: IV, Telemetry Current Upper Extremity ROM Difficulty following directions. Appears to have some L sided neglect vs inattention. Does not actively involve L hand in functional tasks. Upper Extremity Strength Unable to follow directions ADL-Treatment Lower Body Dressing (QC): 2 (per clinical judgment) On/Off Footwear (QC): 2 Pt resting in bed at therapy arrival. Difficulty follow commands. Requires assist/cues to initiate all tasks. Mod a to sit EOB. Good sitting balance. Sit<>stand: CGA. Pt ambulated within room with walker and CGA. Cues for all turns and to ensure chair is behind her before sitting. Following visual/tactile cues, pt able to don socks over R toes, assist to hand assembler for puller over heel. Does not actively involve L hand in functional tasks. No attention/initiation to complete Left sock despite cues. Education OT Patient Education: Correct positioning, Modified ADL techniques, Purpose of tx/functional activities, Safety issues, Transfer techniques Teaching Recipient: Patient, Family Teaching Methods: Demonstration, Discussion Response to Teaching: Unable to Return Demonstration, Unable to Comprehend, Reinforcement Needed OT Offset Second Press Operator Goals Shelter Goals Time Frame: Dec 26, 2021 Eating (QC): 4 Oral Hygiene (QC): 4 Toileting Hygiene (QC): 4 Upper Body Dressing (QC): 4 Lower Body Dressing (QC): 4 On/Off Footwear (QC): 4 1=Demonstrate adherence to instructed precautions during ADL tasks. 2=Patient will verbalize/demonstrate understanding of assistive devices/modifications for ADL. 3=Patient will improve strength/tolerance for activity to enable patient to perform ADL's. OT Education/Plan Problem List/Assessment Assessment: Decreased Activ Tolerance, Decreased Safety Aware, Decreased UE Strength, Impaired Cognition, Impaired Coordination, Impaired Funct Balance, Impaired I ADL's, Impaired Self-Care Skills, Visual-Perceptual Deficit Discharge Recommendations Plan/Recommendations: Continue POC Therapy Discharge Recommendati: Post Acute OT Treatment Plan/Plan of Care Treatment,Training & Education: Yes Patient would benefit from OT for education, treatment and training to promote independence in ADL's, mobility, safety and/or upper extremity function for ADL's. Plan of Care: ADL Retraining, Cognitive Retraining, Functional Mobility, Group Exercise/Act as Ind, UE Funct Exercise/Act, Visual/Perceptual Retrain Treatment Duration: Dec 26, 2021 Frequency: 3 times per week (3-5x/week) Estimated Hrs Per Day: .25 hour per day Agreement: Yes Rehab Potential: Fair Time/GCodes Start Time: 09:57 Stop Time: 10:12 Total Time Billed (hr/min): 15 Billed Treatment Time 1 visit Paloma Mc OT Dec 18, 2021 10:59
--- NOTE | 2021-12-18 11:37 | History & Physical ---
BENJYSYLVIA 12/18/21 1137: History of Present Illness History of Present Illness Reason for visit/HPI Jia is a 81yo F with a past medical history of stroke, chronic atrial fibrillation, hypothyroidism, CKD stage 3, high cholesterol, hypertension, Diabetes type II, and GERD. Patient was brought to the ER yesterday by her daugh perry and presented with aphasia and weakness. She had been to her primary physicians office for a regular visit and a UA was done in the office that came back negative. Her primary physician sent her to the ER. The patient's daughter had to act as the historian because the patient was confused and unable to answer questions about her medical history. Patient had returned home from the rehabilitation center on 10/15/22 after having a stroke. Patient had left sided weakness after her previous stroke. Daughter stated that for the past 3 days the patient had developed confusion and aphasia. She had also had a headache the past 2 days. Daughter denies any recent sickness or falls. A CT did not show any signs of ischemia or hemorrhage. An MRI was ordered to reevaluate for a cause of stroke symptoms. Patient was unable to follow commands during a neurological examination due to confusion. She had LUE weakness. Blood pressure elevated at 212/108. Was admitted to the ICU for observation. Patient has been stable in the ICU. Daughter reports that she is still confused and weak. Patient smiles and seems comfortable during the interview. An MRI is being done at 12:30 today. Date of Admission Dec 17, 2021 at 16:30 Date Seen by a Provider: Dec 18, 2021 Time Seen by a Provider: 09:45 I consulted on this patient on Attending Physician Lillian Vo DO Admitting Physician Josue Lim DO Consult Allergies and Home Medications Allergies Coded Allergies: No Known Drug Allergies (Unverified , 02/19/13) Patient Home Medication List Home Medication List Reviewed: Yes Acetaminophen (Tylenol) 325 Mg Tablet, 650 MG PO Q4H PRN for PAIN-MILD (1-4), (Reported) Entered as Reported by: ERNESTO MELTON on 09/29/21 1127 Last Action: Reviewed Allopurinol (Allopurinol) 100 Mg Tablet, 100 MG PO BID, (Reported) Entered as Reported by: ERNESTO MELTON on 12/18/21 1022 Last Action: Reviewed Atorvastatin Calcium (Atorvastatin Calcium) 80 Mg Tablet, 80 MG PO HS, (Repo rted) Entered as Reported by: ERNESTO MELTON on 12/18/211021 Last Action: Reviewed Bethanechol Chloride (Urecholine) 10 Mg Tablet, 10 MG PO ACHS, (Reported) Entered as Reported by: ERNESTO MELTON on 12/18/211021 Last Action: Reviewed Cyanocobalamin (Cyanocobalamin Injection) 1,000 Mcg/Ml Inj, 1,000 MCG IM MONTHLY, (Reported) Entered as Reported by: ERNESTO MELTON on 09/29/21 112 Last Action: Reviewed Ferrous Sulfate (Iron) 325 Mg Tablet, 325 MG PO HS, (Reported) Entered as Reported by: ERNESTO MELTON on 12/18/211021 Last Action: Reviewed Gabapentin (Neurontin) 300 Mg Capsule, 300 MG PO DAILY, (Reported) Entered as Reported by: ERNESTO MELTON on 12/18/211021 Last Action: Reviewed Levothyroxine Sodium (Levothyroxine Sodium) 75 Mcg Tablet, 75 MCG PO DAILY, (Reported) Entered as Reported by: ERNESTO MELTON on 12/18/211021 Last Action: Reviewed Liraglutide (Victoza 2-Sanket) 0.6 Mg/0.1 Ml Pen.injctr, 1.2 MG SQ 1200, (Reported) Entered as Reported by: ERNESTO MELTON on 12/18/211021 Last Action: Reviewed Metformin HCl (Metformin HCl ER) 500 Mg Tab.er.24, 500 MG PO DAILY, (Reported) Entered as Reported by: ERNESTO MELTON on 12/18/211021 Last Action: Reviewed Metoprolol Succinate (Metoprolol Succinate) 50 Mg Tab.er.24h, 50 MG PO HS, (Reported) Entered as Reported by: ERNESTO MELTON on 12/18/211021 Last Action: Reviewed Metoprolol Succinate (Metoprolol Succinate) 100 Mg Tab.er.24h, 100 MG PO DAILY, (Reported) Entered as Reported by: ERENSTO MELTON on 12/18/211021 Last Action: Reviewed Olmesartan Medoxomil (Olmesartan Medoxomil) 20 Mg Tablet, 20 MG PO DAILY, (Reported) Entered as Reported by: ERNESTO MELTON on 12/18/211022 Last Action: Reviewed Pantoprazole Sodium (Pantoprazole Sodium) 40 Mg Tablet.dr, 40 MG PO DAILY, (Reported) Entered as Reported by: ERNESTO MELTON on 12/18/21 102 Last Action: Reviewed Venlafaxine HCl (Venlafaxine HCl ER) 150 Mg Cap.er.24h, 150 MG PO DAILY, (Reported) Entered as Reported by: ERNESTO MELTON on 12/18/21 102 Last Action: Reviewed Discontinued Medications Allopurinol (Allopurinol) 100 Mg Tablet, 100 MG PO BID Discontinued Reason: Duplicate Order Prescribed by: LILLIAN VO on 10/14/212052 Last Action: Discontinued Apixaban (Eliquis) 5 Mg Tablet, 5 MG PO BID Discontinued Reason: Duplicate Order Prescribed by: LILLIAN VO on 10/14/212052 Last Action: Discontinued Apixaban (Eliquis) 5 Mg Tablet, 5 MG PO BID, (Reported) Discontinued Reason: Provider Ok'd Entered as Reported by: ERNESTO MELTON on 12/18/21 102 Last Action: Reviewed Atorvastatin Calcium (Atorvastatin Calcium) 80 Mg Tablet, 80 MG PO DAILY Discontinued Reason: No Longer Taking Prescribed by: LILLIAN VO on 10/14/212052 Last Action: Discontinued Bethanechol Chloride (Urecholine) 10 Mg Tablet, 10 MG PO ACHS Discontinued Reason: No Longer Taking Prescribed by: LILLIAN VO on 10/14/212052 Last Action: Discontinued Gabapentin (Neurontin) 300 Mg Capsule, 300 MG PO DAILY Discontinued Reason: Duplicate Order Prescribed by: LILLIAN VO on 10/14/212052 Last Action: Discontinued Levothyroxine Sodium (Levothyroxine Sodium) 75 Mcg Tablet, 75 MCG PO DAILY Discontinued Reason: Duplicate Order Prescribed by: LILLIAN VO on 10/14/212052 Last Action: Discontinued Metformin HCl (Metformin HCl ER) 500 Mg Tab.er.24h, 500 MG PO DAILY Discontinued Reason: Duplicate Order Prescribed by: LILLIAN VO on 10/14/212052 Last Action: Discontinued Metoprolol Succinate (Metoprolol Succinate) 50 Mg Tab.er.24h, 50 MG PO HS Discontinued Reason: Duplicate Order Prescribed by: LILLIAN VO on 10/14/212052 Last Action: Discontinued Metoprolol Succinate (Metoprolol Succinate) 100 Mg Tab.er.24h, 100 MG PO DAILY Discontinued Reason: Duplicate Order Prescribed by: LILLIAN VO on 10/14/212052 Last Action: Discontinued Olmesartan Medoxomil (Olmesartan Medoxomil) 20 Mg Tablet, 20 MG PO DAILY Discontinued Reason: Duplicate Order Prescribed by: LILLIAN VO on 10/14/212052 Last Action: Discontinued Olmesartan Medoxomil (Olmesartan Medoxomil) 40 Mg Tablet, 40 MG PO DAILY, (Reported) Discontinued Reason: Prescription changed Entered as Reported by: ERNESTO MELTON on 12/18/21 1022 Last Action: New Order Pantoprazole Sodium (Pantoprazole Sodium) 40 Mg Tablet.dr, 40 MG PO DAILY Discontinued Reason: Duplicate Order Prescribed by: LILLIAN VO on 10/14/212052 Last Action: Discontinued Venlafaxine HCl (Venlafaxine HCl ER) 150 Mg Cap.er.24h, 150 MG PO DAILY Discontinued Reason: Duplicate Order Prescribed by: LILLIAN VO on 10/14/212052 Last Action: Discontinued Past Srcndba-Izwxwo-Qweism Hx Patient Social History Marrital Status: Living Status: Lives at home alone, just recently had at home care after a stroke Employed/Student: unemployed Tobacco Use?: No Smoking Status: Former Smoker Use of E-Cig and/or Vaping dev: No Substance use?: No Alcohol Use?: No Pt feels they are or have been: No Immunizations Up To Date Date of Influenza Vaccine: Aug 09, 2011 First/Initial COVID19 Vaccinat: 12/2020 Second COVID19 Vaccination Maninder: 01/2021 Tetanus Booster (TDap): Unknown Hepatitis A: No Hepatitis B: No Date of Pneumonia Vaccine: Aug 07, 2012 Current Status status: No Advance Directives: No Communicates: Verbally Primary Language: Guinean Preferred Spoken Language: Guinean Is interpretation needed?: No Sensory deficits: Vision impairment Implanted or Applied Medical D: None Past Medical History Surgeries: Eye Surgery, Gallbladder, Hysterectomy, Joint Replacement, Oophorectomy, Orthopedic, Vascular Surgery Atrial Fibrillation, Coronary Artery Disease, Heart Attack, High Cholesterol, Hypertension, Peripheral Vascular Headaches /Migraines, Stroke [employer] History: Hysterectomy, Menopausal Gastroesophageal Reflux, Diverticulosis Degenerate Disk Disease, Arthritis Diabetes, Insulin dep, Hypothyroidsim Cataract Blood Disorders: Yes (ANEMIA) Family Medical History No Pertinent Family Hx SOCIAL HISTORY: -NO SMOKING -NO ETOH -NO DRUGS PAST SURGICAL HISTORY: -LEFT CAROTID ENDARTERECTOMY -HYSTERECTOMY WITH RIGHT SALPINGO-OOPHORECTOMY -BILATERAL CATARACT SURGERY -CERVICAL SPINE SURGERY -BILATERAL TOTAL KNEE REPLACEMENT -CHOLECYSTECTOMY -EGD/COLONOSCOPY 02/[address] PITT Review of Systems Constitutional: no symptoms reported EENTM: no symptoms reported Respiratory: no symptoms reported Cardiovascular: no symptoms reported Gastrointestinal: no symptoms reported Genitourinary: no symptoms reported : No Musculoskeletal: no symptoms reported Skin: no symptoms reported Psychiatric/Neurological: No Symptoms Reported Physical Exam Vital Signs Vital Signs - First Documented 12/17/21 12/17/21 12:30 17:27 Temp 36.4 Pulse 76 Resp 18 B/P (MAP) 212/108 (142) Pulse Ox 98 O2 Delivery Room Air Capillary Refill : Less Than 3 Seconds Height, Weight, BMI Height: 5'3.00" Weight: 225lbs. oz. [id number]; 36.51 BMI Method:Estimated General Appearance: No Apparent Distress (Patient was resting in a chair taking a nap when provider entered the room) HEENT: PERRL/EOMI Neck: Full Range of Motion, Normal Inspection Respiratory: Lungs Clear Cardiovascular: Systolic Murmur (crescendo decrescendo murmur heard) Gastrointestinal: Normal Bowel Sounds Back: Normal Inspection Extremity: Normal Capillary Refill, Normal Inspection, Non Tender, No Pedal Edema Neurologic/Psychiatric: Alert (Patient opens eyes and will respond to questions), Abnormal healthcare network consultant II-XII (Patient unable to follow finger during ocular movement exam, unsure if this was because she didn't understand what to do or because of actual deficit), Aphasia (Patient struggles to find the right word to say, does seem to understand what the provider was saying), Motor Weakness (2/5 muscle strength in bilateral upper extremities, patient unable to raise arms, could barely squeeze the providers hands when instructed to), Other (Patient only oriented to self) Skin: Normal Color, Warm/Dry Lymphatic: No Adenopathy Assessment/Plan Assessment and Plan Cerebral infarction MRI being done to assess for ischemia Eliquis being discontinued Xarelto is being started and adjusted to a dose safe for patients with CKD Aphasia Patient being transferred to rehabilitation services Will work with PT/OT/speech therapy Diabetes type 2 Home medications withheld Aspart on a sliding scale was started Mixed hyperlipidemia Restart home medications of Atorvastatin Chronic atrial fibrillation Eliquis discontinued Will start Xarelto Primary htn Started on Labetalol and Hydralazine CKD Stage 3 Stable with GFR of 52 and creatinine of 1.08 Hypokalemia Patient started on IV K and Mg GERD Restart home medications of Pantoprazole Hypothyroidism hold home medication of levothyroxine DVT prophylaxis Xarelto was started Problems: (1) CVA (cerebral infarction) Status: Acute (2) IDDM (insulin dependent diabetes mellitus) Status: Acute (3) Expressive aphasia Status: Acute (4) Chronic atrial fibrillation Status: Acute (5) Mixed hyperlipidemia (6) Primary hypertension (7) Chronic kidney disease, stage 3 (8) Hypothyroid (9) GERD (gastroesophageal reflux disease) (10) DVT prophylaxis (11) Hypokalemia LILLIAN VO DO 12/19/21 0545: History of Present Illness History of Present Illness Reason for visit/HPI Chief complaint: Aphasia with weakness History of present illness: This is an 81-year-old white female known to me from prior inpatient rehab admissions due to very complicated stroke issues who presented with confusion and aphasia with headache and presented to the ER and stroke protocol initiated showing no evidence of acute stroke or large thrombus on CT angiogram so [facility] recommended admitting for observation. Allergies and Home Medications Allergies Coded Allergies: No Known Drug Allergies (Unverified , 02/19/13) Patient Home Medication List Home Medication List Reviewed: Yes Acetaminophen (Tylenol) 325 Mg Tablet, 650 MG PO Q4H PRN for PAIN-MILD (1-4), (Reported) Entered as Reported by: ERNESTO MELTON on 09/29/21 1127 Last Action: Reviewed Allopurinol (Allopurinol) 100 Mg Tablet, 100 MG PO BID, (Reported) Entered as Reported by: ERNESTO MELTON on 12/18/21 1022 Last Action: Reviewed Atorvastatin Calcium (Atorvastatin Calcium) 80 Mg Tablet, 80 MG PO HS, (Reported) Entered as Reported by: ERNESTO MELTON on 12/18/21 1022 Last Action: Reviewed Bethanechol Chloride (Urecholine) 10 Mg Tablet, 10 MG PO ACHS, (Reported) Entered as Reported by: ERNESTO MELTON on 12/18/21 1022 Last Action: Reviewed Cyanocobalamin (Cyanocobalamin Injection) 1,000 Mcg/Ml Inj, 1,000 MCG IM MONTHLY, (Reported) Entered as Reported by: ERNESTO MELTON on 09/29/21 112 Last Action: Reviewed Ferrous Sulfate (Iron) 325 Mg Tablet, 325 MG PO HS, (Reported) Entered as Reported by: ERNESTO MELTON on 12/18/211021 Last Action: Reviewed Gabapentin (Neurontin) 300 Mg Capsule, 300 MG PO DAILY, (Reported) Entered as Reported by: ERNESTO MELTON on 12/18/211021 Last Action: Reviewed Levothyroxine Sodium (Levothyroxine Sodium) 75 Mcg Tablet, 75 MCG PO DAILY, (Reported) Entered as Reported by: ERNESTO MELTON on 12/18/211021 Last Action: Reviewed Liraglutide (Victoza 2-Sanket) 0.6 Mg/0.1 Ml Pen.injctr, 1.2 MG SQ 1200, (Reported) Entered as Reported by: ERNESTO MELTON on 12/18/211021 Last Action: Reviewed Metformin HCl (Metformin HCl ER) 500 Mg Tab.er.24, 500 MG PO DAILY, (Reported) Entered as Reported by: ERNESTO MELTON on 12/18/211021 Last Action: Reviewed Metoprolol Succinate (Metoprolol Succinate) 50 Mg Tab.er.24h, 50 MG PO HS, (Reported) Entered as Reported by: ERNESTO MELTON on 12/18/211021 Last Action: Reviewed Metoprolol Succinate (Metoprolol Succinate) 100 Mg Tab.er.24h, 100 MG PO DAILY, (Reported) Entered as Reported by: ERNESTO MELTON on 12/18/211021 Last Action: Reviewed Olmesartan Medoxomil (Olmesartan Medoxomil) 20 Mg Tablet, 20 MG PO DAILY, (Re ported) Entered as Reported by: ERNESTO MELTON on 12/18/211022 Last Action: Reviewed Pantoprazole Sodium (Pantoprazole Sodium) 40 Mg Tablet.dr, 40 MG PO DAILY, (Reported) Entered as Reported by: ERNESTO MELTON on 12/18/211021 Last Action: Reviewed Venlafaxine HCl (Venlafaxine HCl ER) 150 Mg Cap.er.24h, 150 MG PO DAILY, (Reported) Entered as Reported by: ERNESTO MELTON on 12/18/21 1022 Last Action: Reviewed Discontinued Medications Allopurinol (Allopurinol) 100 Mg Tablet, 100 MG PO BID Discontinued Reason: Duplicate Order Prescribed by: LILLIAN VO on 10/14/212052 Last Action: Discontinued Apixaban (Eliquis) 5 Mg Tablet, 5 MG PO BID Discontinued Reason: Duplicate Order Prescribed by: LILLIAN VO on 10/14/212052 Last Action: Discontinued Apixaban (Eliquis) 5 Mg Tablet, 5 MG PO BID, (Reported) Discontinued Reason: Provider Ok'd Entered as Reported by: ERNESTO MELTON on 12/18/21 1022 Last Action: Reviewed Atorvastatin Calcium (Atorvastatin Calcium) 80 Mg Tablet, 80 MG PO DAILY Discontinued Reason: No Longer Taking Prescribed by: LILLIAN VO on 10/14/212052 Last Action: Discontinued Bethanechol Chloride (Urecholine) 10 Mg Tablet, 10 MG PO ACHS Discontinued Reason: No Longer Taking Prescribed by: LILLIAN VO on 10/14/212052 Last Action: Discontinued Gabapentin (Neurontin) 300 Mg Capsule, 300 MG PO DAILY Discontinued Reason: Duplicate Order Prescribed by: LILLIAN VO on 10/14/212052 Last Action: Discontinued Levothyroxine Sodium (Levothyroxine Sodium) 75 Mcg Tablet, 75 MCG PO DAILY Discontinued Reason: Duplicate Order Prescribed by: LILLIAN VO on 10/14/212052 Last Action: Discontinued Metformin HCl (Metformin HCl ER) 500 Mg Tab.er.24h, 500 MG PO DAILY Discontinued Reason: Duplicate Order Prescribed by: LILLIAN VO on 10/14/212052 Last Action: Discontinued Metoprolol Succinate (Metoprolol Succinate) 50 Mg Tab.er.24h, 50 MG PO HS Discontinued Reason: Duplicate Order Prescribed by: LILLIAN VO on 10/14/212052 Last Action: Discontinued Metoprolol Succinate (Metoprolol Succinate) 100 Mg Tab.er.24h, 100 MG PO DAILY Discontinued Reason: Duplicate Order Prescribed by: LILLIAN VO on 10/14/212052 Last Action: Discontinued Olmesartan Medoxomil (Olmesartan Medoxomil) 20 Mg Tablet, 20 MG PO DAILY Discontinued Reason: Duplicate Order Prescribed by: LILLIAN VO on 10/14/212052 Last Action: Discontinued Olmesartan Medoxomil (Olmesartan Medoxomil) 40 Mg Tablet, 40 MG PO DAILY, (Reported) Discontinued Reason: Prescription changed Entered as Reported by: ERNESTO MELTON on 12/18/21 1022 Last Action: New Order Pantoprazole Sodium (Pantoprazole Sodium) 40 Mg Tablet.dr, 40 MG PO DAILY Discontinued Reason: Duplicate Order Prescribed by: LILLIAN VO on 10/14/212052 Last Action: Discontinued Venlafaxine HCl (Venlafaxine HCl ER) 150 Mg Cap.er.24h, 150 MG PO DAILY Discontinued Reason: Duplicate Order Prescribed by: LILLIAN VO on 10/14/212052 Last Action: Discontinued Past Orsdicp-Eczkyo-Dwpbkr Hx Patient Social History Marrital Status: single Smoking Status: Never a Smoker Past Medical History Atrial Fibrillation, High Cholesterol, Hypertension Stroke Diabetes, Non-Insulin dep Review of Systems Constitutional: see HPI, malaise, weakness Physical Exam General Appearance: No Apparent Distress, WD/WN Eyes: Bilateral Eye Normal Inspection, Bilateral Eye PERRL, Bilateral Eye EOMI HEENT: PERRL/EOMI, Normal ENT Inspection, Pharynx Normal Neck: Full Range of Motion, Normal Inspection, Non Tender, Supple, Carotid Bruit Respiratory: Chest Non Tender, Lungs Clear, Normal Breath Sounds, No Accessory Muscle Use, No Respiratory Distress Cardiovascular: Regular Rate, Rhythm, No Edema, No Gallop, No JVD, No Murmur, Normal Peripheral Pulses Gastrointestinal: Normal Bowel Sounds, No Organomegaly, No Pulsatile Mass, Non Tender, Soft Back: Normal Inspection, No CVA Tenderness, No Vertebral Tenderness Extremity: Normal Capillary Refill, Normal Inspection, Normal Range of Motion, Non Tender, No Calf Tenderness, No Pedal Edema Neurologic/Psychiatric: Alert, No Motor/Sensory Deficits, Abnormal healthcare network consultant II-XII (Patient unable to follow finger during ocular movement exam, unsure if this was because she didn't understand what to do or because of actual deficit), Aphasia (Patient struggles to find the right word to say, does seem to understand what the provider was saying), Depressed Affect, Motor Weakness (2/5 muscle strength in bilateral upper extremities, patient unable to raise arms, could barely squeeze the providers hands when instructed to) Skin: Normal Color, Warm/Dry Lymphatic: No Adenopathy Assessment/Plan Assessment and Plan Assessment: Acute CVA but microscopic infarcts on MRI causing flare of previous residual from CVA 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 transferred to [facility] then again 10/03/21 s/p thrombectomy after emergent med flight 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 Hurtado History of acute hematuria in the past GERD Gout History of urinary retention monitor closely Tendency for hypoglycemia Plan: Move to rehab Change Eliquis to Xarelto Home meds Appreciate Dr. Hurtado Admission Diagnosis Admission Status: Inpatient Order (span 2 midnights) Reason for Inpatient Admission: cva Supervisory-Addendum Brief Verification & Attestation Participated in pt care: history, MDM, physical Personally performed: exam, history, MDM, supervision of care Care discussed with: Medical Student Procedures: n/a Results interpretation: Verified all documentation Verification and Attestation of Medical Student E/M Service A medical student performed and documented this service in my presence. I reviewed and verified all information documented by the medical student and made modifications to such information, when appropriate. I personally performed the physical exam and medical decision making. Lillian Vo, Dec 19, 2021,05:45 SYLVIA BURLESON Dec 18, 2021 11:37 LILLIAN VO DO Dec 19, 2021 05:45
--- NOTE | 2021-12-18 12:54 | Diagnostic Imaging Report ---
PROCEDURE: MR imaging of the brain without contrast. TECHNIQUE: Multiplanar, multisequence MR imaging of the brain was performed without contrast. INDICATION: Stroke-like symptoms. Slurred speech. Weakness. COMPARISON: 12/17/2021. FINDINGS: Subacute to chronic infarct is seen in the left temporoparietal region and right frontal lobe. Chronic blood products are seen in the area of ischemia in the left temporoparietal region. No evidence of acute ischemia. No acute hemorrhage or mass effect. No hydrocephalus. Chronic microvascular disease is seen throughout the periventricular and subcortical white matter. The ventricles and cortical sulci are prominent. The basilar cisterns are symmetric and unremarkable. The sellar and suprasellar regions have a normal appearance. The brainstem and posterior fossa are unremarkable. The paranasal sinuses and mastoid air cells demonstrate normal signal characteristics. The globes and orbits are symmetric and unremarkable. The scalp and calvarium have a normal appearance. IMPRESSION: 1. No acute ischemia, mass, or hemorrhage. 2. Subacute to chronic infarcts in the left temporoparietal region and right frontal lobe. 3. Generalized parenchymal volume loss with chronic microvascular disease. Dictated by: Dictated on workstation # [id number]
[2021-12-18] MEDS ORDERED: RIVAROXABAN 20 MG TABLET (XARELTO) PO SCH (17:00)
== END 2021-12-18 11:40 | DRG 65 ==
LOC: EDUNIT# 12:28 → ER 12:31 → ICU 16:30
PROVIDERS: ADMIT Internal Medicine; ATTEND Internal Medicine
DX: I63.9 Cerebral infarction, unspecified (principal); I69.354 Hemiplegia and hemiparesis following cerebral infarction affecting left non-dominant side; I48.21 Permanent atrial fibrillation; R47.01 Aphasia; H53.8 Other visual disturbances; R41.0 Disorientation, unspecified; I12.9 Hypertensive chronic kidney disease with stage 1 through stage 4 chronic kidney disease, or unspecified chronic kidney disease; E13.22 Other specified diabetes mellitus with diabetic chronic kidney disease; N18.30 Chronic kidney disease, stage 3 unspecified; I25.10 Atherosclerotic heart disease of native coronary artery without angina pectoris; E78.00 Pure hypercholesterolemia, unspecified; E78.2 Mixed hyperlipidemia; K21.9 Gastro-esophageal reflux disease without esophagitis; M19.91 Primary osteoarthritis, unspecified site; E03.9 Hypothyroidism, unspecified; E87.6 Hypokalemia; R29.700 NIHSS score 0; I25.2 Old myocardial infarction; Z79.84 Long term (current) use of oral hypoglycemic drugs; Z96.653 Presence of artificial knee joint, bilateral
CPT/HCPCS: 36415; 51701; 70450; 70496; 70498; 70551; 71045; 80053; 80061; 81000; 82947; 83735; 84100; 84484; 85025; 85379; 85610; 85730; 93005; 93041; 93306

== ENCOUNTER 2021-12-18 09:58 | Inpatient (IN) | payer MEDICARE ==
[~2021-12-18] VITALS: Ht 154 cm; Wt 88.0 kg
[2021-12-18] MEDS ORDERED: GABA300C PO (10:22)
[2021-12-18] MEDS ORDERED: LIRA0.6P SQ (10:22)
[2021-12-18] MEDS ORDERED: FERR-84 PO (10:22)
[2021-12-18] MEDS ORDERED: OLME40TA18 PO (10:22)
[2021-12-18] MEDS ORDERED: APIX5TAB PO (10:22)
[2021-12-18] MEDS ORDERED: ALLO100T PO (10:22)
[2021-12-18] MEDS ORDERED: BTH10T PO (10:22)
[2021-12-18] MEDS ORDERED: PANT40TA52 PO (10:22)
[2021-12-18] MEDS ORDERED: LEVO75TA6 PO (10:22)
[2021-12-18] MEDS ORDERED: METO50TA7 PO (10:22)
[2021-12-18] MEDS ORDERED: ATOR80TA76 PO (10:22)
[2021-12-18] MEDS ORDERED: VENL150C98 PO (10:22)
[2021-12-18] MEDS ORDERED: MTP100TCR PO (10:22)
[2021-12-18] MEDS ORDERED: METF-478 PO (10:22)
[2021-12-18] MEDS ORDERED: OLME20TA24 PO (10:23)
[2021-12-18] MEDS ORDERED: ONDANSETRON 4 MG (ZOFRAN) ORAL DISSOLVE TAB PO PRN (11:45)
[2021-12-18] MEDS ORDERED: CALCIUM CARBONATE 500 MG (TUMS) TAB.CHEW PO PRN (11:45)
[2021-12-18] MEDS ORDERED: ACETAMINOPHEN 325 MG TABLET PO PRN ×2 (11:45→17:30)
[2021-12-18] MEDS ORDERED: ALPRAZolam 0.25 MG (XANAX) TAB PO PRN (11:45)
[2021-12-18] MEDS ORDERED: LOPERAMIDE 2 MG (IMODIUM) TABLET PO PRN (11:45)
[2021-12-18] MEDS ORDERED: FLEET ENEMA ADULT 1 EA BTL PR PRN (11:45)
[2021-12-18] MEDS ORDERED: guaiFENesin/CODEINE (ROBITUSSIN AC) 10ML UDC PO PRN (11:45)
[2021-12-18] MEDS ORDERED: BISACODYL 10 MG SUPP (DULCOLAX) PR PRN (11:45)
[2021-12-18] MEDS ORDERED: diphenhydrAMINE 25 MG TAB (BENADRYL) PO PRN (11:45)
[2021-12-18] MEDS ORDERED: MELATONIN 3 MG TABLET PO PRN (11:45)
[2021-12-18] MEDS ORDERED: LACTULOSE SYRUP 10GM/15ML (ENULOSE) 30ML UDC PO PRN (11:45)
[2021-12-18] MEDS ORDERED: DOCUSATE SODIUM 100 MG (COLACE) CAP PO PRN (11:45)
--- NOTE | 2021-12-18 12:47 | Physical Therapy Evaluation ---
PT Evaluation-General Medical Diagnosis Admission Date Medical Diagnosis: CVA Onset Date: Dec 17, 2021 Therapy Diagnosis Therapy Diagnosis: impaired mobility Height/Weight Height (Feet): 5 Height (Inches): 3.00 Weight (Pounds): 225 Referral Physician: Lillian Little DO Reason for Referral: Evaluation/Treatment Medical History Pertinent Medical History: Atrial Fib, Arthritis, DM, HTN, [place] Additional Medical History Past Medical History Surgeries: Yes (SEE BELOW) Eye Surgery, Gallbladder, Hysterectomy, Joint Replacement, Oophorectomy, Orthopedic, Vascular Surgery Respiratory: No Cardiac: Yes (CAROTID DISEASE) Atrial Fibrillation, Coronary Artery Disease, Heart Attack, High Cholesterol, Hypertension, Peripheral Vascular Neurological: Yes Headaches /Migraines, Stroke 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 Disorders: No 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 1-Neefnupibh-fypkxia completes the activity by him/herself with no assistance from a helper. 5-Set-up or Clean-up Assistance-helper sets up or cleans up; patient completes activity. [place] assists only prior to or following the activity. 4-Supervision or Touching Assistance-helper provides verbal cues and/or touching/steadying and/or contact guard assistance as patient completes activity. Assistance may be provided throughout the activity or intermittently. 3-Partial/Moderate Assistance-helper does LESS THAN HALF the effort. [place] lifts, holds or supports trunk or limbs, but provides less than half the effort. 2-Substantial/Maximal Assistance-helper does MORE THAN HALF the effort. [place] lifts or holds trunk or limbs and provides more than half the effort. 7-Wumoghbpu-kwbsuy does ALL the effort. Patient does none of the effort to complete the activity. Or, the assistance of 2 or more helpers is required for the patient to complete the activity. If activity was not attempted, code reason: 7-Patient Refused. 9-Not Applicable-not attempted and the patient did not perform the activity before the current illness, exacerbation or injury. 10-Not Attempted due to Environmental Limitations-(lack of equipment, weather restraints, etc.). 88-Not Attempted due to Medical Conditions or Safety Concerns. Bed Mobility: 6 Transfers (B,C,W/C): 6 Gait: 6 Stairs: 6 Indoor Mobility (Ambulation): Independent Stairs: Independent PT Evaluation-Current Subjective Patient in recliner pre tx, agrees to PT, no complaints of pain. Will be co- treating with OT due to poor patient mobility, strength, endurance, coordinate UE and LE with activity, safety and reduce risk of falls. Pt/Family Goals to be independent at home Objective Patient Orientation: Person, Confused ROM/Strength ROM Lower Extremities WNL Strength Lower Extremities NT, patient has too much difficulty following directions Sensory Hearing: Functional Sensation Lower Extremities NT Transfers Roll Left & Right (QC): 4 Sit to Lying (QC): 3 Lying to Sitting/Side of Bed(Q: 3 Sit to Stand (QC): 3 Chair/Jjj-yd-Fvnah Xfer(QC): 4 Toilet Transfer (QC): 4 Car Transfer (QC): 3 Patient performs rolling with SBA, supine <-> sit mod assist, sit <-> stand min assist, transfers CGA, car transfer min assist. Patient needs a lot of tactile cues for positioning and direction, she doesn't respond well to verbal directions. Gait Does the Patient Walk?: Yes Mode of Locomotion: Walk Anticipated Mode of Locomotion: Walk Walk 10 feet (QC): 3 Walk 50 ft with 2 Turns(QC): 3 Walk 150 ft (QC): 88 Walking 10ft/uneven surface-QC: 3 Distance: 50' Gait Assistive Device: FWW Comments/Gait Description Patient can ambulate 50' with a rolling walker with min assist (including 50' with at least 2 turns of 90 degrees and 10' over an uneven surface), patient needs assist to guide the walker, if you don't guide the walker she seems lost as to what to do and doesn't seem to understand verbal directions very well. Wheelchair Training Does the Pt Use a Wheelchair?: No Wheel 50 ft with 2 turns (QC): 9 Wheel 150 ft (QC): 9 Stairs #of Steps: 1 1 Step (curb) (QC): 3 4 Steps (QC): 88 12 Steps (QC): 88 Walking Assistive Device: Walker Patient can go up and down 1 step using a rolling walker with min assist, needs help guiding the walker Balance Sitting Static: Normal Sitting Dynamic: Normal Standing Static: Fair Standing Dynamic: Fair Picking up an Object (QC): 4 Treatment PT performed bed mobility and transfers, ambulation, stair training, gait training, standing and positioning during dressing and bathing, OT performed dressing, bathing, UE positioning and safety during activity, assisted with cues for direction. Assessment/Needs Patient in recliner post tx with nurse call, phone, tray, all needs met, chair alarm on. Patient has impaired mobility, strength, endurance. She doesn't need a lot of physical assistance with transfers and ambulation but needs tactile dues and assist guiding her walker because she has difficulty either understanding or performing verbal cues for direction. Rehab Potential: Fair PT Short Term Goals Short Term Goals Time Frame: Dec 25, 2021 Roll Left & Right: 6 Sit to lyin Lying to sitting on side of be: 4 Sit to stand: 4 (SBA) Chair/arf-cs-ygxzm transfer: 4 (SBA) Walk 10 feet: 4 (SBA) Walk 50 feet with two turns: 4 (SBA) Walk 150 feet: 4 (SBA) PT Cyber Security Administrator Goals Cyber Security Administrator Goals PT Jail Goals Time Frame: Jan 08, 2022 Roll Left & Right (QC): 6 Sit to Lying (QC): 6 Lying-Sitting on Side/Bed(QC): 6 Sit to Stand (QC): 5 Chair/Zdc-no-Xhaae Xfer(QC): 5 Toilet Transfer (QC): 5 Car Transfer (QC): 5 Does the Patient Walk: Yes Walk 10 feet (QC): 5 Walk 50ft with 2 Turns (QC): 5 Walk 150 ft (QC): 5 Walking 10ft on Uneven Surface: 5 1 Step (curb) (QC): 4 4 Steps (QC): 4 12 Steps (QC): 88 Picking up an Object (QC): 5 Wheel 50 feet with 2 turns (QC: 9 Wheel 150 feet: 9 PT Plan Problem List Problem List: Activity Tolerance, Functional Strength, Safety, Balance, Gait, Transfer, Bed Mobility, ROM Treatment/Plan Treatment Plan: Continue Plan of Care Treatment Plan: Bed Mobility, Education, Functional Activity Helen, Functional Strength, Group Therapy, Gait, Safety, Therapeutic Exercise, Transfers Treatment Duration: Jan 08, 2022 Frequency: At least 5 of 7 days/Wk (IRF) Estimated Hrs Per Day: 1.5 hours per day Patient and/or Family Agrees t: Yes Safety Risks/Education Patient Education: Gait Training, Transfer Techniques, Steps, Correct Positioning, Safety Issues Teaching Recipient: Patient Teaching Methods: Demonstration, Discussion Response to Teaching: Reinforcement Needed Discharge Recommendations Plan Patient will perform bed mobility and transfer training, balance and endurance training, functional strengthening, stair training, gait training, and education, to improve functional mobility and independence at home. Therapy Discharge Recommendati: Scheduled Assistance, Home & Family, Post Acute PT Time/GCodes Time In: 1135 Time Out: 1205 Total Billed Treatment Time: 20 Total Billed Treatment 1 visit EVM 10' PT eval from [id number], OT eval from [id number], co-treat from [id number] TYRESE LEÓN PT Dec 18, 2021 12:47
--- NOTE | 2021-12-18 13:11 | Occupational Therapy Eval ---
OT Evaluation-General/PLF Medical Diagnosis Admission Date Dec 18, 2021 at 11:44 Medical Diagnosis: CVA Onset Date: Dec 17, 2021 Therapy Diagnosis Therapy Diagnosis: reduced adl and cognitive status Height/Weight Height (Feet): 5 Height (Inches): 3.00 Weight (Pounds): 225 Precautions Precautions/Isolations: Fall Prevention, Standard Precautions Safety Interventions: Bed Exit Alarm Referral Physician: Anabel Referral Reason: Evaluation/Treatment Medical History Pertinent Medical History: Atrial Fib, Arthritis, DM, HTN, [place] Current History Pt arrived to ER with increased confusion and worsening aphasia over last 3 days. Pt unable to answer PLOF questions. Daughter reports Pt lives with her spouse in a single story home (1 step into living area). She was indep with adls and has been performing more of her iadls recently. Daughter does help with meals and sometimes will assist with cleaning and transportation. Pt does not use any AD for mobility. Reviewed History: Yes Social History Home: Single Level (1 step down into living area) Current Living Status: Spouse Entry Into Home: Stairs With Railing Steps Into Home: 4 ADL-Prior Level of Function SCALE: Activities may be completed with or without assistive devices. 9-Rsvpfekiwz-rcewovn completes the activity by him/herself with no assistance from a helper. 5-Set-up or Clean-up Assistance-helper sets up or cleans up; patient completes activity. [place] assists only prior to or following the activity. 4-Supervision or Touching Assistance-helper provides verbal cues and/or touching/steadying and/or contact guard assistance as patient completes activity. Assistance may be provided throughout the activity or intermittently. 3-Partial/Moderate Assistance-helper does LESS THAN HALF the effort. [place] l ifts, holds or supports trunk or limbs, but provides less than half the effort. 2-Substantial/Maximal Assistance-helper does MORE THAN HALF the effort. [place] lifts or holds trunk or limbs and provides more than half the effort. 7-Yzdhnybpj-znysml does ALL the effort. Patient does none of the effort to complete the activity. Or, the assistance of 2 or more helpers is required for t he patient to complete the activity. If activity was not attempted, code reason: 7-Patient Refused. 9-Not Applicable-not attempted and the patient did not perform the activity before the current illness, exacerbation or injury. 10-Not Attempted due to Environmental Limitations-(lack of equipment, weather restraints, etc.). 88-Not Attempted due to Medical Conditions or Safety Concerns. Self Care: Independent Functional Cognition: Unknown DME/Equipment: Grab Bars, Tub/Shower OT Current Status Subjective Difficulty following directions, cues for initiation. History of aphasia which appears to be worsening per daughter.Will be co-treating with PT due to need of 2 skilled clinicians to progress indep with adls and mobility. Appearance Pt left sitting in recliner, all needs within reach, chair alarm activated. Mental Status/Objective Patient Orientation: Unable to Assess (aphasia) Attachments: IV Current Glasses/Contacts: Yes Hearing Aids: No Dentures/Partials: Yes Hand Dominance: Right Upper Extremity ROM Difficulty following directions. Appears to have some L sided neglect vs inattention. Does not actively involve L hand in functional tasks. Upper Extremity Strength Unable to follow directions ADL-Treatment Eating (QC): 4 (per clinical judgment) Oral Hygiene (QC): 7 Shower/Bathe Self (QC): 3 Upper Body Dressing (QC): 10 Lower Body Dressing (QC): 2 On/Off Footwear (QC): 2 Toileting Hygiene (QC): 2 Sponge bath performed; majority completed in sitting. Pt Requires assist/cues to initiate all tasks. She stood briefly to wash giselle area and buttocks post tactile cues to move hand towards correct body parts. Steadying assist needed in standing. Visual and verbal cues x4 to initiate washing under bilateral arms as pt often returning wash cloth to face. Pt able to wash down to foot with tactile cues and extra time. Poor motor planning through LB dressing. Assist for all steps of sequencing including reaching forward and lifting feet off floor when threading into LB clothing. Pt stood with CGA. Again, tactile cues to initiate clothing management. No active involvement to utilize LUE during task, HOHA to place/grasp on brief. Pt able to pull up on right post cues. Following visual/tactile cues, pt able to don socks over toes, assist to legal recovery specialist bilateral heels. Pt utilizes R hand only during task. New gown donned as no appropriate clothing available at this time. Family to bring in clothing at a later time. BP: 184/78 at end of session. No complaints from patient, asymptomatic. Education OT Patient Education: Correct positioning, Modified ADL techniques, Purpose of tx/functional activities, Reviewed precautions, Rehab process, Safety issues, Transfer techniques Teaching Recipient: Patient Teaching Methods: Demonstration, Discussion Response to Teaching: Unable to Return Demonstration, Reinforcement Needed OT Short Term Goals Short Term Goals Time Frame: Dec 25, 2021 Eatin Oral hygiene: 5 Toileting hygiene: 3 Shower/bathe self: 4 Upper body dressin Lower body dressin Putting on/taking off footwear: 3 OT Clerical Secretary Goals Intermediate Goals Time Frame: Jan 02, 2022 Eating (QC): 6 Oral Hygiene (QC): 5 Toileting Hygiene (QC): 6 Shower/Bathe Self (QC): 5 Upper Body Dressing (QC): 5 Lower Body Dressing (QC): 5 On/Off Footwear (QC): 5 1=Demonstrate adherence to instructed precautions during ADL tasks. 2=Patient will verbalize/demonstrate understanding of assistive devices/modifications for ADL. 3=Patient will improve strength/tolerance for activity to enable patient to perform ADL's. OT Education/Plan Problem List/Assessment Assessment: Decreased Activ Tolerance, Decreased Safety Aware, Decreased UE Strength, Impaired Cognition, Impaired Coordination, Impaired Funct Balance, Impaired I ADL's, Impaired Self-Care Skills, Visual-Perceptual Deficit Discharge Recommendations Plan/Recommendations: Continue POC Therapy Discharge Recommendati: Homemaker Support, Post Acute OT (home with home health pending improved cognition) Treatment Plan/Plan of Care Treatment,Training & Education: Yes Patient would benefit from OT for education, treatment and training to promote independence in ADL's, mobility, safety and/or upper extremity function for ADL's. Plan of Care: ADL Retraining, Cognitive Retraining, Functional Mobility, Group Exercise/Act as Ind, UE Funct Exercise/Act, Visual/Perceptual Retrain, W/C Management Training Treatment Duration: Jan 02, 2022 Frequency: At least 5 of 7 days/Wk (IRF) Estimated Hrs Per Day: 1.5 hours per day (75-90 min) Agreement: Yes Time/GCodes Start Time: 11:35 Stop Time: 12:05 Billed Treatment Time EVM (10 min) Paloma Cortez OT Dec 18, 2021 13:11
--- NOTE | 2021-12-18 14:57 | Physical Therapy Daily Note ---
PT Daily Note-Current Subjective Patient was working with OT at the start of physical therapy treatment. Co- treatment will be completed due to patients complexity of diagnosis and decreased processing ability. Mental Status Patient Orientation: Person, Confused Transfers SCALE: Activities may be completed with or without assistive devices. 0-Kahavicmdx-krqyllk completes the activity by him/herself with no assistance from a helper. 5-Set-up or Clean-up Assistance-helper sets up or cleans up; patient completes activity. [place] assists only prior to or following the activity. 4-Supervision or Touching Assistance-helper provides verbal cues and/or touching/steadying and/or contact guard assistance as patient completes activity. Assistance may be provided throughout the activity or intermittently. 3-Partial/Moderate Assistance-helper does LESS THAN HALF the effort. [place] lifts, holds or supports trunk or limbs, but provides less than half the effort. 2-Substantial/Maximal Assistance-helper does MORE THAN HALF the effort. [place] lifts or holds trunk or limbs and provides more than half the effort. 0-Uyiomhyix-wzmrlj does ALL the effort. Patient does none of the effort to complete the activity. Or, the assistance of 2 or more helpers is required for the patient to complete the activity. If activity was not attempted, code reason: 7-Patient Refused. 9-Not Applicable-not attempted and the patient did not perform the activity before the current illness, exacerbation or injury. 10-Not Attempted due to Environmental Limitations-(lack of equipment, weather restraints, etc.). 88-Not Attempted due to Medical Conditions or Safety Concerns. Sit to Lying (QC): 4 Sit to Stand (QC): 4 Patient requires CGA for all transfers. Patient requires frequent cues due to patient confusion. Gait Training Does the Patient Walk?: Yes Distance: 450' Walk 10 feet (QC): 4 Walk 50 ft with 2 Turns(QC): 4 Walk 150 ft (QC): 4 Gait Assistive Device: FWW Patient ambulated for 450' with CGA and FWW. Patient had difficulty pushing the walker without running into objects in the [place]. Treatments Co-treatment was completed with OT due to patients lack of cognitive function. Patient was instructed to belt picker cones from the wall railing while walking. Patient was unable to scan the hallway and find the cones. When patient did see the cone she would not pick them up because she "wasn't the president and so shes not allowed to" or "the doctor said I can't do that". Assessment The patient had difficulty with scanning the room and following two step directions. Patient can follow simple instructions but is not able to process complex directions. Patient ambulated with CGA but was unable to walk without hitting the wall or other obstacles in the [place] with her walker. Patient is left in her bed post tx with her nurse call light, phone, and bed alarm set. PT Short Term Goals Short Term Goals Time Frame: Dec 25, 2021 Roll Left & Right: 6 Sit to lyin Lying to sitting on side of be: 4 Sit to stand: 4 (SBA) Chair/gkv-ry-gwtyt transfer: 4 (SBA) Walk 10 feet: 4 (SBA) Walk 50 feet with two turns: 4 (SBA) Walk 150 feet: 4 (SBA) PT Flour Mixer Goals Flour Mixer Goals PT Flour Mixer Goals Time Frame: Jan 08, 2022 Roll Left & Right (QC): 6 Sit to Lying (QC): 6 Lying-Sitting on Side/Bed(QC): 6 Sit to Stand (QC): 5 Chair/Css-uy-Ittcn Xfer(QC): 5 Toilet Transfer (QC): 5 Car Transfer (QC): 5 Does the Patient Walk: Yes Walk 10 feet (QC): 5 Walk 50ft with 2 Turns (QC): 5 Walk 150 ft (QC): 5 Walking 10ft on Uneven Surface: 5 1 Step (curb) (QC): 4 4 Steps (QC): 4 12 Steps (QC): 88 Picking up an Object (QC): 5 Wheel 50 feet with 2 turns (QC: 9 Wheel 150 feet: 9 PT Plan Problem List Problem List: Activity Tolerance, Functional Strength, Safety, Balance, Gait, Transfer, Bed Mobility, ROM Treatment/Plan Treatment Plan: Continue Plan of Care Treatment Plan: Bed Mobility, Education, Functional Activity Helen, Functional Strength, Group Therapy, Gait, Safety, Therapeutic Exercise, Transfers Treatment Duration: Jan 08, 2022 Frequency: At least 5 of 7 days/Wk (IRF) Estimated Hrs Per Day: 1.5 hours per day Patient and/or Family Agrees t: Yes Safety Risks/Education Patient Education: Gait Training, Safety Issues Teaching Recipient: Patient Teaching Methods: Discussion Time/GCodes Time In: 1415 Time Out: 1450 Total Billed Treatment Time: 35 Total Billed Treatment 1 Visit FA x2 35 min ANTWON ESTRADA PT Dec 18, 2021 14:57
--- NOTE | 2021-12-18 15:09 | Occupational Ther Daily Note ---
OT Current Status-Daily Note Subjective Pt alert, sitting in recliner. Pt agrees to therapy. No c/o pain. Mental Status/Objective Patient Orientation: Person, Place, Time, Situation ADL-Treatment Pt is having difficulty with following directions with new tasks. Pt able to sequence rote skills with SBA for safety. After set up, pt able to don/doff upper body clothing. After set up, pt able to slip on shoes by self. Pt ambulated to bathroom with FWW then walked away from FWW to complete toilet transfer with CGA and SBA for toileting. Standing at sink, pt able to complete oral care with SBA for safety. Therapy Code Descriptions/Definitions Functional Hart Measure: 0=Not Assessed/NA 4=Minimal Assistance 1=Total Assistance 5=Supervision or Setup 2=Maximal Assistance 6=Modified Hart 3=Moderate Assistance 7=Complete IndependenceSCALE: Activities may be completed with or without assistive devices. 6-Oyqlwhbrjh-fiztkbj completes the activity by him/herself with no assistance from a helper. 5-Set-up or Clean-up Assistance-helper sets up or cleans up; patient completes activity. Clarkson assists only prior to or following the activity. 4-Supervision or Touching Assistance-helper provides verbal cues and/or touching/steadying and/or contact guard assistance as patient completes activity. Assistance may be provided throughout the activity or intermittently. 3-Partial/Moderate Assistance-helper does LESS THAN HALF the effort. Clarkson lifts, holds or supports trunk or limbs, but provides less than half the effort. 2-Substantial/Maximal Assistance-helper does MORE THAN HALF the effort. Clarkson lifts or holds trunk or limbs and provides more than half the effort. 3-Mtlyavmtn-qxtoeb does ALL the effort. Patient does none of the effort to complete the activity. Or, the assistance of 2 or more helpers is required for the patient to complete the activity. If activity was not attempted, code reason: 7-Patient Refused. 9-Not Applicable-not attempted and the patient did not perform the activity before the current illness, exacerbation or injury. 10-Not Attempted due to Environmental Limitations-(lack of equipment, weather restraints, etc.). 88-Not Attempted due to Medical Conditions or Safety Concerns. Oral Hygiene (QC): 4 Upper Body Dressing (QC): 5 On/Off Footwear: 5 Toileting Hygiene (QC): 4 Toilet Transfer (QC): 4 Other Treatment Pt ambulated to therapy gym using FWW. Pt to complete resistive peg board pattern, initially pt able to match pattern 2x's then became distracted and unable to refocus pt on task with verbal, gestural or physical cues. Co-treat with PT initiated ([id number]), skills of 2 clinicians required to decrease fall risk, increase environmental awareness and activity tolerance. PT focusing on transfers, ambulation and functional balance while OT focusing on functional mobility, following 1-2 step directions and sequencing. Pt able to complete 4 steps with PT, see PT notes for QC. Pt then working on following 2 step directions and visually scanning. Pt would like at cones that were placed for her to scan and then orange picker machine operator, pt refused to orange picker machine operator though would look at items stating that the doctor wasn't there. Attempted this 5x's pt would not follow directions. Pt then ambulated back to room and laid down in bed. Call light/phone in reach after session. Safety measures in place. All needs met. OT Short Term Goals Short Term Goals Time Frame: Dec 25, 2021 Eatin Oral hygiene: 5 Toileting hygiene: 3 Shower/bathe self: 4 Upper body dressin Lower body dressin Putting on/taking off footwear: 3 OT Penitentiary Goals Penitentiary Goals Time Frame: Jan 02, 2022 Eating (QC): 6 Oral Hygiene (QC): 5 Toileting Hygiene (QC): 6 Shower/Bathe Self (QC): 5 Upper Body Dressing (QC): 5 Lower Body Dressing (QC): 5 On/Off Footwear (QC): 5 1=Demonstrate adherence to instructed precautions during ADL tasks. 2=Patient will verbalize/demonstrate understanding of assistive devices/modifications for ADL. 3=Patient will improve strength/tolerance for activity to enable patient to perform ADL's. OT Education/Plan Problem List/Assessment Assessment: Decreased Activ Tolerance, Decreased Safety Aware, Impaired Cognition, Impaired Coordination, Impaired Self-Care Skills, Visual-Perceptual Deficit Discharge Recommendations Plan/Recommendations: Continue POC Treatment Plan/Plan of Care Patient would benefit from OT for education, treatment and training to promote independence in ADL's, mobility, safety and/or upper extremity function for ADL's. Plan of Care: ADL Retraining, Cognitive Retraining, Functional Mobility, Group Exercise/Act as Ind, UE Funct Exercise/Act, Visual/Perceptual Retrain, W/C Management Training Treatment Duration: Jan 02, 2022 Frequency: At least 5 of 7 days/Wk (IRF) Estimated Hrs Per Day: 1.5 hours per day (75-90 min) Agreement: Yes Rehab Potential: Fair Time/GCodes Start Time: 13:45 Stop Time: 14:50 Total Time Billed (hr/min): 65 Billed Treatment Time 1 visit-ADL 3 (45 min) FA 1 (20 min) co-treat with PT [id number], individual [id number] HUBERT PELLETIER Dec 18, 2021 15:09
--- NOTE | 2021-12-18 15:20 | ST Cognitive Linguistic Eval ---
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 Lillian Little Medical History Pertinent Medical History: Atrial Fib, Arthritis, DM, HTN, [place] Current History The patient is an 81 year-old female with a past medical history of atrial Fib, Arthritis, DM, HTN, [place], CAD, high cholesterol, and stroke (09/22/21 and ), who presented to [facility] with increasing confusion. MRI: 12/18/21: 1. No acute ischemia, mass, or hemorrhage. 2. Subacute to chronic infarcts in the left temporoparietal region and right frontal lobe. 3. Generalized parenchymal volume loss with chronic microvascular disease. Reviewed History: Yes Social History Current Living Status: Spouse Speech PLF-Current Status Prior Level of Function Prior to the patient's most recent hospitalization, the patient's daughter stated she experienced a stroke on 09/22/21 and 10/03/21. Following the two strokes, the patient's language did not return to baseline however "was better than it is now." Per patient's daughter, the patient was able to understand simple questions and conversation as well as complete games of nScaled of posts on social media. Language Eval: Auditory Comprehends Simple Yes/No Ques: Functional (The patient displayed 100% accuracy with simple yes and no questions and 0% accuracy with complex yes and no questions. ) Indent/Objects Multiple Reynolds: Severe (In a field of two, the patient was able to identify an item by pointing.) Follows 1-Step Commands: Severe (The patient was intermittently able to follow simple, one-step commands with direct modeling. ) Follows Complex Directions: Severe Follows General Conversations: Severe Language Eval: Verbal Language Completes Spontaneous Greeting: Severe Produces Auto, Serial Info: Severe Imitates Simple Words/Phrases: Severe (The patient was able to repeat single words following multiple repetitions and with direct modeling. The patient was unable to repeat phrases on this date. ) Word Finding: Severe Requests Basic Needs: Severe States Basic Personal Info: Severe Expresses Complex Ideas: Severe Cognitive Patient Orientation The patient was unable to identify orientation information accurately with the choice of yes and no responses. Objective Cognitive Domain At this time, the patient's cognitive function is unable to be fairly evaluated due to the extensive language impairments displayed. Objective Oral Motor/Speech Production When spontaneous speech is produced, dysarthria and apraxia of speech were not appreciated. Impression The patient displays moderate to severe expressive and receptive aphasia. At this time, the patient is able to intermittently follow simple, one-step commands with direct modeling, identify familiar items in a field of two, intermittently repeat single words, and rarely follow simple, one-step directions with direct modeling provided. The patient does display high accuracy with simple yes and no questions. The clinician recommends the patient's wants and needs be addressed by providing the patient yes and no choices for communication. Speech Patient Assess Expression of Ideas/Wants: Rarely/Never (1) Understanding Verbal Content: Rarely/Never Understand (1) Brief Interview-Mental Status: No(pt is rarely/never understood) Repetition of Three Words: None (0) Temporal Orientation: Year: No answer (0) Temporal Orientation: Month: No answer (0) Temporal Orientation: Day: Incorrect or No Answer(0) Recall : Wear to say "Sock": No, could not recall (0) Recall : Color: No, could not recall (0) Recall : Bed: No, could not recall (0) Memory/Recall Ability: None of the above were recalled Speech Short Term Goals Short Term Goals Short Term Goals 1. The patient will display 75% accuracy with confrontational naming of objects with mild clinician verbal cueing. 2. The patient will repeat short phrases with 75% accuracy with mild clinician verbal cueing. Speech Care Home Goals Visual Lead Goals 1. The patient will display increased expressive and receptive communication for increased safety with return to the least restrictive environment. Speech-Plan Treatment Plan Speech Therapy Treatment Plan: Continue Plan of Care Treatment Duration: Jan 01, 2022 Frequency: 4 times per week (Four to five times per week. ) Estimated Hrs Per Day: .5 hour per day Rehab Potential: Fair Pt/Family Agrees to Plan: Yes Safety Risks/Education Teaching Recipient: Patient, Family Teaching Methods: Discussion Response to Teaching: Verbalize Understanding Education Topics Provided: Plan of Care, Results, Recommendations Time Speech Therapy Time In: 13:00 Speech Therapy Time Out: 13:20 Total Billed Time: 20 Billed Treatment Time 1, RANDY COLIN [facility] Dec 18, 2021 15:20
--- NOTE | 2021-12-18 15:33 | ST Dysphagia Evaluation ---
Speech Evaluation-General Medical Diagnosis CVA Onset Date: Dec 17, 2021 Therapy Diagnosis Therapy Diagnosis: Oropharyngeal Swallow Within Normal Limits Precautions Precautions: Fall, Aspiration Precautions/Isolations: Standard Precautions Referral Referring Physician: Dr. Lillian Little Reason for Referral: Evaluation/Treatment Medical History Pertinent Medical History: Atrial Fib, Arthritis, DM, HTN, [place] Current History The patient is an 81 year-old female with a past medical history of atrial Fib, Arthritis, DM, HTN, [place], CAD, high cholesterol, and stroke (09/22/21 and 10/03/22), who presented to [facility] with increasing confusion. MRI: 12/18/21: 1. No acute ischemia, mass, or hemorrhage. 2. Subacute to chronic infarcts in the left temporoparietal region and right frontal lobe. 3. Generalized parenchymal volume loss with chronic microvascular disease. Reviewed History: Yes Social History Current Living Status: Spouse Speech PLF/Current-Dysphagia Prior Level of Function The patient's daughter is present at bedside and provides the following information to the clinician. Prior to admission, the patient consumed a regular diet with thin liquids. The patient did not display prior s/s of suspected aspiration with PO intake. Subjective The patient is seated upright in her recliner, awake and alert upon entrance. The patient has her lunch tray present which consists of enchilada, black beans, rice, diced fruit, coffee by mug edge, and water via straw. Per RN, the patient has not displayed s/s of suspected aspiration with PO intake throughout her stay. The RN believes the consult was placed as the patient stated, "I think I choked." To note, the patient displays expressive and receptive aphasia. The patient often states statements that are inaccurate. Per patient's daughter, she was present with the patient made the statement and did not appear in distress or to display swallowing difficulty. Cognitive Status Patient Orientation: Unable to Assess Oral Motor Skills Denture Type: Full- Upper & Lower Current Food Consistancy: Regular, Thin Liquids Ability to Follow Directions: Fair Oral Expression Ability: Severe Impairment Voice Voice Phonatory-Based Quality: Normal Voice Pitch: Normal Voice Loudness: Normal Face Facial Symmetry: Symmetrical Oral-Facial Assessment Oral-Facial Dentition: Normal Labial Seal Description: Normal Smile: Normal Volitional Dry Swallow: No Voluntary Cough: No Can Clear Throat Volitionally: No Productive Cough: No Productive Throat Clear: No Dysphagia Evaluation Consistencies Presented: Regular, Thin Liquid, Mixed Dietary Recommendations: Regular Liquid Recommendations: Thin Recommendations: - Regular consistency diet with thin liquids, as tolerated. - Fully upright and alert for PO intake. - Small, single bites and sips. - Monitor for s/s of suspected aspiration with PO intake. If demonstrated, contact speech pathology. - Speech pathology to sign off of dysphagia services at this time. Swallowing Precautions: Small Bites and Sips, Sitting 90 Degrees 30 Post Intake Dysphagia Evaluation Summary The patient consumed items from her lunch tray which consisted of rice, enchilada, black beans, diced fruit, coffee via cup edge, and water via straw. Overt s/s of suspected aspiration were not demonstrated with any consistency tested and the patient's vocal quality remained clear following each swallow. Appropriate oral phase preparation and timely mastication were appreciated. A pharyngeal swallow appeared to be triggered appropriately and laryngeal elevation was present to palpation. Speech Short Term Goals Short Term Goals Short Term Goals 1. The patient will display 75% accuracy with confrontational naming of objects with mild clinician verbal cueing. 2. The patient will repeat short phrases with 75% accuracy with mild clinician verbal cueing. Speech Jail Goals Band Nailer Goals 1. The patient will display increased expressive and receptive communication for increased safety with return to the least restrictive environment. Speech-Plan Treatment Plan Speech Therapy Treatment Plan: Discontinue ST (Dysphagia, only.) Treatment Duration: Jan 01, 2022 Frequency: 4 times per week (Four to five times per week. ) Estimated Hrs Per Day: .5 hour per day Rehab Potential: Fair Safety Risks/Education Teaching Recipient: Patient Teaching Methods: Discussion Response to Teaching: Verbalize Understanding, Reinforcement Needed Education Topics Provided: Results of Swallowing Evaluation, Plan of Care Time Speech Therapy Time In: 13:20 Speech Therapy Time Out: 13:40 Total Billed Time: 20 Billed Treatment Time 1, BECKA SHANKS [facility] Dec 18, 2021 15:33
--- NOTE | 2021-12-18 17:17 | PM&R Post Admission Assessment ---
PM&R HP Date of Visit: Dec 18, 2021 Time of Visit: 12:00 History of Present Illness Chief complaint: Aphasia with weakness History of present illness: This is an 81-year-old white female known to me from prior inpatient rehab admissions due to very complicated stroke issues who presented with confusion and aphasia with headache and presented to the ER and stroke protocol initiated showing no evidence of acute stroke or large thrombus on CT angiogram so [facility] recommended admitting for observation. MRI obtained microinfarcts which are new and acute consistent with presenting symptoms source. RICHARD BenedictAJITH is a 81yo F with a past medical history of stroke, chronic atrial fibrillation, hypothyroidism, CKD stage 3, high cholesterol, hypertension, Diabetes type II, and GERD. Patient was brought to the ER yesterday by her daughter and presented with aphasia and weakness. She had been to her primary physicians office for a regular visit and a UA was done in the office that came back negative. Her primary physician sent her to the ER. The patient's daughter had to act as the historian because the patient was confused and unable to answer questions about her medical history. Patient had returned home from the rehabilitation center on 10/15/22 after having a stroke. Patient had left sided weakness after her previous stroke. Daughter stated that for the past 3 days the patient had developed confusion and aphasia. She had also had a headache the past 2 days. Daughter denies any recent sickness or falls. A CT did not show any signs of ischemia or hemorrhage. An MRI was ordered to reevaluate for a cause of stroke symptoms. Patient was unable to follow commands during a neurological examination due to confusion. She had LUE weakness. Blood pressure elevated at 212/108. Was admitted to the ICU for observation. Patient has been stable in the ICU. Daughter reports that she is still confused and weak. Patient smiles and seems comfortable during the interview. An MRI is being done at 12:30 today. Past Gaohary-Ujepgp-Eiyalq Hx Past Med/Social Hx: Reviewed Nursing Past Med/Soc Hx, Reviewed and Corrections made Patient Social History Marrital Status: single Employed/Student: retired Alcohol Use: Denies Use Smoking Status: Former Smoker Recent Hopitalizations: Yes Immunizations Up To Date Date of Pneumonia Vaccine: Aug 07, 2012 Date of Influenza Vaccine: Aug 09, 2011 Past Medical History Surgeries: Eye Surgery, Gallbladder, Hysterectomy, Joint Replacement, Ooph orectomy, Orthopedic, Vascular Surgery Cardiac: Atrial Fibrillation, Coronary Artery Disease, Heart Attack, High Cholesterol, Hypertension, Peripheral Vascular Neurological: Headaches /Migraines, Stroke 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: No Hysterectomy, Menopausal Gastrointestinal: Gastroesophageal Reflux, Diverticulosis Musculoskeletal: Degenerate Disk Disease, Arthritis Endocrine: Diabetes, Insulin dep, Hypothyroidsim HEENT: Cataract History of Blood Disorders: Yes (ANEMIA) Family History No Pertinent Family Hx SOCIAL HISTORY: -NO SMOKING -NO ETOH -NO DRUGS PAST SURGICAL HISTORY: -LEFT CAROTID ENDARTERECTOMY -HYSTERECTOMY WITH RIGHT SALPINGO-OOPHORECTOMY -BILATERAL CATARACT SURGERY -CERVICAL SPINE SURGERY -BILATERAL TOTAL KNEE REPLACEMENT -CHOLECYSTECTOMY -EGD/COLONOSCOPY 02/[address] PITT Prior Level of Function Bed Mobility: 6 Transfers: 6 Gait: 6 Stairs: 6 Indoor Mobility (Ambulation): Independent Stairs: Independent Self Care: Independent Functional Cognition: Unknown Current Level of Fuctioning Roll Left to Right: 4 Sit to Lyin Lying to Sitting/Side of Bed: 3 Sit to Stand: 4 Chair/Pnr-vs-Xkcdv Xfer: 4 Car Transfer: 3 Does the Patient Walk: Yes Mode of Locomotion: Walk Anticipated Mode of Locomotion: Walk Walk 10 feet: 4 Walk 50 ft with 2 Turns: 4 Walk 150 ft: 4 Walking 10ft on uneven surface: 3 Gait Assistive Device: FWW Does the Pt Use a Wheelchair: No Wheel 50 ft with 2 turns: 9 Wheel 150 ft: 9 #of Steps: 1 1 Step (curb): 3 4 Steps: 88 Walking Assistive Device: Walker 12 Steps: 88 Picking up an Object: 4 Eatin (per clinical judgment) Oral Hygiene: 4 Shower/Bathe Self: 3 Upper Body Dressin Lower Body Dressin On/Off Footwear: 5 Toileting Hygiene: 4 Toilet Transfer: 4 PM&R Allergy/Meds/Data Review Allergies Coded Allergies: No Known Drug Allergies (Unverified , 02/19/13) Home Medications Scheduled Allopurinol (Allopurinol), 100 MG PO BID, (Reported) Atorvastatin Calcium (Atorvastatin Calcium), 80 MG PO HS, (Reported) Bethanechol Chloride (Urecholine), 10 MG PO ACHS, (Reported) Cyanocobalamin (Cyanocobalamin Injection), 1,000 MCG IM MONTHLY, (Reported) Ferrous Sulfate (Iron), 325 MG PO HS, (Reported) Gabapentin (Neurontin), 300 MG PO DAILY, (Reported) Levothyroxine Sodium (Levothyroxine Sodium), 75 MCG PO DAILY, (Reported) Liraglutide (Victoza 2-Sanket), 1.2 MG SQ 1200, (Reported) Metformin HCl (Metformin HCl ER), 500 MG PO DAILY, (Reported) Metoprolol Succinate (Metoprolol Succinate), 50 MG PO HS, (Reported) Metoprolol Succinate (Metoprolol Succinate), 100 MG PO DAILY, (Reported) Olmesartan Medoxomil (Olmesartan Medoxomil), 20 MG PO DAILY, (Reported) Pantoprazole Sodium (Pantoprazole Sodium), 40 MG PO DAILY, (Reported) Venlafaxine HCl (Venlafaxine HCl ER), 150 MG PO DAILY, (Reported) Scheduled PRN Acetaminophen (Tylenol), 650 MG PO Q4H PRN for PAIN-MILD (1-4), (Reported) Discontinued Medications Allopurinol (Allopurinol), 100 MG PO BID Discontinued Reason: Duplicate Order Apixaban (Eliquis), 5 MG PO BID Discontinued Reason: Duplicate Order Apixaban (Eliquis), 5 MG PO BID, (Reported) Discontinued Reason: Provider Ok'd Atorvastatin Calcium (Atorvastatin Calcium), 80 MG PO DAILY Discontinued Reason: No Longer Taking Bethanechol Chloride (Urecholine), 10 MG PO ACHS Discontinued Reason: No Longer Taking Gabapentin (Neurontin), 300 MG PO DAILY Discontinued Reason: Duplicate Order Levothyroxine Sodium (Levothyroxine Sodium), 75 MCG PO DAILY Discontinued Reason: Duplicate Order Metformin HCl (Metformin HCl ER), 500 MG PO DAILY Discontinued Reason: Duplicate Order Metoprolol Succinate (Metoprolol Succinate), 50 MG PO HS Discontinued Reason: Duplicate Order Metoprolol Succinate (Metoprolol Succinate), 100 MG PO DAILY Discontinued Reason: Duplicate Order Olmesartan Medoxomil (Olmesartan Medoxomil), 20 MG PO DAILY Discontinued Reason: Duplicate Order Olmesartan Medoxomil (Olmesartan Medoxomil), 40 MG PO DAILY, (Reported) Discontinued Reason: Prescription changed Pantoprazole Sodium (Pantoprazole Sodium), 40 MG PO DAILY Discontinued Reason: Duplicate Order Venlafaxine HCl (Venlafaxine HCl ER), 150 MG PO DAILY Discontinued Reason: Duplicate Order Current Medications Current Medications Reviewed Review of Systems Constitutional: see HPI, malaise, weakness EENTM: no symptoms reported Respiratory: no symptoms reported Cardiovascular: no symptoms reported Gastrointestinal: no symptoms reported Genitourinary: no symptoms reported Musculoskeletal: back pain Skin: no symptoms reported Psychiatric/Neurological: Headache, Numbness, Paresthesia, Pre-Existing Deficit, Tingling, Weakness, Other (Confusion, aphasia) Physical Exam Physical Exam Vital Signs Vital Signs - First Documented 12/18/21 12:00 O2 Delivery Room Air Capillary Refill : Height, Weight, BMI Height: 5'3.00" Weight: 225lbs. oz. [id number]; 39.00 BMI Method:Estimated General Appearance: No Apparent Distress, WD/WN, Chronically ill Eyes: Bilateral Eye Normal Inspection, Bilateral Eye PERRL HEENT: PERRL/EOMI, Normal ENT Inspection, Pharynx Normal Neck: Full Range of Motion, Normal Inspection, Non Tender, Supple, Carotid Bruit Respiratory: Chest Non Tender, Lungs Clear, Normal Breath Sounds, No Accessory Muscle Use, No Respiratory Distress Cardiovascular: No Edema, No Gallop, No JVD, Normal Peripheral Pulses, Systolic Murmur, Irregularly Irregular Gastrointestinal: Normal Bowel Sounds, No Organomegaly, No Pulsatile Mass, Non Tender, Soft Back: Normal Inspection, No CVA Tenderness, No Vertebral Tenderness Extremity: Normal Capillary Refill, Normal Inspection, Normal Range of Motion, Non Tender, No Calf Tenderness, No Pedal Edema Neurologic/Psychiatric: Alert, No Motor/Sensory Deficits, Normal Mood/Affect, Abnormal Cerebellar Tests, Abnormal Gait, Disoriented, Facial Droop, Motor Weakness, Sensory Deficit Skin: Normal Color, Warm/Dry Lymphatic: No Adenopathy PM&R Medical Assessment & Plan REHAB/MEDICAL ASSESSMENT AND PLAN: REHAB IMPAIRMENT GROUP: CVA ETIOLOGIC DIAGNOSIS: CVA The comorbidities that impact the patients function and/or functional outcome by: Recurrent strokes, advanced age, lives alone REHAB PLAN: The patient is being admitted to our comprehensive inpatient rehabilitation facility and can tolerate the intensity of service consisting of at least: 180 minutes of therapy a day, 5 out of 7 days a week Rehab treatment will consist of: PT OT will focus on regaining function with the use of assistive devices and speech therapy will work on cognitive deficits The patient/family has a good understanding of our discharge process and will b enefit from an interdisciplinary inpatient rehabilitation program. The patient has potential to make improvement and is in need of at least two of the following multidisciplinary therapies including but not limited to physical, occupational, speech, and prosthetics and orthotics. Additionally the patient will need services from respiratory, nutritional services, wound care, psycho logy, etc. (Customize this to each patient). Given the patients complex condition and risk of further medical complications, rehabilitation services cannot be safely or effectively provided at a lower level of care such as a longterm facility. BARRIERS TO DISCHARGE: Recurrent stroke ESTIMATED LOS: 10 days DISPOSITION: Home RELEVANT CHANGES SINCE PREADMISSION SCREENING: I have compared the patients medical and functional status at the time of the preadmission screening and there are: No changes PROGNOSIS: Guarded REHABILITATION GOALS: 1. PT OT will focus on regaining function with the use of assistive devices and speech therapy will work on cognitive deficits All the above goals were reviewed with the patient and he/she is in agreement. By signing this document, I acknowledge that I have personally performed a full physical examination on this patient within 24 hours of admission to this inpatient rehabilitation facility and have determined the patient to be able to tolerate the above course of treatment at an intensive level for a reasonable period of time. I will be completing a detailed individualized Plan of Care for this patient by day #4 of the patients stay based upon the Preadmission Screen, the Post-Admission Evaluation, and the therapy evaluations. Admission Dx/Comorbidities: (1) Acute cerebrovascular accident ICD Codes: I63.9 - Cerebral infarction, unspecified (2) Expressive aphasia Status: Acute ICD Codes: R47.01 - Aphasia (3) HTN (hypertension) Status: Acute ICD Codes: I10 - Essential (primary) hypertension (4) Atherosclerosis of both carotid arteries ICD Codes: I65.23 - Occlusion and stenosis of bilateral carotid arteries (5) Permanent atrial fibrillation ICD Codes: I48.21 - Permanent atrial fibrillation (6) Mixed hyperlipidemia ICD Codes: E78.2 - Mixed hyperlipidemia (7) Primary hypertension ICD Codes: I10 - Essential (primary) hypertension (8) Chronic kidney disease, stage 3 ICD Codes: N18.30 - Chronic kidney disease, stage 3 unspecified (9) Type 2 diabetes mellitus with complication ICD Codes: E11.8 - Type 2 diabetes mellitus with unspecified complications (10) Hypothyroid ICD Codes: E03.9 - Hypothyroidism, unspecified (11) GERD (gastroesophageal reflux disease) ICD Codes: K21.9 - Gastro-esophageal reflux disease without esophagitis Assessment/Plan Assessment and Plan Assess & Plan/Chief Complaint Assessment: Acute CVA but microscopic infarcts on MRI done today to 12/18/2021 causing flare of previous residual from CVA 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 transferred to then again 10/03/21 s/p thrombectomy after emergent med flight 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 Hurtado History of acute hematuria in the past GERD Gout History of urinary retention monitor closely Tendency for hypoglycemia Plan: Move to rehab Changed Eliquis to Xarelto Home meds Appreciate NKECHI Sanchez DO Dec 18, 2021 17:17
[2021-12-18] MEDS: RIVAROXABAN 20 MG TABLET (XARELTO) PO SCH (17:22)
[2021-12-18] MEDS ORDERED: CYANOCOBALAMIN INJ 1000 MCG/ML IM SCH (17:30)
[2021-12-18 20:03] VITALS: BP 156/76
[2021-12-18] MEDS: FERROUS SULF 325 MG (IRON) TAB PO SCH (20:46)
[2021-12-18] MEDS: BETHANECHOL 10 MG (URECHOLINE) TAB PO SCH (20:46)
[2021-12-18] MEDS: meTOproloL SUCCINATE 50 MG (TOPROL XL) TAB PO SCH (20:50)
[2021-12-18] MEDS ORDERED: ALLOPURINOL 100 MG (ZYLOPRIM) TAB PO SCH (21:00)
[2021-12-18] MEDS: DOCUSATE SODIUM 100 MG (COLACE) CAP PO SCH (21:06)
[2021-12-18] MEDS: polyethylene glycoL POWDER 17 GM (MIRALAX) PACK PO SCH (21:07)
[2021-12-18] MEDS: SENNA W/DOCUSATE (SENOKOT S) TABLET PO SCH (21:07)
[2021-12-19] MEDS: BETHANECHOL 10 MG (URECHOLINE) TAB PO SCH ×4 (06:35→20:54)
[2021-12-19] MEDS: VENlafaxine XR 75 MG (EFFEXOR XR) CAP PO SCH (06:35)
[2021-12-19] MEDS: LEVOTHYROXINE 75 MCG (LEVOTHROID) TABLET PO SCH (06:35)
--- NOTE | 2021-12-19 06:48 | PM&R Progress Note ---
Subjective HPI/CC On Admission Date Seen by Provider: Dec 19, 2021 Time Seen by Provider: 12:00 Subjective/Events-last exam 12/19/2021: Patient doing about the same Granddaughter at the bedside MRI showed some additional infarcts in the same area she has had strokes before Failed Eliquis started her on Xarelto Updated Dr. Hurtado Blood pressure is labile Patient is confused Review of Systems General: Fatigue, Malaise Neurological: Confusion Objective Exam Vital Signs Vital Signs Date Time Temp Pulse Resp B/P (MAP) Pulse Ox O2 Delivery O2 Flow Rate FiO2 12/19/21 21:23 Room Air 12/19/21 19:52 36.2 66 18 137/69 (91) 94 Capillary Refill : General Appearance: No Apparent Distress, WD/WN, Chronically ill HEENT: PERRL/EOMI, Normal ENT Inspection, Pharynx Normal Neck: Full Range of Motion, Normal Inspection, Non Tender, Supple, Carotid Bruit Respiratory: Chest Non Tender, Lungs Clear, Normal Breath Sounds, No Accessory Muscle Use, No Respiratory Distress Cardiovascular: No Edema, No Gallop, No JVD, Normal Peripheral Pulses, Systolic Murmur, Irregularly Irregular Gastrointestinal: Normal Bowel Sounds, No Organomegaly, No Pulsatile Mass, Non Tender, Soft Back: Normal Inspection, No CVA Tenderness, No Vertebral Tenderness Extremity: Normal Capillary Refill, Normal Inspection, Normal Range of Motion, Non Tender, No Calf Tenderness, No Pedal Edema Neurologic/Psychiatric: Alert, No Motor/Sensory Deficits, Normal Mood/Affect, Abnormal Cerebellar Tests, Abnormal Gait, Disoriented, Facial Droop, Motor Weakness, Sensory Deficit Skin: Normal Color, Warm/Dry Lymphatic: No Adenopathy Results/Procedures Lab Patient resulted labs reviewed. FIM Transfers Therapy Code Descriptions/Definitions Functional [place] Measure: 0=Not Assessed/NA 4=Minimal Assistance 1=Total Assistance 5=Supervision or Setup 2=Maximal Assistance 6=Modified [place] 3=Moderate Assistance 7=Complete IndependenceSCALE: Activities may be completed with or without assistive devices. 1-Elqbxeyiyi-klajzoa completes the activity by him/herself with no assistance from a helper. 5-Set-up or Clean-up Assistance-helper sets up or cleans up; patient completes activity. [place] assists only prior to or following the activity. 4-Supervision or Touching Assistance-helper provides verbal cues and/or touching/steadying and/or contact guard assistance as patient completes activity. Assistance may be provided throughout the activity or intermittently. 3-Partial/Moderate Assistance-helper does LESS THAN HALF the effort. [place] lifts, holds or supports trunk or limbs, but provides less than half the effort. 2-Substantial/Maximal Assistance-helper does MORE THAN HALF the effort. [place] lifts or holds trunk or limbs and provides more than half the effort. 8-Gmlfvmjbz-jexbhw does ALL the effort. Patient does none of the effort to complete the activity. Or, the assistance of 2 or more helpers is required for the patient to complete the activity. If activity was not attempted, code reason: 7-Patient Refused. 9-Not Applicable-not attempted and the patient did not perform the activity bef ore the current illness, exacerbation or injury. 10-Not Attempted due to Environmental Limitations-(lack of equipment, weather r estraints, etc.). 88-Not Attempted due to Medical Conditions or Safety Concerns. Roll Left to Right (QC): 4 Sit to Lying (QC): 4 Sit to Stand (QC): 4 Chair/Cwz-as-Qqqbn Xfer(QC): 4 Car Transfer (QC): 3 Gait Training Does the Patient Walk?: Yes Distance: 450' Walk 10 feet (QC): 4 Walk 50 ft with 2 Turns(QC): 4 Walk 150 ft (QC): 4 Walking 10ft/uneven surface-QC: 3 Gait Assistive Device: FWW Wheelchair Training Does the Pt Use a Wheelchair?: No Wheel 50 ft with 2 turns (QC): 9 Wheel 150 ft (QC): 9 Stair Training #of Steps: 1 1 Step (curb) (QC): 3 4 Steps (QC): 88 12 Steps (QC): 88 Balance Picking up an Object (QC): 4 ADL-Treatment Eating (QC): 4 (per clinical judgment) Oral Hygiene (QC): 4 Shower/Bathe Self (QC): 3 Upper Body Dressing (QC): 5 Lower Body Dressing (QC): 2 On/Off Footwear (QC): 5 Toileting Hygiene (QC): 4 Toilet Transfer (QC): 4 Assessment/Plan Assessment and Plan Assess & Plan/Chief Complaint Assessment: Acute CVA but microscopic infarcts on MRI done 12/18/2021 revealed flare of previous residual from CVA 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 transferred to [facility] then again 10/03/21 s/p thrombectomy after emergent med flight 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 Hurtado History of acute hematuria in the past GERD Gout History of urinary retention monitor closely Tendency for hypoglycemia Acute confusion Plan: Move to rehab Changed Eliquis to Xarelto Home meds Appreciate Dr. Hurtado 12/19/2021: Xarelto Supportive care (1) Acute cerebrovascular accident (2) Expressive aphasia Status: Acute (3) HTN (hypertension) Status: Acute (4) Atherosclerosis of both carotid arteries (5) Permanent atrial fibrillation (6) Mixed hyperlipidemia (7) Primary hypertension (8) Chronic kidney disease, stage 3 (9) Type 2 diabetes mellitus with complication (10) Hypothyroid (11) GERD (gastroesophageal reflux disease) NKECHI VO DO Dec 19, 2021 06:48
--- NOTE | 2021-12-19 06:48 | Individualized Plan of Care ---
Individualized Plan of Care Rehab Nursing IPOC Order Admission Date Dec 18, 2021 at 11:44 Current Orders Orders Mrsa Screen (Icu,Preop,Cath) (12/17/21 18:00) Admission Order(Inpt,Obs,Sdc) (12/18/21 11:42) Vital Signs: Per Unit Policy ( 08,16,00 (12/18/21 11:42) Cipriano Hose , (12/18/21 11:42) Sequential Compression Device (12/18/21 11:42) Dimmer Board Operator-Inpt Rehab Con (12/18/21 11:42) Rehab Nursing Orders-Ipoc (12/18/21 11:42) Physical Therapy Rehab Orders (12/18/21 11:42) Occupational Therapy Rehab Ord (12/18/21 11:42) Speech Therapy Rehab Orders (12/18/21 11:42) Cbc With Automated Diff (12/19/21 06:00) Comprehensive Metabolic Panel (12/19/21 06:00) Precautions (Aru) (12/18/21 11:42) Weekly Weight WEEK (12/18/21 11:42) Rehab-Intensity Of Therapy (12/18/21 11:42) Initiate Admission Nursing Pro .admission (12/18/21 11:42) Alprazolam Tablet (Xanax Tablet) (12/18/21 11:45) Calcium Carbonate Chew Tablet (Antacid C (12/18/21 11:45) Diphenhydramine Tablet (Benadryl Tablet) (12/18/21 11:45) Docusate Sodium Capsule (Colace Capsule) (12/18/21 21:00) Docusate Sodium Capsule (Colace Capsule) (12/18/21 11:45) Bisacodyl Suppository (Dulcolax Supposit (12/18/21 11:45) Lactulose Oral Solution (Enulose Oral So (12/18/21 11:45) Na Phos/Na Biphos Enema (Fleet Enema Andres (12/18/21 11:45) Guaifenesin/Codeine Syrup (Robitussin Ac (12/18/21 11:45) Loperamide Tablet (Imodium Tablet) (12/18/21 11:45) Melatonin Tablet (Melatonin Tablet) (12/18/21 11:45) Polyethylene Glycol Powder Pkt (Miralax (12/18/21 21:00) Ondansetron Oral Dissolve Tab (Zofran (12/18/21 11:45) Senna S Tablet (Senokot S Tablet) (12/18/21 21:00) Acetaminophen Tablet/Caplet (Tylenol T (12/18/21 11:45) Code/Resuscitation (12/18/21 11:42) Initiate Admission Nursing Pro .admission (12/18/21 11:42) Rivaroxaban Tablet (Xarelto Tablet) (12/18/21 17:00) Admission Arrival Bed Request (12/18/21 12:04) Lipid Panel (12/19/21 06:00) Patient Visit (12/18/21 ) Pt Eval Moderate Complexity (12/18/21 ) General/Regular (12/18/21 Lunch) Patient Visit (12/18/21 ) Functional Activities, Ea 15 (12/18/21 ) Patient Visit (12/18/21 ) Speech Sound Lang Comp (12/18/21 ) Treat. Speech/Lang/Voice (12/18/21 ) Dysphagia Evaluation Std (12/18/21 ) Dysphagia Therapy (12/18/21 ) Acetaminophen Tablet/Caplet (Tylenol T (12/18/21 17:30) Allopurinol Tablet (Zyloprim Tablet) (12/18/21 21:00) Atorvastatin Tablet (Lipitor Tablet) (12/18/21 21:00) Bethanechol Tablet (Urecholine Tablet) (12/18/21 21:00) Cyanocobalamin Injection (Vitamin B-12 I (12/18/21 17:30) Ferrous Sulfate Tablet (Feosol Tablet) (12/18/21 21:00) Gabapentin Capsule/Tablet (Neurontin Cap (12/19/21 09:00) Levothyroxine Tablet (Synthroid Tablet) (12/19/21 06:30) Metformin Xr Tablet (Glucophage Xr Table (12/19/21 08:00) Metoprolol Succinate (Xl) Tab (Toprol Xl (12/18/21 21:00) Metoprolol Succinate (Xl) Tab (Toprol Xl (12/19/21 09:00) Olmesartan Tab (Non-Formulary) (Benicar (12/19/21 09:00) Pantoprazole Tablet (Protonix Tablet) (12/19/21 09:00) (Nf) Liraglutide (Victoza 2-Sanket) (12/19/21 12:00) (Nf) Venlafaxine Hcl (Venlafaxine Hcl Er (12/19/21 09:00) Venlafaxine Xr Capsule (Effexor Xr Capsu (12/19/21 07:00) Losartan Tablet (Cozaar Tablet) (12/19/21 09:00) Consult Cardiology (12/19/21 06:38) Patient Visit (12/19/21 ) Gait Training, Ea 15 Min (12/19/21 ) Rehab Nursing Orders: Ongoing Assess. of Cognitive Status, Ongoing Assess. of Function Status, Bladder Management, Bladder Scan, Bladder Training, Bowel Management, Bowel Training, Disease Management & Educaiton, DVT Prophylaxis, Fall Prevention, Fluid/Electrolyte/Nutrition Mgmt, Infection Prevention, Medication Management & Education, Management of Risks & Complications, Management of Skin Intergrity, Nutrition Management, Pain Management, Patient/Family Support, Safety Management Intensity of Therapy to be met Patient to be seen: Min.3h per day/5 of 7d PT IPOC Problem List: Activity Tolerance, Functional Strength, Safety, Balance, Gait, Transfer, Bed Mobility, ROM Treatment Plan: Continue Plan of Care Bed Mobility, Education, Functional Activity Helen, Functional Strength, Group Therapy, Gait, Safety, Therapeutic Exercise, Transfers Treatment Duration: Jan 08, 2022 Frequency: At least 5 of 7 days/Wk (IRF) Estimated Hrs Per Day: 1.5 hours per day OT IPOC Problems: Decreased Activ Tolerance, Decreased Safety Aware, Impaired Cognition, Impaired Coordination, Impaired Self-Care Skills, Visual-Perceptual Deficit OT Treatment, Training and Edu: Yes Plan of Care: ADL Retraining, Cognitive Retraining, Functional Mobility, Group Exercise/Act as Ind, UE Funct Exercise/Act, Visual/Perceptual Retrain, W/C Management Training Treatment Duration: Jan 02, 2022 Frequency: At least 5 of 7 days/Wk (IRF) Estimated Hrs Per Day: 1.5 hours per day (75-90 min) ST IPOC Speech Therapy Treatment Plan: Discontinue ST (Dysphagia, only.) Treatment Duration: Jan 01, 2022 Frequency: 4 times per week (Four to five times per week. ) Estimated Hrs Per Day: .5 hour per day Dimmer Board Operator/Case Mgmt Dimmer Board Operator/Case Managemen: Discharge Planning Dietitian/Funeral Professional Dietitian/Funeral Professional to monitor nutritional status and make changes and/or recommendations as needed and work with speech pathology on dietary upgrades as the occur. Physician IPOC Medical Issues being managed closely and that require the 24 hour availability of a physician: Recent CVA on top of recurrent CVA will require close monitoring for confusion and subsequent reinfarct risk Medical Issues: Bowel/Bladder Function, DVT Prophylaxis, Falls Precautions, Fluid/Electrolyte/Nutrition Balance, Infection Protection, Pain Management, Swallowing Precautions Brief Synthesis of Preadmission Screen, Post-Admission Evaluation, and Therapy Evaluations: PT and OT will focus on regaining function with use of assistive devices has been therapy will focus on cognition to return back home to independent living Medical Prognosis: Fair Anticipated Length of Stay: 10 days NKECHI VO DO Dec 19, 2021 06:48
[2021-12-19 06:54] LABS: BASOPHILS # (AUTO) 0.1 10^3/uL (0.0-0.1); BASOPHILS % (AUTO) 1 % (0-10); EOSINOPHILS # (AUTO) 0.6 10^3/uL (0.0-0.3); EOSINOPHILS % (AUTO) 7 % (0-10); HEMATOCRIT 38 % (35-52); LYMPHOCYTES # (AUTO) 1.2 10^3/uL (1.0-4.0); LYMPHOCYTES % (AUTO) 15 % (12-44); MEAN CORPUSCULAR HEMOGLOBIN 29 pg (25-34); MEAN CORPUSCULAR HGB CONC 31 g/dL (32-36); MEAN CORPUSCULAR VOLUME 93 fL (80-99); MEAN PLATELET VOLUME 11.2 fL (9.0-12.2); MONOCYTES # (AUTO) 0.8 10^3/uL (0.0-1.0); MONOCYTES % (AUTO) 10 % (0-12); NEUTROPHILS # (AUTO) 5.3 10^3/uL (1.8-7.8); NEUTROPHILS % (AUTO) 67 % (42-75); PLATELET COUNT 280 10^3/uL (130-400); WHITE BLOOD COUNT 7.9 10^3/uL (4.3-11.0)
[2021-12-19 07:22] LABS: ALBUMIN 3.3 GM/DL (3.2-4.5); CHLORIDE 107 MMOL/L (98-107); SODIUM 137 MMOL/L (135-145)
[2021-12-19 07:24] LABS: TOTAL PROTEIN 6.9 GM/DL (6.4-8.2); TRIGLYCERIDES 121 MG/DL (<150); VLDL CHOLESTEROL 24 MG/DL (5-40)
[2021-12-19 07:25] LABS: CARBON DIOXIDE 19 MMOL/L (21-32); GLUCOSE 130 MG/DL (70-105)
[2021-12-19 07:26] LABS: BILIRUBIN,TOTAL 0.8 MG/DL (0.1-1.0)
[2021-12-19 07:28] LABS: ALKALINE PHOSPHATASE 90 U/L (40-136); CREATININE SERUM 0.98 MG/DL (0.60-1.30); GFR ESTIMATED 58
[2021-12-19 07:29] LABS: BUN/CREATININE RATIO 14; CHOLESTEROL 101 MG/DL (< 200)
[2021-12-19 07:30] LABS: HDL CHOLESTEROL 42 MG/DL (40-60)
[2021-12-19 07:31] LABS: ALANINE AMINOTRANSFERASE < 6 U/L (0-55)
[2021-12-19] MEDS: PANTOPRAZOLE 40 MG (PROTONIX) TAB PO SCH (08:34)
[2021-12-19] MEDS: SENNA W/DOCUSATE (SENOKOT S) TABLET PO SCH ×2 (08:34→20:55)
[2021-12-19] MEDS: GABAPENTIN 300 MG (NEURONTIN) CAP PO SCH (08:34)
[2021-12-19] MEDS: DOCUSATE SODIUM 100 MG (COLACE) CAP PO SCH ×2 (08:34→20:54)
[2021-12-19] MEDS: metFORMIN XR 500 MG (GLUCOPHAGE XR) TAB PO SCH (08:34)
[2021-12-19] MEDS: meTOprolol SUCCINATE 100 MG (TOPROL XL) TAB PO SCH (08:34)
[2021-12-19] MEDS: LOSARTAN 100 MG (COZAAR) TABLET PO SCH (08:34)
[2021-12-19] MEDS: polyethylene glycoL POWDER 17 GM (MIRALAX) PACK PO SCH ×2 (08:37→20:54)
[2021-12-19 08:38] VITALS: BP 184/86
[2021-12-19] MEDS ORDERED: OLMESARTAN 20 MG (BENICAR) TABLET PO SCH (09:00)
[2021-12-19] MEDS ORDERED: NON-FORMULARY MEDICATION 1 EA EA (Venlafaxine HCl (Venlafaxine HCl ER) 150 MG) PO SCH (09:00)
--- NOTE | 2021-12-19 11:52 | Physical Therapy Daily Note ---
PT Daily Note-Current Subjective Pt in recliner upon arrival and agrees to PT. Reports she is tired today. No pain reported Mental Status Patient Orientation: Person, Confused, Place Transfers SCALE: Activities may be completed with or without assistive devices. 6-Hdqhqinzld-xkpvsty completes the activity by him/herself with no assistance from a helper. 5-Set-up or Clean-up Assistance-helper sets up or cleans up; patient completes activity. Juliette assists only prior to or following the activity. 4-Supervision or Touching Assistance-helper provides verbal cues and/or touching/steadying and/or contact guard assistance as patient completes activity. Assistance may be provided throughout the activity or intermittently. 3-Partial/Moderate Assistance-helper does LESS THAN HALF the effort. Juliette lifts, holds or supports trunk or limbs, but provides less than half the effort. 2-Substantial/Maximal Assistance-helper does MORE THAN HALF the effort. Juliette lifts or holds trunk or limbs and provides more than half the effort. 3-Svdmnaebw-ljcxsk does ALL the effort. Patient does none of the effort to complete the activity. Or, the assistance of 2 or more helpers is required for the patient to complete the activity. If activity was not attempted, code reason: 7-Patient Refused. 9-Not Applicable-not attempted and the patient did not perform the activity before the current illness, exacerbation or injury. 10-Not Attempted due to Environmental Limitations-(lack of equipment, weather restraints, etc.). 88-Not Attempted due to Medical Conditions or Safety Concerns. Sit to Stand (QC): 4 Gait Training Does the Patient Walk?: Yes Distance: 275' x 2 Walk 10 feet (QC): 5 Walk 50 ft with 2 Turns(QC): 4 Walk 150 ft (QC): 4 Gait Persons Needed: 1 Gait Assistive Device: FWW Pt gets very close to objects and does not follow cues well to avoid objects Exercises Seated Therapy Exercises: Ankle pumps, Long arc quads Seated Reps: 10 Treatments Pt Tfs from recliner and amb into [place] for 275' and then requires prolonged rest break. Then able to amb another 275' back to room and TFs back to recliner w/ all needs met and call light nearby. Assessment Current Status: Good Progress Requires skilled verbal cues for hand and foot placement during TFs. Pt does not follow cues well during amb. PT Short Term Goals Short Term Goals Time Frame: Dec 25, 2021 Roll Left & Right: 6 Sit to lyin Lying to sitting on side of be: 4 Sit to stand: 4 (SBA) Chair/syl-yn-erlsw transfer: 4 (SBA) Walk 10 feet: 4 (SBA) Walk 50 feet with two turns: 4 (SBA) Walk 150 feet: 4 (SBA) PT Senior Living Goals Lead Inspector Goals PT Senior Living Goals Time Frame: Jan 08, 2022 Roll Left & Right (QC): 6 Sit to Lying (QC): 6 Lying-Sitting on Side/Bed(QC): 6 Sit to Stand (QC): 5 Chair/Hjo-nl-Muwqi Xfer(QC): 5 Toilet Transfer (QC): 5 Car Transfer (QC): 5 Does the Patient Walk: Yes Walk 10 feet (QC): 5 Walk 50ft with 2 Turns (QC): 5 Walk 150 ft (QC): 5 Walking 10ft on Uneven Surface: 5 1 Step (curb) (QC): 4 4 Steps (QC): 4 12 Steps (QC): 88 Picking up an Object (QC): 5 Wheel 50 feet with 2 turns (QC: 9 Wheel 150 feet: 9 PT Plan Problem List Problem List: Activity Tolerance, Functional Strength, Safety Treatment/Plan Treatment Plan: Continue Plan of Care Treatment Plan: Bed Mobility, Education, Functional Activity Helen, Functional Strength, Group Therapy, Gait, Safety, Therapeutic Exercise, Transfers Treatment Duration: Jan 08, 2022 Frequency: At least 5 of 7 days/Wk (IRF) Estimated Hrs Per Day: 1.5 hours per day Patient and/or Family Agrees t: Yes Safety Risks/Education Patient Education: Gait Training, Transfer Techniques Teaching Recipient: Patient Teaching Methods: Discussion Response to Teaching: Unable to Return Demonstration, Return Demonstration, Reinforcement Needed Time/GCodes Time In: 1000 Time Out: 1020 Total Billed Treatment Time: 20 Total Billed Treatment 1, GT 20min ALEXIS JHAVERI ROOF DESIGNER Dec 19, 2021 11:52
[2021-12-19] MEDS ORDERED: NON-FORMULARY MEDICATION 1 EA EA (Liraglutide (Victoza 2-Pak) 1.2 MG) SQ SCH (12:00)
--- NOTE | 2021-12-19 13:11 | Cardiology Progress Note ---
Progress Note-Cardiology Events since last exam Date Seen by Provider: Dec 19, 2021 Time Seen by Provider: 13:09 Events since last exam I am following her due to possible new subacute cerebrovascular accident while on Apixiban for permanent atrial fibrillation. She is now on the inpatient rehabilitation unit. A daughter and granddaughter were at her bedside. According to them, she is a little more clear today but remains more confused than her previous baseline. She denies chest discomfort, dyspnea at rest, palpitations, syncope, or ankle edema. Certain portions of this document may have been dictated utilizing voice recognition technology. Inherent to this technology, typographical and grammatical errors may exist. As much as I am diligent to identify and correct these mistakes, some errors may remain in the document. Vitals Last set of Vitals Signs Vital Signs 12/19/21 12/19/21 08:38 09:50 Temp 36.4 Pulse 82 Resp 18 B/P (MAP) 184/86 (118) Pulse Ox 96 O2 Delivery Room Air Labs Labs Laboratory Tests 12/19/21 06:30 Exam Vital Signs Vital Signs Date Time Temp Pulse Resp B/P (MAP) Pulse Ox O2 Delivery O2 Flow Rate FiO2 12/19/21 09:50 Room Air 12/19/21 08:38 36.4 82 18 184/86 (118) 96 Physical Exam General: Alert. No acute distress. Eye: No xanthelasma. HENT: Normocephalic. Neck: Jugular venous pressure does not appear elevated. Respiratory: Lungs are clear to auscultation. Respirations are non-labored. Breath sounds are equal. Symmetrical chest wall expansion. Cardiovascular: Normal rate. Irregular rhythm. 3/6 high-pitched systolic ejection murmur murmur. No gallop. No edema. Gastrointestinal: Soft. Normal bowel sounds. Skin: Warm. Dry. Neurologic: Alert and oriented to person only. Cranial nerves 3-11 grossly intact. Psychiatric: Cooperative. Appropriate mood & affect but obviously disoriented and confused. Labs Laboratory Tests Test 12/18/21 20:21 12/19/21 06:30 Range/Units Glucometer 199 H 70-110 MG/DL White Blood Count 7.9 4.3-11.0 10^3/uL Red Blood Count 4.12 3.80-5.11 10^6/uL Hemoglobin 12.0 11.5-16.0 g/dL Hematocrit 38 35-52 % Mean Corpuscular Volume 93 80-99 fL Mean Corpuscular Hemoglobin 29 25-34 pg Mean Corpuscular Hemoglobin Concent 31 L 32-36 g/dL Red Cell Distribution Width 15.0 H 10.0-14.5 % Platelet Count 280 130-400 10^3/uL Mean Platelet Volume 11.2 9.0-12.2 fL Immature Granulocyte % (Auto) 0 % Neutrophils (%) (Auto) 67 42-75 % Lymphocytes (%) (Auto) 15 12-44 % Monocytes (%) (Auto) 10 0-12 % Eosinophils (%) (Auto) 7 0-10 % Basophils (%) (Auto) 1 0-10 % Neutrophils # (Auto) 5.3 1.8-7.8 10^3/uL Lymphocytes # (Auto) 1.2 1.0-4.0 10^3/uL Monocytes # (Auto) 0.8 0.0-1.0 10^3/uL Eosinophils # (Auto) 0.6 H 0.0-0.3 10^3/uL Basophils # (Auto) 0.1 0.0-0.1 10^3/uL Immature Granulocyte # (Auto) 0.0 0.0-0.1 10^3/uL Sodium Level 137 135-145 MMOL/L Potassium Level 4.0 3.6-5.0 MMOL/L Chloride Level 107 98-107 MMOL/L Carbon Dioxide Level 19 L 21-32 MMOL/L Anion Gap 11 5-14 MMOL/L Blood Urea Nitrogen 14 7-18 MG/DL Creatinine 0.98 0.60-1.30 MG/DL Estimat Glomerular Filtration Rate 58 BUN/Creatinine Ratio 14 Glucose Level 130 H 70-105 MG/DL Calcium Level 9.0 8.5-10.1 MG/DL Corrected Calcium 9.6 8.5-10.1 MG/DL Total Bilirubin 0.8 0.1-1.0 MG/DL Aspartate Amino Transf (AST/SGOT) 17 5-34 U/L Alanine Aminotransferase (ALT/SGPT) < 6 0-55 U/L Alkaline Phosphatase 90 40-136 U/L Total Protein 6.9 6.4-8.2 GM/DL Albumin 3.3 3.2-4.5 GM/DL Triglycerides Level 121 <150 MG/DL Cholesterol Level 101 < 200 MG/DL LDL Cholesterol Direct 43 1-129 MG/DL VLDL Cholesterol 24 5-40 MG/DL HDL Cholesterol 42 40-60 MG/DL Diagnosis/Problems Diagnosis/Problems (1) Permanent atrial fibrillation Assessment & Plan: Her heart rates are reasonably controlled with metoprolol succinate. She should continue on rivaroxaban and follow-up with electrophysiology at the outside facility as an outpatient following discharge. (2) Acute cerebrovascular accident Assessment & Plan: Her MRI from this admission showed a subacute versus chronic ischemic cerebrovascular accident. This occurred in the setting of permanent atrial fibrillation while on anticoagulant therapy with apixaban. Her daughter has been assisting with medication management and is quite sure the patient did not miss any doses of apixaban. As such, this may be an apixaban failure. I have taken the liberty of changing her over to rivaroxaban. She is following with electrophysiology at [facility] and plans to undergo Watchman left atrial exclusion device placement in the next few months. This is permanent atrial fibrillation and as such, there is no indication for antiarrhythmic drug. Her heart rates are well controlled (3) Primary hypertension Assessment & Plan: Blood pressures are intermittently elevated. If this persists, we may need to make some adjustments to her antihypertensive medication. (4) Mixed hyperlipidemia Assessment & Plan: Continue high-dose statin medication in light of the recent stroke. (5) Chronic kidney disease, stage 3 Assessment & Plan: Her creatinine clearance hovers right around 50 which is the lower cut off for renal adjusting the dose of rivaroxaban. Since she was on standard dosing of apixaban and then had a stroke, I would recommend that we maintain the patient on the full-strength dose of rivaroxaban and not change the dose if her creatinine clearance drops below 50. (6) Atherosclerosis of both carotid arteries Assessment & Plan: She had previous left carotid endarterectomy. 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 HOLLY WOO JR, MD Dec 19, 2021 13:11
[2021-12-19] MEDS: RIVAROXABAN 20 MG TABLET (XARELTO) PO SCH (17:15)
[2021-12-19 19:52] VITALS: BP 137/69
[2021-12-19] MEDS: meTOproloL SUCCINATE 50 MG (TOPROL XL) TAB PO SCH (20:54)
[2021-12-19] MEDS: FERROUS SULF 325 MG (IRON) TAB PO SCH (20:54)
[2021-12-20] MEDS: LEVOTHYROXINE 75 MCG (LEVOTHROID) TABLET PO SCH (06:24)
[2021-12-20] MEDS: VENlafaxine XR 75 MG (EFFEXOR XR) CAP PO SCH (06:25)
[2021-12-20] MEDS: BETHANECHOL 10 MG (URECHOLINE) TAB PO SCH ×4 (06:25→20:47)
--- NOTE | 2021-12-20 06:53 | PM&R Progress Note ---
Subjective HPI/CC On Admission Date Seen by Provider: Dec 20, 2021 Time Seen by Provider: 12:00 Subjective/Events-last exam 12/20/2021: Patient much clearer Family at bedside Participating in ADLs Check meds and labs No falls 12/19/2021: Patient doing about the same Granddaughter at the bedside MRI showed some additional infarcts in the same area she has had strokes before Failed Eliquis started her on Xarelto Updated Dr. Hurtado Blood pressure is labile Patient is confused Review of Systems General: Fatigue, Malaise Objective Exam Vital Signs Vital Signs Date Time Temp Pulse Resp B/P (MAP) Pulse Ox O2 Delivery O2 Flow Rate FiO2 12/20/21 20:50 Room Air 12/20/21 19:41 36.8 70 20 178/91 (120) 92 Capillary Refill : General Appearance: No Apparent Distress, WD/WN, Chronically ill HEENT: PERRL/EOMI, Normal ENT Inspection, Pharynx Normal Neck: Full Range of Motion, Normal Inspection, Non Tender, Supple, Carotid Bruit Respiratory: Chest Non Tender, Lungs Clear, Normal Breath Sounds, No Accessory Muscle Use, No Respiratory Distress Cardiovascular: No Edema, No Gallop, No JVD, Normal Peripheral Pulses, Systolic Murmur, Irregularly Irregular Gastrointestinal: Normal Bowel Sounds, No Organomegaly, No Pulsatile Mass, Non Tender, Soft Back: Normal Inspection, No CVA Tenderness, No Vertebral Tenderness Extremity: Normal Capillary Refill, Normal Inspection, Normal Range of Motion, Non Tender, No Calf Tenderness, No Pedal Edema Neurologic/Psychiatric: Alert, No Motor/Sensory Deficits, Normal Mood/Affect, Abnormal Cerebellar Tests, Abnormal Gait, Disoriented, Facial Droop, Motor Weakness, Sensory Deficit Skin: Normal Color, Warm/Dry Lymphatic: No Adenopathy Results/Procedures Lab Patient resulted labs reviewed. FIM Transfers Therapy Code Descriptions/Definitions Functional [place] Measure: 0=Not Assessed/NA 4=Minimal Assistance 1=Total Assistance 5=Supervision or Setup 2=Maximal Assistance 6=Modified [place] 3=Moderate Assistance 7=Complete IndependenceSCALE: Activities may be completed with or without assistive devices. 2-Djclregxbc-warsxas completes the activity by him/herself with no assistance from a helper. 5-Set-up or Clean-up Assistance-helper sets up or cleans up; patient completes activity. [place] assists only prior to or following the activity. 4-Supervision or Touching Assistance-helper provides verbal cues and/or touching/steadying and/or contact guard assistance as patient completes activity. Assistance may be provided throughout the activity or intermittently. 3-Partial/Moderate Assistance-helper does LESS THAN HALF the effort. [place] lifts, holds or supports trunk or limbs, but provides less than half the effort. 2-Substantial/Maximal Assistance-helper does MORE THAN HALF the effort. [place] lifts or holds trunk or limbs and provides more than half the effort. 6-Xzuveinqz-wpcpzf does ALL the effort. Patient does none of the effort to complete the activity. Or, the assistance of 2 or more helpers is required for the patient to complete the activity. If activity was not attempted, code reason: 7-Patient Refused. 9-Not Applicable-not attempted and the patient did not perform the activity before the current illness, exacerbation or injury. 10-Not Attempted due to Environmental Limitations-(lack of equipment, weather restraints, etc.). 88-Not Attempted due to Medical Conditions or Safety Concerns. Roll Left to Right (QC): 4 Sit to Lying (QC): 4 Sit to Stand (QC): 4 Chair/Iyp-al-Cdjtk Xfer(QC): 4 Car Transfer (QC): 3 Gait Training Does the Patient Walk?: Yes Distance: 275' x 2 Walk 10 feet (QC): 5 Walk 50 ft with 2 Turns(QC): 4 Walk 150 ft (QC): 4 Walking 10ft/uneven surface-QC: 3 Gait Persons Needed: 1 Gait Assistive Device: FWW Wheelchair Training Does the Pt Use a Wheelchair?: No Wheel 50 ft with 2 turns (QC): 9 Wheel 150 ft (QC): 9 Stair Training #of Steps: 1 1 Step (curb) (QC): 3 4 Steps (QC): 88 12 Steps (QC): 88 Balance Picking up an Object (QC): 4 ADL-Treatment Eating (QC): 4 (per clinical judgment) Oral Hygiene (QC): 4 Shower/Bathe Self (QC): 3 Upper Body Dressing (QC): 5 Lower Body Dressing (QC): 2 On/Off Footwear (QC): 5 Toileting Hygiene (QC): 4 Toilet Transfer (QC): 4 Assessment/Plan Assessment and Plan Assess & Plan/Chief Complaint Assessment: Acute CVA but microscopic infarcts on MRI done 12/18/2021 revealed flare of previous residual from CVA 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 transferred to then again 10/03/21 s/p thrombectomy after emergent med flight 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 Hurtado History of acute hematuria in the past GERD Gout History of urinary retention monitor closely Tendency for hypoglycemia Acute confusion Plan: Move to rehab Changed Eliquis to Xarelto Home meds Appreciate Dr. Hurtado 12/19/2021: Xarelto Supportive care 12/20/2021: Supportive care Oral anticoagulation (1) Permanent atrial fibrillation Assessment & Plan: Her heart rates are reasonably controlled with metoprolol succinate. She should continue on rivaroxaban and follow-up with electrophysiology at the outside facility as an outpatient following discharge. (2) Acute cerebrovascular accident Assessment & Plan: Her MRI from this admission showed a subacute versus chronic ischemic cerebrovascular accident. This occurred in the setting of permanent atrial fibrillation while on anticoagulant therapy with apixaban. Her daughter has been assisting with medication management and is quite sure the patient did not miss any doses of apixaban. As such, this may be an apixaban failure. I have taken the liberty of changing her over to rivaroxaban. She is following with electrophysiology at [facility] and plans to undergo Watchman left atrial exclusion device placement in the next few months. This is permanent atrial fibrillation and as such, there is no indication for antiarrhythmic drug. Her heart rates are well controlled (3) Primary hypertension Assessment & Plan: Blood pressures are intermittently elevated. If this persists, we may need to make some adjustments to her antihypertensive medication. (4) Mixed hyperlipidemia Assessment & Plan: Continue high-dose statin medication in light of the recent stroke. (5) Chronic kidney disease, stage 3 Assessment & Plan: Her creatinine clearance hovers right around 50 which is the lower cut off for renal adjusting the dose of rivaroxaban. Since she was on standard dosing of apixaban and then had a stroke, I would recommend that we ta ntain the patient on the full-strength dose of rivaroxaban and not change the dose if her creatinine clearance drops below 50. (6) Atherosclerosis of both carotid arteries Assessment & Plan: She had previous left carotid endarterectomy. 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 NKECHI VO DO Dec 20, 2021 06:53
[2021-12-20 07:30] VITALS: BP 136/65
[2021-12-20] MEDS: GABAPENTIN 300 MG (NEURONTIN) CAP PO SCH (09:09)
[2021-12-20] MEDS: meTOprolol SUCCINATE 100 MG (TOPROL XL) TAB PO SCH (09:09)
[2021-12-20] MEDS: LOSARTAN 100 MG (COZAAR) TABLET PO SCH (09:09)
[2021-12-20] MEDS: PANTOPRAZOLE 40 MG (PROTONIX) TAB PO SCH (09:09)
[2021-12-20] MEDS: metFORMIN XR 500 MG (GLUCOPHAGE XR) TAB PO SCH (09:09)
[2021-12-20] MEDS: DOCUSATE SODIUM 100 MG (COLACE) CAP PO SCH ×2 (09:11→20:46)
[2021-12-20] MEDS: polyethylene glycoL POWDER 17 GM (MIRALAX) PACK PO SCH ×2 (09:11→20:46)
[2021-12-20] MEDS: SENNA W/DOCUSATE (SENOKOT S) TABLET PO SCH ×2 (09:11→20:46)
--- NOTE | 2021-12-20 13:27 | Cardiology Progress Note ---
Progress Note-Cardiology Events since last exam Date Seen by Provider: Dec 20, 2021 Time Seen by Provider: 13:26 Events since last exam I am following her due to atrial fibrillation with recurrent strokes. She is much more awake and alert today. Her daughter was at the bedside. The patient denies chest discomfort, dyspnea, palpitations, syncope, or ankle edema. Vitals Last set of Vitals Signs Vital Signs 12/20/21 12/20/21 07:30 09:12 Temp 36.4 Pulse 90 Resp 18 B/P (MAP) 136/65 (88) Pulse Ox 92 O2 Delivery Room Air Exam Vital Signs Vital Signs Date Time Temp Pulse Resp B/P (MAP) Pulse Ox O2 Delivery O2 Flow Rate FiO2 12/20/21 09:12 Room Air 12/20/21 07:30 36.4 90 18 136/65 (88) 92 Physical Exam General: Alert. Oriented to person, place and time which is a marked improve ment over the past 24 hours. No acute distress. Eye: No xanthelasma. HENT: Normocephalic. Neck: Jugular venous pressure does not appear elevated. Respiratory: Lungs are clear to auscultation. Respirations are non-labored. Breath sounds are equal. Symmetrical chest wall expansion. Cardiovascular: Normal rate. Irregular rhythm. 3/6 high-pitched systolic ejection murmur. No gallop. No edema. Gastrointestinal: Soft. Normal bowel sounds. Skin: Warm. Dry. Neurologic: Alert and oriented to person, place, time. Cranial nerves 3-11 grossly intact. Psychiatric: Cooperative. Appropriate mood & affect. Diagnosis/Problems Diagnosis/Problems (1) Permanent atrial fibrillation Assessment & Plan: Her heart rates are reasonably controlled with metoprolol succinate. She should continue on rivaroxaban and follow-up with electrophysi ology at the outside facility as an outpatient following discharge. She had been taking apixaban at home but then appears to have suffered another stroke. As such, I changed her apixaban over to rivaroxaban. This was an empiric change. There are no guidelines regarding what to do in this instance of recurrent stroke while on oral anticoagulation. She is scheduled for a Watchman device in the future. (2) Acute cerebrovascular accident Assessment & Plan: Her MRI from this admission showed a subacute versus chronic ischemic cerebrovascular accident. This occurred in the setting of permanent atrial fibrillation while on anticoagulant therapy with apixaban. Her daughter has been assisting with medication management and is quite sure the patient did not miss any doses of apixaban. As such, this may be an apixaban failure. I have taken the liberty of changing her over to rivaroxaban. She is following with electrophysiology at [facility] and plans to undergo Watchman left atrial exclusion device placement in the next few months. This is permanent atrial fibrillation and as such, there is no indication for antiarrhythmic drug. (3) Primary hypertension Assessment & Plan: Blood pressures are intermittently elevated but improving. If the elevated blood pressures persist, we may need to make some adjustments to her antihypertensive medication. (4) Mixed hyperlipidemia Assessment & Plan: Continue high-dose statin medication in light of the recent stroke. (5) Chronic kidney disease, stage 3 Assessment & Plan: Her creatinine clearance hovers right around 50 which is the lower cut off for renal adjusting the dose of rivaroxaban. Since she was on standard dosing of apixaban and then had a stroke, I would recommend that we maintain the patient on the full-strength dose of rivaroxaban and not change the dose if her creatinine clearance drops below 50. (6) Atherosclerosis of both carotid arteries Assessment & Plan: She had a previous left carotid endarterectomy. 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 She follows with vascular surgery at [facility] for monitoring. HOLLY WOO JR, MD Dec 20, 2021 13:27
[2021-12-20] MEDS: RIVAROXABAN 20 MG TABLET (XARELTO) PO SCH (16:35)
[2021-12-20 19:41] VITALS: BP 178/91
[2021-12-20] MEDS: FERROUS SULF 325 MG (IRON) TAB PO SCH (20:47)
[2021-12-20] MEDS: meTOproloL SUCCINATE 50 MG (TOPROL XL) TAB PO SCH (20:48)
[2021-12-21] MEDS: BETHANECHOL 10 MG (URECHOLINE) TAB PO SCH ×4 (06:31→20:55)
[2021-12-21] MEDS: VENlafaxine XR 75 MG (EFFEXOR XR) CAP PO SCH (06:31)
[2021-12-21] MEDS: LEVOTHYROXINE 75 MCG (LEVOTHROID) TABLET PO SCH (06:31)
[2021-12-21 07:39] VITALS: BP 147/93
--- NOTE | 2021-12-21 07:46 | PM&R Progress Note ---
Subjective HPI/CC On Admission Date Seen by Provider: Dec 21, 2021 Time Seen by Provider: 09:00 Subjective/Events-last exam 12/21/2021: Pt is doing a lot better Mentation is improved Less fogginess Checked meds and labs 12/20/2021: Patient much clearer Family at bedside Participating in ADLs Check meds and labs No falls 12/19/2021: Patient doing about the same Granddaughter at the bedside MRI showed some additional infarcts in the same area she has had strokes before Failed Eliquis started her on Xarelto Updated Dr. Hurtado Blood pressure is labile Patient is confused Review of Systems General: Fatigue, Malaise Objective Exam Vital Signs Vital Signs Date Time Temp Pulse Resp B/P (MAP) Pulse Ox O2 Delivery O2 Flow Rate FiO2 12/21/21 21:00 Room Air 12/21/21 20:00 37.3 79 18 160/78 (105) 93 Capillary Refill : General Appearance: No Apparent Distress, WD/WN, Chronically ill HEENT: PERRL/EOMI, Normal ENT Inspection, Pharynx Normal Neck: Full Range of Motion, Normal Inspection, Non Tender, Supple, Carotid Bruit Respiratory: Chest Non Tender, Lungs Clear, Normal Breath Sounds, No Accessory Muscle Use, No Respiratory Distress Cardiovascular: No Edema, No Gallop, No JVD, Normal Peripheral Pulses, Systolic Murmur, Irregularly Irregular Gastrointestinal: Normal Bowel Sounds, No Organomegaly, No Pulsatile Mass, Non Tender, Soft Back: Normal Inspection, No CVA Tenderness, No Vertebral Tenderness Extremity: Normal Capillary Refill, Normal Inspection, Normal Range of Motion, Non Tender, No Calf Tenderness, No Pedal Edema Neurologic/Psychiatric: Alert, No Motor/Sensory Deficits, Normal Mood/Affect, Abnormal Cerebellar Tests, Abnormal Gait, Disoriented, Facial Droop, Motor Weakness, Sensory Deficit Skin: Normal Color, Warm/Dry Lymphatic: No Adenopathy Results/Procedures Lab Patient resulted labs reviewed. FIM Transfers Therapy Code Descriptions/Definitions Functional Cable Measure: 0=Not Assessed/NA 4=Minimal Assistance 1=Total Assistance 5=Supervision or Setup 2=Maximal Assistance 6=Modified Cable 3=Moderate Assistance 7=Complete IndependenceSCALE: Activities may be completed with or without assistive devices. 8-Goewvstlzz-nktgsmj completes the activity by him/herself with no assistance from a helper. 5-Set-up or Clean-up Assistance-helper sets up or cleans up; patient completes activity. [place] assists only prior to or following the activity. 4-Supervision or Touching Assistance-helper provides verbal cues and/or touching/steadying and/or contact guard assistance as patient completes activity. Assistance may be provided throughout the activity or intermittently. 3-Partial/Moderate Assistance-helper does LESS THAN HALF the effort. [place] lifts, holds or supports trunk or limbs, but provides less than half the effort. 2-Substantial/Maximal Assistance-helper does MORE THAN HALF the effort. [place] lifts or holds trunk or limbs and provides more than half the effort. 2-Onhuggoiz-lgltpy does ALL the effort. Patient does none of the effort to complete the activity. Or, the assistance of 2 or more helpers is required for the patient to complete the activity. If activity was not attempted, code reason: 7-Patient Refused. 9-Not Applicable-not attempted and the patient did not perform the activity before the current illness, exacerbation or injury. 10-Not Attempted due to Environmental Limitations-(lack of equipment, weather restraints, etc.). 88-Not Attempted due to Medical Conditions or Safety Concerns. Roll Left to Right (QC): 4 Sit to Lying (QC): 4 Sit to Stand (QC): 4 Chair/Ztm-jm-Cdalj Xfer(QC): 4 Car Transfer (QC): 3 Gait Training Does the Patient Walk?: Yes Distance: 275' x 2 Walk 10 feet (QC): 5 Walk 50 ft with 2 Turns(QC): 4 Walk 150 ft (QC): 4 Walking 10ft/uneven surface-QC: 3 Gait Persons Needed: 1 Gait Assistive Device: FWW Wheelchair Training Does the Pt Use a Wheelchair?: No Wheel 50 ft with 2 turns (QC): 9 Wheel 150 ft (QC): 9 Stair Training #of Steps: 1 1 Step (curb) (QC): 3 4 Steps (QC): 88 12 Steps (QC): 88 Balance Picking up an Object (QC): 4 ADL-Treatment Eating (QC): 4 (per clinical judgment) Oral Hygiene (QC): 4 Shower/Bathe Self (QC): 3 Upper Body Dressing (QC): 5 Lower Body Dressing (QC): 2 On/Off Footwear (QC): 5 Toileting Hygiene (QC): 4 Toilet Transfer (QC): 4 Assessment/Plan Assessment and Plan Assess & Plan/Chief Complaint Assessment: Acute CVA but microscopic infarcts on MRI done 12/18/2021 revealed flare of previous residual from CVA 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 transferred to then again 10/03/21 s/p thrombectomy after emergent med flight 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 Hurtado History of acute hematuria in the past GERD Gout History of urinary retention monitor closely Tendency for hypoglycemia Acute confusion Plan: Move to rehab Changed Eliquis to Xarelto Home meds Appreciate Dr. Hurtado 12/19/2021: Xarelto Supportive care 12/20/2021: Supportive care Oral anticoagulation 12/21/2021: Supportive care Improved (1) Permanent atrial fibrillation Assessment & Plan: Her heart rates are reasonably controlled with metoprolol succinate. She should continue on rivaroxaban and follow-up with electrophysiology at the outside facility as an outpatient following discharge. She had been taking apixaban at home but then appears to have suffered another stroke. As such, I changed her apixaban over to rivaroxaban. This was an empiric change. There are no guidelines regarding what to do in this instance of recurrent stroke while on oral anticoagulation. She is scheduled for a Watchman device in the future. (2) Acute cerebrovascular accident Assessment & Plan: Her MRI from this admission showed a subacute versus chronic ischemic cerebrovascular accident. This occurred in the setting of permanent atrial fibrillation while on anticoagulant therapy with apixaban. Her daughter has been assisting with medication management and is quite sure the patient did not miss any doses of apixaban. As such, this may be an apixaban failure. I have taken the liberty of changing her over to rivaroxaban. She is following with electrophysiology at [facility] and plans to undergo Watchman left atrial exclusion device placement in the next few months. This is permanent atrial fibrillation and as such, there is no indication for antiarrhythmic drug. (3) Primary hypertension Assessment & Plan: Blood pressures are intermittently elevated but improving. If the elevated blood pressures persist, we may need to make some adjustments to her antihypertensive medication. (4) Mixed hyperlipidemia Assessment & Plan: Continue high-dose statin medication in light of the recent stroke. (5) Chronic kidney disease, stage 3 Assessment & Plan: Her creatinine clearance hovers right around 50 which is the lower cut off for renal adjusting the dose of rivaroxaban. Since she was on standard dosing of apixaban and then had a stroke, I would recommend that we maintain the patient on the full-strength dose of rivaroxaban and not change the dose if her creatinine clearance drops below 50. (6) Atherosclerosis of both carotid arteries Assessment & Plan: She had a previous left carotid endarterectomy. 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 She follows with vascular surgery at [facility] for monitoring. NKECHI VO DO Dec 21, 2021 07:46
[2021-12-21] MEDS: DOCUSATE SODIUM 100 MG (COLACE) CAP PO SCH ×2 (09:05→20:55)
[2021-12-21] MEDS: PANTOPRAZOLE 40 MG (PROTONIX) TAB PO SCH (09:05)
[2021-12-21] MEDS: meTOprolol SUCCINATE 100 MG (TOPROL XL) TAB PO SCH (09:05)
[2021-12-21] MEDS: LOSARTAN 100 MG (COZAAR) TABLET PO SCH (09:05)
[2021-12-21] MEDS: polyethylene glycoL POWDER 17 GM (MIRALAX) PACK PO SCH ×2 (09:06→20:58)
[2021-12-21] MEDS: GABAPENTIN 300 MG (NEURONTIN) CAP PO SCH (09:06)
[2021-12-21] MEDS: SENNA W/DOCUSATE (SENOKOT S) TABLET PO SCH ×2 (09:06→20:55)
[2021-12-21] MEDS: metFORMIN XR 500 MG (GLUCOPHAGE XR) TAB PO SCH (09:06)
--- NOTE | 2021-12-21 09:59 | Physical Therapy Daily Note ---
PT Daily Note-Current Subjective Pt sitting in reclienr upon arrival. Pt agrees to PT. Pt demonstrates confusion and still eating breakfast upon arrival. Pain Location: No Pain Reported Mental Status Patient Orientation: Person, Confused, Place Transfers SCALE: Activities may be completed with or without assistive devices. 5-Sdedodkfvr-enjvqrp completes the activity by him/herself with no assistance from a helper. 5-Set-up or Clean-up Assistance-helper sets up or cleans up; patient completes activity. [place] assists only prior to or following the activity. 4-Supervision or Touching Assistance-helper provides verbal cues and/or touching/steadying and/or contact guard assistance as patient completes activity. Assistance may be provided throughout the activity or intermittently. 3-Partial/Moderate Assistance-helper does LESS THAN HALF the effort. [place] lifts, holds or supports trunk or limbs, but provides less than half the effort. 2-Substantial/Maximal Assistance-helper does MORE THAN HALF the effort. [place] lifts or holds trunk or limbs and provides more than half the effort. 1-Ndkugzqtt-prjqaq does ALL the effort. Patient does none of the effort to complete the activity. Or, the assistance of 2 or more helpers is required for the patient to complete the activity. If activity was not attempted, code reason: 7-Patient Refused. 9-Not Applicable-not attempted and the patient did not perform the activity before the current illness, exacerbation or injury. 10-Not Attempted due to Environmental Limitations-(lack of equipment, weather restraints, etc.). 88-Not Attempted due to Medical Conditions or Safety Concerns. Sit to Stand (QC): 4 Weight Bearing Full Weight Bearing Full Weight Bearing Gait Training Does the Patient Walk?: Yes Distance: 150' x2 Walk 10 feet (QC): 4 Walk 50 ft with 2 Turns(QC): 4 Walk 150 ft (QC): 4 Gait Persons Needed: 1 Gait Assistive Device: FWW Exercises Seated Therapy Exercises: Ankle pumps, Long arc quads, Hip flexion, Glut set Seated Reps: 15 NuStep Minutes: 13 NuStep Workload: 4 Treatments TF to standing and amb. in hallway. Pt completes Seated Ex as well as uses NuStep for 13m at WL 4. Pt amb. in hallway before returning to room. Pt resting in recliner w/all needs met, call light in hand. Assessment Current Status: Good Progress Pt jane. tx well but is a little confused and needs VC for sequencing. PT Short Term Goals Short Term Goals Time Frame: Dec 25, 2021 Roll Left & Right: 6 Sit to lyin Lying to sitting on side of be: 4 Sit to stand: 4 (SBA) Chair/quo-bq-umzru transfer: 4 (SBA) Walk 10 feet: 4 (SBA) Walk 50 feet with two turns: 4 (SBA) Walk 150 feet: 4 (SBA) PT Evening Sitter Goals Evening Sitter Goals PT Skilled Nursing Goals Time Frame: Jan 08, 2022 Roll Left & Right (QC): 6 Sit to Lying (QC): 6 Lying-Sitting on Side/Bed(QC): 6 Sit to Stand (QC): 5 Chair/Omt-sm-Evrmj Xfer(QC): 5 Toilet Transfer (QC): 5 Car Transfer (QC): 5 Does the Patient Walk: Yes Walk 10 feet (QC): 5 Walk 50ft with 2 Turns (QC): 5 Walk 150 ft (QC): 5 Walking 10ft on Uneven Surface: 5 1 Step (curb) (QC): 4 4 Steps (QC): 4 12 Steps (QC): 88 Picking up an Object (QC): 5 Wheel 50 feet with 2 turns (QC: 9 Wheel 150 feet: 9 PT Plan Problem List Problem List: Activity Tolerance, Functional Strength Treatment/Plan Treatment Plan: Continue Plan of Care Treatment Plan: Bed Mobility, Education, Functional Activity Helen, Functional Strength, Group Therapy, Gait, Safety, Therapeutic Exercise, Transfers Treatment Duration: Jan 08, 2022 Frequency: At least 5 of 7 days/Wk (IRF) Estimated Hrs Per Day: 1.5 hours per day Patient and/or Family Agrees t: Yes Safety Risks/Education Patient Education: Gait Training, Transfer Techniques, Correct Positioning, Safety Issues Teaching Recipient: Patient Teaching Methods: Discussion Response to Teaching: Verbalize Understanding Time/GCodes Time In: 800 Time Out: 900 Total Billed Treatment Time: 60 Total Billed Treatment 1, FA x2 (25m), GT (15m) & EX (20m) COSMO GARCIA VIGOUREUX PRINTER Dec 21, 2021 09:59
--- NOTE | 2021-12-21 11:36 | Occupational Ther Daily Note ---
OT Current Status-Daily Note Subjective Pt alert, sitting in recliner. Pt is aware of situation and oriented to place, cues needed for rest due to aphasia. Pt agrees to therapy. No c/o pain. Mental Status/Objective Patient Orientation: Person, Place, Non-Verbal/Aphasic, Situation ADL-Treatment Pt is able to complete everyday tasks without difficulty. Pt does have difficulties with expressing wants and needs due to global aphasia. Safety awareness issues during rote tasks when pt has a certain way of completing task without awareness of issues that have developed since hospital stay, ie balance issues and problem solving deficits. Pt able to complete rote tasks by self though if steps are interrupted, pt needs assist to problem solve or to remember what she was doing. Toileting independent. Oral care independent. Eating independent. Showering set up. Upper body dressing set up. Lower body dressing set up. Min A for donning socks, independent doffing socks. Able to slide shoes on and off by self. After session, pt sitting in recliner with feet elevated. Call light/phone in reach. All needs met. Therapy Code Descriptions/Definitions Functional [place] Measure: 0=Not Assessed/NA 4=Minimal Assistance 1=Total Assistance 5=Supervision or Setup 2=Maximal Assistance 6=Modified [place] 3=Moderate Assistance 7=Complete IndependenceSCALE: Activities may be completed with or without assistive devices. 9-Atiseqcpsx-mhkpmqa completes the activity by him/herself with no assistance from a helper. 5-Set-up or Clean-up Assistance-helper sets up or cleans up; patient completes activity. [place] assists only prior to or following the activity. 4-Supervision or Touching Assistance-helper provides verbal cues and/or touching/steadying and/or contact guard assistance as patient completes activity. Assistance may be provided throughout the activity or intermittently. 3-Partial/Moderate Assistance-helper does LESS THAN HALF the effort. [place] lifts, holds or supports trunk or limbs, but provides less than half the effort. 2-Substantial/Maximal Assistance-helper does MORE THAN HALF the effort. [place] lifts or holds trunk or limbs and provides more than half the effort. 4-Iiugfdpxj-amwylb does ALL the effort. Patient does none of the effort to complete the activity. Or, the assistance of 2 or more helpers is required for the patient to complete the activity. If activity was not attempted, code reason: 7-Patient Refused. 9-Not Applicable-not attempted and the patient did not perform the activity before the current illness, exacerbation or injury. 10-Not Attempted due to Environmental Limitations-(lack of equipment, weather restraints, etc.). 88-Not Attempted due to Medical Conditions or Safety Concerns. Eating (QC): 6 Oral Hygiene (QC): 6 Shower/Bathe Self (QC): 5 Upper Body Dressing (QC): 5 Lower Body Dressing (QC): 5 On/Off Footwear: 3 Toileting Hygiene (QC): 6 Toilet Transfer (QC): 6 OT Short Term Goals Short Term Goals Time Frame: Dec 25, 2021 Eatin Oral hygiene: 5 Toileting hygiene: 3 Shower/bathe self: 4 Upper body dressin Lower body dressin Putting on/taking off footwear: 3 OT Land Leasing Information Clerk Goals Land Leasing Information Clerk Goals Time Frame: Jan 02, 2022 Eating (QC): 6 Oral Hygiene (QC): 5 Toileting Hygiene (QC): 6 Shower/Bathe Self (QC): 5 Upper Body Dressing (QC): 5 Lower Body Dressing (QC): 5 On/Off Footwear (QC): 5 1=Demonstrate adherence to instructed precautions during ADL tasks. 2=Patient will verbalize/demonstrate understanding of assistive devices/modifications for ADL. 3=Patient will improve strength/tolerance for activity to enable patient to perform ADL's. OT Education/Plan Problem List/Assessment Assessment: Decreased Safety Aware, Impaired Cognition, Impaired Self-Care Skills Discharge Recommendations Plan/Recommendations: Continue POC Treatment Plan/Plan of Care Patient would benefit from OT for education, treatment and training to promote independence in ADL's, mobility, safety and/or upper extremity function for ADL's. Plan of Care: ADL Retraining, Cognitive Retraining, Functional Mobility, Group Exercise/Act as Ind, UE Funct Exercise/Act, Visual/Perceptual Retrain, W/C Management Training Treatment Duration: Jan 02, 2022 Frequency: At least 5 of 7 days/Wk (IRF) Estimated Hrs Per Day: 1.5 hours per day (75-90 min) Agreement: Yes Rehab Potential: Fair Time/GCodes Start Time: 10:00 Stop Time: 11:15 Total Time Billed (hr/min): 75 Billed Treatment Time 1 visit-ADL 5 (75 min) HUBERT PELLETIER Dec 21, 2021 11:36
--- NOTE | 2021-12-21 13:13 | Speech Therapy Daily Note ---
Speech Daily Progress Note Subjective Date Seen by Provider: Dec 21, 2021 Time Seen by Provider: 09:30 The patient was seated upright in her recliner, awake and alert upon entrance to her room. The patient greeted the clinician appropriately and was agreeable to participation in the cognitive linguistic treatment session. Objective Orientation: Through the use of yes and no questions, the patient displayed accurate orientation to year, day of week, name and physical location. The patient was unable to identify the month through simple yes and no questions. One-Step Commands: With additional response time and verbal repetition, the patient was able to display 100% accuracy with simple, one-step commands. Direct modeling for accuracy was not required on this date. Confrontational Naming: The patient displayed 80% accuracy with confrontational naming, independently. Repetition: The patient is able to repeat single words with 100% accuracy and short phrases of three words, only. The patient is unable to repeat short phrases of four or five words in length. Assessment Assessment Current Status: Good Progress Treatment Plan Continue Plan of Care Speech Short Term Goals Short Term Goals Short Term Goals 1. The patient will display 75% accuracy with confrontational naming of objects with mild clinician verbal cueing. 2. The patient will repeat short phrases with 75% accuracy with mild clinician verbal cueing. Speech Change Control Specialist Goals Change Control Specialist Goals 1. The patient will display increased expressive and receptive communication for increased safety with return to the least restrictive environment. Speech-Plan Treatment Plan Speech Therapy Treatment Plan: Continue Plan of Care Treatment Duration: Jan 01, 2022 Frequency: 4 times per week (Four to five times per week. ) Estimated Hrs Per Day: .5 hour per day Rehab Potential: Fair Pt/Family Agrees to Plan: Yes Safety Risks/Education Teaching Recipient: Patient Teaching Methods: Demonstration, Discussion Response to Teaching: Verbalize Understanding, Reinforcement Needed Education Topics Provided: Speech Pathology Goals of Treatment Time Speech Therapy Time In: 09:30 Speech Therapy Time Out: 10:00 Total Billed Time: 30 Billed Treatment Time Aaliyah PIERORUBI ANDERSONWagnerMAGGIE ST Dec 21, 2021 13:13
--- NOTE | 2021-12-21 13:17 | Physical Therapy Daily Note ---
PT Daily Note-Current Subjective Pt asleep in recliner upon arrival. Pt is difficult to awaken. Pain Location: No Pain Reported Mental Status Patient Orientation: Person, Confused, Place Transfers SCALE: Activities may be completed with or without assistive devices. 6-Tspyeobebe-rpyetbn completes the activity by him/herself with no assistance from a helper. 5-Set-up or Clean-up Assistance-helper sets up or cleans up; patient completes activity. [place] assists only prior to or following the activity. 4-Supervision or Touching Assistance-helper provides verbal cues and/or touching/steadying and/or contact guard assistance as patient completes activity. Assistance may be provided throughout the activity or intermittently. 3-Partial/Moderate Assistance-helper does LESS THAN HALF the effort. [place] lifts, holds or supports trunk or limbs, but provides less than half the effort. 2-Substantial/Maximal Assistance-helper does MORE THAN HALF the effort. [place] lifts or holds trunk or limbs and provides more than half the effort. 2-Fhlpqjqzl-wparws does ALL the effort. Patient does none of the effort to complete the activity. Or, the assistance of 2 or more helpers is required for the patient to complete the activity. If activity was not attempted, code reason: 7-Patient Refused. 9-Not Applicable-not attempted and the patient did not perform the activity b efore the current illness, exacerbation or injury. 10-Not Attempted due to Environmental Limitations-(lack of equipment, weather restraints, etc.). 88-Not Attempted due to Medical Conditions or Safety Concerns. Weight Bearing Full Weight Bearing Full Weight Bearing Exercises Supine Ex: Ankle pumps, Quad Set, Glut sets, Heel Slides, Hip abd/add Supine Reps: 15 Treatments Pt reviewed Supine EX w/pt after pt awoke. Pt resting as lunch arrives and pt assists as needed for opening containers before end of tx. All needs met, call light in hand. Assessment Current Status: Fair Progress VC for sequencing. PT Short Term Goals Short Term Goals Time Frame: Dec 25, 2021 Roll Left & Right: 6 Sit to lyin Lying to sitting on side of be: 4 Sit to stand: 4 (SBA) Chair/jgp-ob-jciyz transfer: 4 (SBA) Walk 10 feet: 4 (SBA) Walk 50 feet with two turns: 4 (SBA) Walk 150 feet: 4 (SBA) PT Senior Living Goals Manager Statistical Programming Goals PT Senior Living Goals Time Frame: Jan 08, 2022 Roll Left & Right (QC): 6 Sit to Lying (QC): 6 Lying-Sitting on Side/Bed(QC): 6 Sit to Stand (QC): 5 Chair/Jkl-nh-Xmmba Xfer(QC): 5 Toilet Transfer (QC): 5 Car Transfer (QC): 5 Does the Patient Walk: Yes Walk 10 feet (QC): 5 Walk 50ft with 2 Turns (QC): 5 Walk 150 ft (QC): 5 Walking 10ft on Uneven Surface: 5 1 Step (curb) (QC): 4 4 Steps (QC): 4 12 Steps (QC): 88 Picking up an Object (QC): 5 Wheel 50 feet with 2 turns (QC: 9 Wheel 150 feet: 9 PT Plan Problem List Problem List: Activity Tolerance, Functional Strength Treatment/Plan Treatment Plan: Continue Plan of Care Treatment Plan: Bed Mobility, Education, Functional Activity Helen, Functional Strength, Group Therapy, Gait, Safety, Therapeutic Exercise, Transfers Treatment Duration: Jan 08, 2022 Frequency: At least 5 of 7 days/Wk (IRF) Estimated Hrs Per Day: 1.5 hours per day Patient and/or Family Agrees t: Yes Safety Risks/Education Patient Education: Correct Positioning Teaching Recipient: Patient Teaching Methods: Discussion Response to Teaching: Reinforcement Needed Time/GCodes Time In: 1145 Time Out: 1200 Total Billed Treatment Time: 15 Total Billed Treatment 1, FA (15m) COSMO GARCIA BACK CLOSER Dec 21, 2021 13:17
[2021-12-21] MEDS: RIVAROXABAN 20 MG TABLET (XARELTO) PO SCH (16:31)
[2021-12-21 20:00] VITALS: BP 160/78
[2021-12-21] MEDS: meTOproloL SUCCINATE 50 MG (TOPROL XL) TAB PO SCH (20:55)
[2021-12-21] MEDS: FERROUS SULF 325 MG (IRON) TAB PO SCH (20:55)
--- NOTE | 2021-12-22 06:08 | PM&R Progress Note ---
Subjective HPI/CC On Admission Date Seen by Provider: Dec 22, 2021 Time Seen by Provider: 09:00 Subjective/Events-last exam 12/22/2021: Pt is doing well Bp elevated before home meds given Checked meds and labs No falls Dramatically improved 12/21/2021: Pt is doing a lot better Mentation is improved Less fogginess Checked meds and labs 12/20/2021: Patient much clearer Family at bedside Participating in ADLs Check meds and labs No falls 12/19/2021: Patient doing about the same Granddaughter at the bedside MRI showed some additional infarcts in the same area she has had strokes before Failed Eliquis started her on Xarelto Updated Dr. Hurtado Blood pressure is labile Patient is confused Review of Systems General: Fatigue, Malaise Neurological: Weakness, Incoordination, Confusion Objective Exam Vital Signs Vital Signs Date Time Temp Pulse Resp B/P (MAP) Pulse Ox O2 Delivery O2 Flow Rate FiO2 12/22/21 21:12 Room Air 12/22/21 20:00 37.0 73 18 179/77 (111) 92 Capillary Refill : General Appearance: No Apparent Distress, WD/WN, Chronically ill HEENT: PERRL/EOMI, Normal ENT Inspection, Pharynx Normal Neck: Full Range of Motion, Normal Inspection, Non Tender, Supple, Carotid Bruit Respiratory: Chest Non Tender, Lungs Clear, Normal Breath Sounds, No Accessory Muscle Use, No Respiratory Distress Cardiovascular: No Edema, No Gallop, No JVD, Normal Peripheral Pulses, Systolic Murmur, Irregularly Irregular Gastrointestinal: Normal Bowel Sounds, No Organomegaly, No Pulsatile Mass, Non Tender, Soft Back: Normal Inspection, No CVA Tenderness, No Vertebral Tenderness Extremity: Normal Capillary Refill, Normal Inspection, Normal Range of Motion, Non Tender, No Calf Tenderness, No Pedal Edema Neurologic/Psychiatric: Alert, No Motor/Sensory Deficits, Normal Mood/Affect, Abnormal Cerebellar Tests, Abnormal Gait, Disoriented, Facial Droop, Motor Weakness, Sensory Deficit Skin: Normal Color, Warm/Dry Lymphatic: No Adenopathy Results/Procedures Lab Patient resulted labs reviewed. FIM Transfers Therapy Code Descriptions/Definitions Functional [place] Measure: 0=Not Assessed/NA 4=Minimal Assistance 1=Total Assistance 5=Supervision or Setup 2=Maximal Assistance 6=Modified [place] 3=Moderate Assistance 7=Complete IndependenceSCALE: Activities may be completed with or without assistive devices. 4-Zudtwrfexg-wmyevxx completes the activity by him/herself with no assistance from a helper. 5-Set-up or Clean-up Assistance-helper sets up or cleans up; patient completes activity. [place] assists only prior to or following the activity. 4-Supervision or Touching Assistance-helper provides verbal cues and/or touching/steadying and/or contact guard assistance as patient completes acti vity. Assistance may be provided throughout the activity or intermittently. 3-Partial/Moderate Assistance-helper does LESS THAN HALF the effort. [place] lifts, holds or supports trunk or limbs, but provides less than half the effort. 2-Substantial/Maximal Assistance-helper does MORE THAN HALF the effort. [place] lifts or holds trunk or limbs and provides more than half the effort. 4-Eveuipzbb-qpkidu does ALL the effort. Patient does none of the effort to complete the activity. Or, the assistance of 2 or more helpers is required for the patient to complete the activity. If activity was not attempted, code reason: 7-Patient Refused. 9-Not Applicable-not attempted and the patient did not perform the activity before the current illness, exacerbation or injury. 10-Not Attempted due to Environmental Limitations-(lack of equipment, weather restraints, etc.). 88-Not Attempted due to Medical Conditions or Safety Concerns. Roll Left to Right (QC): 4 Sit to Lying (QC): 4 Sit to Stand (QC): 4 Chair/Onx-ya-Ioneg Xfer(QC): 4 Car Transfer (QC): 3 Gait Training Does the Patient Walk?: Yes Distance: 150' x2 Walk 10 feet (QC): 4 Walk 50 ft with 2 Turns(QC): 4 Walk 150 ft (QC): 4 Walking 10ft/uneven surface-QC: 3 Gait Persons Needed: 1 Gait Assistive Device: FWW Wheelchair Training Does the Pt Use a Wheelchair?: No Wheel 50 ft with 2 turns (QC): 9 Wheel 150 ft (QC): 9 Stair Training #of Steps: 1 1 Step (curb) (QC): 3 4 Steps (QC): 88 12 Steps (QC): 88 Balance Picking up an Object (QC): 4 ADL-Treatment Eating (QC): 6 Oral Hygiene (QC): 6 Shower/Bathe Self (QC): 5 Upper Body Dressing (QC): 5 Lower Body Dressing (QC): 5 On/Off Footwear (QC): 3 Toileting Hygiene (QC): 6 Toilet Transfer (QC): 6 Assessment/Plan Assessment and Plan Assess & Plan/Chief Complaint Assessment: Acute CVA but microscopic infarcts on MRI done 12/18/2021 revealed flare of previous residual from CVA 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 transferred to then again 10/03/21 s/p thrombectomy after emergent med flight 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 Hurtado History of acute hematuria in the past GERD Gout History of urinary retention monitor closely Tendency for hypoglycemia Acute confusion now improved Plan: Move to rehab Changed Eliquis to Xarelto Home meds Appreciate Dr. Hurtado 12/19/2021: Xarelto Supportive care 12/20/2021: Supportive care Oral anticoagulation 12/21/2021: Supportive care Improved 12/22/2021: Supportive care Dramatically improved (1) Permanent atrial fibrillation Assessment & Plan: Her heart rates are reasonably controlled with metoprolol succinate. She should continue on rivaroxaban and follow-up with electrophysiology at the outside facility as an outpatient following discharge. She had been taking apixaban at home but then appears to have suffered another stroke. As such, I changed her apixaban over to rivaroxaban. This was an em piric change. There are no guidelines regarding what to do in this instance of recurrent stroke while on oral anticoagulation. She is scheduled for a Watchman device in the future. (2) Acute cerebrovascular accident Assessment & Plan: Her MRI from this admission showed a subacute versus chronic ischemic cerebrovascular accident. This occurred in the setting of permanent atrial fibrillation while on anticoagulant therapy with apixaban. Her daughter has been assisting with medication management and is quite sure the patient did not miss any doses of apixaban. As such, this may be an apixaban failure. I have taken the liberty of changing her over to rivaroxaban. She is following with electrophysiology at [facility] and plans to undergo Watchman left atrial exclusion device placement in the next few months. This is permanent atrial fibrillation and as such, there is no indication for antiarrhythmic drug. (3) Primary hypertension Assessment & Plan: Blood pressures are intermittently elevated but improving. If the elevated blood pressures persist, we may need to make some adjustments to her antihypertensive medication. (4) Mixed hyperlipidemia Assessment & Plan: Continue high-dose statin medication in light of the recent stroke. (5) Chronic kidney disease, stage 3 Assessment & Plan: Her creatinine clearance hovers right around 50 which is the lower cut off for renal adjusting the dose of rivaroxaban. Since she was on standard dosing of apixaban and then had a stroke, I would recommend that we maintain the patient on the full-strength dose of rivaroxaban and not change the dose if her creatinine clearance drops below 50. (6) Atherosclerosis of both carotid arteries Assessment & Plan: She had a previous left carotid endarterectomy. 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 She follows with vascular surgery at [facility] for monitoring. NKECHI VO DO Dec 22, 2021 06:08
[2021-12-22] MEDS: VENlafaxine XR 75 MG (EFFEXOR XR) CAP PO SCH (06:35)
[2021-12-22] MEDS: BETHANECHOL 10 MG (URECHOLINE) TAB PO SCH ×4 (06:35→21:02)
[2021-12-22] MEDS: LEVOTHYROXINE 75 MCG (LEVOTHROID) TABLET PO SCH (06:35)
[2021-12-22 07:44] VITALS: BP 188/89
[2021-12-22] MEDS: metFORMIN XR 500 MG (GLUCOPHAGE XR) TAB PO SCH (08:13)
[2021-12-22] MEDS: meTOprolol SUCCINATE 100 MG (TOPROL XL) TAB PO SCH (08:13)
[2021-12-22] MEDS: DOCUSATE SODIUM 100 MG (COLACE) CAP PO SCH ×2 (08:13→21:02)
[2021-12-22] MEDS: LOSARTAN 100 MG (COZAAR) TABLET PO SCH (08:13)
[2021-12-22] MEDS: GABAPENTIN 300 MG (NEURONTIN) CAP PO SCH (08:13)
[2021-12-22] MEDS: PANTOPRAZOLE 40 MG (PROTONIX) TAB PO SCH (08:13)
[2021-12-22] MEDS: SENNA W/DOCUSATE (SENOKOT S) TABLET PO SCH ×2 (09:00→21:02)
[2021-12-22] MEDS: polyethylene glycoL POWDER 17 GM (MIRALAX) PACK PO SCH ×2 (09:00→21:02)
--- NOTE | 2021-12-22 09:00 | Physical Therapy Daily Note ---
PT Daily Note-Current Subjective Pt sitting in recliner asleep with breakfast in front of her upon arrival. Pt reports not feeling very hungry and agrees to PT. Pain Location: No Pain Reported Mental Status Patient Orientation: Person, Confused, Place Transfers SCALE: Activities may be completed with or without assistive devices. 1-Kjdnsgutuu-cwqdkke completes the activity by him/herself with no assistance from a helper. 5-Set-up or Clean-up Assistance-helper sets up or cleans up; patient completes activity. [place] assists only prior to or following the activity. 4-Supervision or Touching Assistance-helper provides verbal cues and/or touching/steadying and/or contact guard assistance as patient completes activity. Assistance may be provided throughout the activity or intermittently. 3-Partial/Moderate Assistance-helper does LESS THAN HALF the effort. [place] lifts, holds or supports trunk or limbs, but provides less than half the effort. 2-Substantial/Maximal Assistance-helper does MORE THAN HALF the effort. [place] lifts or holds trunk or limbs and provides more than half the effort. 7-Bgqhvxitq-wqyldg does ALL the effort. Patient does none of the effort to complete the activity. Or, the assistance of 2 or more helpers is required for the patient to complete the activity. If activity was not attempted, code reason: 7-Patient Refused. 9-Not Applicable-not attempted and the patient did not perform the activity before the current illness, exacerbation or injury. 10-Not Attempted due to Environmental Limitations-(lack of equipment, weather restraints, etc.). 88-Not Attempted due to Medical Conditions or Safety Concerns. Sit to Stand (QC): 4 Car Transfer (QC): 4 VC for sequencing but can complete w/VC. Weight Bearing Full Weight Bearing Full Weight Bearing Gait Training Does the Patient Walk?: Yes Distance: 150' x2 Walk 10 feet (QC): 5 Walk 50 ft with 2 Turns(QC): 5 Walk 150 ft (QC): 5 Gait Persons Needed: 1 Gait Assistive Device: FWW Exercises Seated Therapy Exercises: Ankle pumps, Long arc quads, Hip flexion, Glut set Seated Reps: 15 NuStep Minutes: 15 NuStep Workload: 3 Treatments (800-900) Pt completes Seated EX at recliner then TF to standing. Pt amb. in hallway then uses NuStep for 15m at WL 3. Pt amb. in hallway and returns to recliner to rest with all needs met, call light in hand. ([id number]) Pt is difficult to awaken. Pt completes EX in recliner then repositioned to comfort. All needs met, call light in hand. Assessment Current Status: Good Progress Pt fatigues and needs RB. Increased VC as pt fatigues. This demonstrated during car transfer when pt needed VC for sequencing and safety. PT Short Term Goals Short Term Goals Time Frame: Dec 25, 2021 Roll Left & Right: 6 Sit to lyin Lying to sitting on side of be: 4 Sit to stand: 4 (SBA) Chair/oqc-wi-zdcso transfer: 4 (SBA) Walk 10 feet: 4 (SBA) Walk 50 feet with two turns: 4 (SBA) Walk 150 feet: 4 (SBA) PT Shelter Goals District Supervisor Goals PT Shelter Goals Time Frame: Jan 08, 2022 Roll Left & Right (QC): 6 Sit to Lying (QC): 6 Lying-Sitting on Side/Bed(QC): 6 Sit to Stand (QC): 5 Chair/Gii-wf-Jdmsw Xfer(QC): 5 Toilet Transfer (QC): 5 Car Transfer (QC): 5 Does the Patient Walk: Yes Walk 10 feet (QC): 5 Walk 50ft with 2 Turns (QC): 5 Walk 150 ft (QC): 5 Walking 10ft on Uneven Surface: 5 1 Step (curb) (QC): 4 4 Steps (QC): 4 12 Steps (QC): 88 Picking up an Object (QC): 5 Wheel 50 feet with 2 turns (QC: 9 Wheel 150 feet: 9 PT Plan Problem List Problem List: Activity Tolerance, Functional Strength, Safety Treatment/Plan Treatment Plan: Continue Plan of Care Treatment Plan: Bed Mobility, Education, Functional Activity Helen, Functional Strength, Group Therapy, Gait, Safety, Therapeutic Exercise, Transfers Treatment Duration: Jan 08, 2022 Frequency: At least 5 of 7 days/Wk (IRF) Estimated Hrs Per Day: 1.5 hours per day Patient and/or Family Agrees t: Yes Safety Risks/Education Patient Education: Transfer Techniques, Correct Positioning, Safety Issues Teaching Recipient: Patient Teaching Methods: Discussion Response to Teaching: Reinforcement Needed Time/GCodes Time In: 800 Time Out: 900 Total Billed Treatment Time: 60 Total Billed Treatment (800-900) 1, GT (20m), EX x2 (30m) & FA (10m) ([id number]) 1, FA (15m) COSMO GARCIA STEWARD/STEWARDESS LOUNGE Dec 22, 2021 09:00
--- NOTE | 2021-12-22 11:09 | Speech Therapy Daily Note ---
Speech Daily Progress Note Subjective Date Seen by Provider: Dec 22, 2021 Time Seen by Provider: 09:00 The patient was seated upright in her recliner upon entrance to her room. The patient greeted the clinician appropriately and was agreeable to participation in the cognitive linguistic treatment session. To note, the patient does respond more appropriately to spontaneous conversational exchanges on this date, however, the presence of whole-word paraphasias do remain present. The patient's assigned RN visited with the clinician prior to the treatment session on this date. The RN stated the night RN reported intermittent coughing with thin liquids. Due to this report, the clinician will re-assess for aspiration on this date. Objective - Dysphagia: The patient was provided three teaspoons of water and ten single straw drinks of water. No s/s of suspected aspiration were demonstrated with teaspoons of water. The patient displayed a delayed throat clear following two of ten straw drinks, however, a throat clear was displayed at baseline in the absence of PO trials. Additional s/s of suspected aspiration were not demonstrated throughout the treatment session on this date. The patient displays a harsh, breathy vocal quality on this date. The clinician suspects the harsh, breathy vocal quality may be the result of poor vocal cord abduction/closure throughout phonation. The reduced vocal cord closure could result in decreased subglottic pressure during the oropharyngeal swallow response, allowing for intermittent laryngeal penetration or aspiration of thin liquid consistencies. However, on this date, overt, consistent s/s of suspected aspiration were not displayed. CXR: 12/17/21: 1. Mild cardiomegaly and pulmonary vascular congestion. 2. Mild prominence of the interstitium; suspect pulmonary edema. - Orientation: Through simple yes and no questions, the patient was oriented to month, year, city, and day of the week. The patient independently uses the in- room white board as a visual aid. - Functional Safety: Safety in the home setting was discussed with the patient and the use of her cellphone or a life alert system to contact 911. The patient was able to demonstrate on her room phone how to dial 911 for emergencies. As the patient may have periods of independence following discharge, continued safety discussions are necessary. Assessment Assessment Current Status: Fair Progress Treatment Plan Continue Plan of Care Speech Short Term Goals Short Term Goals Short Term Goals 1. The patient will display 75% accuracy with confrontational naming of objects with mild clinician verbal cueing. 2. The patient will repeat short phrases with 75% accuracy with mild clinician verbal cueing. Speech Snf Goals Snf Goals 1. The patient will display increased expressive and receptive communication for increased safety with return to the least restrictive environment. Speech-Plan Treatment Plan Speech Therapy Treatment Plan: Continue Plan of Care Treatment Duration: Jan 01, 2022 Frequency: 4 times per week (Four to five times per week. ) Estimated Hrs Per Day: .5 hour per day Rehab Potential: Fair Pt/Family Agrees to Plan: Yes Safety Risks/Education Teaching Recipient: Patient Teaching Methods: Discussion Response to Teaching: Reinforcement Needed Education Topics Provided: Word-Finding Strategies, Safe Swallowing Strategies and Practices Time Speech Therapy Time In: 09:00 Speech Therapy Time Out: 09:30 Total Billed Time: 30 Billed Treatment Time 1, BECKA PADILLA [facility] Dec 22, 2021 11:09
--- NOTE | 2021-12-22 11:53 | Occupational Ther Daily Note ---
OT Current Status-Daily Note Subjective Pt alert, sitting in recliner. Pt agrees to therapy. No c/o pain. Pt is demonstrating progress with following directions and expressing wants/needs. Mental Status/Objective Patient Orientation: Person, Place, Time, Situation ADL-Treatment Pt dressed self after set up. Pt ambulated without AD to bathroom, close SBA no LOB noted. Independent with toileting, grooming and oral care. Therapy Code Descriptions/Definitions Functional [place] Measure: 0=Not Assessed/NA 4=Minimal Assistance 1=Total Assistance 5=Supervision or Setup 2=Maximal Assistance 6=Modified [place] 3=Moderate Assistance 7=Complete IndependenceSCALE: Activities may be completed with or without assistive devices. 4-Eyrlnwvadw-kpansqn completes the activity by him/herself with no assistance from a helper. 5-Set-up or Clean-up Assistance-helper sets up or cleans up; patient completes activity. [place] assists only prior to or following the activity. 4-Supervision or Touching Assistance-helper provides verbal cues and/or touching/steadying and/or contact guard assistance as patient completes activity. Assistance may be provided throughout the activity or intermittently. 3-Partial/Moderate Assistance-helper does LESS THAN HALF the effort. [place] lifts, holds or supports trunk or limbs, but provides less than half the effort. 2-Substantial/Maximal Assistance-helper does MORE THAN HALF the effort. [place] lifts or holds trunk or limbs and provides more than half the effort. 0-Hbsbxeafz-xoamee does ALL the effort. Patient does none of the effort to complete the activity. Or, the assistance of 2 or more helpers is required for the patient to complete the activity. If activity was not attempted, code reason: 7-Patient Refused. 9-Not Applicable-not attempted and the patient did not perform the activity be fore the current illness, exacerbation or injury. 10-Not Attempted due to Environmental Limitations-(lack of equipment, weather restraints, etc.). 88-Not Attempted due to Medical Conditions or Safety Concerns. Oral Hygiene (QC): 6 Upper Body Dressing (QC): 5 Lower Body Dressing (QC): 5 Toileting Hygiene (QC): 6 Toilet Transfer (QC): 6 Other Treatment Pt ambulated to therapy gym, no AD with close SBA. Pt completed exercises strengthening supervisor garage, pinch and B UE. Arm bike completed 10 min at 20 [place] resis tance rotation forwards and backwards. B wrists flex,ext,ulnar/rad deviation using 2# wt 1 set 10 reps, pt had difficulty with following instructions on correct technique. Medium resistance theraputty completed by finding small beads throughout putty. After session, pt sitting in recliner with call light/phone in reach. All needs met in room. OT Short Term Goals Short Term Goals Time Frame: Dec 25, 2021 Eatin Oral hygiene: 5 Toileting hygiene: 3 Shower/bathe self: 4 Upper body dressin Lower body dressin Putting on/taking off footwear: 3 OT Manual Arts Therapist Goals Manual Arts Therapist Goals Time Frame: Jan 02, 2022 Eating (QC): 6 Oral Hygiene (QC): 5 Toileting Hygiene (QC): 6 Shower/Bathe Self (QC): 5 Upper Body Dressing (QC): 5 Lower Body Dressing (QC): 5 On/Off Footwear (QC): 5 1=Demonstrate adherence to instructed precautions during ADL tasks. 2=Patient will verbalize/demonstrate understanding of assistive devices/modifications for ADL. 3=Patient will improve strength/tolerance for activity to enable patient to perform ADL's. OT Education/Plan Problem List/Assessment Assessment: Decreased Activ Tolerance, Decreased UE Strength, Impaired Cognition, Impaired Self-Care Skills Discharge Recommendations Plan/Recommendations: Continue POC Treatment Plan/Plan of Care Patient would benefit from OT for education, treatment and training to promote independence in ADL's, mobility, safety and/or upper extremity function for ADL's. Plan of Care: ADL Retraining, Cognitive Retraining, Functional Mobility, Group Exercise/Act as Ind, UE Funct Exercise/Act, Visual/Perceptual Retrain, W/C Management Training Treatment Duration: Jan 02, 2022 Frequency: At least 5 of 7 days/Wk (IRF) Estimated Hrs Per Day: 1.5 hours per day (75-90 min) Agreement: Yes Rehab Potential: Fair Time/GCodes Start Time: 10:45 Stop Time: 12:00 Total Time Billed (hr/min): 75 Billed Treatment Time 1 visit-ADL 2 (35 min) EX 3 (40 min) HUBERT PELLETIER Dec 22, 2021 11:53
[2021-12-22] MEDS: RIVAROXABAN 20 MG TABLET (XARELTO) PO SCH (17:22)
[2021-12-22 20:00] VITALS: BP 179/77
[2021-12-22] MEDS: FERROUS SULF 325 MG (IRON) TAB PO SCH (21:01)
[2021-12-22] MEDS: meTOproloL SUCCINATE 50 MG (TOPROL XL) TAB PO SCH (21:02)
[2021-12-23] MEDS: LEVOTHYROXINE 75 MCG (LEVOTHROID) TABLET PO SCH (05:53)
[2021-12-23] MEDS: BETHANECHOL 10 MG (URECHOLINE) TAB PO SCH ×4 (05:54→20:49)
[2021-12-23] MEDS: VENlafaxine XR 75 MG (EFFEXOR XR) CAP PO SCH (06:47)
--- NOTE | 2021-12-23 06:59 | PM&R Progress Note ---
Subjective HPI/CC On Admission Date Seen by Provider: Dec 23, 2021 Time Seen by Provider: 09:00 Subjective/Events-last exam 12/23/2021: Pt is doing really well Discharge planned for tomorrow Checked meds and labs No pain Daughter at the bedside agrees with plan 12/22/2021: Pt is doing well Bp elevated before home meds given Checked meds and labs No falls Dramatically improved 12/21/2021: Pt is doing a lot better Mentation is improved Less fogginess Checked meds and labs 12/20/2021: Patient much clearer Family at bedside Participating in ADLs Check meds and labs No falls 12/19/2021: Patient doing about the same Granddaughter at the bedside MRI showed some additional infarcts in the same area she has had strokes before Failed Eliquis started her on Xarelto Updated Dr. Hurtado Blood pressure is labile Patient is confused Review of Systems General: Fatigue, Malaise Neurological: Weakness, Incoordination, Change in speech, Confusion Objective Exam Vital Signs Vital Signs Date Time Temp Pulse Resp B/P (MAP) Pulse Ox O2 Delivery O2 Flow Rate FiO2 12/23/21 20:15 Room Air 12/23/21 19:26 36.9 69 18 155/83 (107) 90 Capillary Refill : General Appearance: No Apparent Distress, WD/WN, Chronically ill HEENT: PERRL/EOMI, Normal ENT Inspection, Pharynx Normal Neck: Full Range of Motion, Normal Inspection, Non Tender, Supple, Carotid Bruit Respiratory: Chest Non Tender, Lungs Clear, Normal Breath Sounds, No Accessory Muscle Use, No Respiratory Distress Cardiovascular: No Edema, No Gallop, No JVD, Normal Peripheral Pulses, Systolic Murmur, Irregularly Irregular Gastrointestinal: Normal Bowel Sounds, No Organomegaly, No Pulsatile Mass, Non Tender, Soft Back: Normal Inspection, No CVA Tenderness, No Vertebral Tenderness Extremity: Normal Capillary Refill, Normal Inspection, Normal Range of Motion, Non Tender, No Calf Tenderness, No Pedal Edema Neurologic/Psychiatric: Alert, No Motor/Sensory Deficits, Normal Mood/Affect, Abnormal Cerebellar Tests, Abnormal Gait, Disoriented, Facial Droop, Motor Wea kness, Sensory Deficit Skin: Normal Color, Warm/Dry Lymphatic: No Adenopathy Results/Procedures Lab Patient resulted labs reviewed. FIM Transfers Therapy Code Descriptions/Definitions Functional [place] Measure: 0=Not Assessed/NA 4=Minimal Assistance 1=Total Assistance 5=Supervision or Setup 2=Maximal Assistance 6=Modified [place] 3=Moderate Assistance 7=Complete IndependenceSCALE: Activities may be completed with or without assistive devices. 4-Bsczymrkrr-jwrmleo completes the activity by him/herself with no assistance from a helper. 5-Set-up or Clean-up Assistance-helper sets up or cleans up; patient completes activity. [place] assists only prior to or following the activity. 4-Supervision or Touching Assistance-helper provides verbal cues and/or touching/steadying and/or contact guard assistance as patient completes activity. Assistance may be provided throughout the activity or intermittently. 3-Partial/Moderate Assistance-helper does LESS THAN HALF the effort. [place] lifts, holds or supports trunk or limbs, but provides less than half the effort. 2-Substantial/Maximal Assistance-helper does MORE THAN HALF the effort. [place] lifts or holds trunk or limbs and provides more than half the effort. 1-Hbnhvgeli-qwpgpd does ALL the effort. Patient does none of the effort to complete the activity. Or, the assistance of 2 or more helpers is required for the patient to complete the activity. If activity was not attempted, code reason: 7-Patient Refused. 9-Not Applicable-not attempted and the patient did not perform the activity before the current illness, exacerbation or injury. 10-Not Attempted due to Environmental Limitations-(lack of equipment, weather restraints, etc.). 88-Not Attempted due to Medical Conditions or Safety Concerns. Roll Left to Right (QC): 4 Sit to Lying (QC): 4 Sit to Stand (QC): 4 Chair/Mtw-rc-Pmxwk Xfer(QC): 4 Car Transfer (QC): 4 Gait Training Does the Patient Walk?: Yes Distance: 150' x2 Walk 10 feet (QC): 5 Walk 50 ft with 2 Turns(QC): 5 Walk 150 ft (QC): 5 Walking 10ft/uneven surface-QC: 3 Gait Persons Needed: 1 Gait Assistive Device: FWW Wheelchair Training Does the Pt Use a Wheelchair?: No Wheel 50 ft with 2 turns (QC): 9 Wheel 150 ft (QC): 9 Stair Training #of Steps: 1 1 Step (curb) (QC): 3 4 Steps (QC): 88 12 Steps (QC): 88 Balance Picking up an Object (QC): 4 ADL-Treatment Eating (QC): 6 Oral Hygiene (QC): 6 Shower/Bathe Self (QC): 5 Upper Body Dressing (QC): 5 Lower Body Dressing (QC): 5 On/Off Footwear (QC): 3 Toileting Hygiene (QC): 6 Toilet Transfer (QC): 6 Assessment/Plan Assessment and Plan Assess & Plan/Chief Complaint Assessment: Acute CVA but microscopic infarcts on MRI done 12/18/2021 revealed flare of previous residual from CVA 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 transferred to then again 10/03/21 s/p thrombectomy after emergent med flight 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 Hurtado History of acute hematuria in the past GERD Gout History of urinary retention monitor closely Tendency for hypoglycemia Acute confusion now improved Plan: Move to rehab Changed Eliquis to Xarelto Home meds Appreciate Dr. Hurtado 12/19/2021: Xarelto Supportive care 12/20/2021: Supportive care Oral anticoagulation 12/21/2021: Supportive care Improved 12/22/2021: Supportive care Dramatically improved 12/23/2021: Supportive care Discharge home tomorrow (1) Permanent atrial fibrillation Assessment & Plan: Her heart rates are reasonably controlled with metoprolol succinate. She should continue on rivaroxaban and follow-up with electrophysiology at the outside facility as an outpatient following discharge. She had been taking apixaban at home but then appears to have suffered another stroke. As such, I changed her apixaban over to rivaroxaban. This was an empiric change. There are no guidelines regarding what to do in this instance of recurrent stroke while on oral anticoagulation. She is scheduled for a Watchman device in the future. (2) Acute cerebrovascular accident Assessment & Plan: Her MRI from this admission showed a subacute versus chronic ischemic cerebrovascular accident. This occurred in the setting of permanent atrial fibrillation while on anticoagulant therapy with apixaban. Her daughter has been assisting with medication management and is quite sure the patient did not miss any doses of apixaban. As such, this may be an apixaban failure. I have taken the liberty of changing her over to rivaroxaban. She is following with electrophysiology at [facility] and plans to underg o Watchman left atrial exclusion device placement in the next few months. This is permanent atrial fibrillation and as such, there is no indication for antiarrhythmic drug. (3) Primary hypertension Assessment & Plan: Blood pressures are intermittently elevated but improving. If the elevated blood pressures persist, we may need to make some adjustments to her antihypertensive medication. (4) Mixed hyperlipidemia Assessment & Plan: Continue high-dose statin medication in light of the recent stroke. (5) Chronic kidney disease, stage 3 Assessment & Plan: Her creatinine clearance hovers right around 50 which is the lower cut off for renal adjusting the dose of rivaroxaban. Since she was on standard dosing of apixaban and then had a stroke, I would recommend that we maintain the patient on the full-strength dose of rivaroxaban and not change the dose if her creatinine clearance drops below 50. (6) Atherosclerosis of both carotid arteries Assessment & Plan: She had a previous left carotid endarterectomy. 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 She follows with vascular surgery at [facility] for monitoring. NKECHI VO DO Dec 23, 2021 06:59
[2021-12-23 07:18] VITALS: BP 196/90
--- NOTE | 2021-12-23 08:06 | Occupational Ther Daily Note ---
OT Current Status-Daily Note Subjective Pt alert, sitting in recliner. Pt agrees to therapy. No c/o pain. Pt is aphasic though makes wants and needs known. ADL-Treatment Pt agrees to shower. Pt able to complete all ADLs by self, safety concerns due to problem solving difficulties when interruptions with sequences occur. After therapy, pt sitting in recliner with call light/phone in reach. All needs met in room. Therapy Code Descriptions/Definitions Functional [place] Measure: 0=Not Assessed/NA 4=Minimal Assistance 1=Total Assistance 5=Supervision or Setup 2=Maximal Assistance 6=Modified [place] 3=Moderate Assistance 7=Complete IndependenceSCALE: Activities may be completed with or without assistive devices. 8-Pxatcquryj-ibalihp completes the activity by him/herself with no assistance from a helper. 5-Set-up or Clean-up Assistance-helper sets up or cleans up; patient completes activity. [place] assists only prior to or following the activity. 4-Supervision or Touching Assistance-helper provides verbal cues and/or touching/steadying and/or contact guard assistance as patient completes acti vity. Assistance may be provided throughout the activity or intermittently. 3-Partial/Moderate Assistance-helper does LESS THAN HALF the effort. [place] lifts, holds or supports trunk or limbs, but provides less than half the effort. 2-Substantial/Maximal Assistance-helper does MORE THAN HALF the effort. [place] lifts or holds trunk or limbs and provides more than half the effort. 2-Qhdtvybgq-ygbfvb does ALL the effort. Patient does none of the effort to complete the activity. Or, the assistance of 2 or more helpers is required for the patient to complete the activity. If activity was not attempted, code reason: 7-Patient Refused. 9-Not Applicable-not attempted and the patient did not perform the activity before the current illness, exacerbation or injury. 10-Not Attempted due to Environmental Limitations-(lack of equipment, weather restraints, etc.). 88-Not Attempted due to Medical Conditions or Safety Concerns. Eating (QC): 6 Oral Hygiene (QC): 6 Shower/Bathe Self (QC): 6 Upper Body Dressing (QC): 6 Lower Body Dressing (QC): 6 On/Off Footwear: 6 Toileting Hygiene (QC): 6 Toilet Transfer (QC): 6 OT Short Term Goals Short Term Goals Time Frame: Dec 25, 2021 Eatin Oral hygiene: 5 Toileting hygiene: 3 Shower/bathe self: 4 Upper body dressin Lower body dressin Putting on/taking off footwear: 3 OT Care Home Goals Care Home Goals Time Frame: Jan 02, 2022 Eating (QC): 6 Oral Hygiene (QC): 5 Toileting Hygiene (QC): 6 Shower/Bathe Self (QC): 5 Upper Body Dressing (QC): 5 Lower Body Dressing (QC): 5 On/Off Footwear (QC): 5 1=Demonstrate adherence to instructed precautions during ADL tasks. 2=Patient will verbalize/demonstrate understanding of assistive devices/modifications for ADL. 3=Patient will improve strength/tolerance for activity to enable patient to perform ADL's. OT Education/Plan Problem List/Assessment Assessment: Decreased Safety Aware, Impaired Cognition Discharge Recommendations Plan/Recommendations: Continue POC Treatment Plan/Plan of Care Patient would benefit from OT for education, treatment and training to promote independence in ADL's, mobility, safety and/or upper extremity function for ADL's. Plan of Care: ADL Retraining, Cognitive Retraining, Functional Mobility, Group Exercise/Act as Ind, UE Funct Exercise/Act, Visual/Perceptual Retrain, W/C Management Training Treatment Duration: Jan 02, 2022 Frequency: At least 5 of 7 days/Wk (IRF) Estimated Hrs Per Day: 1.5 hours per day (75-90 min) Agreement: Yes Rehab Potential: Fair Time/GCodes Start Time: 07:30 Stop Time: 08:15 Total Time Billed (hr/min): 45 Billed Treatment Time 1 visit-ADL 3 (45 min) HUBERT PELLETIER Dec 23, 2021 08:06
[2021-12-23] MEDS: metFORMIN XR 500 MG (GLUCOPHAGE XR) TAB PO SCH (08:57)
[2021-12-23] MEDS: DOCUSATE SODIUM 100 MG (COLACE) CAP PO SCH ×2 (08:57→21:22)
[2021-12-23] MEDS: PANTOPRAZOLE 40 MG (PROTONIX) TAB PO SCH (08:57)
[2021-12-23] MEDS: GABAPENTIN 300 MG (NEURONTIN) CAP PO SCH (08:57)
[2021-12-23] MEDS: LOSARTAN 100 MG (COZAAR) TABLET PO SCH (08:57)
[2021-12-23] MEDS: meTOprolol SUCCINATE 100 MG (TOPROL XL) TAB PO SCH (08:57)
--- NOTE | 2021-12-23 09:02 | Physical Therapy Daily Note ---
PT Daily Note-Current Subjective Pt sitting in recliner after just finishing OT tx. Pt agrees to PT. Pain Location: No Pain Reported Mental Status Patient Orientation: Person, Place Transfers SCALE: Activities may be completed with or without assistive devices. 4-Kdyjfkuuty-tvorjek completes the activity by him/herself with no assistance from a helper. 5-Set-up or Clean-up Assistance-helper sets up or cleans up; patient completes activity. [place] assists only prior to or following the activity. 4-Supervision or Touching Assistance-helper provides verbal cues and/or touching/steadying and/or contact guard assistance as patient completes activity. Assistance may be provided throughout the activity or intermittently. 3-Partial/Moderate Assistance-helper does LESS THAN HALF the effort. [place] lifts, holds or supports trunk or limbs, but provides less than half the effort. 2-Substantial/Maximal Assistance-helper does MORE THAN HALF the effort. [place] lifts or holds trunk or limbs and provides more than half the effort. 1-Petkliucw-yavhmr does ALL the effort. Patient does none of the effort to complete the activity. Or, the assistance of 2 or more helpers is required for the patient to complete the activity. If activity was not attempted, code reason: 7-Patient Refused. 9-Not Applicable-not attempted and the patient did not perform the activity before the current illness, exacerbation or injury. 10-Not Attempted due to Environmental Limitations-(lack of equipment, weather restraints, etc.). 88-Not Attempted due to Medical Conditions or Safety Concerns. Sit to Stand (QC): 5 Weight Bearing Full Weight Bearing Full Weight Bearing Gait Training Does the Patient Walk?: Yes Distance: 150', 200' Walk 10 feet (QC): 5 Walk 50 ft with 2 Turns(QC): 5 Walk 150 ft (QC): 5 Gait Persons Needed: 1 Gait Assistive Device: FWW VC for sequencing at times. Exercises Seated Therapy Exercises: Ankle pumps, Long arc quads, Hip flexion, Glut set Seated Reps: 15 NuStep Minutes: 15 NuStep Workload: 3 Treatments TF to standing and amb. in hallway. Pt takes short RB then uses NuStep for 15m at WL 3. Pt amb. in hallway then takes a short RB before completing Seated EX. Pt returns to room to rest in recliner with all needs met, call light in hand. Assessment Current Status: Good Progress Pt takes RB as needed for fatigue. Pt needs VC for sequencing and afety at times. PT Short Term Goals Short Term Goals Time Frame: Dec 25, 2021 Roll Left & Right: 6 Sit to lyin Lying to sitting on side of be: 4 Sit to stand: 4 (SBA) Chair/qhm-mb-ytglx transfer: 4 (SBA) Walk 10 feet: 4 (SBA) Walk 50 feet with two turns: 4 (SBA) Walk 150 feet: 4 (SBA) PT Clerk To Justice Goals Clerk To Justice Goals PT [facility] Goals Time Frame: Jan 08, 2022 Roll Left & Right (QC): 6 Sit to Lying (QC): 6 Lying-Sitting on Side/Bed(QC): 6 Sit to Stand (QC): 5 Chair/Kyw-fd-Tqkab Xfer(QC): 5 Toilet Transfer (QC): 5 Car Transfer (QC): 5 Does the Patient Walk: Yes Walk 10 feet (QC): 5 Walk 50ft with 2 Turns (QC): 5 Walk 150 ft (QC): 5 Walking 10ft on Uneven Surface: 5 1 Step (curb) (QC): 4 4 Steps (QC): 4 12 Steps (QC): 88 Picking up an Object (QC): 5 Wheel 50 feet with 2 turns (QC: 9 Wheel 150 feet: 9 PT Plan Problem List Problem List: Activity Tolerance Treatment/Plan Treatment Plan: Continue Plan of Care Treatment Plan: Bed Mobility, Education, Functional Activity [place], Functional Strength, Group Therapy, Gait, Safety, Therapeutic Exercise, Transfers Treatment Duration: Jan 08, 2022 Frequency: At least 5 of 7 days/Wk (IRF) Estimated Hrs Per Day: 1.5 hours per day Patient and/or Family Agrees t: Yes Safety Risks/Education Patient Education: Gait Training, Correct Positioning, Safety Issues Teaching Recipient: Patient Teaching Methods: Discussion Response to Teaching: Verbalize Understanding Time/GCodes Time In: 815 Time Out: 900 Total Billed Treatment Time: 45 Total Billed Treatment 1, GT (15m) & EX x2 (30m) COSMO GARCIA MILK TANKER DRIVER Dec 23, 2021 09:02
--- NOTE | 2021-12-23 09:38 | Speech Therapy Daily Note ---
Speech Daily Progress Note Subjective Date Seen by Provider: Dec 23, 2021 Time Seen by Provider: 09:00 The patient was seated upright in her recliner upon entrance. The patient greeted the clinician and was agreeable to participation in the cognitive linguistic treatment session. The patient's daughter remained at bedside throughout the treatment session. Objective - Orientation: The patient was oriented to month, day of week, and location. The patient stated the year was "2019," however, could identify the year through a yes and no question. - Yes/ No: The patient displayed 100% accuracy with simple yes and no questions. - One Step Commands: The patient displayed 100% accuracy with simple, one-step commands. - Repetition: The patient was able to repeat short phrases (of four words or less). Expression of Ideas/Wants: (2) Understanding Verbal Content: (2) Brief Interview-Mental Status: Yes Repetition of Three Words: Three (3) Temporal Orientation: Year: Incorrect Temporal Orientation: Month: Correct Temporal Orientation: Day: Correct Recall : Wear to say "Sock": No, could not recall (0) Recall : Color: No, could not recall (0) Recall : Bed: No, could not recall (0) Memory/Recall Ability: That she was in the hospital, Season Assessment Assessment Current Status: Good Progress Treatment Plan Continue Plan of Care Speech Short Term Goals Short Term Goals Short Term Goals 1. The patient will display 75% accuracy with confrontational naming of objects with mild clinician verbal cueing. 2. The patient will repeat short phrases with 75% accuracy with mild clinician verbal cueing. Speech Skilled Nursing Goals Dope Worker Goals 1. The patient will display increased expressive and receptive communication for increased safety with return to the least restrictive environment. Speech-Plan Treatment Plan Speech Therapy Treatment Plan: Continue Plan of Care Treatment Duration: Jan 01, 2022 Frequency: 4 times per week (Four to five times per week. ) Estimated Hrs Per Day: .5 hour per day Rehab Potential: Fair Safety Risks/Education Teaching Recipient: Patient, Family Teaching Methods: Discussion Response to Teaching: Verbalize Understanding Education Topics Provided: Plan of Care Time Speech Therapy Time In: 09:00 Speech Therapy Time Out: 09:30 Total Billed Time: 30 Billed Treatment Time Aaliyah PIERORUBI [address] Dec 23, 2021 09:38
[2021-12-23] MEDS: SENNA W/DOCUSATE (SENOKOT S) TABLET PO SCH ×2 (09:39→21:23)
[2021-12-23] MEDS: polyethylene glycoL POWDER 17 GM (MIRALAX) PACK PO SCH ×2 (09:39→21:23)
--- NOTE | 2021-12-23 14:31 | Therapy Group Daily Note ---
Therapy Daily Group Note Patient Education Topic Other List Below (environmental safety) Exercises LE Seated Exercise, UE Exercise Session Ratio (pt:therapist): 3:1 Goal of Session: Education on ARU Expectations, Home Safety Strategies, UE/LE Strengthing Goal Met for this Session: Yes Pt Benefit of Group: Contributions to Others, F/U Use of Strategies @Home, Increased Functional Safety, Increased Functional Strength, Improved Cognition, Recognition of Peers, Socialization Other/Notes Pt ambulated using FWW to ARU commons areas for OT/PT group. Group consisted of introductions (name,place living, positive things that came from COVID pandemic), socialization, B UE/LE seated exercise and educational topics about ARU, environmental/home safety. Pt able to introduce self appropriately and actively listening to peers. Discussion about grocery supervisor opening and picking or delivery in community. Environmental safety Bingo completed with word scramble to work on cognition and problem solving skills. Pt using good dynamic sitting balance during reaching and grasping throughout activities. After session, pt sitting in recliner with call light/phone in reach. All needs met in room. Start Time: 13:00 Stop Time: 14:00 Total Billed Treatment Time: 60 Total Billed Treatment 1-GRP HUBERT PELLETIER Dec 23, 2021 14:30
[2021-12-23] MEDS: RIVAROXABAN 20 MG TABLET (XARELTO) PO SCH (16:30)
[2021-12-23 19:26] VITALS: BP 155/83
[2021-12-23] MEDS ORDERED: RIVA20TA2 PO (20:18)
[2021-12-23] MEDS: meTOproloL SUCCINATE 50 MG (TOPROL XL) TAB PO SCH (20:49)
[2021-12-23] MEDS: FERROUS SULF 325 MG (IRON) TAB PO SCH (20:49)
--- NOTE | 2021-12-24 05:56 | Discharge Summary ---
Diagnosis/Chief Complaint Date of Admission Dec 18, 2021 at 11:44 Date of Discharge Discharge Date: Dec 24, 2021 Discharge Diagnosis Assessment: Acute CVA but microscopic infarcts on MRI done 12/18/2021 revealed flare of previous residual from CVA 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 transferred to [facility] then again 10/03/21 s/p thrombectomy after emergent med flight 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 Hurtado History of acute hematuria in the past GERD Gout History of urinary retention monitor closely Tendency for hypoglycemia Acute confusion now improved Plan: Move to rehab Changed Eliquis to Xarelto Home meds Appreciate Dr. Hurtado 12/19/2021: Xarelto Supportive care 12/20/2021: Supportive care Oral anticoagulation 12/21/2021: Supportive care Improved 12/22/2021: Supportive care Dramatically improved 12/23/2021: Supportive care Discharge home tomorrow Discharge Summary Discharge Physical Examination Allergies: Coded Allergies: No Known Drug Allergies (Unverified , 02/19/13) Vitals & I&Os Vital Signs Date Time Temp Pulse Resp B/P (MAP) Pulse Ox O2 Delivery O2 Flow Rate FiO2 12/24/21 12:00 35.9 66 16 161/70 90 Room Air General Appearance: Alert, Oriented X3, Cooperative Respiratory: Clear to Auscultation Cardiovascular: Regular Rate Neuro: Normal Gait, Normal Speech, Strength at 5/5 X4 Ext Psych/Mental Status: Mental Status NL Hospital Course Was the Problem List Reviewed?: Yes Pt had an uneventful 7 day hospital course after she was admitted following a CVA. She had multiple CVAs in the past. Continued to work on dysarthria. Her confusion did resolve. BP remained stable. Xarelto was maintained and pt was deemed stable for discharge. Labs (last 24 hrs) Laboratory Tests 12/18/21 20:21: Glucometer 199H 12/19/21 06:30: White Blood Count 7.9, Red Blood Count 4.12, Hemoglobin 12.0, Hematocrit 38, Mean Corpuscular Volume 93, Mean Corpuscular Hemoglobin 29, Mean Corpuscular Hemoglobin Concent 31L, Red Cell Distribution Width 15.0H, Platelet Count 280, Mean Platelet Volume 11.2, Immature Granulocyte % (Auto) 0, Neutrophils (%) (Auto) 67, Lymphocytes (%) (Auto) 15, Monocytes (%) (Auto) 10, Eosinophils (%) (Auto) 7, Basophils (%) (Auto) 1, Neutrophils # (Auto) 5.3, Lymphocytes # (Auto) 1.2, Monocytes # (Auto) 0.8, Eosinophils # (Auto) 0.6H, Basophils # (Auto) 0.1, Immature Granulocyte # (Auto) 0.0, Sodium Level 137, Potassium Level 4.0, Chloride Level 107, Carbon Dioxide Level 19L, Anion Gap 11, Blood Urea Nitrogen 14, Creatinine 0.98, Estimat Glomerular Filtration Rate 58, BUN/Creatinine Ratio 14, Glucose Level 130H, Calcium Level 9.0, Corrected Calcium 9.6, Total Bilirubin 0.8, Aspartate Amino Transf (AST/SGOT) 17, Alanine Aminotransferase (ALT/SGPT) < 6, Alkaline Phosphatase 90, Total Protein 6.9, Albumin 3.3, Triglycerides Level 121, Cholesterol Level 101, LDL Cholesterol Direct 43, VLDL Cholesterol 24, HDL Cholesterol 42 Microbiology 12/17/21 MRSA Screen - Final, Complete MRSA not isolated Pending Labs Microbiology Date/Time Source Procedure Growth Status 12/17/21 18:00 Nasal MRSA Screen - Final MRSA not isolated Complete Laboratory Tests 12/18/21 20:21: Glucometer 199 12/19/21 06:30: White Blood Count 7.9, Red Blood Count 4.12, Hemoglobin 12.0, Hematocrit 38, Mean Corpuscular Volume 93, Mean Corpuscular Hemoglobin 29, Mean Corpuscular Hemoglobin Concent 31, Red Cell Distribution Width 15.0, Platelet Count 280, Mean Platelet Volume 11.2, Immature Granulocyte % (Auto) 0, Neutrophils (%) (Auto) 67, Lymphocytes (%) (Auto) 15, Monocytes (%) (Auto) 10, Eosinophils (%) (Auto) 7, Basophils (%) (Auto) 1, Neutrophils # (Auto) 5.3, Lymphocytes # (Auto) 1.2, Monocytes # (Auto) 0.8, Eosinophils # (Auto) 0.6, Basophils # (Auto) 0.1, Immature Granulocyte # (Auto) 0.0, Sodium Level 137, Potassium Level 4.0, Chloride Level 107, Carbon Dioxide Level 19, Anion Gap 11, Blood Urea Nitrogen 14, Creatinine 0.98, Estimat Glomerular Filtration Rate 58, BUN/Creatinine Ratio 14, Glucose Level 130, Calcium Level 9.0, Corrected Calcium 9.6, Total Bilirubin 0.8, Aspartate Amino Transf (AST/SGOT) 17, Alanine Aminotransferase (ALT/SGPT) < 6, Alkaline Phosphatase 90, Total Protein 6.9, Albumin 3.3, Triglycerides Level 121, Cholesterol Level 101, LDL Cholesterol Direct 43, VLDL Cholesterol 24, HDL Cholesterol 42 Discharge Home Medications: Active Scripts Active Xarelto Tablet (Rivaroxaban) 20 Mg Tablet 20 Mg PO DAILY@1700 Reported Olmesartan Medoxomil 20 Mg Tablet 20 Mg PO DAILY Iron (Ferrous Sulfate) 325 Mg Tablet 325 Mg PO HS Victoza 2-Sanket (Liraglutide) 0.6 Mg/0.1 Ml Pen.injctr 1.2 Mg SQ 1200 Pantoprazole Sodium 40 Mg Tablet.dr 40 Mg PO DAILY Metformin HCl ER (Metformin HCl) 500 Mg Tab.er.24 500 Mg PO DAILY Atorvastatin Calcium 80 Mg Tablet 80 Mg PO HS Metoprolol Succinate 100 Mg Tab.er.24h 100 Mg PO DAILY Metoprolol Succinate 50 Mg Tab.er.24h 50 Mg PO HS Allopurinol 100 Mg Tablet 100 Mg PO BID Venlafaxine HCl ER (Venlafaxine HCl) 150 Mg Cap.er.24h 150 Mg PO DAILY Levothyroxine Sodium 75 Mcg Tablet 75 Mcg PO DAILY Urecholine (Bethanechol Chloride) 10 Mg Tablet 10 Mg PO ACHS Neurontin (Gabapentin) 300 Mg Capsule 300 Mg PO DAILY Cyanocobalamin Injection (Cyanocobalamin) 1,000 Mcg/Ml Inj 1,000 Mcg IM MONTHLY Tylenol (Acetaminophen) 325 Mg Tablet 650 Mg PO Q4H PRN Instructions to patient/family Please see electronic discharge instructions given to patient. Diagnosis/Problems Diagnosis/Problems (1) Acute cerebrovascular accident (2) Expressive aphasia Status: Acute (3) HTN (hypertension) Status: Acute (4) Atherosclerosis of both carotid arteries (5) Permanent atrial fibrillation (6) Mixed hyperlipidemia (7) Primary hypertension (8) Chronic kidney disease, stage 3 (9) Type 2 diabetes mellitus with complication (10) Hypothyroid (11) GERD (gastroesophageal reflux disease) NKECHI VO DO Dec 24, 2021 05:56
[2021-12-24] MEDS: LEVOTHYROXINE 75 MCG (LEVOTHROID) TABLET PO SCH (06:06)
[2021-12-24] MEDS: VENlafaxine XR 75 MG (EFFEXOR XR) CAP PO SCH (06:06)
[2021-12-24] MEDS: BETHANECHOL 10 MG (URECHOLINE) TAB PO SCH ×2 (06:06→11:14)
[2021-12-24 07:57] VITALS: BP 161/70
[2021-12-24] MEDS: metFORMIN XR 500 MG (GLUCOPHAGE XR) TAB PO SCH (08:02)
[2021-12-24] MEDS: PANTOPRAZOLE 40 MG (PROTONIX) TAB PO SCH (08:02)
[2021-12-24] MEDS: meTOprolol SUCCINATE 100 MG (TOPROL XL) TAB PO SCH (08:02)
[2021-12-24] MEDS: LOSARTAN 100 MG (COZAAR) TABLET PO SCH (08:02)
[2021-12-24] MEDS: GABAPENTIN 300 MG (NEURONTIN) CAP PO SCH (08:02)
--- NOTE | 2021-12-24 09:14 | Therapy Team Discharge Summary ---
Therapy Discharge Summary Discharge Recommendations Date of Discharge Physical Therapy Roll Left to Right (QC): 4 Sit to Lying (QC): 4 Lying to Sitting/Side of Bed(Q: 3 Sit to Stand (QC): 5 Chair/Ybq-hw-Tfaqm Xfer(QC): 4 Toilet Transfer (QC): 4 Car Transfer (QC): 4 Does the Patient Walk: Yes Mode of Locomotion: Walk Anticipated Mode of Locomotion: Walk Walk 10 feet (QC): 5 Walk 50 ft with 2 Turns(QC): 5 Walk 150 ft (QC): 5 Walking 10ft on uneven surface: 3 Distance: 50' Gait Assistive Device: FWW Does the Pt Use a Wheelchair: No Wheel 50 ft with 2 turns (QC): 9 Wheel 150 ft (QC): 9 #of Steps: 1 1 Step (curb) (QC): 3 4 Steps (QC): 88 12 Steps (QC): 88 Walking Assistive Device: Walker Balance Sitting Static: Normal Balance Sitting Dynamic: Normal Balance-Standing Static: Fair Picking up an Object (QC): 4 Occupational Therapy Decreased Safety Aware, Impaired Cognition Eating (QC): 6 Oral Hygiene (QC): 6 Shower/Bathe Self (QC): 6 Upper Body Dressing (QC): 6 Lower Body Dressing (QC): 6 On/Off Footwear (QC): 6 Toileting Hygiene (QC): 6 Speech-Language Pathology The patient has participated in skilled speech pathology treatment to target expressive and receptive language deficits. The patient has displayed consistent improvement in expression and comprehension, however, does continue to display periods of paraphasia (whole word and phoneme). Continued skilled speech pathology treatment is recommended in the home or as an outpatient. PT Senior Care Goals Senior Care Goals PT Senior Care Goals Time Frame: Jan 08, 2022 Roll Left to Right (QC): 6 Sit to Lying (QC): 6 Lying-Sitting on Side/Bed(QC): 6 Sit to Stand (QC): 5 Chair/Ulm-ks-Dvypy Xfer(QC): 5 Car Transfer (QC): 5 Does the Patient Walk: Yes Walk 10 feet (QC): 5 Walk 10ft-Uneven Surface(QC): 5 Walk 50ft with 2 Turns (QC): 5 Walk 150 ft (QC): 5 Wheel 50 feet with 2 turns (QC: 9 1 Step (curb) (QC): 4 4 Steps (QC): 4 12 Steps (QC): 88 Picking up an Object (QC): 5 OT Senior Care Goals Senior Care Goals Time Frame: Jan 02, 2022 Eating (QC): 6 Oral Hygiene (QC): 5 Shower/Bathe Self (QC): 5 Upper Body Dressing (QC): 5 Lower Body Dressing (QC): 5 On/Off Footwear (QC): 5 Toileting Hygiene (QC): 6 Toilet/Commode Transfer (QC): 5 1=Demonstrate adherence to instructed precautions during ADL tasks. 2=Patient will verbalize/demonstrate understanding of assistive devices/modifications for ADL. 3=Patient will improve strength/tolerance for activity to enable patient to perform ADL's. Speech Senior Care Goals Regional Director Of Admissions Goals 1. The patient will display increased expressive and receptive communication for increased safety with return to the least restrictive environment. MET MAGGIE FRANKS Dec 24, 2021 09:14
[2021-12-24] MEDS: SENNA W/DOCUSATE (SENOKOT S) TABLET PO SCH (09:49)
[2021-12-24] MEDS: DOCUSATE SODIUM 100 MG (COLACE) CAP PO SCH (09:49)
[2021-12-24] MEDS: polyethylene glycoL POWDER 17 GM (MIRALAX) PACK PO SCH (09:49)
--- NOTE | 2021-12-24 10:06 | Therapy Team Discharge Summary ---
Therapy Discharge Summary Discharge Recommendations Date of Discharge Physical Therapy Roll Left to Right (QC): 6 Sit to Lying (QC): 6 Lying to Sitting/Side of Bed(Q: 6 Sit to Stand (QC): 6 Chair/Asf-nf-Kjokq Xfer(QC): 6 Toilet Transfer (QC): 5 Car Transfer (QC): 6 Does the Patient Walk: Yes Mode of Locomotion: Walk Anticipated Mode of Locomotion: Walk Walk 10 feet (QC): 5 Walk 50 ft with 2 Turns(QC): 5 Walk 150 ft (QC): 5 Walking 10ft on uneven surface: 5 Distance: 200 Gait Assistive Device: FWW Does the Pt Use a Wheelchair: No Wheel 50 ft with 2 turns (QC): 9 Wheel 150 ft (QC): 9 #of Steps: 12 1 Step (curb) (QC): 4 4 Steps (QC): 4 12 Steps (QC): 4 Walking Assistive Device: Walker Balance Sitting Static: Normal Balance Sitting Dynamic: Normal Balance-Standing Static: Fair Picking up an Object (QC): 6 Occupational Therapy Decreased Safety Aware, Impaired Cognition Eating (QC): 6 Oral Hygiene (QC): 6 Shower/Bathe Self (QC): 6 Upper Body Dressing (QC): 6 Lower Body Dressing (QC): 6 On/Off Footwear (QC): 6 Toileting Hygiene (QC): 6 PT Halfway Goals Halfway Goals PT Halfway Goals Time Frame: Jan 08, 2022 Roll Left to Right (QC): 6 Sit to Lying (QC): 6 Lying-Sitting on Side/Bed(QC): 6 Sit to Stand (QC): 5 Chair/Khl-pm-Kwzsx Xfer(QC): 5 Car Transfer (QC): 5 Does the Patient Walk: Yes Walk 10 feet (QC): 5 Walk 10ft-Uneven Surface(QC): 5 Walk 50ft with 2 Turns (QC): 5 Walk 150 ft (QC): 5 Wheel 50 feet with 2 turns (QC: 9 1 Step (curb) (QC): 4 4 Steps (QC): 4 12 Steps (QC): 88 Picking up an Object (QC): 5 OT Halfway Goals Halfway Goals Time Frame: Jan 02, 2022 Eating (QC): 6 Oral Hygiene (QC): 5 Shower/Bathe Self (QC): 5 Upper Body Dressing (QC): 5 Lower Body Dressing (QC): 5 On/Off Footwear (QC): 5 Toileting Hygiene (QC): 6 Toilet/Commode Transfer (QC): 5 1=Demonstrate adherence to instructed precautions during ADL tasks. 2=Patient will verbalize/demonstrate understanding of assistive devices/modifications for ADL. 3=Patient will improve strength/tolerance for activity to enable patient to perform ADL's. Speech Halfway Goals Invoicing Specialist Goals 1. The patient will display increased expressive and receptive communication for increased safety with return to the least restrictive environment. MET FATOU EVANS PT Dec 24, 2021 10:06
[2021-12-24 12:00] VITALS: BP 161/70
--- NOTE | 2021-12-24 14:01 | Therapy Team Discharge Summary ---
Therapy Discharge Summary Discharge Recommendations Date of Discharge Therapy D/C Recommendations: Home w/ Family Support, Homemaker Support, Occupational Therapy Outpatient Physical Therapy Roll Left to Right (QC): 6 Sit to Lying (QC): 6 Lying to Sitting/Side of Bed(Q: 6 Sit to Stand (QC): 6 Chair/Xed-td-Guoba Xfer(QC): 6 Toilet Transfer (QC): 5 Car Transfer (QC): 6 Does the Patient Walk: Yes Mode of Locomotion: Walk Anticipated Mode of Locomotion: Walk Walk 10 feet (QC): 5 Walk 50 ft with 2 Turns(QC): 5 Walk 150 ft (QC): 5 Walking 10ft on uneven surface: 5 Distance: 200 Gait Assistive Device: FWW Does the Pt Use a Wheelchair: No Wheel 50 ft with 2 turns (QC): 9 Wheel 150 ft (QC): 9 #of Steps: 12 1 Step (curb) (QC): 4 4 Steps (QC): 4 12 Steps (QC): 4 Walking Assistive Device: Walker Balance Sitting Static: Normal Balance Sitting Dynamic: Normal Balance-Standing Static: Fair Picking up an Object (QC): 6 Occupational Therapy Pt arrived to [facility]U post CVA. On day of evaluation she was max a for toileting, footwear, and lower body dressing. mod a for bathing, set up for upper body dressing, and sba for oral care. While on rehab, OT focused on scanning techniques, safety, endurance, balance, UE strengthening, functional cognition, and energy conservation in order to improve safety and performance with adls and functional transfers. Pt made good progress and met all of her usp goals. She is now indep with all adls and functional transfers. Pt is discharged from this facility and will be discharged from OT. Decreased Safety Aware, Impaired Cognition Eating (QC): 6 Oral Hygiene (QC): 6 Shower/Bathe Self (QC): 6 Upper Body Dressing (QC): 6 Lower Body Dressing (QC): 6 On/Off Footwear (QC): 6 Toileting Hygiene (QC): 6 PT Intermediate Goals Intermediate Goals PT Health Editor Goals Time Frame: Jan 08, 2022 Roll Left to Right (QC): 6 Sit to Lying (QC): 6 Lying-Sitting on Side/Bed(QC): 6 Sit to Stand (QC): 5 Chair/Hno-vj-Hgoca Xfer(QC): 5 Car Transfer (QC): 5 Does the Patient Walk: Yes Walk 10 feet (QC): 5 Walk 10ft-Uneven Surface(QC): 5 Walk 50ft with 2 Turns (QC): 5 Walk 150 ft (QC): 5 Wheel 50 feet with 2 turns (QC: 9 1 Step (curb) (QC): 4 4 Steps (QC): 4 12 Steps (QC): 88 Picking up an Object (QC): 5 OT Health Editor Goals Health Editor Goals Time Frame: Jan 02, 2022 Eating (QC): 6 (met) Oral Hygiene (QC): 5 (met) Shower/Bathe Self (QC): 5 (met) Upper Body Dressing (QC): 5 (met) Lower Body Dressing (QC): 5 (met) On/Off Footwear (QC): 5 (met) Toileting Hygiene (QC): 6 (met) Toilet/Commode Transfer (QC): 5 (met) 1=Demonstrate adherence to instructed precautions during ADL tasks. 2=Patient will verbalize/demonstrate understanding of assistive devices/modifications for ADL. 3=Patient will improve strength/tolerance for activity to enable patient to perform ADL's. Speech Intermediate Goals Health Editor Goals 1. The patient will display increased expressive and receptive communication for increased safety with return to the least restrictive environment. MET Paloma Cortez OT Dec 24, 2021 14:00
== END 2021-12-24 12:16 | disposition home health service (06) | DRG 57 ==
PROVIDERS: ADMIT Internal Medicine; ATTEND Internal Medicine
DX: I69.320 Aphasia following cerebral infarction (principal); I69.354 Hemiplegia and hemiparesis following cerebral infarction affecting left non-dominant side; I48.21 Permanent atrial fibrillation; I69.398 Other sequelae of cerebral infarction; I69.318 Other symptoms and signs involving cognitive functions following cerebral infarction; H53.8 Other visual disturbances; R41.0 Disorientation, unspecified; R53.1 Weakness; I12.9 Hypertensive chronic kidney disease with stage 1 through stage 4 chronic kidney disease, or unspecified chronic kidney disease; E11.22 Type 2 diabetes mellitus with diabetic chronic kidney disease; N18.30 Chronic kidney disease, stage 3 unspecified; E03.9 Hypothyroidism, unspecified; E78.00 Pure hypercholesterolemia, unspecified; E78.2 Mixed hyperlipidemia; K21.9 Gastro-esophageal reflux disease without esophagitis; I25.10 Atherosclerotic heart disease of native coronary artery without angina pectoris; I65.23 Occlusion and stenosis of bilateral carotid arteries; M10.9 Gout, unspecified; Z79.84 Long term (current) use of oral hypoglycemic drugs; Z79.01 Long term (current) use of anticoagulants; Z87.891 Personal history of nicotine dependence; Z96.653 Presence of artificial knee joint, bilateral
CPT/HCPCS: 36415; 80053; 80061; 82947; 85025; 87081

== ENCOUNTER → 2022-04-06 | Outpatient (CLI) | payer MEDICARE ==
[~2022-04-06] MED LIST changes: +FERR-84 PO; +LIRA0.6P SQ; +METF-478 PO; +OLME40TA18 PO; +RIVA20TA2 PO
[2022-04-06 11:03] LABS: POTASSIUM 3.6 MMOL/L (3.6-5.0)
[2022-04-06 11:04] LABS: CALCIUM 8.8 MG/DL (8.5-10.1)
--- NOTE | 2022-04-06 11:05 | Diagnostic Imaging Report ---
INDICATION: Dyspnea. PA and lateral views of the chest are obtained with comparison made study of 02/21/2018 FINDINGS: There is mild cardiomegaly and pulmonary venous congestion. Mildly prominent interstitial markings are also noted. Surgical findings are seen within the heart. No pleural fluid is identified. IMPRESSION: There is cardiomegaly with mild pulmonary venous congestion and probable mild interstitial pulmonary edema indicating congestive heart failure. No other acute abnormality is seen. Dictated by: Dictated on workstation # [id number]
[2022-04-06 11:08] LABS: CREATININE SERUM 1.6 MG/DL (0.60-1.30)
== END ==
LOC: RAD 10:27
PROVIDERS: ATTEND Family Medicine
DX: I51.7 Cardiomegaly (principal); R09.89 Other specified symptoms and signs involving the circulatory and respiratory systems
CPT/HCPCS: 36415; 71046; 80048; 83880

== ENCOUNTER → 2022-04-12 | Outpatient (CLI) | payer MEDICARE ==
[2022-04-12 09:42] LABS: HEMATOCRIT 40 % (35-52); HEMOGLOBIN 12.5 g/dL (11.5-16.0); MEAN CORPUSCULAR HEMOGLOBIN 29 pg (25-34); MEAN CORPUSCULAR HGB CONC 31 g/dL (32-36); MEAN CORPUSCULAR VOLUME 93 fL (80-99); MEAN PLATELET VOLUME 11.8 fL (9.0-12.2); PLATELET COUNT 252 10^3/uL (130-400); WHITE BLOOD COUNT 6.5 10^3/uL (4.3-11.0)
[2022-04-12 09:54] LABS: ALBUMIN 3.3 GM/DL (3.2-4.5); BILIRUBIN,TOTAL 2.1 MG/DL (0.1-1.0); CALCIUM 8.8 MG/DL (8.5-10.1); CREATININE SERUM 1.58 MG/DL (0.60-1.30); POTASSIUM 3.2 MMOL/L (3.6-5.0); TOTAL PROTEIN 7.1 GM/DL (6.4-8.2)
== END ==
LOC: LAB 09:08
PROVIDERS: ATTEND Family Medicine
DX: I50.9 Heart failure, unspecified (principal); N28.9 Disorder of kidney and ureter, unspecified
CPT/HCPCS: 36415; 80053; 83880; 85027

== ENCOUNTER 2022-05-04 16:32 | Emergency (ER) | payer MEDICARE ==
[~2022-05-04] VITALS: Ht 157.5 cm; Wt 95.7 kg
--- NOTE | 2022-05-04 18:11 | ED General ---
General Chief Complaint: - 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 Stated Complaint: DIFFICULTY URNINATING Nursing Triage Note: pt amb to ed by pov with daughter with c/o urine retention. daughter reports pt had 100cc urine output this morning and 150cc this afternoon and is taking 10mg bethamechol TID. pt is taking 40mg lasix. pt reports increased weakness over the last couple of weeks. denies pain, burning, or difficulty urinating. daughter reports pt has fallen 3 times in the last 2 weeks and normally only falls about once/month. denies n/v/d, fever, chills, or any other symptoms. Source of Information: Patient, Family Exam Limitations: No Limitations History of Present Illness Date Seen by Provider: May 04, 2022 Time Seen by Provider: 18:10 Initial Comments Patient is an 82-year-old female who presents to the emergency department today with a chief complaint of decreased urination over the last 24 to 48 hours. She has a history of prior stroke, A. fib, watchman procedure, diabetes, chronic kidney disease. She recently had a heart cath at to delineate coronary anatomy. She was found to have critical aortic stenosis. She is currently anticoagulated on Pradaxa. She has had a couple falls over the last several weeks. Has not hit her head or had a loss of consciousness. No fevers or chills are reported. A little bit of progressive shortness of breath. Significant lower extremity swelling. Her primary care physician, Dr. VAUGHN has decreased her dose of Lasix unless she gains 3 pounds in 24 hours. Her daughter gave her her normal dose of 40 mg of Lasix today as well as put her back on her bethanechol at noon today. She has a wound lateral to the left knee as a result from a fall on Father's Day that has been draining clear fluid. No joint swelling erythema or increased pain at that site. She does not have a concrete puddler. Her local data base design analyst is Dr. Louie at [place]. The cath was done at . No diarrhea, black or bloody stools. No burning with urination just decreased frequency and volume. All other review of systems reviewed and negative except as stated. Timing/Duration: 2-3 Days Severity: Moderate Associated Systoms: Malaise, Shortness of Air, Weakness Allergies and Home Medications Allergies Coded Allergies: No Known Drug Allergies (Unverified , 02/19/13) Patient Home Medication List Home Medication List Reviewed: Yes Acetaminophen (Tylenol) 325 Mg Tablet, 650 MG PO Q4H PRN for PAIN-MILD (1-4), (Reported) Entered as Reported by: ERNESTO MELTON on 09/29/21 1127 Allopurinol (Allopurinol) 100 Mg Tablet, 100 MG PO BID, (Reported) Entered as Reported by: ERNESTO MELTON on 12/18/21 102 Atorvastatin Calcium (Atorvastatin Calcium) 80 Mg Tablet, 80 MG PO HS, (Reported) Entered as Reported by: ERNESTO MELTON on 12/18/21 102 Bethanechol Chloride (Urecholine) 10 Mg Tablet, 10 MG PO ACHS, (Reported) Entered as Reported by: ERNESTO MELTON on 12/18/21 102 Cyanocobalamin (Cyanocobalamin Injection) 1,000 Mcg/Ml Inj, 1,000 MCG IM MONTHLY, (Reported) Entered as Reported by: ERNESTO MELTON on 09/29/21 112 Ferrous Sulfate (Iron) 325 Mg Tablet, 325 MG PO HS, (Reported) Entered as Reported by: ERNESTO MELTON on 12/18/21 102 Gabapentin (Neurontin) 300 Mg Capsule, 300 MG PO DAILY, (Reported) Entered as Reported by: ERNESTO MELTON on 12/18/21 102 Levothyroxine Sodium (Levothyroxine Sodium) 75 Mcg Tablet, 75 MCG PO DAILY, (Reported) Entered as Reported by: ERNESTO MELTON on 12/18/21 102 Liraglutide (Victoza 2-Sanket) 0.6 Mg/0.1 Ml Pen.injctr, 1.2 MG SQ 1200, (Reported) Entered as Reported by: ERNESTO MELTON on 12/18/21 102 Metformin HCl (Metformin HCl ER) 500 Mg Tab.er.24, 500 MG PO DAILY, (Reported) Entered as Reported by: ERNESTO MELTON on 12/18/21 102 Metoprolol Succinate (Metoprolol Succinate) 50 Mg Tab.er.24h, 50 MG PO HS, (Reported) Entered as Reported by: ERNESTO MELTON on 12/18/21 102 Metoprolol Succinate (Metoprolol Succinate) 100 Mg Tab.er.24h, 100 MG PO DAILY, (Reported) Entered as Reported by: ERNESTO MELTON on 12/18/21 1022 Olmesartan Medoxomil (Olmesartan Medoxomil) 20 Mg Tablet, 20 MG PO DAILY, (Rep orted) Entered as Reported by: ERNESTO MELTON on 12/18/21 1023 Pantoprazole Sodium (Pantoprazole Sodium) 40 Mg Tablet.dr, 40 MG PO DAILY, (Reported) Entered as Reported by: ERNESTO MELTON on 12/18/21 1022 Rivaroxaban (Xarelto Tablet) 20 Mg Tablet, 20 MG PO DAILY@1700 Prescribed by: NKECHI VO on 12/23/212017 Venlafaxine HCl (Venlafaxine HCl ER) 150 Mg Cap.er.24h, 150 MG PO DAILY, (Reported) Entered as Reported by: ERNESTO MELTON on 12/18/21 1022 Review of Systems Review of Systems Constitutional: see HPI EENTM: no symptoms reported Respiratory: short of breath Cardiovascular: no symptoms reported Gastrointestinal: no symptoms reported Genitourinary: decreased output : No Musculoskeletal: other (swelling Bilat LE) Skin: other (draining wound) All Other Systems Reviewed Negative Unless Noted: Yes Past Uxxkmez-Gxpjue-Vbcraw Hx Patient Social History Tobacco Use?: No Use of E-Cig and/or Vaping dev: No Substance use?: No Alcohol Use?: No Pt feels they are or have been: No Immunizations Up To Date First/Initial COVID19 Vaccinat: 12/2020 Second COVID19 Vaccination Maninder: 01/2021 Third COVID19 Vaccination Date: 09/29/2021 COVID19 Vaccine 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 Technician: caleb Past Medical History Surgery/Hospitalization HX: RECENT STROKES, DM2, CHF, HTN Surgeries: Yes (SEE BELOW) Eye Surgery, Gallbladder, Hysterectomy, Joint Replacement, Oophorectomy, Orthopedic, Vascular Surgery Respiratory: No Cardiac: Yes (CAROTID DISEASE) Atrial Fibrillation, Coronary Artery Disease, Heart Attack, High Cholesterol, Hypertension, Peripheral Vascular Neurological: Yes Headaches /Migraines, Stroke 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 Disorders: No 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: Hysterectomy, Menopausal Genitourinary: No Gastrointestinal: Yes Gastroesophageal Reflux, Diverticulosis Musculoskeletal: Yes (BILATERAL TOTAL KNEE REPLACEMENT: CERVICAL SPINE SURGERY) Degenerate Disk Disease, Arthritis Endocrine: Yes Diabetes, Insulin dep, Hypothyroidsim HEENT: Yes Cataract Cancer: No Psychosocial: No Integumentary: No Blood Disorders: Yes (ANEMIA) Family Medical History No Pertinent Family Hx SOCIAL HISTORY: -NO SMOKING -NO ETOH -NO DRUGS PAST SURGICAL HISTORY: -LEFT CAROTID ENDARTERECTOMY -HYSTERECTOMY WITH RIGHT SALPINGO-OOPHORECTOMY -BILATERAL CATARACT SURGERY -CERVICAL SPINE SURGERY -BILATERAL TOTAL KNEE REPLACEMENT -CHOLECYSTECTOMY -EGD/COLONOSCOPY 02/[address] PITT Physical Exam Vital Signs Vital Signs - First Documented 05/04/22 16:40 Temp 36.4 Pulse 89 Resp 18 B/P (MAP) 144/95 (111) Pulse Ox 100 O2 Delivery Room Air Capillary Refill : Less Than 3 Seconds Height, Weight, BMI Height: 5'3.00" Weight: 225lbs. oz. 101.993804xu; 38.00 BMI Method:Estimated General Appearance: No Apparent Distress, WD/WN Eyes: Bilateral Eye Normal Inspection, Bilateral Eye PERRL, Bilateral Eye EOMI, Bilateral Eye Conjunctivae Pale (slightly pale) Neck: Supple, Other (ecchymoses right lateral neck (reportedly had access for heart cath right neck) Respiratory: Lungs Clear, Normal Breath Sounds, No Accessory Muscle Use, No Respiratory Distress, Other (sats 96% RA) Cardiovascular: Normal Peripheral Pulses, Systolic Murmur, Irregularly Irregular Gastrointestinal: Normal Bowel Sounds, Non Tender, Soft Extremity: Pedal Edema Neurologic/Psychiatric: Alert, Oriented x3, No Motor/Sensory Deficits, Normal Mood/Affect, 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 Norm as Tested Skin: Normal Color, Warm/Dry, Ecchymosis (right neck) Progress/Results/Core Measures Suspected Sepsis SIRS Temperature: Pulse: 89 Respiratory Rate: 18 Laboratory Tests 05/04/22 15:53: White Blood Count 7.1 Blood Pressure 144 /95 Mean: 111 Laboratory Tests 05/04/22 15:53: Creatinine 1.77H, Platelet Count 271, Total Bilirubin 2.3H Results/Orders Lab Results Laboratory Tests Test 05/04/22 15:53 05/04/22 18:01 Range/Units White Blood Count 7.1 4.3-11.0 10^3/uL Red Blood Count 4.41 3.80-5.11 10^6/uL Hemoglobin 13.1 11.5-16.0 g/dL Hematocrit 42 35-52 % Mean Corpuscular Volume 95 80-99 fL Mean Corpuscular Hemoglobin 30 25-34 pg Mean Corpuscular Hemoglobin Concent 31 L 32-36 g/dL Red Cell Distribution Width 20.0 H 10.0-14.5 % Platelet Count 271 130-400 10^3/uL Mean Platelet Volume 11.9 9.0-12.2 fL Immature Granulocyte % (Auto) 0 % Neutrophils (%) (Auto) 73 42-75 % Lymphocytes (%) (Auto) 12 12-44 % Monocytes (%) (Auto) 8 0-12 % Eosinophils (%) (Auto) 4 0-10 % Basophils (%) (Auto) 2 0-10 % Neutrophils # (Auto) 5.2 1.8-7.8 10^3/uL Lymphocytes # (Auto) 0.9 L 1.0-4.0 10^3/uL Monocytes # (Auto) 0.6 0.0-1.0 10^3/uL Eosinophils # (Auto) 0.3 0.0-0.3 10^3/uL Basophils # (Auto) 0.1 0.0-0.1 10^3/uL Immature Granulocyte # (Auto) 0.0 0.0-0.1 10^3/uL Sodium Level 142 135-145 MMOL/L Potassium Level 3.7 3.6-5.0 MMOL/L Chloride Level 108 H 98-107 MMOL/L Carbon Dioxide Level 17 L 21-32 MMOL/L Anion Gap 17 H 5-14 MMOL/L Blood Urea Nitrogen 34 H 7-18 MG/DL Creatinine 1.77 H 0.60-1.30 MG/DL Estimat Glomerular Filtration Rate 29 BUN/Creatinine Ratio 19 Glucose Level 150 H 70-105 MG/DL Calcium Level 8.9 8.5-10.1 MG/DL Corrected Calcium 9.5 8.5-10.1 MG/DL Total Bilirubin 2.3 H 0.1-1.0 MG/DL Aspartate Amino Transf (AST/SGOT) 34 5-34 U/L Alanine Aminotransferase (ALT/SGPT) 24 0-55 U/L Alkaline Phosphatase 194 H 40-136 U/L B-Type Natriuretic Peptide 1186.4 H <100.0 PG/ML Total Protein 7.2 6.4-8.2 GM/DL Albumin 3.3 3.2-4.5 GM/DL Urine Color YELLOW Urine Clarity CLEAR Urine pH 5.5 5-9 Urine Specific [place] 1.020 1.016-1.022 Urine Protein 1+ H NEGATIVE Urine Glucose (UA) NEGATIVE NEGATIVE Urine Ketones NEGATIVE NEGATIVE Urine Nitrite NEGATIVE NEGATIVE Urine Bilirubin NEGATIVE NEGATIVE Urine Urobilinogen 2.0 < = 1.0 MG/DL Urine Leukocyte Esterase 3+ H NEGATIVE Urine RBC (Auto) 2+ H NEGATIVE Urine RBC 0-2 /HPF Urine WBC 25-50 H /HPF Urine Squamous Epithelial Cells 10-25 H /HPF Urine Renal Epithelial Cells NONE /HPF Urine Crystals NONE /LPF Urine Bacteria LARGE H /HPF Urine Casts NONE /LPF Urine Mucus NEGATIVE /LPF Urine Culture Indicated YES My Orders Orders - TAMMY ROMERO MD Ed Iv/Invasive Line Start (05/04/22 18:11) Cbc With Automated Diff (05/04/22 18:11) Comprehensive Metabolic Panel (05/04/22 18:11) Bnp Mine (05/04/22 18:20) Ekg Tracing (05/04/22 18:20) Chest 1 View, Ap/Pa Only (05/04/22 18:20) Vital Signs/I&O 05/04/22 16:40 Temp 36.4 Pulse 89 Resp 18 B/P (MAP) 144/95 (111) Pulse Ox 100 O2 Delivery Room Air Capillary Refill : Less Than 3 Seconds Blood Pressure Mean: 111 Progress Note : Time: 20:22 Progress Note Patient reassessed after laboratory studies completed. She is asymptomatic, vital signs remained stable. Labs show little bit of worsening of her chronic kidney disease. Her electrolytes are normal. Her BNP is close to its baseline as reflected on previous lab studies. Her chest x-ray is negative, no signs of increased pulmonary vascular congestion. Her daughter who is at the bedside states that she has an appointment with Dr. VAUGHN at 10:30 in the morning. I do not feel at this time with her worsening renal function and lower extremity edema that this necessarily indicate she needs admission for diuresis. She is not hypoxic she is not in pulmonary edema, her EKG is A. fib rate controlled. CBC is normal. She is comfortable with discharge. I recommended continuing to 40 mg of Lasix and watching her fluid intake. Continuing her bethanechol. Daughter seems comfortable with this plan of care. All questions are sought and answered. ECG Initial ECG Impression Date: May 04, 2022 Initial ECG Impression Time: 18:26 Initial ECG Rate: 81 Initial ECG Rhythm: Normal Sinus Comment Atrial fibrillation; nonspecific ST-T wave changes in the inferior and lateral leads with T wave inversion; atrial fibrillation is rate controlled. Diagnostic Imaging Diagonstic Imaging: Xray Plain Films/CT/US/NM/MRI: chest Comments [facility] [employer] [facility] [place], [place] NAME: GOLDY SHIPLEY [facility] REC#: [id number] PT STATUS: REG ER : 1940 PHYSICIAN: TAMMY ROMERO MD ADMIT DATE: 05/04/22/ER Signed Date of Exam:05/04/22 CHEST 1 VIEW, AP/PA ONLY Indication: Shortness of breath. Time of Exam: 6:35 PM Correlation is made with prior chest from 12/17/2021. The heart is enlarged. Lungs appear clear. No infiltrates are seen. There is no effusion or pneumothorax. IMPRESSION: Cardiomegaly. No other significant abnormality is detected. Dictated by: Dictated on workstation # [id number] Dict: 05/04/22 1834 Trans: 05/04/221841 [facility] [id number] Interpreted by: JUVENTINO JOHNSON MD Electronically signed by: JUVENTINO JOHNSON MD 05/04/221841 Departure Impression Primary Impression: Chronic kidney disease Qualified Codes: N18.9 - Chronic kidney disease, unspecified Additional Impression: Peripheral edema Disposition: 01 HOME, SELF-CARE Condition: Stable Departure-Patient Inst. Decision time for Depature: 20:24 Referrals: NICOLE VAUGHN DO (PCP/Family) Primary Care Physician Patient Instructions: Chronic Kidney Disease (DC) Add. Discharge Instructions: Continue your Lasix as prescribed at 40 mg. Also your bethanechol as previously directed. Watch your intake of salt very closely, the more salt in your diet the more fluid you will retain. Restrict your fluid intake a little bit over the next 24 hours. Your GFR on 12/19/21 was 58 5/31 was 32 6/6 was 33 05/04 is 29. If you develop a fever or chest pain or worsening shortness of breath during the night before your appointment with Dr. Vaughn tomorrow please come back to the emergency room for reevaluation. Copy Copies To 1: NICOLE VAUGHN KATHRYN M MD May 04, 2022 18:11
[2022-05-04 18:12] LABS: BILIRUBIN,URINE NEGATIVE (NEGATIVE); CLARITY,URINE CLEAR; COLOR,URINE YELLOW; GLUCOSE, URINE (UA) NEGATIVE (NEGATIVE); KETONES,URINE NEGATIVE (NEGATIVE); LEUKOCYTE ESTERASE ,URINE 3+ (NEGATIVE); NITRITE,URINE NEGATIVE (NEGATIVE); PH,URINE 5.5 (5-9); PROTEIN,URINE 1+ (NEGATIVE)
[2022-05-04 18:19] LABS: BACTERIA,URINE LARGE /HPF; RBC,URINE 0-2 /HPF; WBC,URINE 25-50 /HPF
--- NOTE | 2022-05-04 18:37 | Diagnostic Imaging Report ---
Indication: Shortness of breath. Time of Exam: 6:35 PM Correlation is made with prior chest from 12/17/2021. The heart is enlarged. Lungs appear clear. No infiltrates are seen. There is no effusion or pneumothorax. IMPRESSION: Cardiomegaly. No other significant abnormality is detected. Dictated by: Dictated on workstation # [id number]
[2022-05-04 19:23] LABS: BASOPHILS # (AUTO) 0.1 10^3/uL (0.0-0.1); BASOPHILS % (AUTO) 2 % (0-10); EOSINOPHILS # (AUTO) 0.3 10^3/uL (0.0-0.3); EOSINOPHILS % (AUTO) 4 % (0-10); HEMATOCRIT 42 % (35-52); HEMOGLOBIN 13.1 g/dL (11.5-16.0); LYMPHOCYTES # (AUTO) 0.9 10^3/uL (1.0-4.0); LYMPHOCYTES % (AUTO) 12 % (12-44); MEAN CORPUSCULAR HEMOGLOBIN 30 pg (25-34); MEAN CORPUSCULAR HGB CONC 31 g/dL (32-36); MEAN CORPUSCULAR VOLUME 95 fL (80-99); MEAN PLATELET VOLUME 11.9 fL (9.0-12.2); MONOCYTES # (AUTO) 0.6 10^3/uL (0.0-1.0); MONOCYTES % (AUTO) 8 % (0-12); NEUTROPHILS # (AUTO) 5.2 10^3/uL (1.8-7.8); NEUTROPHILS % (AUTO) 73 % (42-75); PLATELET COUNT 271 10^3/uL (130-400); WHITE BLOOD COUNT 7.1 10^3/uL (4.3-11.0)
[2022-05-04 19:38] LABS: ALBUMIN 3.3 GM/DL (3.2-4.5); BILIRUBIN,TOTAL 2.3 MG/DL (0.1-1.0); CALCIUM 8.9 MG/DL (8.5-10.1); CREATININE SERUM 1.77 MG/DL (0.60-1.30); POTASSIUM 3.7 MMOL/L (3.6-5.0); TOTAL PROTEIN 7.2 GM/DL (6.4-8.2)
[2022-05-04 20:55] VITALS: BP 137/65
== END 2022-05-04 21:03 | disposition home or self-care (01) ==
LOC: EDUNIT# 16:32 → ER 16:34
DX: I12.9 Hypertensive chronic kidney disease with stage 1 through stage 4 chronic kidney disease, or unspecified chronic kidney disease (principal); N18.9 Chronic kidney disease, unspecified; E11.22 Type 2 diabetes mellitus with diabetic chronic kidney disease; D63.1 Anemia in chronic kidney disease; R60.0 Localized edema; Z79.4 Long term (current) use of insulin
CPT/HCPCS: 36415; 71045; 80053; 81000; 83880; 85025; 87077; 87088; 87186; 93005